=== PATIENT | female | born 1940 | race Two or more races ===

== ENCOUNTER 2018-03-11 23:43 | Observation (INO) | payer OTHER ==
--- OUTSIDE RECORDS SUMMARY | 2018-03-11 23:45 | XMS REPORT ---
:1940 [facility] Address [address] [place] [address] Care Team Providers Name Role Phone Unavailable Unavailable Unavailable Problems This patient has no known problems. Allergies, Adverse Reactions, Alerts This patient has no known allergies or adverse reactions. Medications This patient has no known medications.
[2018-03-12 00:30] LABS: Absolute Lymphocytes (CBC) 2.3 K/uL (0.7-4.9); Absolute Monocytes 0.8 K/uL (0.1-1.3); Absolute Neutrophil 4.8 K/uL (1.8-8.0); Basophils % 0.8 % (0-1.3); Eosinophils % 3.2 % (0-4.4); Lymphocytes % 27.9 % (15.3-44.8); Monocytes % 10.1 % (3.3-12.3); RBC Red Blood Cell Count 3.53 M/uL (3.86-4.86)
[2018-03-12 00:34] LABS: Protime INR 1.08
--- NOTE | 2018-03-12 00:46 | EDPHYS ---
Physician Documentation [facility] Name: Janell Zuniga Age: 77 yrs Sex: Female : 1940 Arrival Date: 03/11/2018 Time: 23:44 Bed 2 Private MD: ED Physician Chau Phipps HPI: 03/12 00:41 This 77 yrs old Female presents to ER via EMS with complaints of Chest Pain. tiffany 00:41 The patient or guardian reports chest pain that is located primarily in the substernal tiffany area, anterior chest wall. Onset: today. The pain does not radiate. Associated signs and symptoms: The patient has no apparent associated signs or symptoms. The chest pain is described as aching, a heaviness, causing indigestion. Modifying factors: The symptoms are alleviated by nothing. the symptoms are aggravated by nothing. Severity of pain: At its worst the pain was mild in the emergency department the pain is unchanged. Historical: - Allergies: 03/11 23:55 Codeine; tl2 - Home Meds: 23:55 Eliquis 5 mg oral tab 2 times per day [Active]; Lyrica 50 mg Oral 2 times per day tl2 [Active]; divalproex 125 mg oral cpSP 2 caps every 8 hours [Active]; Protonix 40 mg Oral grps 1 packet once daily [Active]; trazodone 100 mg Oral tab 1 tab [Active]; pravastatin 20 mg oral tab 1 tab once daily [Active]; aspirin 81 mg Oral chew 1 tab once daily [Active]; hydrochlorothiazide 12.5 mg Oral cap 1 cap once daily [Active]; isosorbide mononitrate 30 mg Oral Tb24 2 tabs once daily [Active]; - PMHx: 23:55 CAD; Diabetes - NIDDM; hemiparesis right; aphasia; Hypertension; CVA; tl2 - Immunization history:: Adult Immunizations up to date. - Social history:: Smoking status: Patient/guardian denies using tobacco. - Ebola Screening: : No symptoms or risks identified at this time. - Family history:: not pertinent. ROS: 03/12 00:41 Constitutional: Negative for fever, chills, and weight loss, Eyes: Negative for injury, tiffany pain, redness, and discharge, ENT: Negative for injury, pain, and discharge, Neck: Negative for injury, pain, and swelling, Cardiovascular: Negative for chest pain, palpitations, and edema, Respiratory: Negative for shortness of breath, cough, wheezing, and pleuritic chest pain, Abdomen/GI: Negative for abdominal pain, nausea, vomiting, diarrhea, and constipation, Back: Negative for injury and pain, : Negative for injury, bleeding, discharge, and swelling, MS/Extremity: Negative for injury and deformity, Skin: Negative for injury, rash, and discoloration, Neuro: Negative for headache, weakness, numbness, tingling, and seizure. Exam: 00:41 Constitutional: This is a well developed, well nourished patient who is awake, alert, tiffany and in no acute distress. Head/Face: Normocephalic, atraumatic. Eyes: Pupils equal round and reactive to light, extra-ocular motions intact. Lids and lashes normal. Conjunctiva and sclera are non-icteric and not injected. Cornea within normal limits. Periorbital areas with no swelling, redness, or edema. ENT: Nares patent. No nasal discharge, no septal abnormalities noted. Tympanic membranes are normal and external auditory canals are clear. Oropharynx with no redness, swelling, or masses, exudates, or evidence of obstruction, uvula midline. Mucous membranes moist. Neck: Trachea midline, no thyromegaly or masses palpated, and no cervical lymphadenopathy. Supple, full range of motion without nuchal rigidity, or vertebral point tenderness. No Meningismus. Chest/axilla: Normal chest wall appearance and motion. Nontender with no deformity. No lesions are appreciated. Cardiovascular: Regular rate and rhythm with a normal S1 and S2. No gallops, murmurs, or rubs. Normal PMI, no JVD. No pulse deficits. Respiratory: Lungs have equal breath sounds bilaterally, clear to auscultation and percussion. No rales, rhonchi or wheezes noted. No increased work of breathing, no retractions or nasal flaring. Abdomen/GI: Soft, non-tender, with normal bowel sounds. No distension or tympany. No guarding or rebound. No evidence of tenderness throughout. Back: No spinal tenderness. No costovertebral tenderness. Full range of motion. Skin: Warm, dry with normal turgor. Normal color with no rashes, no lesions, and no evidence of cellulitis. MS/ Extremity: Pulses equal, no cyanosis. Neurovascular intact. Full, normal range of motion. Neuro: Awake and alert, GCS 15, oriented to person, place, time, and situation. Cranial nerves II-XII grossly intact. Motor strength 5/5 in all extremities. Sensory grossly intact. Cerebellar exam normal. Normal gait. Psych: Awake, alert, with orientation to person, place and time. Behavior, mood, and affect are within normal limits. Vital Signs: 03/11 23:55 BP 146 / 78; Pulse 71; Resp 14; Temp 99(O); Pulse Ox 95% on R/A; Weight 49.9 kg; Height tl2 5 ft. 8 in. (172.72 cm); Pain 05/01; 03/12 00:30 BP 126 / 65; Pulse 60; Resp 18; Pulse Ox 98% on 2 lpm NC; tl2 01:15 BP 146 / 70; Pulse 68; Resp 18; Pulse Ox 98% on 2 lpm NC; tl2 02:30 BP 174 / 81; Pulse 81; Resp 18; Pulse Ox 98% on 2 lpm NC; tl2 03/11 23:55 Body Mass Index 16.73 (49.90 kg, 172.72 cm) tl2 MDM: 00:12 Patient medically screened. [facility] 00:41 Data reviewed: vital signs, nurses notes, lab test result(s), EKG, radiologic studies, tiffany plain films. 03/12 00:14 Order name: Basic Metabolic Panel; Complete Time: 01:08 tl2 03/12 00:14 Order name: CBC with Diff; Complete Time: 01:08 tl2 03/12 00:14 Order name: Hepatic Function; Complete Time: 01:08 tl2 03/12 00:14 Order name: Magnesium; Complete Time: 01:08 tl2 03/12 00:14 Order name: NT PRO-BNP; Complete Time: 01:08 tl2 03/12 00:14 Order name: Protime (+inr); Complete Time: 01:08 tl2 03/12 00:14 Order name: Troponin (emerg Dept Use Only); Complete Time: 01:08 tl2 03/12 00:39 Order name: Depakote; Complete Time: 01:08 tl2 03/12 01:29 Order name: Basic Metabolic Panel EDMS 03/12 01:29 Order name: Basic Metabolic Panel EDTX 03/12 01:29 Order name: CBC with Automated Diff EDMS 03/12 01:29 Order name: CBC with Automated Diff EDTX 03/12 01:29 Order name: Lipid Profile EDTX 03/12 01:29 Order name: Lipid Profile EDTX 03/12 00:14 Order name: XRAY Chest (1 view) tl2 03/12 00:14 Order name: EKG; Complete Time: 00:15 tl2 03/12 00:14 Order name: Cardiac monitoring; Complete Time: 00:14 tl2 03/12 00:14 Order name: EKG - Nurse/Tech; Complete Time: 00:14 tl2 03/12 00:14 Order name: IV Saline Lock; Complete Time: 00:14 tl2 03/12 00:14 Order name: Labs collected and sent; Complete Time: 00:14 tl2 03/12 00:14 Order name: O2 Per Protocol; Complete Time: 00:14 tl2 03/12 00:14 Order name: O2 Sat Monitoring; Complete Time: 00:14 tl2 03/12 01:29 Order name: CONS Physician Consult EDTX 03/12 01:29 Order name: Heart Healthy EDTX 03/12 01:29 Order name: Echo with Doppler EDTX 03/12 01:29 Order name: EKG Electrocardiogram EDTX 03/12 01:29 Order name: EKG Electrocardiogram EDTX 03/12 01:29 Order name: Troponin I EDTX 03/12 01:29 Order name: Troponin I EDTX 03/12 01:29 Order name: Troponin I [facility] Administered Medications: No medications were administered Disposition: 03/12/18 00:46 Hospitalization ordered by Ash Regalado for Observation. Preliminary diagnosis are Other chest pain, Type 2 diabetes mellitus. - Bed requested for Telemetry/MedSurg (observation). - Status is Observation. tl2 - Condition is Stable. - Problem is new. - Symptoms have improved. UTI on Admission? No Signatures: Dispatcher [employer] EDTX Chau Phipps MD MD cha Garcia, Cindy, RN RN cg Winifred Umanzor RN RN tl2 Corrections: (The following items were deleted from the chart) 02:10 00:46 Hospitalization Ordered by Ash Regalado MD for Observation. Preliminary cg diagnosis is Other chest pain; Type 2 diabetes mellitus. Bed requested for Telemetry/MedSurg (observation). Status is Observation. Condition is Stable. Problem is new. Symptoms have improved. UTI on Admission? No. tiffany 04:01 02:10 03/12/2018 00:46 Hospitalization Ordered by Ash Regalado MD for Observation. tl2 Preliminary diagnosis is Other chest pain; Type 2 diabetes mellitus. Bed requested for Telemetry/MedSurg (observation). Status is Observation. Condition is Stable. Problem is new. Symptoms have improved. UTI on Admission? No.
--- NOTE | 2018-03-12 00:46 | ER ---
Nurse's Notes [facility] Name: Janell Zuniga Age: 77 yrs Sex: Female : 1940 Arrival Date: 03/11/2018 Time: 23:44 Bed 2 Private MD: Diagnosis: Other chest pain;Type 2 diabetes mellitus Presentation: 03/11 23:45 Presenting complaint: EMS states: Pt c/o chest pain approx 2230 tonight, was given 3 tl2 nitros at skilled nursing. Pt stated chest pain was 4/10. Pt given 1 nitro and 324 aspirin per EMS, pt states pain is now 2/10. Pt also reports right sided weakness x 3 days. Transition of care: patient was received from another setting of care (long-term care facility), [place]. Onset of symptoms was March 11, 2018 at 22:30. Risk Assessment: Do you want to hurt yourself or someone else? Patient reports no desire to harm self or others. Initial Sepsis Screen: Does the patient meet any 2 criteria? No. Patient's initial sepsis screen is negative. Does the patient have a suspected source of infection? No. Patient's initial sepsis screen is negative. Care prior to arrival: Medication(s) given: ASA, 81 mg, x 4, Nitroglycerin, 0.4 mg SL x 1, IV initiated. 22 GA, in the right antecubital area, Glucose check: 126. 23:45 Method Of Arrival: EMS: [facility] tl2 23:45 Acuity: ANANT 3 tl2 Triage Assessment: 23:55 General: Appears in no apparent distress. uncomfortable, Behavior is calm, cooperative, tl2 appropriate for age. Pain: Complains of pain in chest Pain does not radiate. Pain currently is 2 out of 10 on a pain scale. Neuro: Level of Consciousness is awake, alert, obeys commands, Oriented to person, place, time, situation, Moves all extremities. Speech is normal, Facial symmetry appears normal. Cardiovascular: Chest pain is described as vague, mild, is located in anterior chest wall. Respiratory: Airway is patent Respiratory effort is even, unlabored, Respiratory pattern is regular, symmetrical. GI: No signs and/or symptoms were reported involving the gastrointestinal system. : No signs and/or symptoms were reported regarding the genitourinary system. Derm: Skin is pink, warm \T\ dry. Historical: - Allergies: 23:55 Codeine; tl2 - Home Meds: 23:55 Eliquis 5 mg oral tab 2 times per day [Active]; Lyrica 50 mg Oral 2 times per day tl2 [Active]; divalproex 125 mg oral cpSP 2 caps every 8 hours [Active]; Protonix 40 mg Oral grps 1 packet once daily [Active]; trazodone 100 mg Oral tab 1 tab [Active]; pravastatin 20 mg oral tab 1 tab once daily [Active]; aspirin 81 mg Oral chew 1 tab once daily [Active]; hydrochlorothiazide 12.5 mg Oral cap 1 cap once daily [Active]; isosorbide mononitrate 30 mg Oral Tb24 2 tabs once daily [Active]; - PMHx: 23:55 CAD; Diabetes - NIDDM; hemiparesis right; aphasia; Hypertension; CVA; tl2 - Immunization history:: Adult Immunizations up to date. - Social history:: Smoking status: Patient/guardian denies using tobacco. - Ebola Screening: : No symptoms or risks identified at this time. - Family history:: not pertinent. Screenin:58 Abuse screen: Denies threats or abuse. Nutritional screening: No deficits noted. tl2 Tuberculosis screening: No symptoms or risk factors identified. Fall Risk Gait- Weak (10 pts.). Assessment: 23:25 General: see triage assessment. tl2 03/12 01:00 Reassessment: Patient appears in no apparent distress at this time. Patient and/or tl2 family updated on plan of care and expected duration. Pain level reassessed. 02:00 Reassessment: Patient appears in no apparent distress at this time. Patient and/or tl2 family updated on plan of care and expected duration. Pain level reassessed. 03:00 Reassessment: Patient appears in no apparent distress at this time. Patient and/or tl2 family updated on plan of care and expected duration. Pain level reassessed. Vital Signs: 03/11 23:55 BP 146 / 78; Pulse 71; Resp 14; Temp 99(O); Pulse Ox 95% on R/A; Weight 49.9 kg; Height tl2 5 ft. 8 in. (172.72 cm); Pain 2/10; 03/12 00:30 BP 126 / 65; Pulse 60; Resp 18; Pulse Ox 98% on 2 lpm NC; tl2 01:15 BP 146 / 70; Pulse 68; Resp 18; Pulse Ox 98% on 2 lpm NC; tl2 02:30 BP 174 / 81; Pulse 81; Resp 18; Pulse Ox 98% on 2 lpm NC; tl2 03/11 23:55 Body Mass Index 16.73 (49.90 kg, 172.72 cm) tl2 ED Course: 03/11 23:44 Patient arrived in ED. tl2 23:47 Triage completed. tl2 23:55 Arm band placed on right wrist. tl2 23:58 Patient has correct armband on for positive identification. Bed in low position. Call tl2 light in reach. Side rails up X2. threat monitoring analyst on. Pulse ox on. NIBP on. 23:58 Maintain EMS IV. Dressing intact. Good blood return noted. Site clean \T\ dry. Gauge \T\ tl 2 site: 22 g R AC. Patient maintains SpO2 saturation greater than 95% on room air. 03/12 00:12 Chau Phipps MD is Attending Physician. [facility] 00:18 Inserted saline lock: 22 gauge in right hand, using aseptic technique. Blood collected. tl2 00:44 Ash Regalado MD is Hospitalizing Provider. [facility] 00:48 X-ray completed. Portable x-ray completed in exam room. Patient tolerated procedure sg4 well. 00:55 XRAY Chest (1 view) In Process Unspecified. [facility] 03:55 Winifred Umanzor, JOSEPH is Primary Nurse. tl2 03:58 No provider procedures requiring assistance completed. Patient admitted, IV remains in tl2 place. Administered Medications: No medications were administered Outcome: 00:46 Decision to Hospitalize by Provider. [facility] 03:58 Admitted to Med/surg accompanied by tech, via stretcher, room 209. tl2 03:58 Condition: stable 03:58 Discharge instructions given to patient, Instructed on the need for admit. 04:01 Patient left the ED. tl2 Signatures: Dispatcher [employer] EDChau Richardson MD MD cha Knox, Taylor, RN RN 2 Alessandro Hannah sg4
[2018-03-12 00:48] LABS: ALT/SGPT 12 U/L (12-78); AST/SGOT 7 U/L (15-37); Albumin 3.1 g/dL (3.4-5.0); Alkaline Phosphatase 63 U/L (45-117); BUN Blood Urea Nitrogen 17 mg/dL (7-18); Bicarbonate 27 mmol/L (21-32); Bilirubin Direct < 0.1 mg/dL (0-0.2); Bilirubin Total 0.2 mg/dL (0.2-1.0); Glucose Level 114 mg/dL (74-106); Magnesium 1.8 mg/dL (1.8-2.4); NT PRO-BNP 521 pg/mL (<450); Potassium 3.5 mmol/L (3.5-5.1); Protein, Total 6.3 g/dL (6.4-8.2); Sodium Level 136 mmol/L (136-145); Troponin (Emerg Dept Use Only) < 0.02 ng/mL (0.0-0.045)
[2018-03-12] MEDS ORDERED: ALPRAZOLAM 0.25 MG TABLET PO PRN (01:25)
[2018-03-12] MEDS ORDERED: ACETAMINOPHEN 500 MG TAB PO PRN (01:25)
[2018-03-12] MEDS ORDERED: MORPHINE 4 MG/ML SYR IV PRN (01:25)
[2018-03-12 06:32] LABS: HDL Cholesterol 43 mg/dL (40-60); LDL Cholesterol, Calculated 91 (<130); Troponin I < 0.02 ng/mL (0.0-0.045)
[2018-03-12] MEDS: METOPROLOL TAR 50 MG TAB PO SCH ×2 (08:24→21:51)
[2018-03-12] MEDS: LISINOPRIL 10 MG TAB PO SCH (08:27)
[2018-03-12 08:49] LABS: Urine Appearance CLEAR; Urine Bilirubin NEGATIVE (NEG); Urine Blood NEGATIVE (NEG); Urine Color YELLOW; Urine Glucose NEGATIVE (NEG); Urine Protein NEGATIVE (NEG); Urine Specific Gravity <=1.005 (1.005-1.030); Urine Urobilinogen 0.2 mg/dL (0.2-1.0)
[2018-03-12 09:00] LABS: Urine Microscopic Reflex NO UMIC
[2018-03-12] MEDS ORDERED: ENOXAPARIN 40 MG/0.4 ML SQ SCH (09:00)
[2018-03-12] MEDS ORDERED: ASPIRIN EC 81 MG TAB PO SCH (09:00)
--- NOTE | 2018-03-12 09:38 | P.HP ---
Certification for Inpatient Patient admitted to: Observation With expected LOS: <2 Midnights Patient will require the following post-hospital care: None Practitioner: I am a practitioner with admitting privileges, knowledge of patient current condition, hospital course, and medical plan of care. Services: Services provided to patient in accordance with Admission requirements found in Title 42 Section 412.3 of the Code of Federal Regulations Patient History Date of Service: 03/12/18 Reason for admission: Chest pain rule out acute coronary syndrome History of Present Illness: Patient is a 77-year-old who came to the hospital with chest discomfort. Patient history of a CVA and was left with aphasia as well as right-sided weakness. Patient also has tremors in appears to have some symptoms of Parkinson's disease. Patient came into the hospital with chest discomfort. Pain was mainly in the sternal region. She does have a hard time communicating because of the stroke. However she denies any diaphoresis. She was short of breath. There was some radiation to the shoulder. She was admitted to the hospital to be ruled out for acute coronary syndrome. Allergies codeine Allergy (Verified 03/12/18 02:24) Hives Home Medications: Apixaban [Eliquis] 5 mg PO BID 03/12/18 Aspirin Chewable [Aspirin Chewable*] 81 mg PO DAILY 03/12/18 Cholecalciferol (Vitamin D3) [Vitamin D3] 3,000 unit PO DAILY 03/12/18 Divalproex [Depakote Sprinkle*] 125 mg PO BID 03/12/18 Isosorbide Mononitrate [Isosorbide Mononitrate ER] 30 mg PO BID 03/12/18 Metformin HCl [Glucophage] 1,000 mg PO BID 03/12/18 Nitroglycerin 0.4 mg SL PRN 03/12/18 Pantoprazole [Protonix Tab*] 40 mg PO DAILY 03/12/18 Pravastatin Sodium 20 mg PO DAILY 03/12/18 Pregabalin [Lyrica*] 50 mg PO BID 03/12/18 Tramadol HCl [Ultram] 50 mg PO Q6HP PRN 03/12/18 Trazodone HCl [Desyrel] 100 mg PO BEDTIME 03/12/18 Vitamin B Complex [B Complex] 2 tab PO BID 03/12/18 hydroCHLOROthiazide [Hydrochlorothiazide*] 12.5 mg PO DAILY 03/12/18 - Past Medical/Surgical History Has patient received pneumonia vaccine in the past: No Diabetic: Yes -: hemiplegia hemiparesis following CVA right sided weakness -: aphasia -: HTN -: NIDDM -: heart sx - Family History Father Family History: Reviewed- Non-Contributory - Social History Smoking Status: Never smoker Alcohol use: No CD- Drugs: No Review of Systems 10-point ROS is otherwise unremarkable Physical Examination - Vital Signs Temperature: 98.9 F Blood Pressure: 157/69 Pulse: 64 Respirations: 18 Pulse Ox (%): 99 - Physical Exam General: Alert, In no apparent distress, Oriented x3 HEENT: Atraumatic, PERRLA, Mucous membr. moist/pink, EOMI, Sclerae nonicteric Neck: Supple, 2+ carotid pulse no bruit, No LAD, Without JVD or thyroid abnormality Respiratory: Clear to auscultation bilaterally, Normal air movement Cardiovascular: Regular rate/rhythm, Normal S1 S2, No murmurs Gastrointestinal: Normal bowel sounds, Soft and benign, Non-distended, No tenderness Musculoskeletal: No clubbing, No swelling, No tenderness Integumentary: No rashes Neurological: Sensation intact, Abnormal gait, Abnormal speech, Abnormal strength, Abnormal tone, Abnormal cranial nerve function, Abnormal reflexes, Abnormal affect Lymphatics: No axilla or inguinal lymphadenopathy - Studies Laboratory Data (last 24 hrs) 03/12/18 00:18: PT 12.7 H, INR 1.08 03/12/18 00:18: WBC 8.3, Hgb 10.4 L, Hct 30.0 L, Plt Count 329 03/12/18 00:18: Sodium 136, Potassium 3.5, BUN 17, Creatinine 1.08, Glucose 114 H, Magnesium 1.8, Total Bilirubin 0.2, AST 7 L, ALT 12, Alkaline Phosphatase 63 Assessment & Plan - Problems (Diagnosis) (1) Chest pain, rule out acute myocardial infarction Current Visit: Yes Status: Acute (2) History of stroke Current Visit: Yes Status: Acute (3) Parkinsonism Current Visit: Yes Status: Acute (4) Type 2 diabetes mellitus Current Visit: Yes Status: Acute (5) Hypertension Current Visit: Yes Status: Acute - Plan 1. Serial troponins and EKG 2. Cardiology consultation 3. Echocardiogram and outpatient stress test 4. Anti-platelet therapy, anti coagulation, beta-marilee, statin, and O2 as needed 5. IV morphine for pain 6. Nitro p.r.n. 7. Outpatient neurology follow-up for further workup of current symptoms including tremors Discharge Plan: Home Plan to discharge in: 48 Hours - Advance Directives Does patient have a Living Will: No Does patient have a Durable POA for Healthcare: No - Code Status/Comfort Care Code Status Assessed: Yes Code Status: Full Code Critical Care: No Time Spent Managing PTS Care (In Minutes): 50
--- NOTE | 2018-03-12 09:52 | RAD REPORT ---
EXAM DESCRIPTION: [place] Single View03/12/2018 12:54 am CLINICAL HISTORY: Chest pain COMPARISON: None FINDINGS: The lungs appear clear of acute infiltrate. The heart is mildly enlarged. Postsurgical changes involve the chest. IMPRESSION: No acute abnormalities displayed
[2018-03-12] MEDS ORDERED: MAGNESIUM SULFATE 1 gm IVPB 1 GM/100 ML BAG IV ONE (12:58)
[2018-03-12] MEDS ORDERED: POTASSIUM CL SA 10 MEQ TAB PO ONE (12:59)
[2018-03-12] MEDS ORDERED: PNEUMOCOCCAL VACCINE 0.5 ML IMVAC ONE (13:00)
[2018-03-12] MEDS ORDERED: INFLUENZA VACCINE (for 3y+) 0.5 ML DOSE IMVAC ONE (13:00)
[2018-03-12] MEDS ORDERED: NITROGLYCERIN 0.4 MG/TAB SL SCH (15:00)
--- NOTE | 2018-03-12 16:08 | EKG ---
Test Date: 2018-03-12 Test Time: 05:31:53 [employer]: RT MEASUREMENT RESULTS: Intervals: Rate: 63 CT: 146 QRSD: 112 QT: 430 QTc: 440 [place]: P: 32 CT: 146 QRS: -59 T: 65 INTERPRETIVE STATEMENTS: Normal sinus rhythm Left anterior fascicular block Nonspecific T wave abnormality Abnormal ECG No previous ECG available for comparison Electronically Signed On 03-12-18 16:07:55 ROTARY DUMP OPERATOR by Prasad Barnes
--- NOTE | 2018-03-12 16:09 | EKG ---
Test Date: 2018-03-11 Test Time: 23:55:52 Special Delivery Worker: CYNDI MEASUREMENT RESULTS: Intervals: Rate: 70 SC: 146 QRSD: 108 QT: 418 QTc: 451 [place]: P: 29 SC: 146 QRS: -64 T: 71 INTERPRETIVE STATEMENTS: Sinus rhythm with occasional premature ventricular complexes Left anterior fascicular block Anterior infarct, age undetermined Abnormal ECG No previous ECG available for comparison Electronically Signed On 03-12-18 16:08:06 LATIN TEACHER by Prasad Barnes
[2018-03-12] MEDS ORDERED: ISOSORBIDE MONO SR 30 MG TAB PO SCH (21:00)
[2018-03-12] MEDS: PREGABALIN 50 MG CAP PO SCH (21:50)
[2018-03-12] MEDS: APIXABAN 5 MG TABLET PO SCH (21:50)
[2018-03-12] MEDS: ATORVASTATIN 10 MG TAB PO SCH (21:51)
[2018-03-12] MEDS: DIVALPROEX NA 125 MG CAP PO SCH (21:51)
[2018-03-13 05:16] LABS: Absolute Lymphocytes (CBC) 1.9 K/uL (0.7-4.9); Absolute Neutrophil 4.8 K/uL (1.8-8.0); Basophils % 0.5 % (0-1.3); Eosinophils % 2.6 % (0-4.4); Hematocrit 34.3 % (36.0-45.0); Lymphocytes % 24.4 % (15.3-44.8); MPV 8.6 fL (7.6-11.3); Monocytes % 12.2 % (3.3-12.3)
[2018-03-13 05:34] LABS: Potassium 3.3 mmol/L (3.5-5.1)
[2018-03-13] MEDS ORDERED: POTASSIUM CL SA 10 MEQ TAB PO ONE (08:00)
[2018-03-13] MEDS ORDERED: HOME MED 1 EA UNK (Pravastatin Sodium [Pravastatin Sodium] 20 MG) PO SCH (09:00)
[2018-03-13] MEDS ORDERED: hydroCHLOROthiazide 12.5 MG CAP PO SCH (09:00)
[2018-03-13] MEDS: PREGABALIN 50 MG CAP PO SCH ×2 (09:35→20:41)
[2018-03-13] MEDS: ASPIRIN 81 MG CHEWABLE TABLET PO SCH (09:35)
[2018-03-13] MEDS: LISINOPRIL 10 MG TAB PO SCH (09:36)
[2018-03-13] MEDS: METOPROLOL TAR 50 MG TAB PO SCH ×2 (09:36→20:42)
[2018-03-13] MEDS: DIVALPROEX NA 125 MG CAP PO SCH ×2 (09:37→20:42)
[2018-03-13] MEDS: PANTOPRAZOLE 40MG TABLET PO SCH (09:37)
[2018-03-13] MEDS: APIXABAN 5 MG TABLET PO SCH ×2 (09:37→20:42)
--- NOTE | 2018-03-13 11:36 | P.PN ---
Subjective Date of Service: 03/13/18 Chief Complaint: Chest pain rule out acute coronary syndrome Subjective: No new changes, No C/O voiced, Improving Patient seen and examined at bedside. No family at bedside. Chart reviewed and case discussed with nursing staff. Review of Systems 10-point ROS is otherwise unremarkable Physical Examination - Vital Signs Temperature: 97.8 F Blood Pressure: 143/63 Pulse: 49 Respirations: 16 Pulse Ox (%): 92 - Physical Exam General: Alert, In no apparent distress, Confused HEENT: Atraumatic, PERRLA, EOMI Neck: Supple, JVD not distended Respiratory: Clear to auscultation bilaterally, Normal air movement Cardiovascular: Regular rate/rhythm, Normal S1 S2 Gastrointestinal: Normal bowel sounds, No tenderness Musculoskeletal: No tenderness Integumentary: No rashes Neurological: Normal speech, Normal tone, Normal affect Lymphatics: No axilla or inguinal lymphadenopathy Assessment And Plan - Current Problems (Diagnosis) (1) Chest pain, rule out acute myocardial infarction Current Visit: Yes Status: Acute (2) History of stroke Current Visit: Yes Status: Acute (3) Hypertension Current Visit: Yes Status: Acute (4) Parkinsonism Current Visit: Yes Status: Acute (5) Type 2 diabetes mellitus Current Visit: Yes Status: Acute - Plan 1. Serial troponins negative 2. Cardiology consultation, pending 3. Echocardiogram pending and outpatient stress test 4. Anti-platelet therapy, anti coagulation, beta-marilee, statin, and O2 as needed 5. IV morphine for pain 6. Nitro p.r.n. 7. Outpatient neurology follow-up for further workup of current symptoms including tremors
[2018-03-13] MEDS: ATORVASTATIN 10 MG TAB PO SCH (20:42)
--- NOTE | 2018-03-14 01:46 | CON ---
Date of Consultation: 03/12/[address] Garcia's service on 03/12/2018. I saw the patient on 03/12/2018. Reason For Consultation: Chest pain. 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 She has diabetes, has had a history of coronary artery disease. She is able to speak fairly clearly, although slow, but she is easy to understand. She came in with left-sided anterior chest pain that has been going on for about 2 days without any nausea or vomitin g or diaphoresis. Has had shortness of breath, but denied any PND, orthopnea, pedal edema, palpitati ons, or syncope. She has already ruled out for an [place]. Her BNP was 521, but otherwise she had a norm al chest x-ray. EKG was nonspecific. Troponin was negative. Her triglyceride was 220. Otherwise, the rest of her blood work was fairly normal. Past Medical History: As stated above. Allergies: CODEINE. Review of Systems: Negative. Social History: Negative. Family History: Negative. Medications: At home include Eliquis, aspirin, Depakote, metformin, Protonix, Pravachol, Lyrica, hyd rochlorothiazide, and nitroglycerin as needed. Physical Examination: General: She has right hemiparesis, aphasic, but understandable. Vital Signs: Were stable. She was in sinus rhythm, afebrile. HEENT: Negative. Neck: Supple without any bruit, lymphadenopathy, JVD, or thyromegaly. Chest: Clear to auscultation and percussion. Cardiac: Exam revealed a regular rhythm and rate with an aortic sclerosis murmur. No gallops or rub s. Abdomen: Benign. Extremities: Revealed no clubbing, cyanosis, or edema. Diagnostic Data: As stated earlier. Impression And Plan: 1.The patient with history of coronary artery disease with what sounds like stable angina. She has ruled out for myocardial infarction. I would continue her present regimen, but I would definitely ad d a beta-marilee to her regimen. She is already on aspirin. She is already on a statin. We can cer tainly see her as an outpatient. She does not need to stay in the hospital. We can consider doing a n outpatient Lexiscan on her. 2.Diabetes, well controlled. 3.Hypertriglyceridemia and dyslipidemia, on Pravachol. 4.Elevated BNP, nonspecific. 5.History of cerebrovascular accident with aphasia and right hemiparesis. The patient is taking Evette chandu and aspirin for that. 6.Finally, she has a history of neuropathy and gastroesophageal reflux disease. Both of those are s table. As stated earlier, continue present regimen. Add beta-blockers. Outpatient followup with Angela cheung. JOSE/ANGEL Voice ID: [id number] Report ID: [id number]
[2018-03-14] MEDS: ASPIRIN 81 MG CHEWABLE TABLET PO SCH (09:13)
[2018-03-14] MEDS: LISINOPRIL 10 MG TAB PO SCH (09:13)
[2018-03-14] MEDS: DIVALPROEX NA 125 MG CAP PO SCH (09:13)
[2018-03-14] MEDS: PANTOPRAZOLE 40MG TABLET PO SCH (09:14)
[2018-03-14] MEDS: METOPROLOL TAR 50 MG TAB PO SCH (09:14)
[2018-03-14] MEDS: PREGABALIN 50 MG CAP PO SCH (09:14)
[2018-03-14] MEDS: APIXABAN 5 MG TABLET PO SCH (09:15)
== END 2018-03-14 14:55 ==
LOC: ER 23:43 → ERHOLD 03-12 01:25 → 2ND 03-12 03:23
PROVIDERS: ADMIT Hospitalist; ATTEND Hospitalist
DX: R07.9 Chest pain, unspecified (principal); E11.9 Type 2 diabetes mellitus without complications; I69.320 Aphasia following cerebral infarction; I69.351 Hemiplegia and hemiparesis following cerebral infarction affecting right dominant side; G20 Parkinson's disease; I25.10 Atherosclerotic heart disease of native coronary artery without angina pectoris; I10 Essential (primary) hypertension; Z79.82 Long term (current) use of aspirin; Z23 Encounter for immunization
CPT/HCPCS: 36415 ×2; 71045; 80048 ×2; 80061; 80076; 80164; 81003; 83735; 83880; 84132; 84484 ×3; 85025 ×2; 85610; 90670; 93005 ×2; 99285; G0008; G0009; G0378 ×2; J1650; J3475; Q2035

== ENCOUNTER 2018-03-21 21:08 | Emergency (ER) | payer OTHER ==
--- OUTSIDE RECORDS SUMMARY | 2018-03-21 21:11 | XMS REPORT | Clinical Summary ---
:1940 Author Organization [facility] Address [address] [place] [id number] Care Team Providers Name Role Phone Shala Liang MD Primary Care Provider Allergies Active Allergy Reactions Severity Noted Date Comments Codeine Itching 05/14/2016 Medications Medication Sig Dispensed Refills Start Date End Date Status PREGABALIN (LYRICA Take 100 mg by 0 Active ORAL) mouth. LISINOPRIL ORAL Take by mouth. 0 Active traMADol (ULTRAM) 50 Take 50 mg by 0 Active mg tablet mouth every 6 (six) hours as needed for moderate pain. albuterol (PROAIR Inhale 2 puffs 0 Active HFA,PROVENTIL every 6 (six) HFA,VENTOLIN HFA) 90 hours as needed mcg/actuation inhaler for wheezing. linagliptin Take 5 mg by mouth 0 Active (TRADJENTA) 5 mg daily. tablet atorvastatin (LIPITOR) Take 10 mg by 0 Active 10 MG tablet mouth daily. azilsartan medoxomil Take 40 mg by 0 Active (EDARBI) 40 mg tablet mouth. potassium chloride Take 20 mEq by 0 Active (KLOR-CON) 20 mEq mouth 2 (two) packet times a day. Active Problems Problem Noted Date Arthritis of right hip 06/30/2016 Encounters Date Type Specialty Care Team Description 01/10/2018 Orders Only Orthopedic Surgery Kunal Bella, Pain in both knees, Tara unspecified chronicity (Primary Dx) after 03/20/2017 Social History Tobacco Use Types Packs/Day Years Used Date Never Smoker Alcohol Use Drinks/Week oz/Week Comments No Sex Assigned at Date Recorded Not on file Job Start Date Occupation Industry Not on file Not on file Not on file Travel History Travel Start Travel End No recent travel history available. Last Filed Vital Signs Not on file Plan of Treatment Health Maintenance Due Date Last Done Comments SHINGLES VACCINES (1 of 2) 1988 PNEUMOCOCCAL POLYSACCHARIDE VACCINE AGE 65 AND OVER 10/21/2003 PNEUMOCOCCAL-13 10/21/2003 INFLUENZA VACCINE 2017 Implants Implanted Type Area Security Police Device Shelf Model / Identifier Expiration Serial / Lot Date Shell [employer] Acetabular 50 - [id number] IPM IMPLANT Right: [employer] 05/17/2026 [id number] / Implanted: Qty: 1 on 06/30/2016 by Eduardo Flores MD DEVICES Hip / [id number] [id number] Neutral E1 Liner 36mm D - [id number] IPM IMPLANT Right: [employer] [id number] / Implanted: Qty: 1 on 06/30/2016 by Eduardo Flores MD DEVICES Hip / [id number] Cer Bioloxd Mod Hd 36mm -3 Nk - [id number] IPM IMPLANT Right: [employer] 04/14/2026 [id number] / Implanted: Qty: 1 on 06/30/2016 by Eduardo Flores MD DEVICES Hip / [id number] Tprlc 133 Mp Full Prof Type1 Pps So 8.0 - [id number] IPM IMPLANT Right: [employer] 03/20/2026 [id number] / Implanted: Qty: 1 on 06/30/2016 by Eduardo Flores MD DEVICES Hip / [id number] Screw Bone Slf-Tap 6.5x15mm Trilogy - [id number] Orthopedic Right: [employer] 02/18/2026 [id number] / Implanted: Qty: 1 on 06/30/2016 by Eduardo Flores MD Trauma Hip / Implants [id number] Screw Bone Slf-Tap 6.5x20mm Trilogy - [id number] Orthopedic Right: [employer] 04/21/2026 [id number] / Implanted: Qty: 1 on 06/30/2016 by Eduardo Flores MD Trauma Hip / Implants [id number] Results Not on fileafter 03/20/2017 Insurance Payer Benefit Plan / Group Subscriber ID Type Phone Address MEDICARE MEDICARE PART A AND B xxxxxxxxxx Medicare [place], [place] MEDICA[place] MEDICAID xxxxxxxxx Medicaid (Home) [address] [place] [phone] Advance Directives Patient has advance care planning documents on file. For more information, please contact:Rodríguez [address] [place] [address]
--- OUTSIDE RECORDS SUMMARY | 2018-03-21 21:12 | XMS REPORT | Continuity of Care Document ---
:1940 Author Organization Interface Problems Problem Status Onset Classification Date Comments Source Date Reported ACUTE CHEST Active 01/19/20 [facility] PAIN 18 [place] HIGH BLOOD Active 01/19/20 [facility] PRESSURE 18 [place] DVT Active 08/20/19 [facility] 16 DVT LEFT LEG Active 08/20/19 [facility] 16 Chest pain Active Problem 08/30/2015 [facility] CHF - Active Problem 08/30/2015 [facility] Congestive heart failure DM - Diabetes Active Problem 08/30/2015 [facility] mellitus Hepatitis C Active Problem 08/30/2015 [facility] HTN (<span Resolved Problem 08/30/2015 [facility] ID="[id number]">Confirmed</s alfonso>) Hyperlipemia Resolved Problem 08/30/2015 [facility] Jaundice Resolved Problem 08/30/2015 [facility] Stroke Resolved Problem 08/30/2015 [facility] ACUTE EMBOLISM Active [facility] AND THROMBOSIS OF UNSPECI CHEST PAIN, Active [facility] UNSPECIFIED [place] Medications Medication Details Route Status Patient Ordering Order Source Instructions Provider Date Metformin 500 mg, 1 tab, Inactive Route: PO, Drug 2015 [facility] form: TAB, Daily, Dosing Weight 53.7, kg, Start date: 08/27/15 9:00:00 CDT, Duration: 30 day, Stop date: 09/25/15 9:00:00 CDTNotes: (Same as: Glucophage) Take with meal Lisinopril 10 mg, 1 tab, Inactive Route: PO, Drug 2015 [facility] form: TAB, Daily, Dosing Weight 53.7, kg, Start date: 08/27/15 9:00:00 CDT, Duration: 30 day, Stop date: 09/25/15 9:00:00 CDTNotes: (Same as: Prinivil, Zestril) atorvastatin 10 mg, 1 tab, No Longer Route: PO, Drug Active 2015 [facility] form: TAB, Bedtime, Dosing Weight 53.7, kg, Start date: 08/26/15 21:00:00 CDT, Duration: 30 day, Stop date: 09/24/15 21:00:00 CDTNotes: (Same As: Lipitor) apixaban 5 mg See Instructions, Active oral tablet 2 tab PO Q12H for 2015 3 days then 1 tab two times daily for 30 days, # 72 tab, 0 Refill(s) Lasix 20 mg, 2 mL, Inactive Route: IV, Drug 2015 [facility] form: INJ, ONCE, Start date: 08/24/15 21:42:00 CDT, Stop date: 08/24/15 21:42:00 CDTNotes: (Same as: Lasix) Eliquis 10 mg, 2 tab, No Longer Route: PO, Drug Active 2015 [facility] form: TAB, Q12H, Dosing Weight 52.926, kg, Start date: 08/24/15 21:00:00 CDT, Duration: 30 day, Stop date: 09/23/15 9:00:00 CDTNotes: Same as: Eliquis Eliquis 10 mg, 4 tab, Inactive Route: PO, Drug 2015 [facility] form: TAB, BID, Start date: 08/24/15 17:00:00 CDT, Duration: 30 day, Stop date: 09/23/15 9:00:00 CDTNotes: Same as: Eliquis acetaminophen-h 1 tab, Route: PO, No Longer ydrocodone 325 Drug Form: TAB, Active 2015 mg-5 mg oral Q6H, PRN Pain tablet Score 4-6, Start date: 08/24/15 14:43:00 CDT, Duration: 30 day, Stop date: 09/23/15 14:42:00 CDTNotes: (Same as: [place] 325/5) Do not exceed 4gm/day of acetaminophen. atorvastatin 10 10 mg=1 tab, PO, Active mg oral tablet Bedtime, # 30 2015 tab, 0 Refill(s) tramadol 50 mg=1 tab, PO, Active hydrochloride Q6H, PRN Pain, # 2015 50 MG Oral 40 tab, 0 Tablet Refill(s) ProAir HFA 1 - 2 puffs, PO, Active Q4H, PRN Wheezing 2015 / cough / shortness of breath, # 1 ea, 0 Refill(s) lisinopril 10 10 mg=1 tab, PO, Active mg oral tablet Daily, # 30 tab, 2015 0 Refill(s) Naproxen 500 MG 500 mg=1 tab, PO, No Longer Oral Tablet Daily, with food, Active 2015 [facility] [Naprosyn] # 30 tab, 0 Refill(s) Metformin 500 mg, PO, Active Daily, 0 2015 Refill(s) Eliquis 10 mg, 4 tab, Inactive Route: PO, Drug 2015 [facility] form: TAB, ONCE, Start date: 08/24/15 9:30:00 CDT, Stop date: 08/24/15 9:30:00 CDTNotes: Same as: Eliquis Aspirin 81 MG 81 mg, 1 tab, No Longer Enteric Coated Route: PO, Drug Active 2015 [facility] Tablet form: ECTAB, Daily, Dosing Weight 52.926, kg, Start date: 08/24/15 9:00:00 CDT, Duration: 30 day, Stop date: 09/22/15 9:00:00 CDTNotes: Do not crush or chew. (Same As: Ecotrin) Nitroglycerin 0.4 mg, 1 tab, No Longer Route: SL, Drug Active 2015 [facility] form: TAB, Q5Min, Dosing Weight 52.926, kg, PRN Chest Pain, Start date: 08/23/15 18:32:00 CDT, Duration: 3 doses or times, Stop date: Limited # of times 1/2 NS 1000 mL 1,000 mL, Rate: Inactive 50 ml/hr, Infuse 2015 [facility] over: 20 hr, Route: IV, Dosing Weight 52.926 kg, Total Volume: 1,000, Start date: 08/23/15 17:50:00 CDT, Duration: 30 day, Stop date: 09/22/15 17:49:00 CDT Labetalol 20 mg, 4 mL, Inactive Route: IV, Drug 2015 [facility] form: INJ, ONCE, Dosing Weight 52.926, kg, Start date: 08/23/15 17:50:00 CDT, Stop date: 08/23/15 17:50:00 CDTNotes: (Same as: Normodyne, Trandate) Push over 2 minutes Give bolus over 2-3 minutes. Sodium Chloride 1,000 mL, Rate: No Longer 0.45% IV 1,000 50 ml/hr, Infuse Active 2015 [facility] mL over: 20 hr, Route: IV, Dosing Weight 52.926 kg, Total Volume: 1,000, Start date: 08/23/15 8:00:00 CDT, Duration: 30 day, Stop date: 09/22/15 7:59:00 CDT trazodone 50 mg 50 mg, 1 tab, No Longer oral tablet Route: PO, Drug Active 2015 [facility] form: TAB, Bedtime, PRN Sleep, Start date: 08/23/15 1:00:00 CDT, Duration: 30 day, Stop date: 09/22/15 0:59:00 CDTNotes: (Same As: Desyrel) Sodium Chloride 250 mL, Route: No Longer 0.9% IV IVPB, Start date: Active 2015 [facility] 08/21/15 20:56:00 CDT, Duration: 30 day, Stop date: 09/20/15 20:55:00 CDT, PRN Line Flush BD Normal 10 mL, Route: No Longer Saline Flush IVP, Drug Form: Active 2015 [facility] INJ, PRN, PRN Line Flush, Start date: 08/21/15 20:56:00 CDT, Duration: 30 day, Stop date: 09/20/15 20:55:00 CDTNotes: (Same as: BD Posiflush) Sodium Chloride 250 mL, Infuse Inactive 0.154 MEQ/ML Over: 1 hr, 2015 [facility] Injectable Route: IV, Solution ONCALL, Priority: Routine, Dosing Weight 52.926 kg, Start date: 08/21/15 17:00:00 CDT, Duration: 1 doses or times Lovenox 50 mg, 0.5 mL, No Longer Route: SUB-Q, Active 2015 [facility] Drug form: INJ, [id number], Dosing Weight 52.926, kg, Start date: 08/21/15 17:00:00 CDT, Duration: 30 day, Stop date: 09/20/15 12:00:00 CDTNotes: Nurse to ensure documentation of patient education per anticoagulation policy. (Same as: Lovenox) Sodium Chloride 750 mL, Rate: 75 Inactive 0.154 MEQ/ML ml/hr, Infuse 2015 [facility] Injectable over: 10 hr, Solution Route: IV, Dosing Weight 52.926 kg, Total Volume: 750, Start date: 08/21/15 16:16:00 CDT, Duration: 10 hr, Stop date: 08/22/15 2:15:00 CDT Xarelto 15 mg, 1 tab, Inactive Route: PO, Drug 2015 [facility] form: TAB, Q12H, Dosing Weight 54.545, kg, Start date: 08/21/15 9:00:00 CDT, Duration: 30 day, Stop date: 09/19/15 21:00:00 CDTNotes: (Same as: Xarelto) Administer with food Insulin, 2 unit, 0.02 mL, No Longer Aspart, Human Route: SUB-Q, Active 2015 [facility] Drug form: SOLN, TID-Before Meals, Dosing Weight 54.545, kg, PRN Blood Glucose Results, Start date: 08/20/15 19:55:00 CDT, Duration: 30 day, Stop date: 09/19/15 19:54:00 CDTNotes: Roll in palms of hands gently; Do not shake vigorously. (Same as: NovoLOG) "single patient use only" WASTE: F/P - Black; E - Municipal Trash Bin Stable for 28 days at room temperature. Expires in days from Dat e Dextrose 50% 12.5 gm, 25 mL, No Longer Syringe Route: IVP, Drug Active 2015 [facility] Form: INJ, Dosing Weight 54.545, kg, PRN, PRN Blood Glucose Results, Start date: 08/20/15 19:55:00 CDT, Duration: 30 day, Stop date: 09/19/15 19:54:00 CDT Glucagon 1 mg, Route: IM, No Longer Drug form: Active 2015 [facility] PDR/INJ, PRN, Dosing Weight 54.545, kg, PRN Blood Glucose Results, Start date: 08/20/15 19:55:00 CDT, Duration: 30 day, Stop date: 09/19/15 19:54:00 CDT 1/2 NS 1,000 mL 1,000 mL, Rate: No Longer 40 ml/hr, Infuse Active 2015 [facility] over: 25 hr, Route: IV, Dosing Weight 54.545 kg, Total Volume: 1,000, Start date: 08/20/15 19:46:00 CDT, Stop date: 08/23/15 7:59:00 CDT Lactulose 20 gm, 30 ml, No Longer Route: PO, Drug Active 2015 [facility] Form: SYRP, Dosing Weight 54.545, kg, Q8H, PRN Constipation, Start date: 08/20/15 19:42:00 CDT, Duration: 30 day, Stop date: 09/19/15 19:41:00 CDTNotes: (Same as:Chronulac) Maalox Advanced 30 mL, Route: PO, No Longer Regular Drug Form: SUSP, Active 2015 [facility] Strength SUSP Dosing Weight 54.545, kg, QID, PRN Indigestion, Start date: 08/20/15 19:42:00 CDT, Duration: 30 day, Stop date: 09/19/15 19:41:00 CDTNotes: (aluminum hydroxide-magnesi um hyd-simethicone [phone]/5ml 30 ml ud ABILIO) Morphine 2 mg, 1 mL, No Longer Route: IVP, Drug Active 2015 [facility] form: INJ, Q4H, Dosing Weight 54.545, kg, PRN Pain Score 7-10, Start date: 08/20/15 19:42:00 CDT, Duration: 30 day, Stop date: 09/19/15 19:41:00 CDTNotes: (Same as:MORPhine Sulfate) Acetaminophen 1 tab, Route: PO, No Longer 325 MG / Drug Form: TAB, Active 2015 [facility] Hydrocodone Dosing Weight Bitartrate 5 MG 54.545, kg, Q6H, Oral Tablet Start date: [[place] 5/325] 08/20/15 19:42:00 CDT, Stop date: 09/19/15 18:00:00 CDTNotes: (Same as: [place] 325/5) Do not exceed 4gm/day of acetaminophen. Tylenol 650 mg, 2 tab, No Longer Route: PO, Drug Active 2015 [facility] form: TAB, Q6H, Dosing Weight 54.545, kg, PRN Pain Score 1-3, Start date: 08/20/15 19:41:00 CDT, Duration: 30 day, Stop date: 09/19/15 19:40:00 CDTNotes: Do not exceed 4 gm/day. (Same as: Tylenol) Zofran 4 mg, 2 mL, No Longer Route: IVP, Drug Active 2015 [facility] form: INJ, Q6H, Dosing Weight 54.545, kg, PRN Nausea, Start date: 08/20/15 19:41:00 CDT, Duration: 30 day, Stop date: 09/19/15 19:40:00 CDTNotes: (Same as: Zofran) MEDICATION WASTE Product Size: 4 mg Product Wasted: ___ mg Enoxaparin 50 mg, 0.5 mL, Inactive Route: SUB-Q, 2015 [facility] Drug form: INJ, ONCE, Dosing Weight 54.545, kg, Start date: 08/20/15 19:39:00 CDT, Stop date: 08/20/15 19:39:00 CDTNotes: Nurse to ensure documentation of patient education per anticoagulation policy. (Same as: Lovenox) Allergies, Adverse Reactions, Alerts Substance Category Reaction Severity Reaction Status Date Comments Source type Reported codeine Assertion formerly [facility] Drug Active remember allergy [facility] reaction Immunizations Immunization Date Given Site Status Last Updated Comments Source Results Order Name Results Value Reference Date Interpretation Comments Source Range Chest [facility] Clinical Indication: - AMS; 01/19 - [facility] DX DX /2017 - [place] Comparison: 02/15/2013 Read by: Charli Rod MD Dictated Date/time: 01/19/18 21:02 FINDINGS: Electronically Signed by: Charli Rod MD 01/19/18 21:03 FINAL REPORT AP chest radiographs shows normal lung volumes without interstitial or airspace opacities, pleural effusions or pneumothorax. The heart size and pulmonary vasculature are normal. The aorta is tortuous and atherosclerotic. The trachea is midline. There are no clinically significant osseous abnormalities noted. There are sternal wires in stable position. IMPRESSION: No chest radiographic evidence of acute cardiopulmonary disease. SL: WR4-M CHEM PANEL eGFR 62 08/26 Result Comment: The eGFR is calculated using the CKD-EPI formula. In most young, healthy individuals the eGFR will be >90 mL/ min/1.73m2. The eGFR declines with age. An eGFR of 60-89 may be normal in mL/min/1.7 /2015 some populations, particularly the elderly, for whom the CKD-EPI formula has not been extensively validated. Use of the eGFR is not recommended in the following populations: [address] Individuals with unstable creatinine concentrations, including patients and those with serious co-morbid conditions. Patients with extremes in muscle mass or diet. The data above are obtained from the National Kidney Disease Education Program (NKDEP) which additionally recommends that when the eGFR is used in patients with extremes of body mass index for purposes of drug dosing, the eGFR should be multiplied by the estimated BMI. CHEM PANEL Glucose Lvl 167 mg/dL 70 - 99 08/26 [facility] CHEM PANEL Creatinine 0.90 mg/dL 0.50 - 08/26 Lvl 1.40 /2015 [facility] CHEM PANEL BUN 12 mg/dL 7 - 22 08/26 [facility] CHEM PANEL Sodium Lvl 135 meq/L 135 - 145 08/26 [facility] CHEM PANEL Chloride Lvl 101 meq/L 95 - 109 08/26 [facility] CHEM PANEL Potassium 3.9 meq/L 3.5 - 5.1 08/26 Lvl /2015 [facility] CHEM PANEL Calcium Lvl 8.8 mg/dL 8.5 - 10.5 08/26 [facility] CHEM PANEL CO2 25 meq/L 24 - 32 08/26 [facility] CHEM PANEL AGAP 12.9 meq/L 10.0 - 08/26 MH 20.0 [facility] HEMATOLOGY WBC 13.4 K/CMM 3.7 - 10.4 08/26 [facility] HEMATOLOGY RBC 3.69 M/CMM 4.20 - 08/26 MH 5.40 /2015 [facility] HEMATOLOGY Hgb 10.3 g/dL 12.0 - 08/26 MH 16.0 /2015 [facility] HEMATOLOGY MCV 84.9 fL 80.0 - 08/26 MH 98.0 /2015 [facility] HEMATOLOGY Hct 31.3 % 36.0 - 08/26 MH 48.0 /2015 [facility] MCH 28.0 pg 27.0 - 06/ MH 31.0 /2015 [facility] Platelet 346 K/CMM 133 - 450 08/26 [facility] MPV 8.6 fL 7.4 - 10.4 / [facility] RDW 14.6 % 11.5 - 06/ MH 14.5 /2015 [facility] MCHC 33.0 g/dL 32.0 - 08/26 36.0 [facility] Monocytes # 1.3 K/CMM 0.0 - 0.8 08/26 [facility] Basophils # 0.0 K/CMM 0.0 - 0.2 08/26 [facility] Eosinophils 0.5 K/CMM 0.0 - 0.5 / MH # /2015 [facility] Lymphocytes 16.2 % 20.0 - 06/07 MH 40.0 /2015 [facility] HEMATOLOGY Segs 70.2 % 45.0 - 06/07 MH 75.0 /2015 [facility] Lymphocytes 2.2 K/CMM 1.0 - 5.5 /07 MH # /2015 [facility] Segs-Bands # 9.4 K/CMM 1.5 - 8.1 08/26 [facility] Basophils 0.4 % 0.0 - 1.0 08/26 [facility] Eosinophils 3.7 % 0.0 - 4.0 08/26 [facility] Monocytes 9.5 % 2.0 - 12.0 08/26 [facility] ELECTROLYT AGAP 11.5 meq/L 10.0 - 08/25 ES 20.0 /2015 [facility] ELECTROLYT eGFR 72 08/25 Result Comment: The eGFR is calculated using the CKD-EPI formula. In most young, healthy individuals the eGFR will be >90 mL/ min/1.73m2. The eGFR declines with age. An eGFR of 60-89 may be normal in ES mL/min/1. some populations, particularly the elderly, for whom the CKD-EPI formula has not been extensively validated. Use of the eGFR is not recommended in the following populations: [address] Individuals with unstable creatinine concentrations, including patients and those with serious co-morbid conditions. Patients with extremes in muscle mass or diet. The data above are obtained from the National Kidney Disease Education Program (NKDEP) which additionally recommends that when the eGFR is used in patients with extremes of body mass index for purposes of drug dosing, the eGFR should be multiplied by the estimated BMI. ELECTROLYT Chloride Lvl 104 meq/L 95 - 109 08/25 [facility] ELECTROLYT CO2 26 meq/L 24 - 32 08/25 [facility] ELECTROLYT Calcium Lvl 8.8 mg/dL 8.5 - 10.5 08/25 [facility] ELECTROLYT Glucose Lvl 165 mg/dL 70 - 99 08/25 [facility] ELECTROLYT BUN 13 mg/dL 7 - 22 08/25 [facility] ELECTROLYT Potassium 3.5 meq/L 3.5 - 5.1 08/25 [facility] Lvl /2015 [facility] ELECTROLYT Creatinine 0.80 mg/dL 0.50 - 08/25 [facility] Lvl 1.40 [facility] ELECTROLYT Sodium Lvl 138 meq/L 135 - 145 08/25 [facility] HEMATOLOGY Hct 31.0 % 36.0 - 08/25 48.0 [facility] HEMATOLOGY RBC 3.68 M/CMM 4.20 - 08/25 5.40 /2015 [facility] HEMATOLOGY MCH 27.9 pg 27.0 - 08/25 31.0 [facility] HEMATOLOGY Hgb 10.3 g/dL 12.0 - 08/25 16.0 [facility] HEMATOLOGY WBC 12.2 K/CMM 3.7 - 10.4 08/25 [facility] HEMATOLOGY MCV 84.3 fL 80.0 - 08/25 98.0 [facility] HEMATOLOGY RDW 14.8 % 11.5 - 08/25 14.5 [facility] HEMATOLOGY MCHC 33.2 g/dL 32.0 - 08/25 36.0 [facility] HEMATOLOGY MPV 8.7 fL 7.4 - 10.4 08/25 [facility] Platelet 320 K/CMM 133 - 450 08/25 [facility] HEMATOLOGY Basophils # 0.1 K/CMM 0.0 - 0.2 08/25 /2015 [facility] HEMATOLOGY Monocytes # 1.2 K/CMM 0.0 - 0.8 08/25 /2015 [facility] HEMATOLOGY Eosinophils 0.7 K/CMM 0.0 - 0.5 08/25 MH # /2016 [facility] HEMATOLOGY Basophils 0.5 % 0.0 - 1.0 08/25 /2015 [facility] HEMATOLOGY Segs-Bands # 8.2 K/CMM 1.5 - 8.1 08/25 [facility] HEMATOLOGY Lymphocytes 2.0 K/CMM 1.0 - 5.5 08/25 MH # /2016 [facility] HEMATOLOGY Segs 67.4 % 45.0 - 06/ MH 75.0 /2015 [facility] HEMATOLOGY Lymphocytes 16.3 % 20.0 - 08/25 MH 40.0 /2015 [facility] HEMATOLOGY Monocytes 9.8 % 2.0 - 12.0 08/25 [facility] HEMATOLOGY Eosinophils 6.0 % 0.0 - 4.0 08/25 [facility] CHEM PANEL eGFR 55 08/24 Result Comment: The eGFR is calculated using the CKD-EPI formula. In most young, healthy individuals the eGFR will be >90 mL/ min/1.73m2. The eGFR declines with age. An eGFR of 60-89 may be normal in MH mL/min/1. some populations, particularly the elderly, for whom the CKD-EPI formula has not been extensively validated. Use of the eGFR is not recommended in the following populations: [facility] 3m2 Individuals with unstable creatinine concentrations, including patients and those with serious co-morbid conditions. Patients with extremes in muscle mass or diet. The data above are obtained from the National Kidney Disease Education Program (NKDEP) which additionally recommends that when the eGFR is used in patients with extremes of body mass index for purposes of drug dosing, the eGFR should be multiplied by the estimated BMI. CHEM PANEL AGAP 11.5 meq/L 10.0 - 06 MH 20.0 [facility] CHEM PANEL Potassium 3.5 meq/L 3.5 - 5.1 08/24 Lvl /2015 [facility] CHEM PANEL Chloride Lvl 105 meq/L 95 - 109 08/24 [facility] CHEM PANEL Calcium Lvl 8.5 mg/dL 8.5 - 10.5 08/24 [facility] CHEM PANEL CO2 26 meq/L 24 - 32 08/24 [facility] CHEM PANEL Creatinine 1.00 mg/dL 0.50 - 06/ MH Lvl 1.40 /2015 [facility] CHEM PANEL Sodium Lvl 139 meq/L 135 - 145 / [facility] CHEM PANEL Glucose Lvl 145 mg/dL 70 - 99 08/24 [facility] CHEM PANEL BUN 20 mg/dL 7 - 22 08/24 /2015 [facility] HEMATOLOGY Lymphocytes 2.5 K/CMM 1.0 - 5.5 06/05 MH # /2016 [facility] HEMATOLOGY Segs-Bands # 5.4 K/CMM 1.5 - 8.1 08/24 [facility] HEMATOLOGY Basophils 0.5 % 0.0 - 1.0 / [facility] HEMATOLOGY Eosinophils 8.0 % 0.0 - 4.0 08/24 [facility] HEMATOLOGY Monocytes 11.3 % 2.0 - 12.0 08/24 [facility] HEMATOLOGY Lymphocytes 25.3 % 20.0 - 06/ 40.0 /2015 [facility] HEMATOLOGY Segs 54.9 % 45.0 - 08/24 75.0 /2015 [facility] HEMATOLOGY Basophils # 0.1 K/CMM 0.0 - 0.2 08/24 [facility] HEMATOLOGY Monocytes # 1.1 K/CMM 0.0 - 0.8 08/24 [facility] HEMATOLOGY Eosinophils 0.8 K/CMM 0.0 - 0.5 / MH # /2015 [facility] HEMATOLOGY MCV 85.3 fL 80.0 - 08/24 98.0 /2015 [facility] HEMATOLOGY Platelet 256 K/CMM 133 - 450 08/24 [facility] HEMATOLOGY MPV 9.1 fL 7.4 - 10.4 08/24 [facility] HEMATOLOGY MCHC 32.8 g/dL 32.0 - 06/ 36.0 /2015 [facility] HEMATOLOGY RDW 15.0 % 11.5 - 06/05 14.5 /2015 [facility] HEMATOLOGY MCH 28.0 pg 27.0 - 06 31.0 /2015 [facility] HEMATOLOGY Hgb 9.6 g/dL 12.0 - 06/05 16.0 /2015 [facility] HEMATOLOGY Hct 29.4 % 36.0 - 06/05 MH 48.0 /2016 [facility] HEMATOLOGY WBC 9.9 K/CMM 3.7 - 10.4 / [facility] HEMATOLOGY RBC 3.44 M/CMM 4.20 - 06/ MH 5.40 /2016 [facility] HEMATOLOGY POC 226 s 08/22 MH Activated /2015 [facility] Clotting Time HEMATOLOGY POC 222 s 08/22 MH Activated /2015 [facility] Clotting Time HEMATOLOGY POC 183 s 08/22 MH Activated /2015 [facility] Clotting Time Abdominal Abdominal 08/21 - Aorta with Aorta with /2015 - [facility] runoff CTA runoff CTA Result type: Cardiology Report Result date: 08/22/2015 00:00 CDT Result status: Auth (Verified) Electronically Signed by: Héctor Grace 05/18/16 12:55 FINAL REPORT Result title: Cardiology Performed by: Caity Cody MD on 08/22/2015 15:55 CDT Signed by: Caity Cody MD on 09/02/2015 15:37 CDT Encounter info: [id number], [facility], Inpatient, 08/20/2015 - 2015 Contributor system: ESCRIPTION * Final Report * CARDI (Verified) PATIENT NAME: RONALD ALLEN DATE OF SERVICE: 08/22/2015 *_*_* STUDIES CTV/CTA of the aorta/inferior vena cava and femoral vein/femoral artery runoff. INDICATION FOR STUDY 1. Acute left lower extremity deep venous thrombosis. 2. Back pain. FINDINGS Aortic findings: Somewhat tortuous but patent abdominal and thoracic aorta is noted with nonobstructive calcification extending from the infrarenal abdominal aorta. Patent renal arteries bilaterally, m esenteric arteries on limited views, Patent inflow iliac arteries with non obstructive calcification, run off arteries i.e [employer] and SFA noted on limited hypopacified views. This aortic iliac arteries are noted to be somewhat tortuous. Of note, the right common iliac artery is noted to compress the ostium of the left common iliac vein. Poor visualization is noted in the left common iliac vein, left ex ternal iliac vein and left femoral vein. Extensive thrombosis is noted extending from the compression point of the right common iliac artery and the left common iliac vein all the way to the mid femoral vein. The mid to distal left femoral vein appears to be somewhat patent with evidence of post-phlebitic changes or possible synechia on limited views. A prominent profunda femoris vein is also noted collater alizing the common femoral vein suggestive of possible proximal occlusion in the left femoral vein. As compared to the right femoral vein, no significant prominent profunda femoris is visualized. The popliteal veins appear to be patent, however, evidence of possible thrombosis noted in sections. 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 Clinical correlation recommended. Thank you for this referral. _*_*_ Dictated by: CAITY CODY MD cc: SAMUEL CONTRERAS MD INTERNATIONAL TAX MANAGER / M: 08/22/2015 19:29:27 INTERNATIONAL TAX MANAGER INTERNATIONAL TAX MANAGER/2827 Doc#: [id number] Signature Line Caity Cody MD Electronically Signed: 09/02/15 15:[address] CTA Rad Nonvascular OVER READ CT CTA Rad Consult 08/22/2015 12: 20 PM CDT 08/21 [facility] Consult Consult /2015 [facility] Ordering Physician: Caity Cody MD Read by: Lizabeth Pollard MD Dictated Date/time: 08/22/15 16:59 CLINICAL INDICATION: Diminishing pulses; blood clots in the leg Electronically Signed by: Lizabeth Pollard MD 08/22/15 17 :06 FINAL REPORT COMPARISON: None TECHNIQUE: 5 mm thick axial images of the abdomen, pelvis, and bilateral lower extremities were submitted to radiology for interpretation of the nonvascular anatomy. Interpretation of the heart and ajit rial system will be performed by another physician. FINDINGS: Thrombus is present in the left common iliac, external iliac, internal iliac, common femoral, and proximal superficial femoral vein. Left pelvic and thigh moderate subcutaneous fat stranding/edema with swelling is present. Left greater saphenous vein is iatrogenically absent. Visualized lung bases are clear. Partially visualized liver, gallbladder, spleen, pancreas, adrenal glands, and kidneys are grossly normal. Few bilateral renal cysts are present. Ureters and partially d istended bladder are normal. Gastrointestinal tract is grossly normal. Appendix is not identified. No mesenteric or retroperitoneal lymphadenopathy is present. Uterus and ovaries are present. Left ovari an 2.6 cm cyst is present. Left ovarian simple attenuating 2.6 cm cyst is present. Degenerative disc and joint disease is present in the lower lumbosacral spine. Otherwise, the musculoskeletal tissues of the bilateral lower extremities demonstrate mild bilateral knee osteoarthritis. IMPRESSION: 1. 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 2. Left ovarian probable simple cyst, 2.6 cm. SL: [id number] CHEM PANEL B/C Ratio 33 6 - 25 08/20 [facility] CHEM PANEL A/G Ratio 0.8 0.7 - 1.6 08/20 [facility] CHEM PANEL Globulin 3.8 g/dL 2.0 - 4.0 08/20 [facility] CHEM PANEL AST 12 unit/L 0 - 37 08/20 [facility] CHEM PANEL Alk Phos 84 unit/L 39 - 136 08/20 [facility] CHEM PANEL Total 6.9 g/dL 6.4 - 8.4 08/20 [facility] CHEM PANEL ALT 17 unit/L 0 - 65 08/20 [facility] CHEM PANEL Albumin Lvl 3.1 g/dL 3.5 - 5.0 08/20 [facility] CHEM PANEL Bili Total 0.6 mg/dL 0.2 - 1.3 08/20 [facility] HEMATOLOGY D-Dimer 2.32 ug/mL 08/20 FEU /2015 [facility] HEMATOLOGY PT 15.6 s 12.0 - 08/20 14.7 /2015 [facility] HEMATOLOGY INR 1.21 0.85 - 08/20 1.17 /2015 [facility] URINE AND UA null 0.1 - 1.0 08/20 STOOL Urobilinogen [facility] URINE AND UA Bacteria Occasional None Seen 08/20 STOOL /HPF /HPF /2015 [facility] URINE AND UA RBC null 0 - 2 08/20 STOOL [facility] URINE AND UA Nitrite Negative Negative 08/20 STOOL [facility] (08/20/15 10:14 PM) URINE AND UA Blood Negative Negative 08/20 STOOL [facility] (08/20/15 10:14 PM) URINE AND UA WBC 2 /HPF 0 - 5 08/20 STOOL [facility] URINE AND UA Bili Negative Negative 08/20 STOOL [facility] *NA* (08/20/15 10:14 PM) URINE AND UA Sq Epi Occasional Few /LPF 08/20 STOOL /LPF /2015 [facility] URINE AND UA Leuk Est Negative Negative 08/20 STOOL [facility] (08/20/15 10:14 PM) URINE AND UA pH 6.0 5.0 - 8.0 08/20 STOOL [facility] URINE AND UA Ketones Negative Negative 08/20 STOOL mg/dL mg/dL [facility] URINE AND UA Glucose 50 mg/dL Negative 08/20 STOOL mg/dL [facility] URINE AND UA Protein Negative Negative 08/20 STOOL mg/dL mg/dL [facility] URINE AND UA Spec Grav 1.010 <=1.030 08/20 STOOL [facility] URINE AND UA Color Light Yellow Yellow 08/20 STOOL [facility] *NA* (08/20/15 10:14 PM) URINE AND UA Turbidity Clear Clear 08/20 STOOL [facility] (08/20/15 10:14 PM) CARDIAC Troponin-I null 0.00 - 08/20 ENZYMES 0.40 [facility] HEMATOLOGY INR 1.47 0.85 - 08/20 1.17 [facility] HEMATOLOGY PT 18.2 s 12.0 - 08/20 14.7 [facility] HEMATOLOGY PTT 32.2 s 22.9 - 08/20 35.8 /2015 [facility] HEMATOLOGY Plt Morph Normal 08/20 [facility] (08/20/15 8:44 PM) HEMATOLOGY RBC Morph Normal 08/20 [facility] (08/20/15 8:44 PM) CHEM PANEL Globulin 4.3 g/dL 2.0 - 4.0 08/20 [facility] CHEM PANEL B/C Ratio 32 6 - 25 08/20 [facility] CHEM PANEL A/G Ratio 0.8 0.7 - 1.6 08/20 [facility] CHEM PANEL Albumin Lvl 3.4 g/dL 3.5 - 5.0 08/20 [facility] CHEM PANEL ALT 20 unit/L 0 - 65 08/20 [facility] CHEM PANEL Bili Total 0.6 mg/dL 0.2 - 1.3 08/20 [facility] CHEM PANEL AST 14 unit/L 0 - 37 08/20 [facility] CHEM PANEL Alk Phos 96 unit/L 39 - 136 08/20 [facility] CHEM PANEL Total 7.7 g/dL 6.4 - 8.4 08/20 [facility] HEMATOLOGY Hex Phos N Negative Negative 08/20 [facility] (08/20/15 8:41 PM) HEMATOLOGY dRVV Ratio 1.84 <=1.20 08/20 [facility] HEMATOLOGY Lup Interp The DRVVT 08/20 screen for [facility] lupus anticoagul ant is abnormal; however, the hexagonal phospholip id neutraliza tion test is negative. Clinical correlatio n isrecommen ded with additional testing, to include repeat DRVVT, factor assays,and anticardio lipin antibody assays if clinically indicated. Interpreta tion performed at [facility]. HEMATOLOGY F2 Mut FACTOR II 08/20 Interp PT: [facility] NegativeIN TERPRETATI ON:Molecul ar analysis for the Factor II (Prothromb in) [id number] mutation wasnegativ e. Other causes of elevated prothrombi n levels and hereditary formsof venous thrombosis are not ruled out. Final diagnosis requires correlatio nwith clinical history and other pertinent laboratory findings.W here appropriat e, medical consultati on and genetic counseling should beoffered to inform and explain the risk implicatio ns and genetic implicatio nsof these test results. SAY LIMITATION S:The assay uses the FDA-cleare d [place] Factor II (Prothromb in) [id number] IVD(Polyme rase chain reaction/F RET detection) kit, [employer] Pure LC Instrument and the [employer] Chlorogene r 1.2 Instrument . A 165-bp fragment of Factor IIgene(FII ) containing the Factor II [id number] sequence is amplified in theassay. The assay is designed to detect the [id number] mutation only. Othercause s of elevated prothrombi n levels and hereditary forms of venousthro mbosis are not ruled out. However, the melting curve analysis mayimplica te the presence of a possible rare mutation at position 19743 (Furtherte sting will be recommende d in the report). A minimum detection level is 198copies of Factor II per reaction. The level of agreement between the FactorII(P rothrombin ) [id number] Kit and sequence analysis was 98.9%. The test resultmust be interprete d along with the patient's clinical history and revelant laboratory data. This assay has been validated by [facility] . HEMATOLOGY F2 Mutation Negative 08/20 [facility] (08/20/15 8:41 PM) HEMATOLOGY Protein S 134 % 54 - 137 08/20 Fun [facility] HEMATOLOGY F5 Leiden FACTOR V 08/20 Intrp LEIDEN: [facility] NegativeIN TERPRETATI ON:Molecul ar analysis for the Factor V Leiden, [id number] mutation was negative.O ther causes of activated protein C resistance and hereditary forms of venousthro mbosis are not ruled out. Final diagnosis requires correlatio n withclinic al history and other pertinent laboratory findings.W here appropriat e, medical consultati on and/or genetic counseling should beoffered to inform and explain the risk implicatio ns and genetic implicatio nsof these test results. SAY LIMITATION S:The assay uses the FDA-cleare d [place] Factor V Leiden IVD(Poymer ase chain reaction/F RET detection) kit, [employer] LC Instrument and the [employer] r 1.2 Instrument . A 222-bp fragment of Factor V gene (FV) containing the Factor V Leiden sequence is amplified in the assay. The assay is designed to detect the G [id number] mutation only. Other causes of activated protein C resistance and hereditary forms of venous thrombosis are not ruled out. However, melting curve analysis may implicate the presence of possible rare mutations at positions 1689, 1692 and 1696. (Further testing will be recommende d in the report). A minimum detection level is 202 copies of Factor V Leiden per reaction. The level of agreement between the Factor V Leiden Kit and sequence analysis was 99.4%. The test result must be interprete d along with the patient's clinical history and relevant laboratory data. This assay has been validated by [facility] . HEMATOLOGY F5 Leiden Negative 08/20 [facility] (08/20/15 8:41 PM) HEMATOLOGY AT III Func 89 % 77 - 140 08/20 [facility] HEMATOLOGY Protein C 196 % 72 - 147 08/20 [facility] IMMUNOLOGY RIDDHI Negative Negative 08/20 [facility] (08/20/15 8:41 PM) IMMUNOLOGY Beta2-Glycop 0.4 <=19.9 08/20 rotein IgM unit/mL unit/mL /2015 [facility] IMMUNOLOGY Beta2-Glycop null <=19.9 08/20 rotein IgG unit/mL [facility] Beta2-Glycop 0.6 <=19.9 08/20 rotein IgA unit/mL unit/mL [facility] Cardiolipin null <=19.9 GPL 08/20 IgG /2015 [facility] Cardiolipin 0.4 <=19.9 MPL 08/20 IgM MPL-U/mL [facility] Cardiolipin 0.5 <=19.9 APL 08/20 IgA APL-U/mL [facility] Homocyst Tot 13.8 3.7 - 13.9 08/20 umol/L /2015 [facility] Chest Chest Study: Chest Pulmonary Embolism CTA 08/19 - Pulmonary Pulmonary /2015 - [facility] Embolism Embolism CTA CTA Clinical Indication: Chest pain; Read by: Eduardo Coleman MD Dictated Date/time: 08/20/15 22:53 Electronically Signed by: Eduardo Coleman MD 08/20/15 22:58 FINAL REPORT Comparison: Chest x-ray from 02/15/2013 TECHNIQUE: Multiple axial CT images of the chest were acquired following the administration of intravenous contrast according to the pulmonary embolism protocol. Multiplanar and three-dimensional reformatted images were performed. Dose: JMC=262 mGy-cm FINDINGS: Changes of median sternotomy and coronary artery bypass graft are noted. Cardiac chambers and pericardium are unremarkable. Aortic annular, coronary artery, and thoracic aortic calcifications are seen. There are no segmental pulmonary emboli noted. The main, right, and left pulmonary arteries are normal. No thoracic aortic aneurysm or dissection is seen. No pathologic mediastinal, hilar, or axillary adenopathy is seen. No endobronchial lesions are identified within the central airways. The lungs are clear and without consolidation, mass, or pulmonary nodule. No pleural effusion or pneumothorax is seen. The superficial soft tissues of the chest wall are unremarkable. Mild degenerative changes of the thoracic spine are seen. Limited views of the upper abdomen show no focal abnormality. IMPRESSION: 1. No evidence of pulmonary emboli. 2. No acute cardiopulmonary disease. SL: SCARLETT- Vital Signs Vital Sign Value Date Comments Source Temperature Oral (F) 97.4 F 08/27/2015 [facility] Heart Rate 75 08/27/2015 [facility] Respitory Rate 19 08/27/2015 [facility] Systolic (mm Hg) 126 08/27/2015 [facility] Diastolic (mm Hg) 75 08/27/2015 [facility] Systolic (mm Hg) 105 08/27/2015 [facility] Diastolic (mm Hg) 63 08/27/2015 [facility] Respitory Rate 19 08/27/2015 [facility] Heart Rate 66 08/27/2015 [facility] Temperature Oral (F) 97.4 F 08/27/2015 [facility] Temperature Oral (F) 97.3 F 08/27/2015 [facility] Heart Rate 77 08/27/2015 [facility] Systolic (mm Hg) 113 08/27/2015 [facility] Diastolic (mm Hg) 66 08/27/2015 [facility] Respitory Rate 19 08/27/2015 [facility] Weight 53.7 08/25/2015 [facility] Weight 52.926 08/21/2015 [facility] BMI Calculated 22.79 08/21/2015 [facility] Height 152.4 cm 08/21/2015 [facility] Encounters Location Location Encounter Encounter Reason Attending ADM DC Status Source Details Type Number For Provider Date Date [facility] [id number] 08/20 08/27 Matt Contreras /2015 [facility] Procedures Procedure Code Date Perfomer Comments Source Appendectomy [id number] [facility] CABG - Coronary [id number] [facility] artery bypass graft Stent placement [id number] [facility]
--- OUTSIDE RECORDS SUMMARY | 2018-03-21 21:13 | XMS REPORT ---
:1940 Author Organization [facility] Address [address] [place] [address] Dr. Olsen [address] [place] [id number] Care Team Providers Name Role Phone Unavailable Unavailable Unavailable Problems This patient has no known problems. Allergies, Adverse Reactions, Alerts This patient has no known allergies or adverse reactions. Medications This patient has no known medications.
--- OUTSIDE RECORDS SUMMARY | 2018-03-21 21:13 | XMS REPORT | Summary of Care ---
:[address] [facility] Address [address] [place] [id number]- Care Team Providers Name Role Phone Unavailable Primary Care Physician Unavailable Encounter HQ Jose(HAILEY) [id number] Date(s): 08/20/15 - 08/27/[address] [address]- Discharge Disposition: Home Attending Physician: Garth Contreras MD Admitting Physician: Garth Contreras MD Vital Signs Most recent to oldest [Reference 1 2 3 Range]: Height 152.4 cm (08/20/15 7:58 PM) Current Weight 52.6 kg (08/27/15 5:00 AM) Temperature Oral [96.4-99.1 97.4 DegF 97.4 DegF 97.3 DegF DegF] (08/27/15 4:21 PM) (08/27/15 12:46 PM) (08/27/15 7:48 AM) Blood Pressure [90-140/60-90 126/75 mmHg 105/63 mmHg 113/66 mmHg mmHg] (08/27/15 4:21 PM) (08/27/15 12:46 PM) (08/27/15 7:48 AM) Respiratory Rate [14-20 BRMIN] 19 BRMIN 19 BRMIN 19 BRMIN (08/27/15 4:21 PM) (08/27/15 12:46 PM) (08/27/15 7:48 AM) Peripheral Pulse Rate [60-100 75 bpm 66 bpm 77 bpm bpm] (08/27/15 4:21 PM) (08/27/15 12:46 PM) (08/27/15 7:48 AM) Weight 53.7 kg 52.926 kg (08/25/15 5:11 AM) (08/20/15 7:58 PM) Body Mass Index 22.79 m2 (08/20/15 7:58 PM) Problem List Condition Effective Dates Status Health Status Informant Chest pain(Confirmed) Active CHF - Congestive heart Active failure(Confirmed) DM - Diabetes mellitus(Confirmed) Active Hepatitis C(Confirmed) Active HTN (hypertension)(Confirmed) Resolved Hyperlipemia(Confirmed) Resolved Jaundice(Confirmed) Resolved Stroke(Confirmed) Resolved Allergies, Adverse Reactions, Alerts Substance Reaction Severity Status codeine cant remember reaction Active Medications /2 NS 1,000 mL 1,000 mL, Rate: 40 ml/hr, Infuse over: 25 hr, Route: IV, Dosing Weight 54.545 kg , Total Volume: 1,000, Start date: 08/20/15 19:46:00 CDT, Stop date: 08/23/15 7: 59:00 CDT Start Date: 08/20/15 Stop Date: 08/23/15 Status: Completed12 NS 1000 mL 1,000 mL, Rate: 50 ml/hr, Infuse over: 20 hr, Route: IV, Dosing Weight 52.926 kg , Total Volume: 1,000, Start date: 08/23/15 17:50:00 CDT, Duration: 30 day, Stop date: 09/22/15 17:49:00 CDT Start Date: 08/23/15 Stop Date: 08/23/15 Status: Deletedacetaminophen-hydrocodone 325 mg-5 mg oral tablet 1 tab, Route: PO, Drug Form: TAB, Q6H, PRN Pain Score 4-6, Start date: 08/24/15 14:43:00 CDT, Duration: 30 day, Stop date: 09/23/15 14:42:00 CDT Notes: (Same as: [place] 325/5) Do not exceed 4gm/day of acetaminophen. Start Date: 08/24/15 Stop Date: 08/27/15 Status: Discontinuedapixaban 5 mg oral tablet See Instructions, 2 tab PO Q12H for 3 days then 1 tab two times daily for 30 days, # 72 tab, 0 Refill(s) Start Date: 08/26/15 Status: Orderedaspirin 81 mg tablet, enteric coated 81 mg, 1 tab, Route: PO, Drug form: ECTAB, Daily, Dosing Weight 52.926, kg, Start date: 08/24/15 9:00:00 CDT, Duration: 30 day, Stop date: 09/22/15 9:00:00 CDT Notes: Do not crush or chew.(Same As: Ecotrin) Start Date: 08/24/15 Stop Date: 08/27/15 Status: Discontinuedatorvastatin 10 mg, 1 tab, Route: PO, Drug form: TAB, Bedtime, Dosing Weight 53.7, kg, Start date: 08/26/15 21:00:00 CDT, Duration: 30 day, Stop date: 09/24/15 21:00:00 CDT Notes: (Same As: Lipitor) Start Date: 08/26/15 Stop Date: 08/27/15 Status: Discontinuedatorvastatin 10 mg oral tablet 10 mg=1 tab, PO, Bedtime, # 30 tab, 0 Refill(s) Start Date: 08/24/15 Status: OrderedBD Normal Saline Flush 10 mL, Route: IVP, Drug Form: INJ, PRN, PRN Line Flush, Start date: 08/21/15 20: 56:00 CDT, Duration:30 day, Stop date: 09/20/15 20:55:00 CDT Notes: (Same as: BD Posiflush) Start Date: 08/21/15 Stop Date: 08/27/15 Status: DiscontinuedDextrose 50% Syringe 12.5 gm, 25 mL, Route: IVP, Drug Form: INJ, Dosing Weight 54.545, kg, PRN, PRN Blood Glucose Results, Start date: 08/20/15 19:55:00 CDT, Duration: 30 day, Stop date: 09/19/15 19:54:00 CDT Start Date: 08/20/15 Stop Date: 08/27/15 Status: DiscontinuedDextrose 50% Syringe 25 gm, 50 mL, Route: IVP, Drug Form: INJ, Dosing Weight 54.545, kg, PRN, PRN Blood Glucose Results, Start date: 08/20/15 19:55:00 CDT, Duration: 30 day, Stop date: 09/19/15 19:54:00 CDT Start Date: 08/20/15 Stop Date: 08/27/15 Status: DiscontinuedEliquis 10 mg, 4 tab, Route: PO, Drug form: TAB, BID, Start date: 08/24/15 17:00:00 CDT , Duration: 30 day, Stop date: 09/23/15 9:00:00 CDT Notes: Same as: Eliquis Start Date: 08/24/15 Stop Date: 08/24/15 Status: DeletedEliquis 10 mg, 4 tab, Route: PO, Drug form: TAB, ONCE, Start date: 08/24/15 9:30:00 CDT , Stop date: :30:00 CDT Notes: Same as: Eliquis Start Date: 08/24/15 Stop Date: 08/24/15 Status: CompletedEliquis 10 mg, 2 tab, Route: PO, Drug form: TAB, Q12H, Dosing Weight 52.926, kg, Start date: 08/24/15 21:00:00 CDT, Duration: 30 day, Stop date: 09/23/15 9:00:00 CDT Notes: Same as: Eliquis Start Date: 08/24/15 Stop Date: 08/27/15 Status: Discontinuedenoxaparin 50 mg, 0.5 mL, Route: SUB-Q, Drug form: INJ, ONCE, Dosing Weight 54.545, kg, Start date: 08/20/15 19:39:00 CDT, Stop date: 08/20/15 19:39:00 CDT Notes: Nurse to ensure documentation of patient education per anticoagulation policy. (Same as: Lovenox) Start Date: 08/20/15 Stop Date: 08/20/15 Status: Completedglucagon 1 mg, Route: IM, Drug form: PDR/INJ, PRN, Dosing Weight 54.545, kg, PRN Blood Glucose Results, Startdate: 08/20/15 19:55:00 CDT, Duration: 30 day, Stop date: 09/19/15 19:54:00 CDT Start Date: 08/20/15 Stop Date: 08/27/15 Status: Discontinuedinsulin aspart 2 unit, 0.02 mL, Route: SUB-Q, Drug form: SOLN, TID-Before Meals, Dosing Weight 54.545, kg, PRN Blood Glucose Results, Start date: 08/20/15 19:55:00 CDT, Duration: 30 day, Stop date: 09/19/15 19:54:00 CDT Notes: Roll in palms of hands gently; Do not shake vigorously. (Same as: BlueYield)"single patient use only"WASTE: F/P - Black; E - Municipal Trash Bin Stable for 28 days at room temperature.Expires in days from Date Start Date: 08/20/15 Stop Date: 08/27/15 Status: Discontinuedinsulin aspart 4 unit, 0.04 mL, Route: SUB-Q, Drug form: SOLN, TID-Before Meals, Dosing Weight 54.545, kg, PRN Blood Glucose Results, Start date: 08/20/15 19:55:00 CDT, Duration: 30 day, Stop date: 09/19/15 19:54:00 CDT Notes: Roll in palms of hands gently; Do not shake vigorously. (Same as: BlueYield)"single patient use only"WASTE: F/P - Black; E - Municipal Trash Bin Stable for 28 days at room temperature.Expires in days from Date Start Date: 08/20/15 Stop Date: 08/27/15 Status: Discontinuedinsulin aspart 3 unit, 0.03 mL, Route: SUB-Q, Drug form: SOLN, TID-Before Meals, Dosing Weight 54.545, kg, PRN Blood Glucose Results, Start date: 08/20/15 19:55:00 CDT, Duration: 30 day, Stop date: 09/19/15 19:54:00 CDT Notes: Roll in palms of hands gently; Do not shake vigorously. (Same as: NovoLOG)"single patient use only"WASTE: F/P - Black; E - Municipal Trash Bin Stable for 28 days at room temperature.Expires in days from Date Start Date: 08/20/15 Stop Date: 08/27/15 Status: Discontinuedinsulin aspart 5 unit, 0.05 mL, Route: SUB-Q, Drug form: SOLN, TID-Before Meals, Dosing Weight 54.545, kg, PRN Blood Glucose Results, Start date: 08/20/15 19:55:00 CDT, Duration: 30 day, Stop date: 09/19/15 19:54:00 CDT Notes: Roll in palms of hands gently; Do not shake vigorously. (Same as: NovoLOG)"single patient use only"WASTE: F/P - Black; E - Municipal Trash Bin Stable for 28 days at room temperature.Expires in days from Date Start Date: 08/20/15 Stop Date: 08/27/15 Status: Discontinuedinsulin aspart 1 unit, 0.01 mL, Route: SUB-Q, Drug form: SOLN, TID-Before Meals, Dosing Weight 54.545, kg, PRN Blood Glucose Results, Start date: 08/20/15 19:55:00 CDT, Duration: 30 day, Stop date: 09/19/15 19:54:00 CDT Notes: Roll in palms of hands gently; Do not shake vigorously. (Same as: NovoLOG)"single patient use only"WASTE: F/P - Black; E - Municipal Trash Bin Stable for 28 days at room temperature.Expires in days from Date Start Date: 08/20/15 Stop Date: 08/27/15 Status: Discontinuedlabetalol 20 mg, 4 mL, Route: IV, Drug form: INJ, ONCE, Dosing Weight 52.926, kg, Start date: 08/23/15 17:50:00 CDT, Stop date: 08/23/15 17:50:00 CDT Notes: (Same as: Normodyne, Trandate)Push over 2 minutes Give bolus over 2-3 minutes. Start Date: 08/23/15 Stop Date: 08/23/15 Status: Completedlactulose 20 gm, 30 ml, Route: PO, Drug Form: SYRP, Dosing Weight 54.545, kg, Q8H, PRN Constipation, Start date: 08/20/15 19:42:00 CDT, Duration: 30 day, Stop date: 19:41:00 CDT Notes: (Same as:Chronulac) Start Date: 08/20/15 Stop Date: 08/27/15 Status: DiscontinuedLasix 20 mg, 2 mL, Route: IV, Drug form: INJ, ONCE, Start date: 08/24/15 21:42:00 CDT , Stop date: 08/23/1620:42:00 CDT Notes: (Same as: Lasix) Start Date: 08/24/15 Stop Date: 08/24/15 Status: Completedlisinopril 10 mg, 1 tab, Route: PO, Drug form: TAB, Daily, Dosing Weight 53.7, kg, Start date: 08/27/15 9:00:00CDT, Duration: 30 day, Stop date: 09/25/15 9:00:00 CDT Notes: (Same as: Prinivaubrey Zestril) Start Date: 08/27/15 Stop Date: 08/27/15 Status: Discontinuedlisinopril 10 mg oral tablet 10 mg=1 tab, PO, Daily, # 30 tab, 0 Refill(s) Start Date: 08/24/15 Status: OrderedLovenox 50 mg, 0.5 mL, Route: SUB-Q, Drug form: INJ, [id number], Dosing Weight 52.926, kg , Start date: 08/21/15 17:00:00 CDT, Duration: 30 day, Stop date: 09/20/15 12:00 :00 CDT Notes: Nurse to ensure documentation of patient education per anticoagulation policy. (Same as: Lovenox) Start Date: 08/21/15 Stop Date: 08/24/15 Status: DiscontinuedMaalox Advanced Regular Strength SUSP 30 mL, Route: PO, Drug Form: SUSP, Dosing Weight 54.545, kg, QID, PRN Indigestion, Start date: 08/20/15 19:42:00 CDT, Duration: 30 day, Stop date: 19:41:00 CDT Notes: (aluminum hydroxide-magnesium hyd-simethicone 884-240-18he/5ml 30 ml ud ABILIO) Start Date: 08/20/15 Stop Date: 08/27/15 Status: DiscontinuedmetFORMIN 500 mg, 1 tab, Route: PO, Drug form: TAB, Daily, Dosing Weight 53.7, kg, Start date: 08/27/15 9:00:00 CDT, Duration: 30 day, Stop date: 09/25/15 9:00:00 CDT Notes: (Same as: Glucophage) Take with meal Start Date: 08/27/15 Stop Date: 08/27/15 Status: DiscontinuedmetFORMIN 500 mg, PO, Daily, 0 Refill(s) Start Date: 08/24/15 Status: Orderedmorphine Sulfate 2 mg, 1 mL, Route: IVP, Drug form: INJ, Q4H, Dosing Weight 54.545, kg, PRN Pain Score 7-10, Start date: 08/20/15 19:42:00 CDT, Duration: 30 day, Stop date: 19:41:00 CDT Notes: (Same as:MORPhine Sulfate) Start Date: 08/20/15 Stop Date: 08/24/15 Status: DiscontinuedNaprosyn 500 mg oral tablet 500 mg=1 tab, PO, Daily, with food, # 30 tab, 0 Refill(s) Start Date: 08/24/15 Stop Date: 08/26/15 Status: Discontinuednitroglycerin SL Tab 0.4 mg, 1 tab, Route: SL, Drug form: TAB, Q5Min, Dosing Weight 52.926, kg, PRN Chest Pain, Start date: 08/23/15 18:32:00 CDT, Duration: 3 doses or times, Stop date: Limited # of times Start Date: 08/23/15 Stop Date: 08/27/15 Status: DiscontinuedNorco 5/325 oral tablet 1 tab, Route: PO, Drug Form: TAB, Dosing Weight 54.545, kg, Q6H, Start date: 19:42:00 CDT, Stop date: 09/19/15 18:00:00 CDT Notes: (Same as: [place] 325/5) Do not exceed 4gm/day of acetaminophen. Start Date: 08/20/15 Stop Date: 08/24/15 Status: DiscontinuedProAir HFA 1 - 2 puffs, PO, Q4H, PRN Wheezing / cough / shortness of breath, # 1 ea, 0 Refill(s) Start Date: 08/24/15 Stop Date: 09/18/15 Status: OrderedSodium Chloride 0.45% IV 1,000 mL 1,000 mL, Rate: 50 ml/hr, Infuse over: 20 hr, Route: IV, Dosing Weight 52.926 kg , Total Volume: 1,000, Start date: 08/23/15 8:00:00 CDT, Duration: 30 day, Stop date: 09/22/15 7:59:00 CDT Start Date: 08/23/15 Stop Date: 08/24/15 Status: DiscontinuedSodium Chloride 0.9% (Bolus) IV 250 mL, Infuse Over: 1 hr, Route: IV, ONCALL, Priority: Routine, Dosing Weight 52.926 kg, Start date: 08/21/15 17:00:00 CDT, Duration: 1 doses or times Start Date: 08/21/15 Stop Date: 08/21/15 Status: DeletedSodium Chloride 0.9% IV 250 mL, Route: IVPB, Start date: 08/21/15 20:56:00 CDT, Duration: 30 day, Stop date: 09/20/15 20:55:00 CDT, PRN Line Flush Start Date: 08/21/15 Stop Date: 08/27/15 Status: DiscontinuedSodium Chloride 0.9% IV 750 mL 750 mL, Rate: 75 ml/hr, Infuse over: 10 hr, Route: IV, Dosing Weight 52.926 kg, Total Volume: 750, Start date: 08/21/15 16:16:00 CDT, Duration: 10 hr, Stop date : 08/22/15 2:15:00 CDT Start Date: 08/21/15 Stop Date: 08/21/15 Status: Deletedtramadol 50 mg oral tablet 50 mg=1 tab, PO, Q6H, PRN Pain, # 40 tab, 0 Refill(s) Start Date: 08/24/15 Stop Date: 09/03/15 Status: Orderedtrazodone 50 mg oral tablet 50 mg, 1 tab, Route: PO, Drug form: TAB, Bedtime, PRN Sleep, Start date: 1:00:00 CDT, Duration: 30 day, Stop date: 09/22/15 0:59:00 CDT Notes: (Same As: Joan) Start Date: 08/23/15 Stop Date: 08/27/15 Status: DiscontinuedTylenol 650 mg, 2 tab, Route: PO, Drug form: TAB, Q6H, Dosing Weight 54.545, kg, PRN Pain Score 1-3, Start date: 08/20/15 19:41:00 CDT, Duration: 30 day, Stop date: 09/19/15 19:40:00 CDT Notes: Do not exceed 4 gm/day. (Same as: Tylenol) Start Date: 08/20/15 Stop Date: 08/27/15 Status: DiscontinuedXarelto 15 mg, 1 tab, Route: PO, Drug form: TAB, Q12H, Dosing Weight 54.545, kg, Start date: 08/21/15 9:00:00 CDT, Duration: 30 day, Stop date: 09/19/15 21:00:00 CDT Notes: (Same as: Xarelto)Administer with food Start Date: 08/21/15 Stop Date: 08/21/15 Status: DiscontinuedZofran 4 mg, 2 mL, Route: IVP, Drug form: INJ, Q6H, Dosing Weight 54.545, kg, PRN Nausea, Start date: 08/20/15 19:41:00 CDT, Duration: 30 day, Stop date: 19:40:00 CDT Notes: (Same as: Zofran) MEDICATION WASTE Product Size: 4 mgProduct Wasted: ___ mg Start Date: 08/20/15 Stop Date: 08/27/15 Status: Discontinued Results ELECTROLYTES Most recent to oldest 1 2 3 [Reference Range]: Sodium Lvl [135-145 mEq/L] 135 mEq/L 138 mEq/L 139 mEq/L (08/27/15 3:02 AM) (08/26/15 3:08 AM) (08/25/15 5:09 AM) Potassium Lvl [3.5-5.1 mEq/L] 3.9 mEq/L 3.5 mEq/L 3.5 mEq/L (08/27/15 3:02 AM) (08/26/15 3:08 AM) (08/25/15 5:09 AM) Chloride Lvl [95-109 mEq/L] 101 mEq/L 104 mEq/L 105 mEq/L (08/27/15 3:02 AM) (08/26/15 3:08 AM) (08/25/15 5:09 AM) CO2 [24-32 mEq/L] 25 mEq/L 26 mEq/L 26 mEq/L (08/27/15 3:02 AM) (08/26/15 3:08 AM) (08/25/15 5:09 AM) AGAP [10.0-20.0 mEq/L] 12.9 mEq/L 11.5 mEq/L 11.5 mEq/L (08/27/15 3:02 AM) (08/26/15 3:08 AM) (08/25/15 5:09 AM) CHEM PANEL Most recent to oldest 1 2 3 [Reference Range]: Creatinine Lvl [0.50-1.40 0.90 mg/dL 0.80 mg/dL 1.00 mg/dL mg/dL] (08/27/15 3:02 AM) (08/26/15 3:08 AM) (08/25/15 5:09 AM) eGFR 62 mL/min/1.73m2 1 72 mL/min/1.73m2 2 55 mL/min/1.73m2 3 *NA* *NA* *NA* (08/27/15 3:02 AM) (08/26/15 3:08 AM) (08/25/15 5:09 AM) BUN [7-22 mg/dL] 12 mg/dL 13 mg/dL 20 mg/dL (08/27/15 3:02 AM) (08/26/15 3:08 AM) (08/25/15 5:09 AM) B/C Ratio [6-25] 33 32 *HI* *HI* (08/21/15 3:57 AM) (08/20/15 8:41 PM) Glucose Lvl [70-99 mg/dL] 167 mg/dL 165 mg/dL 145 mg/dL *HI* *HI* *HI* (08/27/15 3:02 AM) (08/26/15 3:08 AM) (08/25/15 5:09 AM) Total Protein [6.4-8.4 g/dL] 6.9 g/dL 7.7 g/dL (08/21/15 3:57 AM) (08/20/15 8:41 PM) Albumin Lvl [3.5-5.0 g/dL] 3.1 g/dL 3.4 g/dL *LOW* *LOW* (08/21/15 3:57 AM) (08/20/15 8:41 PM) Globulin [2.0-4.0 g/dL] 3.8 g/dL 4.3 g/dL (08/21/15 3:57 AM) *HI* (08/20/15 8:41 PM) A/G Ratio [0.7-1.6] 0.8 0.8 (08/21/15 3:57 AM) (08/20/15 8:41 PM) Calcium Lvl [8.5-10.5 mg/dL] 8.8 mg/dL 8.8 mg/dL 8.5 mg/dL (08/27/15 3:02 AM) (08/26/15 3:08 AM) (08/25/15 5:09 AM) ALT [0-65 unit/L] 17 unit/L 20 unit/L (08/21/15 3:57 AM) (08/20/15 8:41 PM) AST [0-37 unit/L] 12 unit/L 14 unit/L (08/21/15 3:57 AM) (08/20/15 8:41 PM) Alk Phos [39-136 unit/L] 84 unit/L 96 unit/L (08/21/15 3:57 AM) (08/20/15 8:41 PM) Bili Total [0.2-1.3 mg/dL] 0.6 mg/dL 0.6 mg/dL (08/21/15 3:57 AM) (08/20/15 8:41 PM) 1Result Comment: The eGFR is calculated using the CKD-EPI formula. In most young , healthy individualsthe eGFR will be >90 mL/min/1.73m2. The eGFR declines with age. An eGFR of 60-89 may be normal in some populations, particularly the elderly, for whom the CKD-EPI formula has not been extensively validated. Use of the eGFR is not recommended in the following populations: Individuals with unstable creatinine concentrations, including patients and those with serious co-morbid conditions. Patients with extremes in muscle mass or diet. The data above are obtained from the National Kid[employer] Disease Education Program ( [employer]) which additionally recommends that when the eGFR is used in patients with extremes of body mass index for purposesof drug dosing, the eGFR should be multiplied by the estimated BMI.2Result Comment: The eGFR is calculated using the CKD-EPI formula. In most young, healthy individualsthe eGFR will be >90 mL/ min/1.73m2. The eGFR declines with age. An eGFR of 60-89 may be normal in some populations, particularly the elderly, for whom the CKD-EPI formula has not been extensively validated. Use of the eGFR is not recommended in the following populations: Individuals with unstable creatinine concentrations, including patients and those with serious co-morbid conditions. Patients with extremes in muscle mass or diet. The data above are obtained from the National Kid[employer] Disease Education Program ( [employer]) which additionally recommends that when the eGFR is used in patients with extremes of body mass index for purposesof drug dosing, the eGFR should be multiplied by the estimated BMI.3Result Comment: The eGFR is calculated using the CKD-EPI formula. In most young, healthy individualsthe eGFR will be >90 mL/ min/1.73m2. The eGFR declines with age. An eGFR of 60-89 may be normal in some populations, particularly the elderly, for whom the CKD-EPI formula has not been extensively validated. Use of the eGFR is not recommended in the following populations: Individuals with unstable creatinine concentrations, including patients and those with serious co-morbid conditions. Patients with extremes in muscle mass or diet. The data above are obtained from the National Kidney Disease Education Program ( [employer]DEP) which additionally recommends that when the eGFR is used in patients with extremes of body mass index for purposesof drug dosing, the eGFR should be multiplied by the estimated BMI.CARDIAC ENZYMES Most recent to oldest [Reference Range]: 1 2 3 Troponin-I [0.00-0.40 ng/mL] <0.02 ng/mL (08/20/15 8:51 PM) URINE AND STOOL Most recent to oldest [Reference Range]: 1 2 3 UA Turbidity [Clear] Clear (08/20/15 10:14 PM) UA Color [Yellow] Light Yellow *NA* (08/20/15 10:14 PM) UA pH [5.0-8.0] 6.0 (08/20/15 10:14 PM) UA Spec Grav [<=1.030] 1.010 (08/20/15 10:14 PM) UA Glucose [Negative mg/dL] 50 mg/dL *ABN* (08/20/15 10:14 PM) UA Blood [Negative] Negative (08/20/15 10:14 PM) UA Ketones [Negative mg/dL] Negative mg/dL *NA* (08/20/15 10:14 PM) UA Protein [Negative mg/dL] Negative mg/dL (08/20/15 10:14 PM) UA Urobilinogen [0.1-1.0 mg/dL] <=1.0 mg/dL *NA* (08/20/15 10:14 PM) UA Bili [Negative] Negative *NA* (08/20/15 10:14 PM) UA Leuk Est [Negative] Negative (08/20/15 10:14 PM) UA Nitrite [Negative] Negative (08/20/15 10:14 PM) UA WBC [0-5 /HPF] 2 /HPF (08/20/15 10:14 PM) UA RBC [0-2 /HPF] <1 /HPF (08/20/15 10:14 PM) UA Bacteria [None Seen /HPF] Occasional /HPF *NA* (08/20/15 10:14 PM) UA Sq Epi [Few /LPF] Occasional /LPF *NA* (08/20/15 10:14 PM) IMMUNOLOGY Most recent to oldest [Reference Range]: 1 2 3 RIDDHI [Negative] Negative (08/20/15 8:41 PM) Cardiolipin IgA [<=19.9 APL-U/mL] 0.5 APL-U/mL (08/20/15 8:41 PM) Cardiolipin IgG [<=19.9 GPL-U/mL] <1.6 GPL-U/mL (08/20/15 8:41 PM) Cardiolipin IgM [<=19.9 MPL-U/mL] 0.4 MPL-U/mL (08/20/15 8:41 PM) Beta2-Glycoprotein IgM [<=19.9 unit/mL] 0.4 unit/mL (08/20/15 8:41 PM) Beta2-Glycoprotein IgG [<=19.9 unit/mL] <1.4 unit/mL (08/20/15 8:41 PM) Beta2-Glycoprotein IgA [<=19.9 unit/mL] 0.6 unit/mL (08/20/15 8:41 PM) Homocyst Tot [3.7-13.9 uMol/L] 13.8 uMol/L (08/20/15 8:41 PM) HEMATOLOGY Most recent to oldest 1 2 3 [Reference Range]: WBC [3.7-10.4 K/CMM] 13.4 K/CMM 12.2 K/CMM 9.9 K/CMM *HI* *HI* (08/25/15 5:09 AM) (08/27/15 3:02 AM) (08/26/15 3:08 AM) RBC [4.20-5.40 M/CMM] 3.69 M/CMM 3.68 M/CMM 3.44 M/CMM *LOW* *LOW* *LOW* (08/27/15 3:02 AM) (08/26/15 3:08 AM) (08/25/15 5:09 AM) Hgb [12.0-16.0 g/dL] 10.3 g/dL 10.3 g/dL 9.6 g/dL *LOW* *LOW* *LOW* (08/27/15 3:02 AM) (08/26/15 3:08 AM) (08/25/15 5:09 AM) Hct [36.0-48.0 %] 31.3 % 31.0 % 29.4 % *LOW* *LOW* *LOW* (08/27/15 3:02 AM) (08/26/15 3:08 AM) (08/25/15 5:09 AM) MCV [80.0-98.0 fL] 84.9 fL 84.3 fL 85.3 fL (08/27/15 3:02 AM) (08/26/15 3:08 AM) (08/25/15 5:09 AM) MCH [27.0-31.0 pg] 28.0 pg 27.9 pg 28.0 pg (08/27/15 3:02 AM) (08/26/15 3:08 AM) (08/25/15 5:09 AM) MCHC [32.0-36.0 g/dL] 33.0 g/dL 33.2 g/dL 32.8 g/dL (08/27/15 3:02 AM) (08/26/15 3:08 AM) (08/25/15 5:09 AM) RDW [11.5-14.5 %] 14.6 % 14.8 % 15.0 % *HI* *HI* *HI* (08/27/15 3:02 AM) (08/26/15 3:08 AM) (08/25/15 5:09 AM) Platelet [133-450 346 K/CMM 320 K/CMM 256 K/CMM K/CMM] (08/27/15 3:02 AM) (08/26/15 3:08 AM) (08/25/15 5:09 AM) MPV [7.4-10.4 fL] 8.6 fL 8.7 fL 9.1 fL (08/27/15 3:02 AM) (08/26/15 3:08 AM) (08/25/15 5:09 AM) Segs [45.0-75.0 %] 70.2 % 67.4 % 54.9 % (08/27/15 3:02 AM) (08/26/15 3:08 AM) (08/25/15 5:09 AM) Lymphocytes [20.0-40.0 16.2 % 16.3 % 25.3 % %] *LOW* *LOW* (08/25/15 5:09 AM) (08/27/15 3:02 AM) (08/26/15 3:08 AM) Monocytes [2.0-12.0 %] 9.5 % 9.8 % 11.3 % (08/27/15 3:02 AM) (08/26/15 3:08 AM) (08/25/15 5:09 AM) Eosinophils [0.0-4.0 %] 3.7 % 6.0 % 8.0 % (08/27/15 3:02 AM) *HI* *HI* (08/26/15 3:08 AM) (08/25/15 5:09 AM) Basophils [0.0-1.0 %] 0.4 % 0.5 % 0.5 % (08/27/15 3:02 AM) (08/26/15 3:08 AM) (08/25/15 5:09 AM) Segs-Bands # [1.5-8.1 9.4 K/CMM 8.2 K/CMM 5.4 K/CMM K/CMM] *HI* *HI* (08/25/15 5:09 AM) (08/27/15 3:02 AM) (08/26/15 3:08 AM) Lymphocytes # [1.0-5.5 2.2 K/CMM 2.0 K/CMM 2.5 K/CMM K/CMM] (08/27/15 3:02 AM) (08/26/15 3:08 AM) (08/25/15 5:09 AM) Monocytes # [0.0-0.8 1.3 K/CMM 1.2 K/CMM 1.1 K/CMM K/CMM] *HI* *HI* *HI* (08/27/15 3:02 AM) (08/26/15 3:08 AM) (08/25/15 5:09 AM) Eosinophils # [0.0-0.5 0.5 K/CMM 0.7 K/CMM 0.8 K/CMM K/CMM] (08/27/15 3:02 AM) *HI* *HI* (08/26/15 3:08 AM) (08/25/15 5:09 AM) Basophils # [0.0-0.2 0.0 K/CMM 0.1 K/CMM 0.1 K/CMM K/CMM] (08/27/15 3:02 AM) (08/26/15 3:08 AM) (08/25/15 5:09 AM) RBC Morph Normal (08/20/15 8:44 PM) Plt Morph Normal (08/20/15 8:44 PM) PT [12.0-14.7 seconds] 15.6 seconds 18.2 seconds *HI* *HI* (08/21/15 3:57 AM) (08/20/15 8:44 PM) INR [0.85-1.17] 1.21 1.47 *HI* *HI* (08/21/15 3:57 AM) (08/20/15 8:44 PM) POC Activated Clotting 226 seconds 222 seconds 183 seconds Time *NA* *NA* *NA* (08/23/15 5:05 PM) (08/23/15 4:37 PM) (08/23/15 3:37 PM) D-Dimer 2.32 ug/mL FEU *NA* (08/21/15 3:57 AM) F2 Mutation PCR Negative (08/20/15 8:41 PM) F2 Mut Interp FACTOR II PT: Negative INTERPRETATION: Molecular analysis for the Factor II (Prothrombin) [id number] mutation was negative. Other causes of elevated prothrombin levels and hereditary forms of venous thrombosis are not ruled out. Final diagnosis requires correlation with clinical history and other pertinent laboratory findings. Where appropriate, medical consultation and genetic counseling should be offered to inform and explain the risk implications and genetic implications of these test results. ASSAY LIMITATIONS: The assay uses the FDA-cleared [place] Factor II (Prothrombin) [id number] IVD (Polymerase chain reaction/FRET detection)kit, [employer] LC Instrument and the [employer] Light[employer]ycler 1.2 Instrument. A 165-bp fragment of Factor II gene(FII) containing the Factor II [id number] sequence is amplified in the assay. The assay is designed to detect the [id number] mutation only. Other causes of elevated prothrombin levels and hereditary forms of venous thrombosis are not ruled out. However, the melting curve analysis may implicate the presence of a possible rare mutation at position 47095 ( Further testing will be recommended in the report). A minimum detection level is 198 copies of Factor II per reaction. The level of agreement between the Factor II(Prothrombin) [id number] Kit and sequence analysis was 98.9%. The test result must be interpreted along with the patient's clinical history and revelant laboratory data. This assay has been validated by [facility]. *NA* (08/20/15 8:41 PM) F5 Leiden PCR Negative (08/20/15 8:41 PM) F5 Leiden Intrp FACTOR V LEIDEN: Negative INTERPRETATION: Molecular analysis for the Factor V Leiden, [id number] mutation was negative. Other causes of activated protein C resistance and hereditary forms of venous thrombosis are not ruled out. Final diagnosis requires correlation with clinical history and other pertinent laboratory findings. Where appropriate, medical consultation and/or genetic counseling should be offered to inform and explain the risk implications and genetic implications of these test results. ASSAY LIMITATIONS: The assay uses the FDA-cleared [employer] Factor V Leiden IVD(Poymerase chain reaction/FRET detection)kit, [employer] IKOTECH LC Instrument and the [employer] LightCycler 1.2 Instrument. A 222-bp fragment of Fact or V gene (FV) containing the Factor V Leiden sequence is amplified in the assay. The assay is designed to detect the G [id number] mutation only. Other causes of activated protein C resistance and hereditary forms of venous thrombosis are not ruled out. However,the melting curve analysis may implicate the presence of possible rare mutations at positions 1689 , 1692 and 1696. (Further testing will be recomme nded in the report). A minimum detection level is 202 copies of Factor V Leiden per reaction. The level of agreement between the Factor V Leiden Kit and sequence analysis was 99.4%. The test result must be interpreted along with the patient's clinical history and relevant laboratory data. This assay has been validated by [facility]. *NA* (08/20/15 8:41 PM) AT III Func [77-140 %] 89 % (08/20/15 8:41 PM) PTT [22.9-35.8 seconds] 32.2 seconds (08/20/15 8:44 PM) dRVV Ratio [<=1.20] 1.84 *HI* (08/20/15 8:41 PM) Hex Phos N [Negative] Negative (08/20/15 8:41 PM) Lup Interp The DRVVT screen for lupus anticoagulant is abnormal; however, the hexagonal phospholipid neutralization test is negative. Clinical correlation is recommended with additional testing, to include repeat DRVVT, factor assays, and anticardiolipin antibody assays if clinically indicated. Interpretation performed at [facility]. *NA* (08/20/15 8:41 PM) Protein C Func [72-147 196 % %] *HI* (08/20/15 8:41 PM) Protein S Func [54-137 134 % %] (08/20/15 8:41 PM) Immunizations No data available for this section Procedures Procedure Date Related Diagnosis Body Site Appendectomy CABG - Coronary artery bypass graft Stent placement Social History Social History Type Response Smoking Status Never smoker; Exposure to Tobacco Smoke None; Cigarette Smoking Last 365 Days No; Reg Smoking Cessation Counseling No Assessment and Plan No data available for this section
[2018-03-21] MEDS ORDERED: NA CHLORIDE 0.9% 1,000 ML ONE (21:56)
[2018-03-21 22:02] LABS: Absolute Lymphocytes (CBC) 3.8 K/uL (0.7-4.9); Absolute Monocytes 0.8 K/uL (0.1-1.3); Absolute Neutrophil 3.5 K/uL (1.8-8.0); Basophils % 0.7 % (0-1.3); Eosinophils % 2.3 % (0-4.4); Hematocrit 34.1 % (36.0-45.0); Lymphocytes % 44.9 % (15.3-44.8); MPV 9.6 fL (7.6-11.3); Monocytes % 10.1 % (3.3-12.3); RBC Red Blood Cell Count 3.96 M/uL (3.86-4.86)
[2018-03-21 22:05] LABS: Protime INR 1.49
--- NOTE | 2018-03-21 22:10 | RAD REPORT ---
EXAM DESCRIPTION: CT - Head Brain Wo Cont - 03/21/2018 9:58 pm CLINICAL HISTORY: Transient alteration of awareness, history of abiodun paresis COMPARISON: None. TECHNIQUE: Axial 5 mm thick images of the head were obtained without IV contrast. All CT scans are performed using dose optimization technique as appropriate and may include automated exposure control or mA/KV adjustment according to patient size. FINDINGS: No intracranial hemorrhage, mass, edema or shift of mid-line structures. Approximately 2.8 centimeter area of diminished attenuation is seen in the lateral posterior left parietal lobe. There is loss of lacey matter - white matter differentiation. Finding is superimposed on moderate severity atrophy and chronic ischemic change. Ventricles are in proportion to volume loss. Mastoid air cells and visualized portions of the paranasal sinuses are clear. No acute bony findings. 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 Moderate severity atrophy and chronic ischemic change.
--- NOTE | 2018-03-21 22:10 | RAD REPORT ---
EXAM DESCRIPTION: RAD - Chest Single View - 03/21/2018 10:04 pm CLINICAL HISTORY: Bradycardia, declining state, shortness of breath COMPARISON: February TECHNIQUE: AP portable chest image was obtained 2151 hours . FINDINGS: Scattered fibrotic change present. No superimposed failure, infiltrate or mass. Sternotomy wires are in place. Heart and vasculature are normal. No measurable pleural effusion and no pneumoth orax. No acute bony abnormality seen. No acute aortic findings suspected. IMPRESSION: No acute cardiopulmonary process. No significant change from comparison.
[2018-03-21 22:27] LABS: ALT/SGPT 12 U/L (12-78); AST/SGOT 8 U/L (15-37); Albumin 3.5 g/dL (3.4-5.0); Alkaline Phosphatase 59 U/L (45-117); BUN Blood Urea Nitrogen 33 mg/dL (7-18); Bicarbonate 27 mmol/L (21-32); Bilirubin Direct 0.1 mg/dL (0-0.2); Bilirubin Total 0.3 mg/dL (0.2-1.0); Glucose Level 110 mg/dL (74-106); Magnesium 2.1 mg/dL (1.8-2.4); NT PRO-BNP 1576 pg/mL (<450); Potassium 3.7 mmol/L (3.5-5.1); Protein, Total 6.9 g/dL (6.4-8.2); Sodium Level 138 mmol/L (136-145); Troponin (Emerg Dept Use Only) < 0.02 ng/mL (0.0-0.045)
[2018-03-21] MEDS ORDERED: LEVETIRACETAM 500 MG/5 ML VIAL IV ONE (23:33)
[2018-03-21] MEDS ORDERED: NA CHLORIDE 0.9% 100 ML IV ONE (23:33)
--- NOTE | 2018-03-21 23:56 | ER ---
Nurse's Notes [facility] Name: Janell Zuniga Age: 77 yrs Sex: Female : 1940 Arrival Date: 03/21/2018 Time: 21:10 Bed 2 Private MD: Diagnosis: Epileptic seizures related to external causes, not intractable;Transient cerebral ischemic attack, unspecified Presentation: 03/21 21:00 Presenting complaint: EMS states: Family was visiting pt at [facility] ea when they noticed she was not acting like herself, family called EMS. EMS reports patient was non verbal, reported pt was bradycardic, they gave 2 mg of Narcan IV and 4 mg of Zofran. Transition of care: patient was received from another setting of care (long-term care facility), [facility]. Onset of symptoms was March 21, 2018. Risk Assessment: Do you want to hurt yourself or someone else? Patient reports no desire to harm self or others. Initial Sepsis Screen: Does the patient meet any 2 criteria? No. Patient's initial sepsis screen is negative. Does the patient have a suspected source of infection? No. Patient's initial sepsis screen is negative. Care prior to arrival: 20 G to left AC, Narcan 2mg, Zofran 4mg. 21:00 Method Of Arrival: EMS: [facility] ea 21:00 Acuity: ANANT 3 ea Historical: - Allergies: 21:24 Codeine; ea - Home Meds: 21:24 aspirin 81 mg Oral chew 1 tab once daily [Active]; divalproex 125 mg Oral cpSP 2 caps ea every 8 hours [Active]; Eliquis 5 mg Oral tab 2 times per day [Active]; hydrochlorothiazide 12.5 mg Oral cap 1 cap once daily [Active]; isosorbide mononitrate 30 mg Oral Tb24 2 tabs once daily [Active]; Lyrica 50 mg Oral 2 times per day [Active]; trazodone 100 mg Oral tab 1 tab [Active]; Protonix 40 mg Oral grps 1 packet once daily [Active]; pravastatin 20 mg Oral tab 1 tab once daily [Active]; 23:13 metformin 1,000 mg Oral tab 1 tab 2 times per day [Active]; metoprolol tartrate 50 mg ea Oral tab 1 tab 2 times per day [Active]; Vitamin D Oral daily [Active]; Vitamin B-1 oral oral [Active]; - PMHx: 21:24 Hypertension; hemiparesis right; Diabetes - NIDDM; CVA; CAD; Aphasia; ea - Immunization history:: Adult Immunizations up to date. - Social history:: Smoking status: Patient/guardian denies using tobacco. - Ebola Screening: : No symptoms or risks identified at this time. Screenin:00 Abuse screen: Denies threats or abuse. Nutritional screening: No deficits noted. ea Tuberculosis screening: No symptoms or risk factors identified. Fall Risk Gait- Impaired (20 pts.). Assessment: 21:37 Reassessment: Patient appears in no apparent distress at this time. pt awake and alert, ak1 able to state weight and height. General: Appears in no apparent distress. comfortable, Behavior is drowsy. Pain: Denies pain. Neuro: Level of Consciousness is awake, alert, Speech is normal, quiet. Neuro: pt with hx previous stroke and deficits to right side. . Cardiovascular: No deficits noted. Respiratory: No deficits noted. GI: No signs and/or symptoms were reported involving the gastrointestinal system. : No signs and/or symptoms were reported regarding the genitourinary system. EENT: No signs and/or symptoms were reported regarding the EENT system. Derm: No signs and/or symptoms reported regarding the dermatologic system. Musculoskeletal: No signs and/or symptoms reported regarding the musculoskeletal system. 23:05 Reassessment: pt tolerated 90mL of water for swallow screen, no vomiting, no choking ak1 noted. Vital Signs: 21:05 BP 167 / 67; Pulse 55; Resp 16; Temp 97.8; Pulse Ox 98% on R/A; Weight 58.97 kg; Height ea 5 ft. (152.40 cm); 03/22 00:12 BP 103 / 47; Pulse 54; Resp 16; Temp 97.8; Pulse Ox 98% on R/A; Pain 0/10; ak1 03/21 21:05 Body Mass Index 25.39 (58.97 kg, 152.40 cm) ea NIH Stroke Scale Scores: 03/21 23:40 NIHSS Score: 36 ea 23:41 NIHSS Score: 16 gs ED Course: 21:00 Patient has correct armband on for positive identification. Bed in low position. Call ea light in reach. Side rails up X2. 21:00 Arm band placed on right wrist. Patient placed in an exam room, on a stretcher, on ea pulse oximetry. 21:10 Patient arrived in ED. ds1 21:18 Triage completed. ea 21:18 Zack Adan MD is Attending Physician. gs 21:42 Maintain EMS IV. Dressing intact. Good blood return noted. Site clean \T\ dry. Gauge \T\ ak 1 site: 20g left AC. 21:[address] via stretcher. sj 21:48 Nicole Gannon, RN is Primary Nurse. ea 21:53 glucometer results - FOR PT WITH NO ID Sent. ds4 21:53 EKG done, by ED staff, reviewed by Zack Adan MD. ds4 21:57 CT completed. Patient tolerated procedure well. Patient moved back from CT. nj 21:58 CT Head Brain wo Cont In Process Unspecified. EDMS 22:05 XRAY Chest (1 view) In Process Unspecified. EDMS 03/22 00:15 No provider procedures requiring assistance completed. Patient transferred, IV remains ea in place. Administered Medications: 03/21 22:17 Drug: NS 0.9% 1000 ml Route: IV; Rate: 1 bolus; Site: left antecubital; ea 03/22 00:11 Follow up: IV Status: Completed infusion ak1 03/21 23:58 Drug: Keppra 1000 mg Route: IV; Rate: calculated rate; Site: left antecubital; ea 03/22 00:15 Follow up: IV Status: Completed infusion ea Point of Care Testing: Blood Glucose: 03/21 21:42 Blood Glucose: 136 mg/dL; ds4 Ranges: Outcome: 23:56 ER care complete, transfer ordered by . gs 03/22 00:00 Instructed on the need for transfer. ea 00:15 Transferred by ground EMS to [facility], Transfer form completed. ea 00:15 Condition: stable 00:31 Patient left the ED. ea NIH Stroke Scale - NIH Stroke Score Date: 03/21/2018 Time: 23:40 Total Score = 36 1a. Level of Consciousness (LOC) - 2(Not Alert, obtunded) 1b. Level of Consciousness (LOC) (Year \T\ Age) - 2(Neither) 1c. LOC Commands (Open \T\ Closes Eyes/Manager Cable) - 1(One) 2. Best Gaze (Lateral Gaze Paresis) - 1(Partial gaze palsy) 3. Visual Field Loss - 3(Bilateral hemianopia) 4. Facial Palsy - 2(Partial paralysis) 5a. Left Arm: Motor (10-second hold) - 4(No movement) 5b. Right Arm: Motor (10-second hold) - 3(No effort against gravity) 6a. Left Leg: Motor (5-second hold - always test supine) - 4(No movement) 6b. Right Leg: Motor (5-second hold - always test supine) - 3(No effort against gravity) 7. Limb Ataxia (finger/nose \T\ heel/barakat - test with eyes open) - 2(Present in two limbs) 8. Sensory Loss (pinprick arms/legs/face) - 2(Severe to total loss) 9. Best Language: Aphasia (description/naming/reading) - 3(Mute, global aphasia) 10. Dysarthria (speech clarity - read or repeat words) - 2(Severe) 11. Extinction and Inattention (visual/tactile/auditory/spatial/personal) - 2(Profound) Initials: NIH Stroke Scale - NIH Stroke Score Date: 03/21/2018 Time: 23:41 Total Score = 16 1a. Level of Consciousness (LOC) - 0(Alert) 1b. Level of Consciousness (LOC) (Year \T\ Age) - 2(Neither) 1c. LOC Commands (Open \T\ Closes Eyes/Manager Cable) - 0(Both) 2. Best Gaze (Lateral Gaze Paresis) - 0(Normal) 3. Visual Field Loss - 0(No visual loss) 4. Facial Palsy - 0(Normal) 5a. Left Arm: Motor (10-second hold) - 0(No drift) 5b. Right Arm: Motor (10-second hold) - 4(No movement) 6a. Left Leg: Motor (5-second hold - always test supine) - 0(No drift) 6b. Right Leg: Motor (5-second hold - always test supine) - 4(No movement) 7. Limb Ataxia (finger/nose \T\ heel/barakat - test with eyes open) - 1(Present in one limb) 8. Sensory Loss (pinprick arms/legs/face) - 1(Mild to moderate loss) 9. Best Language: Aphasia (description/naming/reading) - 2(Severe aphasia) 10. Dysarthria (speech clarity - read or repeat words) - 2(Severe) 11. Extinction and Inattention (visual/tactile/auditory/spatial/personal) - 0(No abnormality) Initials: gs Signatures: Dispatcher [employer] Merlyn Tineo Demi ds1 Bernardo Buchanan ds4 Anu Coe RN RN ak1 Jan Abdalla Elena, RN RN ea Starr, Gregory, MD MD gs Corrections: (The following items were deleted from the chart) 03/21 21:57 21:56 No provider procedures requiring assistance completed. ak1 ak1 21:57 21:56 Patient did not have IV access during this emergency room visit. ak1 ak1
--- NOTE | 2018-03-21 23:56 | EDPHYS ---
Physician Documentation [facility] Name: Janell Zuniga Age: 77 yrs Sex: Female : 1940 Arrival Date: 03/21/2018 Time: 21:10 Bed 2 Private MD: ED Physician Zack Adan HPI: 03/21 22:56 This 77 yrs old Female presents to ER via EMS with complaints of Altered Mental Status. gs 22:56 The patient presents with confusion, decreased mental status. Onset: The gs symptoms/episode began/occurred at an unknown time. daughter came to rehab facility to see mother, pt was slumped over in chair drooling and not responsive, she called 911, facility doesn't know when symptoms started last seen by daughter in morning time.. 23:41 Associated signs and symptoms: Pertinent positives: confusion, Pertinent negatives: gs seizure. Patient's baseline: Motor: right-sided weakness, Speech: the patient can speak but doesn't make sense. The patient has experienced a previous episode. Historical: - Allergies: 21:24 Codeine; ea - Home Meds: 21:24 aspirin 81 mg Oral chew 1 tab once daily [Active]; divalproex 125 mg Oral cpSP 2 caps ea every 8 hours [Active]; Eliquis 5 mg Oral tab 2 times per day [Active]; hydrochlorothiazide 12.5 mg Oral cap 1 cap once daily [Active]; isosorbide mononitrate 30 mg Oral Tb24 2 tabs once daily [Active]; Lyrica 50 mg Oral 2 times per day [Active]; trazodone 100 mg Oral tab 1 tab [Active]; Protonix 40 mg Oral grps 1 packet once daily [Active]; pravastatin 20 mg Oral tab 1 tab once daily [Active]; 23:13 metformin 1,000 mg Oral tab 1 tab 2 times per day [Active]; metoprolol tartrate 50 mg ea Oral tab 1 tab 2 times per day [Active]; Vitamin D Oral daily [Active]; Vitamin B-1 oral oral [Active]; - PMHx: 21:24 Hypertension; hemiparesis right; Diabetes - NIDDM; CVA; CAD; Aphasia; ea - Immunization history:: Adult Immunizations up to date. - Social history:: Smoking status: Patient/guardian denies using tobacco. - Ebola Screening: : No symptoms or risks identified at this time. ROS: 23:41 Constitutional: Negative for fever. gs 23:41 Unable to obtain ROS due to patient's speech is incomprehensible. Exam: 23:41 Head/Face: Normocephalic, atraumatic. Eyes: Pupils equal round and reactive to light, gs extra-ocular motions intact. Lids and lashes normal. Conjunctiva and sclera are non-icteric and not injected. Cornea within normal limits. Periorbital areas with no swelling, redness, or edema. ENT: Nares patent. No nasal discharge, no septal abnormalities noted. Tympanic membranes are normal and external auditory canals are clear. Oropharynx with no redness, swelling, or masses, exudates, or evidence of obstruction, uvula midline. Mucous membranes moist. Neck: Trachea midline, no thyromegaly or masses palpated, and no cervical lymphadenopathy. Supple, full range of motion without nuchal rigidity, or vertebral point tenderness. No Meningismus. Chest/axilla: Normal chest wall appearance and motion. Nontender with no deformity. No lesions are appreciated. 23:41 Respiratory: Lungs have equal breath sounds bilaterally, clear to auscultation and percussion. No rales, rhonchi or wheezes noted. No increased work of breathing, no retractions or nasal flaring. Abdomen/GI: Soft, non-tender, with normal bowel sounds. No distension or tympany. No guarding or rebound. No evidence of tenderness throughout. Back: No spinal tenderness. No costovertebral tenderness. Full range of motion. Skin: Warm, dry with normal turgor. Normal color with no rashes, no lesions, and no evidence of cellulitis. MS/ Extremity: Pulses equal, no cyanosis. Neurovascular intact. Full, normal range of motion. 23:41 Constitutional: The patient appears alert, awake. 23:41 Cardiovascular: Rate: bradycardic, Rhythm: regular, Pulses: no pulse deficits are appreciated. 23:41 ECG was reviewed by the Attending Physician. 23:41 Neuro: Orientation: to person, Cranial nerves: no acute changes, Motor: Strength is 1/5 in the right arm and right leg. Vital Signs: 21:05 BP 167 / 67; Pulse 55; Resp 16; Temp 97.8; Pulse Ox 98% on R/A; Weight 58.97 kg; Height ea 5 ft. (152.40 cm); 03/22 00:12 BP 103 / 47; Pulse 54; Resp 16; Temp 97.8; Pulse Ox 98% on R/A; Pain 0/10; ak1 03/21 21:05 Body Mass Index 25.39 (58.97 kg, 152.40 cm) ea NIH Stroke Scale Scores: 03/21 23:40 NIHSS Score: 36 ea 23:41 NIHSS Score: 16 gs MDM: 21:41 Patient medically screened. gs 23:41 Differential Diagnosis: CVA, electrolyte abnormality, intracranial bleed, seizure. Data gs reviewed: vital signs, nurses notes. Data reviewed: lab test result(s), EKG, radiologic studies. Test interpretation: by ED physician or midlevel provider: plain radiologic studies. Counseling: I had a detailed discussion with the patient and/or guardian regarding: the historical points, exam findings, and any diagnostic results supporting the discharge/admit diagnosis. ED course: no tpa time of onset unknown, no clear difference from baseline. 03/21 21:37 Order name: Basic Metabolic Panel; Complete Time: 23:15 gs 03/21 21:37 Order name: CBC with Diff; Complete Time: 22:15 gs 03/21 21:37 Order name: LFT's; Complete Time: 23:15 gs 03/21 21:37 Order name: Magnesium; Complete Time: 23:15 gs 03/21 21:37 Order name: NT PRO-BNP; Complete Time: 23:15 03/21 21:37 Order name: PT-INR; Complete Time: 22:15 03/21 21:37 Order name: Troponin (emerg Dept Use Only); Complete Time: 23:15 gs 03/21 21:37 Order name: XRAY Chest (1 view); Complete Time: 22:15 gs 03/21 21:37 Order name: EKG; Complete Time: 21:38 gs 03/21 21:41 Order name: CT Head Brain wo Cont; Complete Time: 22:15 gs 03/21 21:43 Order name: glucometer results - FOR PT WITH NO ID; Complete Time: 23:15 ds4 03/21 21:37 Order name: Cardiac monitoring; Complete Time: 21:41 gs 03/21 21:37 Order name: EKG - Nurse/Tech; Complete Time: 21:53 gs 03/21 21:37 Order name: IV Saline Lock; Complete Time: 21:41 gs 03/21 21:37 Order name: Labs collected and sent; Complete Time: 21:41 gs 03/21 21:37 Order name: O2 Per Protocol; Complete Time: 21:40 gs 03/21 21:37 Order name: O2 Sat Monitoring; Complete Time: 21:41 gs EC:41 Rate is 53 beats/min. Rhythm is regular. SD interval is normal. QRS interval is gs prolonged. T waves are Inverted. T waves are Flattened. Clinical impression: NSR w/ Non-specific ST/T Changes. Interpreted by me. Administered Medications: 22:17 Drug: NS 0.9% 1000 ml Route: IV; Rate: 1 bolus; Site: left antecubital; ea 03/22 00:11 Follow up: IV Status: Completed infusion ak1 03/21 23:58 Drug: Keppra 1000 mg Route: IV; Rate: calculated rate; Site: left antecubital; ea 03/22 00:15 Follow up: IV Status: Completed infusion ea Point of Care Testing: Blood Glucose: 03/21 21:42 Blood Glucose: 136 mg/dL; ds4 Ranges: Critical Glucose Levels:Adult <50 mg/dl or >400 mg/dl <40 mg/dl or >180 mg/dl Disposition: 03/21/18 23:56 Transfer ordered to Other Acute Care Facility. Diagnosis are Epileptic seizures related to external causes, not intractable, Transient cerebral ischemic attack, unspecified. - Reason for transfer: Higher level of care. - Accepting physician is marsha. - Condition is Stable. - Problem is new. - Symptoms have improved. NIH Stroke Scale - NIH Stroke Score Date: 03/21/2018 Time: 23:40 Total Score = 36 1a. Level of Consciousness (LOC) - 2(Not Alert, obtunded) 1b. Level of Consciousness (LOC) (Year \T\ Age) - 2(Neither) 1c. LOC Commands (Open \T\ Closes Eyes/Fruit Cutter) - 1(One) 2. Best Gaze (Lateral Gaze Paresis) - 1(Partial gaze palsy) 3. Visual Field Loss - 3(Bilateral hemianopia) 4. Facial Palsy - 2(Partial paralysis) 5a. Left Arm: Motor (10-second hold) - 4(No movement) 5b. Right Arm: Motor (10-second hold) - 3(No effort against gravity) 6a. Left Leg: Motor (5-second hold - always test supine) - 4(No movement) 6b. Right Leg: Motor (5-second hold - always test supine) - 3(No effort against gravity) 7. Limb Ataxia (finger/nose \T\ heel/barakat - test with eyes open) - 2(Present in two limbs) 8. Sensory Loss (pinprick arms/legs/face) - 2(Severe to total loss) 9. Best Language: Aphasia (description/naming/reading) - 3(Mute, global aphasia) 10. Dysarthria (speech clarity - read or repeat words) - 2(Severe) 11. Extinction and Inattention (visual/tactile/auditory/spatial/personal) - 2(Profound) Initials: svetlana NIH Stroke Scale - NIH Stroke Score Date: 03/21/2018 Time: 23:41 Total Score = 16 1a. Level of Consciousness (LOC) - 0(Alert) 1b. Level of Consciousness (LOC) (Year \T\ Age) - 2(Neither) 1c. LOC Commands (Open \T\ Closes Eyes/Fruit Cutter) - 0(Both) 2. Best Gaze (Lateral Gaze Paresis) - 0(Normal) 3. Visual Field Loss - 0(No visual loss) 4. Facial Palsy - 0(Normal) 5a. Left Arm: Motor (10-second hold) - 0(No drift) 5b. Right Arm: Motor (10-second hold) - 4(No movement) 6a. Left Leg: Motor (5-second hold - always test supine) - 0(No drift) 6b. Right Leg: Motor (5-second hold - always test supine) - 4(No movement) 7. Limb Ataxia (finger/nose \T\ heel/barakat - test with eyes open) - 1(Present in one limb) 8. Sensory Loss (pinprick arms/legs/face) - 1(Mild to moderate loss) 9. Best Language: Aphasia (description/naming/reading) - 2(Severe aphasia) 10. Dysarthria (speech clarity - read or repeat words) - 2(Severe) 11. Extinction and Inattention (visual/tactile/auditory/spatial/personal) - 0(No abnormality) Initials: gs Signatures: Dispatcher [employer] EDMS Gannon, Nicole, RN RN ea Adan, Zack, MD MD gs Krenek, Anu RN ak1 Corrections: (The following items were deleted from the chart) 23:50 22:56 Onset: The symptoms/episode began/occurred at an unknown time. daughter alana came to rehab facility to see mother, pt was , alana 03/22 00:31 03/21 23:56 03/21/2018 23:56 Transfer ordered to Other Acute Care Facility. ea Diagnosis is Epileptic seizures related to external causes, not intractable; Transient cerebral ischemic attack, unspecified. Reason for transfer: Higher level of care. Accepting physician is tammyveronica. Condition is Stable. Problem is new. Symptoms have improved.
--- NOTE | 2018-03-22 08:46 | EKG ---
Test Date: 2018-03-21 Test Time: 21:48:00 Fitter Helper: VITO MEASUREMENT RESULTS: Intervals: Rate: 53 MD: 140 QRSD: 110 QT: 468 QTc: 439 [place]: P: 26 MD: 140 QRS: -68 T: 101 INTERPRETIVE STATEMENTS: Sinus bradycardia Left anterior fascicular block ST & T wave abnormality, consider lateral ischemia Intraventricular conduction delay Abnormal ECG Compared to ECG 03/12/2018 05:31:53 Sinus rhythm no longer present Electronically Signed On 03-22-18 08:45:58 AUTOMOTIVE DETAILER by Nate Laughlin
== END 2018-03-22 00:31 | disposition short-term general hospital (02) ==
LOC: ER 21:08
DX: G45.9 Transient cerebral ischemic attack, unspecified (principal); G40.909 Epilepsy, unspecified, not intractable, without status epilepticus; I10 Essential (primary) hypertension; E11.9 Type 2 diabetes mellitus without complications; Z86.73 Personal history of transient ischemic attack (TIA), and cerebral infarction without residual deficits; I25.10 Atherosclerotic heart disease of native coronary artery without angina pectoris
CPT/HCPCS: 36415; 70450; 71045; 80048; 80076; 82962; 83735; 83880; 84484; 85025; 85610; 93005; 96361; 96365; 99285; J1953; J7030

== ENCOUNTER 2019-05-25 11:15 | Emergency (ER) | payer OTHER ==
--- OUTSIDE RECORDS SUMMARY | 2019-05-25 11:19 | XMS REPORT | Summary of Care ---
:1940 Author Organization [facility] Address [address] [place] [id number] Care Team Providers Name Role Phone Silke Ball MD Primary Care Provider Reason for Visit Reason Comments Letters Encounter Details Date Type Department Care Team Description 10/13/2018 [facility] MD Kellen [address] [place] [address] [place] [address] [phone] Allergies Active Allergy Reactions Severity Noted Date Comments Codeine Unknown - See comments 01/05/2014 Patient does not remember reaction documented as of this encounter (statuses as of 10/13/2018) Medications Medication Sig Dispensed Refills Start Date End Date Status Diclofenac Sodium Apply to 100 g 1 01/25/2018 Active (VOLTAREN) 1 % area(s) 2 (two) gelIndications: times daily. Arthritis of right hip B Complex Vitamins (B Take 1 tablet by 30 tablet 3 01/25/2018 Active COMPLEX) TbSR mouth daily. Cholecalciferol, Take 1 capsule 30 capsule 3 01/25/2018 Active Vitamin D3, (VITAMIN by mouth. D3) 2,000 unit capsule isosorbide mononitrate Take 1 tablet by 60 tablet 5 10/07/2018 Active 10 mg mouth 2 (two) tabletIndications: times daily. Chest pain, unspecified type, Essential hypertension albuterol 2.5 mg/0.5 mL Use 0.5 mL as 120 Each 2 10/07/2018 Active nebulizer directed every 6 solutionIndications: (six) hours as Uncomplicated asthma, needed for unspecified asthma Wheezing. severity, unspecified whether persistent pregabalin (LYRICA) 50 Take 1 capsule 60 capsule 2 10/07/2018 Active mg capsuleIndications: by mouth 2 (two) Peripheral neuropathy, times daily. hereditary/idiopathic lisinopril 10 mg Take 1 tablet by 90 tablet 1 10/07/2018 Active tabletIndications: mouth daily. 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 Cerebrovascular accident (CVA), unspecified mechanism Hospital, Clinic, or Other Ordered Dose Route Frequency Start Date End Date Status Facility Administered Medication carvedilol (COREG) tablet 3.125 mg Oral BID MEALS 10/07/2018 Active 3.125 mg documented as of this encounter (statuses as of 10/13/2018) Active Problems Problem Noted Date Arthritis of right hip 06/30/2016 [place] (myocardial infarction) Frequent falls Spinal stenosis Diabetes mellitus HTN (hypertension) Hyperlipidemia Hypertriglyceridemia CVA (cerebral infarction) Overview: 1 large and several mini H/O hepatitis CAD (coronary artery disease) Peripheral neuropathy Urinary incontinence documented as of this encounter (statuses as of 10/13/2018) Social History Tobacco Use Types Packs/Day Years Used Date Never Smoker Smokeless Tobacco: Never Used Alcohol Use Drinks/Week oz/Week Comments No Sex Assigned at Date Recorded Not on file Job Start Date Occupation Industry Not on file Not on file Not on file Travel History Travel Start Travel End No recent travel history available. documented as of this encounter Last Filed Vital Signs Not on filedocumented in this encounter Plan of Treatment Date Type Specialty Care Team Description 10/14/2018 Office Visit Geriatric Medicine Silke Ball MD [address] [place] [address] [phone] 10/24/2018 Office Visit Geriatric Medicine Silke Ball MD [address] [place] [address] [phone] Health Maintenance Due Date Last Done Comments EYE EXAM 1950 URINE MICROALBUMIN 1950 DTaP,Tdap,and Td Vaccines (1 - 1957 Tdap) Zoster Recombinant Vaccine 1988 (SHINGRIX) (1 of 2) Medicare Wellness Visit 10/21/2003 Osteoporosis Screening 10/21/2003 PNEUMOCOCCAL VACCINES 65+ (1 of 2 10/21/2003 - PCV13) FOOT EXAM 07/16/2018 07/16/2017, 07/16/2017 INFLUENZA VACCINE 11/20/2018 HgA1C 03/17/2019 09/15/2018, 01/18/2018, 05/26/2017, Additional history exists CREATININE (SERUM) 09/16/2019 09/15/2018, 01/18/2018, 02/24/2017, Additional history exists LDL-C 09/16/2019 09/15/2018, 02/24/2017 documented as of this encounter Results Not on filedocumented in this encounter Insurance Payer Benefit Plan / Subscriber ID Effective Dates Phone Address Type Group MEDICARE MEDICARE PART xxxxxxxxxxx 2004-Presen [id number] [place] [id number] [facility] MEDICAID OF xxxxxxxxx 2017-Prese [phone] [address] Medicaid [facility] [id number] [place] [address] documented as of this encounter
--- OUTSIDE RECORDS SUMMARY | 2019-05-25 11:19 | XMS REPORT ---
:1940 [facility] Address [address] [place] [address] Care Team Providers Name Role Phone Unavailable Unavailable Unavailable Payers Payer Name Policy Type Policy Number Effective Date Expiration Date Problems This patient has no known problems. Allergies, Adverse Reactions, Alerts Allergy Allergy Status Severity Reaction(s) Onset Inactive Treating Comments Name Type Date Date Clinician morphine DA Active U 2019-01 00:00:0 0 codeine DA Active U 2019-01 00:00:0 0 morphine DA Active U 2018-12 00:00:0 0 codeine DA Active U 2018-12 00:00:0 0 morphine DA Active U 2018-07 00:00:0 0 codeine DA Active U 2017-10 00:00:0 0 Medications This patient has no known medications. Encounters Start End Encounter Admission Attending Care Care Encounter Date/Time Date/Time Type Type Clinicians Facility Department ID 2018-03-23 Inpatient [facility] MED 9002 19:28:00 2018-03-[address] [facility] 7502 04:21:00 Results Test Description Test Time Test Comments Text Results Atomic Results Result Comments - CT HEAD/BRAIN W/O CONT 2019-02-28 14:38:00 Name: RONALD ALLEN [facility] [place] : 1940 Age/S: 78 / F [address] [place] [address] Blvd Unit #: [id number] Loc: [place] [address] Phys: Lucina Stewart MD Acct: [id number] Dis Date: Status: REG CLI PHONE #: [phone] Exam Date: 02/28/2019 1416 FAX #: [phone] Reason: EVAL FOR PROGRESSION OF STROKE. EXAMS: CPT CODE: [id number] CT HEAD/BRAIN W/O CONT 84394 CT head without contrast 02/28/2019 HISTORY: Cerebral infarction. PROCEDURE: Multiple axial images from the skull base to the skull vertex were obtained without contrast. Coronal and sagittal reconstructed images were performed CT imaging performed at this location utilizes radiation dose optimization techniques which include one or more of the following: -Automated exposure control -Adjustment of the mA and/or kV according to patient size -Use of iterative reconstruction technique CT Radiation Dose DLP 861.4 mGy-cm Comparison is made to 02/13/2019. FINDINGS: There are old infarcts in the lateral left occipital lobe and posterior left frontal lobe. No new infarct is present. No acute hemorrhage, midline shift, extra-axial fluid collection, or hydrocephalus is present. There is moderate atrophy. There are moderate white matter hypodensities. The visualized mastoid air cells are clear. There is no air-fluid level in the visualized paranasal sinuses. Distal internal carotid arterial calcifications are present. IMPRESSION: 1. No acute intracranial abnormality. 2. Moderate atrophy and moderate chronic microvascular ischemic changes. 3. 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 SL: [id number] at 1438 Reported and signed by: Robbie Ventura M.D. CC: Lucina Stewart MD Technologist:Pj Acosta, RT(R)(CT) CTDI: DLP: Trnscb Date/Time: 02/28/2019 (8971) [id number] Orig Print D/T: S: 02/28/2019 (5577) PAGE 1 Signed Report VITAMIN B12 2019-02-18 08:36:00 Test Item Value Reference Range Comments VITAMIN B12 (test code=VITB12) 424 pg/mL 193-986 INFECTION CONTROL [id number] 04:13:00 Test Item Value Reference Range Comments AG HEPATITIS B SURFACE (test code=HBSAG) NON REACTIVE INDEX NonReactive AB HEPATITIS C (test code=HCVAB) NON REACTIVE INDEX NON REACT. AB HIV 1 2 (test code=FAL03FY) NONREACTIVE INDEX NONREACTIVE HIV 1/2 RAPID SCREEN (test code=BGY74GHG) NONREACTIVE NONREACTIVE AG HIV1 P24 (test code=QPF2I85) NONREACTIVE NONREACTIVE SOURCE PATIENTINFECTION CONTROL [id number] 03:03:00 Test Item Value Reference Range Comments AG HEPATITIS B SURFACE (test code=HBSAG) NON REACTIVE INDEX NonReactive AB HEPATITIS C (test code=HCVAB) NON REACTIVE INDEX NON REACT. AB HIV 1 2 (test code=MKK91JK) INDEX NONREACTIVE HIV 1/2 RAPID SCREEN (test code=CYJ33UIF) NONREACTIVE NONREACTIVE AG HIV1 P24 (test code=NKZ9L79) NONREACTIVE NONREACTIVE SOURCE PATIENTINFECTION CONTROL [id number] 02:24:00 Test Item Value Reference Range Comments AG HEPATITIS B SURFACE (test code=HBSAG) NON REACTIVE INDEX NonReactive AB HEPATITIS C (test code=HCVAB) INDEX NON REACT. AB HIV 1 2 (test code=AXW01WL) INDEX NONREACTIVE HIV 1/2 RAPID SCREEN (test code=EDV41HLI) NONREACTIVE NONREACTIVE AG HIV1 P24 (test code=ECV9T55) NONREACTIVE NONREACTIVE SOURCE PATIENTINFECTION CONTROL [id number] 02:14:00 Test Item Value Reference Range Comments AG HEPATITIS B SURFACE (test code=HBSAG) INDEX NonReactive AB HEPATITIS C (test code=HCVAB) INDEX NON REACT. AB HIV 1 2 (test code=TUO61RH) INDEX NONREACTIVE HIV 1/2 RAPID SCREEN (test code=WIV85WWT) NONREACTIVE NONREACTIVE AG HIV1 P24 (test code=RPL9Q61) NONREACTIVE NONREACTIVE SOURCE PATIENTBASI METABOLIC [id number] 08:46:00 Test Item Value Reference Range Comments SODIUM (test code=NA) 140 mEq/L 134-147 POTASSIUM (test code=K) 3.9 mEq/L 3.4-5.0 CHLORIDE (test code=CL) 111 mEq/L 100-108 CARBON DIOXIDE (test code=CO2) 21 mEq/L 21-33 ANION GAP (test code=GAP) 12 0-20 GLUCOSE (test code=GLU) 149 mg/dL 70-110 BLOOD UREA NITROGEN (test 38 mg/dL 7-18 code=BUN) GLOMERULAR FILTRATION RATE 43.2 70-80 Units of measure=ml/min/1.73 (test code=GFR) m2 CREATININE (test code=CREAT) 1.2 mg/dL 0.6-1.3 CALCIUM (test code=CA) 8.6 mg/dL 8.0-10.5 THYROID STIMULATING [id number] 08:46:00 Test Item Value Reference Range Comments THYROID STIMULATING HORMONE (test 3.35 0.42-5.47 Results in [employer]- [employer] code=TSH) Units/mL CBC W/AUTO [id number] 07:21:00 Test Item Value Reference Range Comments WHITE BLOOD CELL (test code=WBC) 8.05 x10 3/uL 4.5-11.0 RED BLOOD CELL (test code=RBC) 3.78 x10 6/uL 3.54-5.02 HEMOGLOBIN (test code=HGB) 10.3 g/dL 11.0-15.0 HEMATOCRIT (test code=HCT) 32.7 % 33.0-45.0 MEAN CELL VOLUME (test code=MCV) 86.5 fL 81.0-99.0 MEAN CELL HGB (test code=MCH) 27.2 pg 27.0-33.0 MEAN CELL HGB CONCETRATION (test code=MCHC) 31.5 g/dL 33.0-37.0 RED CELL DISTRIBUTION WIDTH CV (test code=RDW) 15.1 % 11.5-14.5 RED CELL DISTRIBUTION WIDTH SD (test 47.8 fL 37.0-54.0 code=RDW-SD) PLATELET COUNT (test code=PLT) 305 x10 3/uL 150-400 MEAN PLATELET VOLUME (test code=MPV) 10.5 fL 7.0-9.0 NEUTROPHIL % (test code=NT%) 50.1 % 56.0-77.0 IMMATURE GRANULOCYTE % (test code=IG%) 0.2 % 0.0-2.0 LYMPHOCYTE % (test code=LY%) 34.7 % 14.0-32.0 MONOCYTE % (test code=MO%) 10.9 % 4.8-9.0 EOSINOPHIL % (test code=EO%) 3.6 % 0.3-3.7 BASOPHIL % (test code=BA%) 0.5 % 0.0-2.0 NUCLEATED RBC % (test code=NRBC%) 0.0 % 0-0 NEUTROPHIL # (test code=NT#) 4.03 x10 3/uL 2.0-7.6 IMMATURE GRANULOCYTE # (test code=IG#) 0.02 x10 3/uL 0.00-0.03 LYMPHOCYTE # (test code=LY#) 2.79 x10 3/uL 1.0-3.8 MONOCYTE # (test code=MO#) 0.88 x10 3/uL 0.1-0.8 EOSINOPHIL # (test code=EO#) 0.29 x10 3/uL 0.0-0.2 BASOPHIL # (test code=BA#) 0.04 x10 3/uL 0.0-0.2 NUCLEATED RBC # (test code=NRBC#) 0.00 x10 3/uL 0.0-0.1 MANUAL DIFF REQUIRED (test code=MDIFF) NO BASIC METABOLIC [id number] 05:09:00 Test Item Value Reference Range Comments SODIUM (test code=NA) 144 mEq/L 134-147 POTASSIUM (test code=K) 3.7 mEq/L 3.4-5.0 CHLORIDE (test code=CL) 111 mEq/L 100-108 CARBON DIOXIDE (test code=CO2) 28 mEq/L 21-33 ANION GAP (test code=GAP) 9 0-20 GLUCOSE (test code=GLU) 170 mg/dL 70-110 BLOOD UREA NITROGEN (test 31 mg/dL 7-18 code=BUN) GLOMERULAR FILTRATION RATE 36.2 70-80 Units of measure=ml/min/1.73 (test code=GFR) m2 CREATININE (test code=CREAT) 1.4 mg/dL 0.6-1.3 CALCIUM (test code=CA) 8.3 mg/dL 8.0-10.5 BASIC METABOLIC [id number] 05:07:00 Test Item Value Reference Range Comments SODIUM (test code=NA) 144 mEq/L 134-147 POTASSIUM (test code=K) 3.7 mEq/L 3.4-5.0 CHLORIDE (test code=CL) 111 mEq/L 100-108 CARBON DIOXIDE (test code=CO2) 28 mEq/L 21-33 ANION GAP (test code=GAP) 9 0-20 GLUCOSE (test code=GLU) 170 mg/dL 70-110 BLOOD UREA NITROGEN (test code=BUN) 31 mg/dL 7-18 GLOMERULAR FILTRATION RATE (test code=GFR) 70-80 CREATININE (test code=CREAT) mg/dL 0.6-1.3 CALCIUM (test code=CA) 8.3 mg/dL 8.0-10.5 CBC W/AUTO [id number] 04:57:00 Test Item Value Reference Range Comments WHITE BLOOD CELL (test code=WBC) 8.71 x10 3/uL 4.5-11.0 RED BLOOD CELL (test code=RBC) 3.98 x10 6/uL 3.54-5.02 HEMOGLOBIN (test code=HGB) 11.1 g/dL 11.0-15.0 HEMATOCRIT (test code=HCT) 33.8 % 33.0-45.0 MEAN CELL VOLUME (test code=MCV) 84.9 fL 81.0-99.0 MEAN CELL HGB (test code=MCH) 27.9 pg 27.0-33.0 MEAN CELL HGB CONCETRATION (test code=MCHC) 32.8 g/dL 33.0-37.0 RED CELL DISTRIBUTION WIDTH CV (test code=RDW) 14.5 % 11.5-14.5 RED CELL DISTRIBUTION WIDTH SD (test 44.9 fL 37.0-54.0 code=RDW-SD) PLATELET COUNT (test code=PLT) 329 x10 3/uL 150-400 MEAN PLATELET VOLUME (test code=MPV) 10.5 fL 7.0-9.0 NEUTROPHIL % (test code=NT%) 55.1 % 56.0-77.0 IMMATURE GRANULOCYTE % (test code=IG%) 0.3 % 0.0-2.0 LYMPHOCYTE % (test code=LY%) 30.3 % 14.0-32.0 MONOCYTE % (test code=MO%) 10.3 % 4.8-9.0 EOSINOPHIL % (test code=EO%) 3.7 % 0.3-3.7 BASOPHIL % (test code=BA%) 0.3 % 0.0-2.0 NUCLEATED RBC % (test code=NRBC%) 0.0 % 0-0 NEUTROPHIL # (test code=NT#) 4.79 x10 3/uL 2.0-7.6 IMMATURE GRANULOCYTE # (test code=IG#) 0.03 x10 3/uL 0.00-0.03 LYMPHOCYTE # (test code=LY#) 2.64 x10 3/uL 1.0-3.8 MONOCYTE # (test code=MO#) 0.90 x10 3/uL 0.1-0.8 EOSINOPHIL # (test code=EO#) 0.32 x10 3/uL 0.0-0.2 BASOPHIL # (test code=BA#) 0.03 x10 3/uL 0.0-0.2 NUCLEATED RBC # (test code=NRBC#) 0.00 x10 3/uL 0.0-0.1 MANUAL DIFF REQUIRED (test code=MDIFF) NO UA RFLX MICR CULT IF [id number] 17:29:00 Test Item Value Reference Range Comments UA COLOR (test code=COLU) STRAW YEL/STRAW UA APPEARANCE (test code=APPU) CLEAR CLEAR UA GLUCOSE DIPSTICK (test code=DGLUU) NEGATIVE NEGATIVE UA BILIRUBIN DIPSTICK (test code=BILU) NEGATIVE NEGATIVE UA KETONE DIPSTICK (test code=KETU) NEGATIVE NEGATIVE UA SPECIFIC GRAVITY (test code=SGU) 1.008 1.005-1.030 UA BLOOD DIPSTICK (test code=RUPERT) NEGATIVE NEGATIVE UA PH DIPSTICK (test code=MARLEE) 6.0 5.0-7.0 UA PROTEIN DIPSTICK (test code=PROU) NEGATIVE NEGATIVE UA UROBILINIOGEN DIPSTICK (test code=URO) 0.2 mg/dL 0.2-1.0 UA NITRITE DIPSTICK (test code=PAMELA) NEGATIVE NEGATIVE UA LEUKOCYTE ESTERASE DIPSTICK (test code=LEUU) NEGATIVE NEGATIVE UA WBC (test code=WBCU) 0-3 WBC/HPF 0-3 UA RBC (test code=RBCU) 0-3 RBC/HPF 0-3 UA WBC NO REFLEX (test code=WBCUCL) 0-3 WBC/HPF 0-3 UA BACTERIA (test code=BACU) TRACE /HPF NONE SEEN UA SQUAMOUS CELLS (test code=SQU) 0-5 /HPF NONE SEEN UA MUCUS (test code=MUCU) TRACE /LPF NONE SEEN Indication for culture: Delirium-if no other srcSpecimen Description: STRAIGHT CATH- CT HEAD/BRAIN W/O [id number] 17:29:00 Name: RONALD ALLEN [facility] : 1940 Age/S : 78 / F [address] [place] [address] Unit #: [id number] Loc: [place] [id number] Phys: Xander Brown MD Acct: [id number] Dis Date: Status: PRE ER PHONE #: [phone] Exam Date: 02/13/2019 1647 FAX #: [phone] Reason : AlteredMental Status EXAMS: CPTCODE: [id number] CT HEAD/BRAIN W/O CONT 54730 Clinical Indication: Altered mental status. Comparison: Prior CT brain study dated 12/25/2018. TECHNIQUE: CT images were obtained from the foramen magnum to the vertex without the use of intravenous contrast on a multidetector CT. Coronal and sagittal reconstructions were obtained. CT imaging performed at this location utilizes radiation dose optimization techniques which include one or more of the following: -Automated exposure control - Adjustment of the mA and/or kV according to patient size -Use of iterative reconstruction technique CT Radiation Dose DLP 419.7 mGy-cm FINDINGS: BRAIN PARENCHYMA: Redemonstrated are old infarcts in the left occipital lobe with moderate ex vacuo dilatation of the occipital horn of the left lateral ventricle. There is generalized brain parenchymal atrophy related to the patient's age. Old infarcts in the bilateral basal ganglia. Moderate nonspecific periventricular white matter disease changes are noted. Atherosclerotic calcifications are present within the carotid siphons and distal vertebral arteries. There are no focalmass lesions on this noncontrast head CT. There is no mass effect, midline shift or edema. There are no intra-axial or extra- axial fluid collections, intraventricular or intraparenchymal hemorrhage. There is no noncontrast CT evidence of a subacute stroke. The pineal, sellar, brainstem, cerebellum and skull base regions appear unremarkable. Degenerative arthritic changes in the left temporomandibular joint.The basilar cisterns are normal. ORBITS, MASTOIDS AND PARANASAL SINUSES: The visualized orbits and paranasal sinuses are unremarkable. The mastoid air cells are clear. SKULL: There are no calvarial abnormalities seen. If there is further concern for intracranial pathology or acute stroke, MRI of the brain may be performed for complete assessment. IMPRESSION: 1. No acute intracranial abnormality. 2. Remote infarct in the left occipital lobe with associated volume loss. Old infarct in the bilateral basal ganglia. 3. Moderate chronic microvascular ischemic changes with generalized PAGE 1 Signed Report (CONTINUED) Name: RONALD ALLEN [facility] : 1940 Age/S: 78 / F [address] [place] [address] Unit #: [id number] Loc: [place] [address] Phys: Xander Brown MD Acct: [id number] Dis Date: Status: PRE ER PHONE #: [phone] Exam Date: 02/13/2019 1647 FAX # : [phone] Reason: Altered Mental Status EXAMS : CPT CODE: [id number] CT HEAD/BRAIN W/O CONT 66180<Continued> cerebral parenchymal volume loss. SL: APATIL-H at 1729 Reported and signed by: Lea Pace M.D. CC: Xander Brown MD Technologist:RT Eddi(R)(CT ) CTDI: DLP: Trnscb Date/Time: 02/13/2019 (172) [id number] Orig Print D/T: S: 02/13/2019 (173) PAGE 2 Signed ReportTROPONIN-I [id number] 15:49:00 Test Item Value Reference Range Comments TROPONIN-I RAPID (test 0.02 ng/mL 0.00-0.08 Performed by certified portable canteen operator code=TROPIRAP) at [facility] Negative: <=0.08 Positive: >=0.09An elevated troponin value alone is not sufficient todiagnose a myocardial infarction. Rather, the patient sclinical presentation (history, physical exam) and ECGshould be used in conjunction with troponin in thediagnostic evaluation of suspected myocardial infarction. Aserial sampling protocol is recommended to facilitate the identification of temporal changes in troponin levels characteristic of [place]. - XR CHEST 1 [id number] 15:46:00 FAX: Xander Brown MD [place]: St: PRE Name: RONALD ALLEN [facility] : 1940 Age/S: 78/F [address] [place] [address] Unit#: [id number] Loc: [address] [address] Phys: Xander Brown MD Acct: [id number] Dis Date: Status: PRE ER PHONE #: [phone] Exam Date: 02/13/2019 1540 FAX #: [phone] Reason: Altered Mental Status EXAMS: CPT CODE: [id number] XR CHEST 1 V 27808 EXAM: XR CHEST 1 VIEW DATE: 02/13/2019 3:19 PM : 1940; Age: 78 years y/o Female INDICATION: Altered Mental StatusCOMPARISON: December 25, 2018 TECHNIQUE: AP chest. IMPRESSION: Lines, tubes and hardware: Prior sternotomy changes. Heart, mediastinum and lungs: The heart size is enlarged but unchanged. Vascular calcifications are present at the aorta. Pulmonary vascularity is normal. No consolidation or pleural effusion. SL: [id number] at 5759 Reported and signed by: Shonda Jaquez D.O. CC: Xander Brown MD Technologist: Dixie Graf, RT(R)(M); RT Alexis(R) Trnscrd Date/Time/By: 02/13/2019 (1122) : By: [id number] Orig Print D/T: S: 02/13/2019 (0782) PAGE 1 Signed ReportHEPATIC FUNCTION [id number] 15:44:00 Test Item Value Reference Range Comments TOTAL PROTEIN (test code=PROT) 7.4 g/dL 6.4-8.2 ALBUMIN (test code=ALB) 3.60 g/dL 3.4-5.0 BILIRUBIN TOTAL (test code=BILT) 0.3 MG/DL <1.5 BILIRUBIN DIRECT (test code=BILD) < 0.10 MG/DL 0.0-0.30 BILIRUBIN INDIRECT (test code=BILIND) 0.20 MG/DL SGOT/AST (test code=AST) 15 IUnit/L 15-37 SGPT/ALT (test code=ALT) 22 IUnit/L 15-65 ALKALINE PHOSPHATASE TOTAL (test code=ALKP) 91 IUnit/L 20-125 CHEMISTRY 8 [id number] 15:42:00 Test Item Value Reference Range Comments ISTAT-SODIUM (test code=NAP) MMOL/L 134-147 ISTAT-POTASSIUM (test code=KP) MMOL/L 3.4-5.0 ISTAT-CHLORIDE (test code=CLP) MMOL/L 100-108 ISTAT CARBON DIOXIDE (test code=ISTAT-CO2) mmol/L 21-33 ISTAT CALCIUM IONIZED (test code=ISTAT-JOJO) MG/DL 1.12-1.32 ISTAT-GLUCOSE (test code=GLUP) MG/DL 70-110 ISTAT-BUN (test code=BUNP) MG/DL 7-18 BEDSIDE CREATININE (test code=CREATBED) MG/DL 0.6-1.3 GLOMERULAR FILTRATION RATE POC (test code=GFRBED) 46 ML/MIN CHEMISTRY 8 [id number] 15:42:00 Test Item Value Reference Range Comments ISTAT-SODIUM (test code=NAP) 140 MMOL/L 134-147 ISTAT-POTASSIUM (test 3.9 MMOL/L 3.4-5.0 code=KP) ISTAT-CHLORIDE (test 101 MMOL/L 100-108 Performed by certified code=CLP) portable canteen operator at [facility] ISTAT CARBON DIOXIDE (test 29.0 mmol/L 21-33 code=ISTAT-CO2) ISTAT CALCIUM IONIZED (test 1.22 MG/DL 1.12-1.32 code=ISTAT-JOJO) ISTAT-GLUCOSE (test 157 MG/DL 70-110 code=GLUP) ISTAT-BUN (test code=BUNP) 30 MG/DL 7-18 BEDSIDE CREATININE (test 1.2 MG/DL 0.6-1.3 code=CREATBED) GLOMERULAR FILTRATION RATE 46 ML/MIN POC (test code=GFRBED) CBC W/AUTO [id number] 15:29:00 Test Item Value Reference Range Comments WHITE BLOOD CELL (test code=WBC) 9.68 x10 3/uL 4.5-11.0 RED BLOOD CELL (test code=RBC) 4.27 x10 6/uL 3.54-5.02 HEMOGLOBIN (test code=HGB) 11.5 g/dL 11.0-15.0 HEMATOCRIT (test code=HCT) 36.3 % 33.0-45.0 MEAN CELL VOLUME (test code=MCV) 85.0 fL 81.0-99.0 MEAN CELL HGB (test code=MCH) 26.9 pg 27.0-33.0 MEAN CELL HGB CONCETRATION (test code=MCHC) 31.7 g/dL 33.0-37.0 RED CELL DISTRIBUTION WIDTH CV (test code=RDW) 14.6 % 11.5-14.5 RED CELL DISTRIBUTION WIDTH SD (test 45.4 fL 37.0-54.0 code=RDW-SD) PLATELET COUNT (test code=PLT) 350 x10 3/uL 150-400 MEAN PLATELET VOLUME (test code=MPV) 10.5 fL 7.0-9.0 NEUTROPHIL % (test code=NT%) 61.4 % 56.0-77.0 IMMATURE GRANULOCYTE % (test code=IG%) 0.3 % 0.0-2.0 LYMPHOCYTE % (test code=LY%) 25.5 % 14.0-32.0 MONOCYTE % (test code=MO%) 9.1 % 4.8-9.0 EOSINOPHIL % (test code=EO%) 3.3 % 0.3-3.7 BASOPHIL % (test code=BA%) 0.4 % 0.0-2.0 NUCLEATED RBC % (test code=NRBC%) 0.0 % 0-0 NEUTROPHIL # (test code=NT#) 5.94 x10 3/uL 2.0-7.6 IMMATURE GRANULOCYTE # (test code=IG#) 0.03 x10 3/uL 0.00-0.03 LYMPHOCYTE # (test code=LY#) 2.47 x10 3/uL 1.0-3.8 MONOCYTE # (test code=MO#) 0.88 x10 3/uL 0.1-0.8 EOSINOPHIL # (test code=EO#) 0.32 x10 3/uL 0.0-0.2 BASOPHIL # (test code=BA#) 0.04 x10 3/uL 0.0-0.2 NUCLEATED RBC # (test code=NRBC#) 0.00 x10 3/uL 0.0-0.1 MANUAL DIFF REQUIRED (test code=MDIFF) NO [id number] 12:34:00 Test Item Value Reference Range Comments GLUBED (test code=GLUBED) 187 MG/DL 70-110 Performed by certified portable canteen operator at [facility] [id number] 08:06:00 Test Item Value Reference Range Comments GLUBED (test code=GLUBED) 120 MG/DL 70-110 Performed by certified portable canteen operator at [facility] [id number] 21:13:00 Test Item Value Reference Range Comments GLUBED (test code=GLUBED) 100 MG/DL 70-110 Performed by certified portable canteen operator at [facility] [id number] 19:31:00 Test Item Value Reference Range Comments GLUBED (test code=GLUBED) 211 MG/DL 70-110 Performed by certified portable canteen operator at [facility] [id number] 13:29:00 Test Item Value Reference Range Comments GLUBED (test code=GLUBED) 155 MG/DL 70-110 Performed by certified portable canteen operator at [facility] [id number] 08:20:00 Test Item Value Reference Range Comments GLUBED (test code=GLUBED) 129 MG/DL 70-110 Performed by certified portable canteen operator at [facility] [id number] 20:42:00 Test Item Value Reference Range Comments GLUBED (test code=GLUBED) 213 MG/DL 70-110 Performed by certified portable canteen operator at [facility] [id number] 17:06:00 Test Item Value Reference Range Comments GLUBED (test code=GLUBED) 73 MG/DL 70-110 Performed by certified portable canteen operator at [facility] [id number] 15:11:00 Test Item Value Reference Range Comments GLUBED (test code=GLUBED) 230 MG/DL 70-110 Performed by certified portable canteen operator at [facility] BASIC METABOLIC [id number] 10:02:00 Test Item Value Reference Range Comments SODIUM (test code=NA) 141 mEq/L 134-147 POTASSIUM (test code=K) 3.5 mEq/L 3.4-5.0 CHLORIDE (test code=CL) 108 mEq/L 100-108 CARBON DIOXIDE (test code=CO2) 25 mEq/L 21-33 ANION GAP (test code=GAP) 12 0-20 GLUCOSE (test code=GLU) 129 mg/dL 70-110 BLOOD UREA NITROGEN (test 43 mg/dL 7-18 code=BUN) GLOMERULAR FILTRATION RATE 36.2 70-80 Units of measure=ml/min/1.73 (test code=GFR) m2 CREATININE (test code=CREAT) 1.4 mg/dL 0.6-1.3 CALCIUM (test code=CA) 8.9 mg/dL 8.0-10.5 CBC W/AUTO [id number] 08:25:00 Test Item Value Reference Range Comments WHITE BLOOD CELL (test code=WBC) 8.02 x10 3/uL 4.5-11.0 RED BLOOD CELL (test code=RBC) 3.94 x10 6/uL 3.54-5.02 HEMOGLOBIN (test code=HGB) 10.6 g/dL 11.0-15.0 HEMATOCRIT (test code=HCT) 33.2 % 33.0-45.0 MEAN CELL VOLUME (test code=MCV) 84.3 fL 81.0-99.0 MEAN CELL HGB (test code=MCH) 26.9 pg 27.0-33.0 MEAN CELL HGB CONCETRATION (test code=MCHC) 31.9 g/dL 33.0-37.0 RED CELL DISTRIBUTION WIDTH CV (test code=RDW) 14.4 % 11.5-14.5 RED CELL DISTRIBUTION WIDTH SD (test 44.4 fL 37.0-54.0 code=RDW-SD) PLATELET COUNT (test code=PLT) 241 x10 3/uL 150-400 MEAN PLATELET VOLUME (test code=MPV) 11.6 fL 7.0-9.0 NEUTROPHIL % (test code=NT%) 48.2 % 56.0-77.0 IMMATURE GRANULOCYTE % (test code=IG%) 0.4 % 0.0-2.0 LYMPHOCYTE % (test code=LY%) 36.8 % 14.0-32.0 MONOCYTE % (test code=MO%) 9.9 % 4.8-9.0 EOSINOPHIL % (test code=EO%) 4.0 % 0.3-3.7 BASOPHIL % (test code=BA%) 0.7 % 0.0-2.0 NUCLEATED RBC % (test code=NRBC%) 0.0 % 0-0 NEUTROPHIL # (test code=NT#) 3.87 x10 3/uL 2.0-7.6 IMMATURE GRANULOCYTE # (test code=IG#) 0.03 x10 3/uL 0.00-0.03 LYMPHOCYTE # (test code=LY#) 2.95 x10 3/uL 1.0-3.8 MONOCYTE # (test code=MO#) 0.79 x10 3/uL 0.1-0.8 EOSINOPHIL # (test code=EO#) 0.32 x10 3/uL 0.0-0.2 BASOPHIL # (test code=BA#) 0.06 x10 3/uL 0.0-0.2 NUCLEATED RBC # (test code=NRBC#) 0.00 x10 3/uL 0.0-0.1 MANUAL DIFF REQUIRED (test code=MDIFF) NO [id number] 08:24:00 Test Item Value Reference Range Comments GLUBED (test code=GLUBED) 133 MG/DL 70-110 Performed by certified portable canteen operator at [facility] [id number] 20:47:00 Test Item Value Reference Range Comments GLUBED (test code=GLUBED) 212 MG/DL 70-110 Performed by certified portable canteen operator at [facility] - DUP VEIN UNI/[id number] 15:47:00 Name: [facility] Hurley : 1940 Age/S: 78 / F [address] [place] [address] Unit #: [id number] Loc: [place] [id number] Phys: Sarbjit Carr Acct: [id number] Dis Date: Status: ADM IN PHONE #: [phone] Exam Date: 12/25/2018 1531 FAX #: [phone] Reason: LLE swelling eval for DVT EXAMS: CPTCODE: [id number] DUP VEIN UNI/LTD 69535 PROCEDURE: LEFT UNILATERAL LOWER EXTREMITY VENOUS ULTRASOUND INDICATION: Generalized left leg edema COMPARISON: None. TECHNIQUE: Sonographic evaluation of the left lower extremity veins was performed using high resolution B-mode, pulse and color Doppler imaging. FINDINGS: Abnormal intraluminal venous thrombus is identified throughout the left femoral vein and in the superior aspect of the left saphenous vein. Clot extends into the left popliteal vein. Small veins in the calf remain patent. IMPRESSION: 1. Deep venous thrombosis in the left leg. Dr. Carr was notified of the findings by Dr. Cooper at 1640 hours on 12/25/2018. FOR INTERNAL CODING PURPOSES ONLY RESULT CODE: CVR SL:01 at 1547 Reported and signed by:Markie Cooper M.D. CC: Sarbjit Carr DO Technologist: Selina Alicea RDMS(OB)(AB) Trnscb Date/Time: 12/25/2018 ( 9567) [email or web address] Orig Print D/T: S: 12/25/2018 (0796) Probe: PAGE 1 Signed ReportB-TYPE NATRIURETIC [id number] 14:34:00 Test Item Value Reference Range Comments B-TYPE NATRIURETIC PEPTIDE (test code=BNP) 126.1 PG/ML 0-100 PROTHROMBIN [id number] 14:09:00 Test Item Value Reference Range Comments PROTHROMBIN TIME PATIENT 10.1 SECONDS 9.3-12.9 (test code=PTP) INTERNATIONAL NORMAL RATIO 0.9 0.8-1.2 TARGET INR BY (test code=INR) INDICATION Indication INR1. Prophylaxis of venous thrombosis 2.0 - 3.0 (orthopedic surgery), Prophylaxis of venous thrombosis (other than high-risk surgery), Treatment of Deep Vein Thrombosis/Pulmonary Embolism, Prevention of systemic embolism - Tissue heart valves, Acute Myocardial Infarction (to prevent systemic embolism), Valvular heart disease, Atrial Fibrillation, Bileaflet mechanical valve in aortic position.2. Mechanical prosthetic valves (high risk), 2.5 - 3.5 Presence of Lupus Anticoagulant or Antiphospholipid Antibodies, Prevention of systemic embolism - Acute Myocardial Infarction (to prevent recurrent infarct). THROMBOPLASTIN TIME [id number] 14:09:00 Test Item Value Reference Range Comments THROMBOPLASTIN TIME PARTIAL 20.2 Seconds 25.0-39.5 Therapeutic Range: (test code=PTT) 50.4 - 88.3 Seconds Effective 07/05/2018 - CT HEAD/BRAIN W/O [id number] 13:48:00 Name: RONALD ALLEN [facility] : 1940 Age/S: 78 / F [address] [place] [address] Blvd Unit #: [id number] Loc: [place] [id number] Phys: Sarbjit Carr Acct: [id number] Dis Date: Status: REG ER PHONE #: [phone] Exam Date: 08/2018 1319 FAX #: [phone] Reason: alteredmental status EXAMS: CPTCODE: [id number] CT HEAD/BRAIN W/O CONT 40160 CT head without contrast 12/25/2018 HISTORY: Altered mental status PROCEDURE: Multiple axial images from the skull base to the skull vertex were obtained without contrast. [place] sagittal reconstructed images were performed CT imaging performed at this location utilizes radiation dose optimization techniques which include one or more of the following: -Automated exposure control -Adjustment of the mA and/or kV according to patient size -Use of iterative reconstruction technique CT Radiation Dose DLP 419.7 mGy-cm Comparison is made to 08/16/2018 FINDINGS: Old left occipital infarct is noted. There is moderate atrophy. There are moderate white matter hypodensities. No acute intracranial hemorrhage, midline shift, extra-axial fluid collection, or hydrocephalus is present. No sulcal effacement to suggest an acute infarct is noted. The visualized mastoid air cells are clear. There is no air-fluid level in the visualized paranasal sinuses. Distal internal carotidarterial calcifications are present. IMPRESSION: 1. Old left occipital infarct. 2. Moderate atrophy and moderate chronic microvascular ischemic changes. 3. No acute intracranial abnormality. SL: [id number] at 1348 Reported and signed by: Robbie Ventura M.D. CC: Sarbjit Hayward Technologist: ANGELA Fajardo CTDI: DLP: Trnscb Date/Time: 12/25 (2386) [id number] Orig Print D/T: S: 12/25/2018 ( 6814)PAGE 1 Signed ReportURINALYSIS [id number] 13 :40:00 Test Item Value Reference Range Comments UA COLOR (test code=COLU) YELLOW YEL/STRAW UA APPEARANCE (test code=APPU) CLEAR CLEAR UA GLUCOSE DIPSTICK (test code=DGLUU) NEGATIVE NEGATIVE UA BILIRUBIN DIPSTICK (test code=BILU) NEGATIVE NEGATIVE UA KETONE DIPSTICK (test code=KETU) NEGATIVE NEGATIVE UA SPECIFIC GRAVITY (test code=SGU) 1.010 1.005-1.030 UA BLOOD DIPSTICK (test code=RUPERT) NEGATIVE NEGATIVE UA PH DIPSTICK (test code=MARLEE) 5.0 5.0-7.0 UA PROTEIN DIPSTICK (test code=PROU) NEGATIVE NEGATIVE UA UROBILINIOGEN DIPSTICK (test code=URO) 0.2 mg/dL 0.2-1.0 UA NITRITE DIPSTICK (test code=PAMELA) NEGATIVE NEGATIVE UA LEUKOCYTE ESTERASE DIPSTICK (test NEGATIVE NEGATIVE code=LEUU) UA RBC (test code=RBCU) 0-3 RBC/HPF 0-3 UA WBC NO REFLEX (test code=WBCUCL) 0-3 WBC/HPF 0-3 UA BACTERIA (test code=BACU) TRACE /HPF NONE SEEN UA SQUAMOUS CELLS (test code=SQU) NONE SEEN /HPF NONE SEEN UA HYALINE CAST (test code=HYALU) 3-5 /LPF NONE SEEN COMMENTS: Clean CatchHEPATIC FUNCTION [id number] 13:38:00 Test Item Value Reference Range Comments TOTAL PROTEIN (test code=PROT) 7.3 g/dL 6.4-8.2 ALBUMIN (test code=ALB) 3.40 g/dL 3.4-5.0 BILIRUBIN TOTAL (test code=BILT) 0.2 MG/DL <1.5 BILIRUBIN DIRECT (test code=BILD) < 0.10 MG/DL 0.0-0.30 BILIRUBIN INDIRECT (test code=BILIND) 0.10 MG/DL SGOT/AST (test code=AST) 11 IUnit/L 15-37 SGPT/ALT (test code=ALT) 16 IUnit/L 15-65 ALKALINE PHOSPHATASE TOTAL (test code=ALKP) 93 IUnit/L 20-125 CREATINE KINASE (CK)2018-12-25 13:38:00 Test Item Value Reference Range Comments CREATINE KINASE (CK) (test 67 35-232 Result is in INTERNATIONAL code=CK) UNITS/LITER [id number] 13:38:00 Test Item Value Reference Range Comments LIPASE (test code=LIP) 409 IUnit/L 73-393 CBC W/AUTO [id number] 13:34:00 Test Item Value Reference Range Comments WHITE BLOOD CELL (test code=WBC) 8.52 x10 3/uL 4.5-11.0 RED BLOOD CELL (test code=RBC) 4.33 x10 6/uL 3.54-5.02 HEMOGLOBIN (test code=HGB) 11.8 g/dL 11.0-15.0 HEMATOCRIT (test code=HCT) 36.5 % 33.0-45.0 MEAN CELL VOLUME (test code=MCV) 84.3 fL 81.0-99.0 MEAN CELL HGB (test code=MCH) 27.3 pg 27.0-33.0 MEAN CELL HGB CONCETRATION (test code=MCHC) 32.3 g/dL 33.0-37.0 RED CELL DISTRIBUTION WIDTH CV (test code=RDW) 14.1 % 11.5-14.5 RED CELL DISTRIBUTION WIDTH SD (test 43.8 fL 37.0-54.0 code=RDW-SD) PLATELET COUNT (test code=PLT) 247 x10 3/uL 150-400 MEAN PLATELET VOLUME (test code=MPV) 11.5 fL 7.0-9.0 NEUTROPHIL % (test code=NT%) 57.9 % 56.0-77.0 IMMATURE GRANULOCYTE % (test code=IG%) 0.5 % 0.0-2.0 LYMPHOCYTE % (test code=LY%) 27.1 % 14.0-32.0 MONOCYTE % (test code=MO%) 10.2 % 4.8-9.0 EOSINOPHIL % (test code=EO%) 3.6 % 0.3-3.7 BASOPHIL % (test code=BA%) 0.7 % 0.0-2.0 NUCLEATED RBC % (test code=NRBC%) 0.0 % 0-0 NEUTROPHIL # (test code=NT#) 4.93 x10 3/uL 2.0-7.6 IMMATURE GRANULOCYTE # (test code=IG#) 0.04 x10 3/uL 0.00-0.03 LYMPHOCYTE # (test code=LY#) 2.31 x10 3/uL 1.0-3.8 MONOCYTE # (test code=MO#) 0.87 x10 3/uL 0.1-0.8 EOSINOPHIL # (test code=EO#) 0.31 x10 3/uL 0.0-0.2 BASOPHIL # (test code=BA#) 0.06 x10 3/uL 0.0-0.2 NUCLEATED RBC # (test code=NRBC#) 0.00 x10 3/uL 0.0-0.1 MANUAL DIFF REQUIRED (test code=MDIFF) NO - XR CHEST 1 [id number] 13:12:00 FAX: Sarbjit Olmedo DO [phone] [place]: St: PRE Name: RONALD ALLEN [facility] : 1940 Age/S: 78/F [address] [place] [address] Unit#: [id number] Loc: G.ERS[address] [place] [id number] Phys: Sarbjit Carr Acct: [id number] Dis Date: Status: PRE ER PHONE #: [phone] Exam Date: 12/25/2018 1258 FAX #: [phone] Reason: Weakness EXAMS: CPT CODE: [id number] XR CHEST 1 V 37208 EXAM: Single view AP chest. EXAM DATE: 12/25/2018 at 1238 hours CLINICAL HISTORY: Weakness COMPARISON: August 26, 2018 at 1335 hours Exam is at low inspiratory volume. Median sternotomy wires are present. Cardiac size is grossly within normal limits. Vascular calcifications are identified. Mild hypoventilatory changes are identified in the lower lung bases. No infiltrates are identified. Visualized osseous structures demonstrate no acute abnormalities. IMPRESSION: Hypoventilatory changes lung bases with no other significant finding isidentified. Electronically Signed by Chel Colbert on 2018 at 1312 Reported and signed by: Fadumo Colbert M.D. CC: Sarbjit Carr DO Technologist: Pamella Headley, RT(R); Elif Ang, RT(R) Trnscrd Date/Time/By: 2018 (4318) : By: Dioni Orig Print D/T: S: 12/25/2018 (6968) PAGE 1 Signed ReportTROPONIN-I [id number] 13:00:00 Test Item Value Reference Range Comments TROPONIN-I RAPID (test 0.01 ng/mL 0.00-0.08 Performed by certified portable canteen operator code=TROPIRAP) at [facility] Negative: <=0.08 Positive: >=0.09An elevated troponin value alone is not sufficient todiagnose a myocardial infarction. Rather, the patient sclinical presentation (history, physical exam) and ECGshould be used in conjunction with troponin in thediagnostic evaluation of suspected myocardial infarction. Aserial sampling protocol is recommended to facilitate the identification of temporal changes in troponin levels characteristic of [place]. CHEMISTRY 8 [id number] 12:54:00 Test Item Value Reference Range Comments ISTAT-SODIUM (test code=NAP) MMOL/L 134-147 ISTAT-POTASSIUM (test code=KP) MMOL/L 3.4-5.0 ISTAT-CHLORIDE (test code=CLP) MMOL/L 100-108 ISTAT CARBON DIOXIDE (test code=ISTAT-CO2) mmol/L 21-33 ISTAT CALCIUM IONIZED (test code=ISTAT-JOJO) MG/DL 1.12-1.32 ISTAT-GLUCOSE (test code=GLUP) MG/DL 70-110 ISTAT-BUN (test code=BUNP) MG/DL 7-18 BEDSIDE CREATININE (test code=CREATBED) MG/DL 0.6-1.3 GLOMERULAR FILTRATION RATE POC (test code=GFRBED) 38 ML/MIN CHEMISTRY 8 [id number] 12:54:00 Test Item Value Reference Range Comments ISTAT-SODIUM (test code=NAP) 136 MMOL/L 134-147 ISTAT-POTASSIUM (test 4.9 MMOL/L 3.4-5.0 code=KP) ISTAT-CHLORIDE (test 101 MMOL/L 100-108 Performed by certified code=CLP) portable canteen operator at [facility] ISTAT CARBON DIOXIDE (test 27.0 mmol/L 21-33 code=ISTAT-CO2) ISTAT CALCIUM IONIZED (test 1.13 MG/DL 1.12-1.32 code=ISTAT-JOJO) ISTAT-GLUCOSE (test 212 MG/DL 70-110 code=GLUP) ISTAT-BUN (test code=BUNP) 52 MG/DL 7-18 BEDSIDE CREATININE (test 1.4 MG/DL 0.6-1.3 code=CREATBED) GLOMERULAR FILTRATION RATE 38 ML/MIN POC (test code=GFRBED) TROPONIN I [id number] 14:47:00 Test Item Value Reference Range Comments TROPONIN I RAPID (test 0.00 ng/mL 0.00-0.08 - The use of serial sampling code=TROPIRAP) and testing protocol is a recommended practice- An elevated troponin level alone is often not sufficient for diagnosis of myocardial infarction. CREATINE KINASE (CK)2018-08-26 13:56:00 Test Item Value Reference Range Comments CREATINE KINASE (CK) (test code=CK) 47 Unit/L 26-192 CBC W/O [id number] 13:44:00 Test Item Value Reference Range Comments WHITE BLOOD CELL (test code=WBC) 7.8 K/mm3 3.5-11.0 RED BLOOD CELL (test code=RBC) 3.80 M/mm3 4.70-6.10 HEMOGLOBIN (test code=HGB) 10.7 G/DL 10.4-14.9 HEMATOCRIT (test code=HCT) 33.4 % 31.5-44.1 MEAN CELL VOLUME (test code=MCV) 87.9 Fl 84.5-98.6 MEAN CELL HGB (test code=MCH) 28.2 pg 27.0-34.2 MEAN CELL HGB CONCETRATION (test code=MCHC) 32.0 G/DL 31.5-34.0 RED CELL DISTRIBUTION WIDTH (test code=RDW) 14.9 SD 11.5-14.5 PLATELET COUNT (test code=PLT) 321.0 K/mm3 150-450 MEAN PLATELET VOLUME (test code=MPV) 10.10 fL 7.0-10.5 - XR CHEST 1 [id number] 13:38:00 Name: RONALD ALLEN [facility] : 1940 Age/S: 77 / F [address] Unit #: [id number] Loc: [place] [address] Phys: Stevan Mullins MD Acct: [id number] Dis Date: Status: REG ER PHONE #: [phone] Exam Date: 08/26/2018 1330 FAX #: Reason: chest pain EXAMS: CPT: [id number] XR CHEST 1 V 62207 Fluoro Time: DAP (Gy m2): Air Kerma (mGy): HISTORY: chest pain Comparison to August 15, 2018 Location code: B2 FINDINGS: Frontal view of the chest demonstrates normal cardiomediastinal silhouette. The trachea is midline. The lungs are clear. There is no effusion or pneumothorax. The bones are intact. Median sternotomy wires noted. IMPRESSION: No acute pulmonary process. Electronically Signed by Chel Pittman on 2018 at 1338 Reported and signed by: Bear Pittman M.D. CC: Stevan Mullins MD PAGE 1 Signed Report Name: RONALD ALLEN [facility] : 1940 Age/S: 77 / F [address] Unit #: [id number] Loc: [place] [address] Phys : Stevan Mullins MD Acct: [id number] Dis Date: Status: REG ER PHONE #: [phone] Exam Date: 08/26/2018 1330 FAX #: Reason : chest pain EXAMS: CPT: [id number] XR CHEST 1 V 99222 Fluoro Time: DAP (Gy m2): Air Kerma (mGy) : <Continued> Technologist: Masoud Campuzano RT(R) Trnscb Date/Time: 08/26/2018 (6272) [id number] Orig Print D/T: S: 08/26/2018 (7536) PAGE 2 Signed ReportTROPONIN I [id number] 13:36:00 Test Item Value Reference Range Comments TROPONIN I RAPID (test 0.01 ng/mL 0.00-0.08 - The use of serial sampling code=TROPIRAP) and testing protocol is a recommended practice- An elevated troponin level alone is often not sufficient for diagnosis of myocardial infarction. CHEMISTRY 8 [id number] 13:28:00 Test Item Value Reference Range Comments ISTAT-SODIUM (test code=NAP) mmol/L 135-146 ISTAT-POTASSIUM (test code=KP) mmol/L 3.5-4.9 ISTAT-CHLORIDE (test code=CLP) mmol/L 98-109 ISTAT-CARBON DIOXIDE (test code=ISTAT-CO2) mmol/L 24-29 ISTAT CALCIUM IONIZED (test code=ISTAT-JOJO) mmol/L 1.12-1.32 ISTAT-GLUCOSE (test code=GLUP) mg/dL 70-105 ISTAT-BUN (test code=BUNP) mg/dL 8-26 BEDSIDE CREATININE (test code=CREATBED) mg/dL 0.6-1.3 GLOMERULAR FILTRATION RATE POC (test code=GFRBED) 57 39-90 CHEMISTRY 8 [id number] 13:28:00 Test Item Value Reference Range Comments ISTAT-SODIUM (test code=NAP) 141 mmol/L 135-146 ISTAT-POTASSIUM (test code=KP) 4.1 mmol/L 3.5-4.9 ISTAT-CHLORIDE (test code=CLP) 102 mmol/L 98-109 ISTAT-CARBON DIOXIDE (test code=ISTAT-CO2) 27 mmol/L 24-29 ISTAT CALCIUM IONIZED (test code=ISTAT-JOJO) 1.26 mmol/L 1.12-1.32 ISTAT-GLUCOSE (test code=GLUP) 100 mg/dL 70-105 ISTAT-BUN (test code=BUNP) 25 mg/dL 8-26 BEDSIDE CREATININE (test code=CREATBED) 1.0 mg/dL 0.6-1.3 GLOMERULAR FILTRATION RATE POC (test 57 39-90 code=GFRBED) GLUCOSE BEDSIDE [id number] 16:57:00 Test Item Value Reference Range Comments GLUCOSE BEDSIDE TESTING (test code=GLUBED) 117 mg/dL 70-110 - CT HEAD/BRAIN W/O [id number] 16:28:00 Name: RONALD ALLEN [facility] : 1940 Age/S: 77 / F [address] Unit #: [id number] Loc: [place] [address] Phys: Paddy Pittman MD Acct: [id number] Dis Date: Status : ADM IN PHONE #: [phone] Exam Date: 08/16/2018 1617 FAX #: Reason: H/O cva EXAMS: CPT: [id number] CT HEAD/BRAIN W/O CONT 65077 CT HEAD WITHOUT CONTRAST. HISTORY: H/O cva COMPARISON: CT head 09/17/17. TECHNIQUE: Axial CT images of the head were obtained with coronal and/or sagittal reformatted views. Automated exposure control, iterative reconstruction technique, and/or adjustment ofmA and/or kV according to patient's size was utilized for radiation dose reduction. IV CONTRAST: None. Location: U19. FINDINGS: Since the prior exam there is a new left temporal occipital lobe infarct, more chronic in appearance. Moderate amount of periventricular and deep white matter hypodensities are seen, these are most commonly associated with chronic, microvascular ischemic changes. Mild to moderate atrophy is noted. Atherosclerotic calcifications affect the carotid siphons. No other intracranial abnormalities such as hemorrhage, mass, mass effect, hydrocephalus, midline shift, extra-axial fluid collection or secondary signs of an acute infarct are noted. The calvarium and skull base are intact. The paranasal sinus and mastoid air cells are clear. IMPRESSION: No evidence of acute intracranial abnormality. Chronic microvascular ischemic changes and atrophy. Chronic left temporal occipital lobe infarct within the [employer] INSPECTOR territory. at 1628 Reported and signed by: Bonifacio Hameed M.D. PAGE 1 Signed Report ( CONTINUED) Name: RONALD ALLEN [facility] [place] : 1940 Age/S: 77 / F [address] Unit #: [id number] Loc: [place] [address] Phys: Paddy Pittman MD Acct: [id number] Dis Date: Status: ADM IN PHONE #: [phone] Exam Date: 08/16/2018 1610 FAX #: Reason: H/O cva EXAMS: CPT: [id number] CT HEAD/BRAIN W/O CONT 09917 <Continued> CC: Jose Lloyd MD; Paddy Pittman MD Technologist: Miguel Angel Combs, RT(R)(CT)(MRI) CTDI: DLP: Trnscb Date/Time: 08/16 (1628) [email or web address] Orig Print D/T: S: 08/16/2018 ( 3461) PAGE 2 Signed ReportUA RFLX MICR CULT IF [id number] 12:34:00 Test Item Value Reference Range Comments UA COLOR (test code=COLU) YELLOW discript YEL/STRAW UA APPEARANCE (test code=APPU) HAZY discript CLEAR UA GLUCOSE DIPSTICK (test NEGATIVE mg/dL NEG code=DGLUU) UA BILIRUBIN DIPSTICK (test 1+ mg/dL NEG code=BILU) UA KETONE DIPSTICK (test 1+ mg/dL NEG code=KETU) UA SPECIFIC GRAVITY (test 1.025 SG 1.005-1.030 code=SGU) UA BLOOD DIPSTICK (test code=RUPERT) NEGATIVE mg/DL NEG UA PH DIPSTICK (test code=MARLEE) 5.5 pH UNITS 5.0-7.0 UA PROTEIN DIPSTICK (test 2+ mg/dL NEG code=PROU) UA UROBILINIOGEN DIPSTICK (test 1.0 mg/dL <2.0 code=URO) UA NITRITE DIPSTICK (test NEGATIVE SCREEN NEG code=PAMELA) UA LEUKOCYTE ESTERASE DIPSTICK 1+ Leuk/mcL NEGATIVE (test code=LEUU) UA WBC (test code=WBCU) 10-20 #WBC/HPF 0-3 UA RBC (test code=RBCU) 0-1 #RBC/HPF 0-3 UA BACTERIA (test code=BACU) 4+ /HPF NONE-TRACE UA SQUAMOUS CELLS (test code=SQU) TRACE /HPF NONE UA CULTURE NEEDED? (test YES,WBC>10 & EPI<25 Culture CHK code=UACULT) Criteria SOURCE OF URINE: VOIDEDless than 18 yrs old, neutropenic, or urological surgery ? NOPrimary Indication for Culture: OtherOther Indication: CONFUSIONUA RFLX MICR CULT IF [id number] 12:33:00 Test Item Value Reference Range Comments UA COLOR (test code=COLU) YELLOW discript YEL/STRAW UA APPEARANCE (test code=APPU) HAZY discript CLEAR UA GLUCOSE DIPSTICK (test code=DGLUU) NEGATIVE mg/dL NEG UA BILIRUBIN DIPSTICK (test code=BILU) 1+ mg/dL NEG UA KETONE DIPSTICK (test code=KETU) 1+ mg/dL NEG UA SPECIFIC GRAVITY (test code=SGU) 1.025 SG 1.005-1.030 UA BLOOD DIPSTICK (test code=RUPERT) NEGATIVE mg/DL NEG UA PH DIPSTICK (test code=MARLEE) 5.5 pH UNITS 5.0-7.0 UA PROTEIN DIPSTICK (test code=PROU) 2+ mg/dL NEG UA UROBILINIOGEN DIPSTICK (test code=URO) 1.0 mg/dL <2.0 UA NITRITE DIPSTICK (test code=PAMELA) NEGATIVE SCREEN NEG UA LEUKOCYTE ESTERASE DIPSTICK (test 1+ Leuk/mcL NEGATIVE code=LEUU) UA CULTURE NEEDED? (test code=UACULT) Criteria Culture CHK SOURCE OF URINE: VOIDEDless than 18 yrs old, neutropenic, or urological surgery ? NOPrimary Indication for Culture: OtherOther Indication: CONFUSIONGLUCOSE BEDSIDE [id number] 11:56:00 Test Item Value Reference Range Comments GLUCOSE BEDSIDE TESTING (test code=GLUBED) 153 mg/dL 70-110 GLUCOSE BEDSIDE [id number] 08:07:00 Test Item Value Reference Range Comments GLUCOSE BEDSIDE TESTING (test code=GLUBED) 118 mg/dL 70-110 BASIC METABOLIC [id number] 04:36:00 Test Item Value Reference Range Comments SODIUM (test code=NA) 141 mmol/L 134-147 POTASSIUM (test code=K) 4.0 mmol/L 3.4-5.0 CHLORIDE (test code=CL) 106 mmol/L 100-108 CARBON DIOXIDE (test code=CO2) 30 mmol/L 21-32 ANION GAP (test code=GAP) 5.0 GAP calc 4.0-15.0 GLUCOSE (test code=GLU) 133 MG/DL 70-110 BLOOD UREA NITROGEN (test code=BUN) 34 MG/DL 7-18 GLOMERULAR FILTRATION RATE (test code=GFR) 39 estGFR >60 CREATININE (test code=CREAT) 1.4 MG/DL 0.6-1.0 CALCIUM (test code=CA) 8.9 MG/DL 8.5-10.1 Completed by Nursing: [id number] 04:36:00 Test Item Value Reference Range Comments TROPONIN-I (test < 0.015 NG/ML 0.000-0.045 Negative: </=0.045 Positive: code=TROPI) >/=0.046 Correlation with serial results, other cardiac markers, and clinical findings is necessary to determine the clinical significance of this result. Quantitative results using different methodologies should not be compared to one another as numerical results may varyby method. Completed by Nursing: NOGLUCOSE BEDSIDE [id number] 20:20:00 Test Item Value Reference Range Comments GLUCOSE BEDSIDE TESTING (test code=GLUBED) 111 mg/dL 70-110 GLUCOSE BEDSIDE [id number] 18:34:00 Test Item Value Reference Range Comments GLUCOSE BEDSIDE TESTING (test code=GLUBED) 131 mg/dL 70-110 [id number] 13:43:00 Test Item Value Reference Range Comments TROPONIN-I (test < 0.015 NG/ML 0.000-0.045 Negative: </=0.045 Positive: code=TROPI) >/=0.046 Correlation with serial results, other cardiac markers, and clinical findings is necessary to determine the clinical significance of this result. Quantitative results using different methodologies should not be compared to one another as numerical results may varyby method. Completed by Nursing: NOCHEMISTRY 8 [id number] 09:11:00 Test Item Value Reference Range Comments ISTAT-SODIUM (test code=NAP) mmol/L 135-146 ISTAT-POTASSIUM (test code=KP) mmol/L 3.5-4.9 ISTAT-CHLORIDE (test code=CLP) mmol/L 98-109 ISTAT-CARBON DIOXIDE (test code=ISTAT-CO2) mmol/L 24-29 ISTAT CALCIUM IONIZED (test code=ISTAT-JOJO) mmol/L 1.12-1.32 ISTAT-GLUCOSE (test code=GLUP) mg/dL 70-105 ISTAT-BUN (test code=BUNP) mg/dL 8-26 BEDSIDE CREATININE (test code=CREATBED) mg/dL 0.6-1.3 GLOMERULAR FILTRATION RATE POC (test code=GFRBED) 57 39-90 CHEMISTRY 8 [id number] 09:11:00 Test Item Value Reference Range Comments ISTAT-SODIUM (test code=NAP) 141 mmol/L 135-146 ISTAT-POTASSIUM (test code=KP) 3.9 mmol/L 3.5-4.9 ISTAT-CHLORIDE (test code=CLP) 101 mmol/L 98-109 ISTAT-CARBON DIOXIDE (test code=ISTAT-CO2) 30 mmol/L 24-29 ISTAT CALCIUM IONIZED (test code=ISTAT-JOJO) 1.19 mmol/L 1.12-1.32 ISTAT-GLUCOSE (test code=GLUP) 130 mg/dL 70-105 ISTAT-BUN (test code=BUNP) 36 mg/dL 8-26 BEDSIDE CREATININE (test code=CREATBED) 1.0 mg/dL 0.6-1.3 GLOMERULAR FILTRATION RATE POC (test 57 39-90 code=GFRBED) COMPREHENSIVE METABOLIC [id number] 07:02:00 Test Item Value Reference Range Comments SODIUM (test code=NA) 140 mmol/L 134-147 POTASSIUM (test code=K) 3.9 mmol/L 3.4-5.0 CHLORIDE (test code=CL) 106 mmol/L 100-108 CARBON DIOXIDE (test code=CO2) 31 mmol/L 21-32 ANION GAP (test code=GAP) 3.0 GAP calc 4.0-15.0 GLUCOSE (test code=GLU) 126 MG/DL 70-110 BLOOD UREA NITROGEN (test code=BUN) 31 MG/DL 7-18 GLOMERULAR FILTRATION RATE (test code=GFR) 57 estGFR >60 CREATININE (test code=CREAT) 1.0 MG/DL 0.6-1.0 TOTAL PROTEIN (test code=PROT) 7.3 G/DL 6.4-8.2 ALBUMIN (test code=ALB) 3.7 G/DL 3.4-5.0 GLOBULIN (test code=GLOB) 3.6 GM/dL ALBUMIN/GLOBULIN RATIO (test code=A/G) 1.0 RATIO 1.2-2.2 CALCIUM (test code=CA) 8.8 MG/DL 8.5-10.1 BILIRUBIN TOTAL (test code=BILT) 0.40 MG/DL 0.2-1.2 SGOT/AST (test code=AST) 25 Unit/L 15-37 SGPT/ALT (test code=ALT) 31 Unit/L 12-78 ALKALINE PHOSPHATASE TOTAL (test code=ALKP) 73 Unit/L 45-117 Completed by Nursing: NONT PRO-BRAIN NATRIURETIC [id number] 07:02:00 Test Item Value Reference Range Comments NT PRO-BRAIN NATRIURETIC PEPTI (test code=PROBNP) 839 PG/ML 0-100 Completed by Nursing: [id number] 07:02:00 Test Item Value Reference Range Comments TROPONIN-I (test < 0.015 NG/ML 0.000-0.045 Negative: </=0.045 Positive: code=TROPI) >/=0.046 Correlation with serial results, other cardiac markers, and clinical findings is necessary to determine the clinical significance of this result. Quantitative results using different methodologies should not be compared to one another as numerical results may varyby method. Completed by Nursing: NOCOMPREHENSIVE METABOLIC [id number] 07:00:00 Test Item Value Reference Range Comments SODIUM (test code=NA) 140 mmol/L 134-147 POTASSIUM (test code=K) 3.9 mmol/L 3.4-5.0 CHLORIDE (test code=CL) 106 mmol/L 100-108 CARBON DIOXIDE (test code=CO2) 31 mmol/L 21-32 ANION GAP (test code=GAP) 3.0 GAP calc 4.0-15.0 GLUCOSE (test code=GLU) 126 MG/DL 70-110 BLOOD UREA NITROGEN (test code=BUN) 31 MG/DL 7-18 GLOMERULAR FILTRATION RATE (test code=GFR) estGFR >60 CREATININE (test code=CREAT) MG/DL 0.6-1.0 TOTAL PROTEIN (test code=PROT) G/DL 6.4-8.2 ALBUMIN (test code=ALB) G/DL 3.4-5.0 GLOBULIN (test code=GLOB) GM/dL ALBUMIN/GLOBULIN RATIO (test code=A/G) RATIO 1.2-2.2 CALCIUM (test code=CA) 8.8 MG/DL 8.5-10.1 BILIRUBIN TOTAL (test code=BILT) MG/DL 0.2-1.2 SGOT/AST (test code=AST) Unit/L 15-37 SGPT/ALT (test code=ALT) Unit/L 12-78 ALKALINE PHOSPHATASE TOTAL (test code=ALKP) Unit/L 45-117 Completed by Nursing: NONT PRO-BRAIN NATRIURETIC [id number] 07:00:00 Test Item Value Reference Range Comments NT PRO-BRAIN NATRIURETIC PEPTI (test code=PROBNP) PG/ML 0-100 Completed by Nursing: [id number] 07:00:00 Test Item Value Reference Range Comments TROPONIN-I (test code=TROPI) NG/ML 0.000-0.045 Completed by Nursing: NOCBC W/AUTO [id number] 06:52:00 Test Item Value Reference Range Comments WHITE BLOOD CELL (test code=WBC) 8.2 K/mm3 3.5-11.0 RED BLOOD CELL (test code=RBC) 3.93 M/mm3 4.70-6.10 HEMOGLOBIN (test code=HGB) 11.1 G/DL 10.4-14.9 HEMATOCRIT (test code=HCT) 34.1 % 31.5-44.1 MEAN CELL VOLUME (test code=MCV) 86.8 Fl 84.5-98.6 MEAN CELL HGB (test code=MCH) 28.2 pg 27.0-34.2 MEAN CELL HGB CONCETRATION (test code=MCHC) 32.6 G/DL 31.5-34.0 RED CELL DISTRIBUTION WIDTH (test code=RDW) 14.8 SD 11.5-14.5 PLATELET COUNT (test code=PLT) 342.0 K/mm3 150-450 MEAN PLATELET VOLUME (test code=MPV) 10.40 fL 7.0-10.5 NEUTROPHIL % (test code=NT%) 47.7 % 40-76 LYMPHOCYTE % (test code=LY%) 36.6 % 20.5-51.1 MONOCYTE % (test code=MO%) 12.6 % 1.7-9.3 EOSINOPHIL % (test code=EO%) 2.9 % 0.0-6.0 BASOPHIL % (test code=BA%) 0.2 % 0.0-2.0 NEUTROPHIL # (test code=NT#) 3.89 K/mm3 1.8-7.6 LYMPHOCYTE # (test code=LY#) 3.0 K/mm3 0.6-3.2 MONOCYTE # (test code=MO#) 1.0 K/mm3 0.3-1.1 EOSINOPHIL # (test code=EO#) 0.2 K/mm3 0.0-0.4 BASOPHIL # (test code=BA#) 0.0 K/mm3 0.0-0.1 MANUAL DIFF REQUIRED (test code=MDIFF) NO DIFF/SCN CRITERIA - XR CHEST 1 [id number] 06:47:00 Name: RONALD ALLEN [facility] : 1940 Age/S: 77 / F [id number] Unit #: [id number] Loc: [place] [address] Phys: Fadumo Mendoza MD Acct: [id number] Dis Date: Status: PRE ER PHONE #: [phone] Exam Date: 08/15/2018 0635 FAX #: Reason: L chest pain EXAMS: CPT: [id number] XR CHEST 1 V 46232 Fluoro Time: DAP (Gy m2): Air Kerma (mGy): Chest Radiograph History: L chest pain Comparison: November 09, 2017 Location: R16 A single frontal view of the chest is submitted. The heart appears unchanged in size. Pulmonary vasculature is unremarkable. The visualized lung canseco appear to be free of disease. The bones appear unchanged. IMPRESSION: There is no radiographic evidence of acute cardiopulmonary disease. at 0647 Reported and signed by: Stanley Snowden M.D. CC: Fadumo Mendoza MD PAGE 1 Signed Report Name: RONALD ALLEN [facility] : 1940 Age/S: 77 / F [id number] Unit #: [id number] Loc: [place], [place] [address]Lo[place]: Fadumo Mendoza MD Acct: [id number] Dis Date: Status: PRE ER PHONE # : [phone] Exam Date: 08/15/2018 06 FAX #: Reason: L chest pain EXAMS: CPT: [id number] XRCHEST 1 V 53310 Fluoro Time: DAP (Gy m2): Air Kerma (mGy): <Continued> Technologist: Marcella Preston RT(R)(CT) Trnscb Date/Time: 08/15/2018 (0647) WilberPMT Orig Print D/T: S: 08/15/2018 (0650) PAGE 2 Signed ReportTROPONIN I [id number] 06: 30:00 Test Item Value Reference Range Comments TROPONIN I RAPID (test 0.01 ng/mL 0.00-0.08 - The use of serial sampling code=TROPIRAP) and testing protocol is a recommended practice- An elevated troponin level alone is often not sufficient for diagnosis of myocardial infarction.
--- OUTSIDE RECORDS SUMMARY | 2019-05-25 11:20 | XMS REPORT | Summary of Care ---
:1940 Author Organization [facility] - [facility] Address [address] [place] [id number] Care Team Providers Name Role Phone Silke Ball MD Primary Care Provider Reason for Referral (CARRIE) Status Reason Specialty Diagnoses / Procedures Referred By Contact Referred To Contact Closed Cardiology Diagnoses Chronic pain of right knee Alon Melo Procedures CONSULT/REFERRAL CARDIOLOGY [address] [place] [address] [id number] [place] [address] Reason for Visit Reason Comments Surgery Clearance Encounter Details Date Type Department Care Team Description 09/15/2018 Office Visit [facility] Geriatrics- Alon Melo Chronic pain of right knee (Primary Dx); [address] Arthritis of right hip; [facility] [id number] Essential hypertension; [address] [place], [place] Magnesium deficiency; [place] [address] Vitamin D deficiency; [id number] Type 2 diabetes mellitus with diabetic peripheral angiopathy without gangrene , without long-term current use of insulin; [phone] Primary osteoarthritis involving multiple joints; (Fax) Urinary frequency; B12 deficiency; Screening for thyroid disorder; Cerebrovascular accident (CVA), unspecified mechanism Allergies Active Allergy Reactions Severity Noted Date Comments Codeine Unknown - See comments 01/05/2014 Patient does not remember reaction documented as of this encounter (statuses as of 10/13/2018) Medications Medication Sig Dispensed Refills Start End Status Date Date Diclofenac Sodium Apply to 100 g 1 Active (VOLTAREN) 1 % area(s) 2 8 gelIndications: (two) times Arthritis of right hip daily. B Complex Vitamins (B Take 1 tablet 30 tablet 3 Active COMPLEX) TbSR by mouth 8 daily. Cholecalciferol, Take 1 30 capsule 3 Active Vitamin D3, (VITAMIN capsule by 8 D3) 2,000 unit capsule mouth. pravastatin (PRAVACHOL) Take 1 tablet 30 tablet 5 Discontinued 20 mg tablet by mouth at 8 019 bedtime. pregabalin 50 mg Take 1 60 capsule 3 Discontinued capsule capsule by 8 019 mouth 2 (two) times daily. With breakfast and dinner metFORMIN 1,000 mg Take 1 tablet 180 tablet 3 Discontinued tabletIndications: Type by mouth 2 8 019 2 diabetes mellitus (two) times with diabetic daily with peripheral angiopathy meals. without gangrene, without long-term current use of insulin albuterol-ipratropium Inhale 1 Puff 4 g 5 Discontinued 20-100 mcg/actuation 4 (four) 8 019 inhaler times daily. traMADOL 50 mg Take 1 tablet 90 tablet 0 Discontinued tabletIndications: by mouth 8 019 Arthritis of right hip every 6 (six) hours as needed for Pain (scale 7-10). nitroglycerin 0.4 mg Max 3 tablets 1 Bottle 3 Discontinued sublingual in 15 minutes 8 019 tabletIndications: - then go to Chest pain, unspecified ER type hydroCHLOROthiazide 25 Take 0.5 30 tablet 0 Discontinued mg tablet tablets by 8 019 mouth daily. With breakfast traZODONE 100 mg tablet Take 1 tablet 90 tablet 1 Discontinued by mouth at 8 019 bedtime. isosorbide mononitrate Take 1 tablet 60 tablet 5 Discontinued 10 mg tablet by mouth 2 9 019 (two) times daily. albuterol 2.5 mg/0.5 mL Use 0.5 mL as 120 Each 2 Discontinued nebulizer solution directed 9 019 every 6 (six) hours as needed for Wheezing. divalproex Sprinkles Take 2 360 capsule 1 Discontinued (DEPAKOTE SPRINKLES) capsules by 9 019 125 mg SPRINKLE mouth every capsuleIndications: 12 (twelve) Behavior concern hours. documented as of this encounter (statuses as of 10/13/2018) Active Problems Problem Noted Date Arthritis of right hip 06/30/2016 HI (myocardial infarction) Frequent falls Spinal stenosis Diabetes [...] of this encounter Last Filed Vital Signs Vital Sign Reading Time Taken Comments Blood Pressure 128/61 09/15/2018 12:57 PM CDT Pulse 65 09/15/2018 12:57 PM CDT Temperature 36.8 C (98.2 F) 09/15/2018 12:57 PM CDT Respiratory Rate 22 09/15/2018 12:57 PM CDT Oxygen Saturation 95% 09/15/2018 12:57 PM CDT Inhaled Oxygen Concentration - - Weight 48.9 kg (107 lb 12.8 oz) 09/15/2018 12:57 PM CDT Height - - Body Mass Index 21.05 01/25/2018 10:22 AM H[facility] PRODUCT SPECIALIST documented in this encounter Patient Instructions Patient InstructionsAlon Melo - 09/15/2018 1:00 PM CDT Knee Pain Knee pain is very common. Its especially common in active people who put a lot of pressure on their knees, like runners. It affects women more often than men. Your kneecap (patella) is a thick, round bone. It covers and protects the front portion of your kneejoint. It moves along a groove in your thighbone (femur) as part of the patellofemoral joint. A layer of cartilage surrounds the underside of your kneecap. This layer protects it from grinding against your femur. When this cartilage softens and breaks down, it can cause knee pain. This is partly because of repetitive stress. The stress irritates the lining of the joint. This causes pain in the underlying bone. What causes knee pain? Many things can cause knee pain. You may have more than one cause. Some of these include: Overuse of the knee joint The kneecap doesnt line up with the tissue around it Damage to small nerves in the area Damage to the ligament-like structure that holds the kneecap in place ( retinaculum) Breakdown of the bone under the cartilage Swelling in the soft tissues around the kneecap Injury You might be more likely to have knee pain if you: Exercise a lot Recently increased the intensity of your workouts Have a body mass index (BMI) greater than 25 Have poor alignment of your kneecap Walk with your feet turned overly outward or inward Have weakness in surrounding muscle groups (inner quad or hip adductor muscles) Have too much tightness in surrounding muscle groups (hamstrings or iliotibial band) Have a recent history of injury to the area Are female Symptoms of knee pain This type of knee pain is a dull, aching pain in the front of the knee in the area under and around the kneecap. This pain may start quickly or slowly. Your pain might be worse when you squat, run, or sit for a long time. You might also sometimes feel like your knee is giving out. You may have symptoms in one or both of your knees. Diagnosing knee pain Your healthcare provider will ask about your medical history and your symptoms. Be sure to describe any activities that make your knee pain worse. He or she will look at your knee. This will include tests of your range of motion, strength, and areas of pain of your knee. Your knee alignment will be checked. Your healthcare provider will need to rule out other causes of your knee pain, such as arthritis. You may need an imaging test, such as an X-ray or MRI. Treatment for knee pain Treatments that can help ease your symptoms may include: Avoiding activities for a while that make your pain worse, returning to activity over time Icing the outside of your knee when it causes you pain Taking cuou-mpp-niolckl pain medicine Wearing a knee brace or taping your knee to support it Wearing special shoe inserts to help keep your feet in the proper alignment Doing special exercises to stretch and strengthen the muscles around your hip and your knee These steps help most people manage knee pain. But some cases of knee pain need to be treated with surgery. You may need surgery right away. Or you may need it later if other treatments dont work. Your healthcare provider may refer you to an orthopedic surgeon. He or she will talk with you about your choices. Preventing knee pain Losing weight and correcting excess muscle tightness or muscle weakness may help lower your risk. In some cases, you can prevent knee pain. To help prevent a flare-up of knee pain, you do these things: Regularly do all the exercises your doctor or physical therapist advises Support your knee as advised by your doctor or physical therapist Increase training gradually, and ease up on training when needed Have an expert check your gait for running or other sporting activities Stretch properly before and after exercise Replace your running shoes regularly Lose excess weight When to call your healthcare provider Call your healthcare provider right away if: Your symptoms dont get better after a few weeks of treatment You have any new symptoms Date Last Reviewed: 06/20/201619991212-9408 [employer]. [address] [place] [address]. All rights reserved. This information is not intended as a substitute for professional medical care. Always follow your healthcare professional's instructions. How Your Knee Works A healthy knee bends easily and rotates slightly. The joint absorbs stress and moves smoothly. This allows you to walk, squat, and turn without pain. A healthy knee The knee is a hinge joint, formed where the thighbone (femur) and the shinbone ( tibia) meet. It is the largest joint in the body. The joint is covered with smooth tissue and powered by large muscles. When all the parts listed below are healthy, a knee should move easily: Cartilage is a layer of smooth tissue. It covers the ends of the thighbone and shinbone. It also lines the back side of the kneecap. Healthy cartilage absorbs stress and allows the knee to bend easily. Muscles power the knee and leg for movement. Tendons attach the muscles to the bones. Ligaments are bands of tissue that connect bones and brace the joint. Bones that make up your knee joint include your thighbone (femur), shinbone ( tibia), and kneecap (patella). Menisci are 2 wedge-shaped pieces of cartilage that absorb shock between the thighbone and shinbone. Date Last Reviewed: 03/22/201719996739-2542 [employer]. [address] [place] [address]. All rights reserved. This information is not intended as a substitute for professional medical care. Always follow your healthcare professional's instructions. documented in this encounter Progress Notes Alon Melo - 09/15/2018 1:00 PM CDT Chief complaint: Follow up on HTN, behavior, insomnia and mood swings HPI Patient is a 77 year old female here today with complaints of joint pain primarily located right hipand right knee. Pain present for quite some time occurring continuously. Patient describes pain asaching. Pain severity 10 out of 10. Patient has not attempted self treatment. Symptoms are worse with activity:any movement. Other symptoms include stiffness. Symptoms are gradually worsening. Thepatient was last seen in the [facility] by Dr. Ball on 01/04/2018. According to the caregiver who brought the patient to the clinic, the patient has been in a facility. Recently the daughter took the patient home and has been taking care of her there. The daughter could not come to the appointment today but sent a note with her needs as well as the caregiver called the daughter on the phone to speak while the patient was present. The daughter states she is trying to get surgery for the patient to have her right knee replaced. The patient has quite a bit of pain to the right knee and cannot get around very well. The daughter states her mother is a fall risk, cannot sleep well at night and that she has mood swings. The daughter wants a caregiver or provider at their home. The daughter works two jobs and cannot be in the home to give the care the patient needs. The daughter states she also needs the following: Diapers, pads, a walker, bed rails, a shower chair and a beside commode. We will have the patient speak with the [employer] today to see how we can help the patient and her daughter. As far as surgery, the caregiver states today they have clearance for her surgery from a physician at [facility]. They would like to have some lab work done that he has requested. HISTORY Past Medical History: Diagnosis Date CAD (coronary artery disease) CVA (cerebral infarction) 1 large and several mini Diabetes mellitus Frequent falls H/O hepatitis cannot donate blood HTN (hypertension) Hyperlipidemia Hypertriglyceridemia HI (myocardial infarction) Peripheral neuropathy Spinal stenosis Urinary incontinence Family History Problem Relation Age of Onset Heart Mother Diabetes Father Diabetes Brother Heart Brother Family Status Relation Name Status Mo at age 82 heart attack Fa at age 50s heart attack Bro (Not Specified) Past Surgical History: Procedure Laterality Date CORONARY ARTERY BYPASS GRAFT 2016 OPEN APPENDECTOMY MA REMOVAL OF OVARY(S) REMOVE TONSILS/ADENOIDS,<12 Y/O STENT PLACEMENT (SHX) TOTAL HIP ARTHROPLASTY Right 2017 Social History Socioeconomic History Marital status: Spouse name: Not on file Number of children: 8 Years of education: 11 Highest education level: Not on file Occupational History 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 Social Needs Financial resource strain: Not on file Food insecurity: Worry: Not on file Inability: Not on file Transportation needs: Medical: Not on file Non-medical: Not on file Tobacco Use Smoking status: Never Smoker Smokeless tobacco: Never Used Substance and Sexual Activity Alcohol use: No Drug use: No Sexual activity: Not on file Lifestyle Physical activity: Days per week: Not on file Minutes per session: Not on file Stress: Not on file Relationships Social connections: Talks on phone: Not on file Gets together: Not on file Attends sabianism service: Not on file Active member of club or organization: Not on file Attends meetings of clubs or organizations: Not on file Relationship status: Not on file Intimate partner violence: Fear of current or ex partner: Not on file Emotionally abused: Not on file Physically abused: Not on file Forced sexual activity: Not on file Other Topics Concern Not on file Social History Narrative The patient lives with her daughter in a one story home. The patient no longer drives. The patient is independent with ADL's and IADL's. Reviewed: family history , past medical history, social history and surgical history Updated: family history , past medical history, social history and surgical history Medication Sig divalproex Sprinkles (DEPAKOTE SPRINKLES) 125 mg SPRINKLE capsule Take 2 capsules by mouth every12 (twelve) hours. traZODONE 100 mg tablet Take 1 tablet by mouth at bedtime. pravastatin (PRAVACHOL) 20 mg tablet Take 1 tablet by mouth at bedtime. REVIEW OF SYSTEMS Constitutional: the patient has right knee pain which impacts her entire leg - 10. Eyes: denies any change in her vision. Ears: denies ear pain and denies hearing impairment. Nose/Sinuses: + postnasal drip. Mouth/Throat: denies dysphagia, denies hoarseness and denies sore throat. Neck: denies pain, denies swollen glands Cardiovascular: denies chest pain and dizziness. Respiratory: + dyspnea on exertion. Gastrointestinal: denies abdominal pain, denies constipation and denies diarrhea. Genitourinary: + incontinence. Musculoskeletal: + joint pain and + joint stiffness to the right hip and the right knee. Skin: denies itching, denies lesions and denies rash. The patient is eating and drinking some water during the day. She does not sleep well and she denies any recent falls although she is high risk for a fall. PHYSICAL EXAM BP 128/61 (BP Location: Right arm, Patient Position: Sitting, BP CUFF SIZE: Adult Medium) | Pulse 65 | Temp 36.8 C (98.2 F) (Oral) | Resp 22 | Wt 107 lb 12.8 oz (48.9 kg) | SpO2 95% on room air | BMI 21.05 kg/m General: alert, oriented to self, no apparent distress, appearing age appropriate Skin: no rashes or suspicious lesions are seen Ears: external ears normal, canals clear, tympanic membranes normal Oropharynx: normal, clear without erythema or exudate Neck: neck supple, no adenopathy, normal size Lungs: no wheezes or crackles Heart: regular rate and rhythm Abdomen: abdomen soft, non-tender, non-distended, normal active bowel sounds, no masses or organomegaly Extremities/Musculoskeletal: no cyanosis, no edema ASSESSMENT/PLAN Chronic pain of right knee (primary encounter diagnosis) Comment: the patient wants to have surgery to her right knee. She has clearance from a physician Franki Conley. The daughter requested the patient be cleared by [facility] Cardiology. Plan: 1. CONSULT/REFERRAL CARDIOLOGY Arthritis of right hip Comment: chronic Plan: 1. The patient has voltaren gel to use twice daily on the right knee. 2. She can take ES Tylenol prn for pain. 3. The patient can use over the counter pain patches with 4% lidocaine. Essential hypertension Comment: controlled in the clinic Plan: 1. COMP. METABOLIC PANEL (07627) 2. CBC WITH DIFFERENTIAL 3. Continue to take isosorbide 10 mg twice daily. Magnesium deficiency Comment: Plan: 1. MAGNESIUM Vitamin D deficiency Comment: the patient's last Vitamin D level was 19 on 01/18/2018. Plan: 1. VITAMIN D, 25-OH Type 2 diabetes mellitus with diabetic peripheral angiopathy without gangrene, without long-term current use of insulin Comment: the patient's last Hgb A1C level was 6.3 on 01/18/2018. She takes no medication for diabetes. Plan: 1. HEMOGLOBIN A1C Primary osteoarthritis involving multiple joints Comment: the patient states her right knee hurts the most but she has pain in other joints as well. Plan: 1. The patient can use the voltaren gel twice daily to painful joints. 2. She can take ES Tylenol prn for pain. 3. The patient can purchase over the counter pain patches with 4% lidocaine. Urinary frequency Comment: this cold be related to a UTI. Plan: 1. URINALYSIS 2. URINE CULTURE 3. POCT URINALYSIS W SPECIFIC GRAVITY B12 deficiency Comment: the patient's last Vitamin B12 level was 553. Plan: 1. VITAMIN B12, LEVEL Screening for thyroid disorder Comment: the patient does not have a TSH listed in her medical record. Plan: 1. THYROID STIMULATING HORMONE Cerebrovascular accident (CVA), unspecified mechanism Comment: Plan: 1. LIPID PANEL (26648)(TOTAL CHOLESTEROL, TRIGLYCERIDES, HDL) 2. Continue taking Pravastatin 20 mg at bedtime. This visit did not involve counseling and coordination that comprised more than 50% of the visit time. Theresa Shaw LMSW - 09/15/2018 1:00 PM CDTSOCIAL WORK NOTE: IVORY met with patient who was brought in by her daughter, Shelley's friend, Sonja. Sonja placed Shelley on the phone in the room. Requests from Shelley: Diapers Pads Bed rails Shower chair Bedside commode Walker Provider services IVORY provided Shelley information on dme suppliers for all supplies that medicare does not cover: diapers, pads, bed rails and shower chair. She can contact them with the needs and they will fax clinic title xix to complete and send back. Patient is not eligible for a walker because she received a wheelchair from medicare less than 5 years ago. Donated walker provided to her in clinic. PRINTING PLATE CLERK will order bedside commode when note completed. Information provided to her on how to contact patient's medicaid certified addiction counselor and request assessment for provider services. Shelley voiced understanding and will call clinic with any questions. Theresa Heck LMSW, [facility] [employer]- [employer] TC: [phone] Yoan PCP: [phone] Nicolle Magallon LVN - 09/15/2018 1:00 PM CDT Janell Zuniga is a 77 year old female seen for a follow up visit; patient has Patient Active Problem List Diagnosis HI (myocardial infarction) Frequent falls Spinal stenosis Diabetes mellitus HTN (hypertension) Hyperlipidemia Hypertriglyceridemia CVA (cerebral infarction) H/O hepatitis CAD (coronary artery disease) Peripheral neuropathy Arthritis of right hip Urinary incontinence Level of pain: 10 Location of pain: right leg Appearance: alert and cooperative. This patient is accompanied in the office by her daughters friend. Medications and allergies reviewed with patient by provider. Nurse teaching given on falls, immunizations and the patient expresses understanding and acceptance of instructions. Nicolle Corona LVN 09/15/2018 12:51 PM documented in this encounter Plan of Treatment Date Type Specialty Care Team Description 10/14/2018 Office Visit Geriatric Medicine Silke Ball MD [address] [place], [place] [address] 10/24/2018 Office Visit Geriatric Medicine Silke Ball MD [address] [place], [place] [address] Health Maintenance Due Date Last Done Comments [...] 09/15/2018, 02/24/2017 documented as of this encounter Procedures Procedure Name Priority Date/Time Associated Diagnosis Comments URINE CULTURE Routine 09/15/2018 2:49 Urinary frequency Results for this PM CDT procedure are in the results section. URINALYSIS Routine 09/15/2018 2:48 Urinary frequency Results for this PM CDT procedure are in the results section. CBC WITH Routine 09/15/2018 2:33 Essential hypertension Results for this DIFFERENTIAL PM CDT procedure are in the results section. VITAMIN D, 25-OH Routine 09/15/2018 2:33 Vitamin D deficiency Results for this PM CDT procedure are in the results section. GLYCOSYLATED Routine 09/15/2018 2:33 Type 2 diabetes Results for this HEMOGLOBIN (A1C) PM CDT mellitus with diabetic procedure are in peripheral angiopathy the results without gangrene, section. without long-term current use of insulin LIPID PANEL Routine 09/15/2018 2:33 Cerebrovascular Results for this (73734)(TOTAL PM CDT accident (CVA), procedure are in CHOLESTEROL, unspecified mechanism the results TRIGLYCERIDES, HDL) section. COMP. METABOLIC Routine 09/15/2018 2:33 Essential hypertension Results for this PANEL (39514) PM CDT procedure are in the results section. THYROID STIMULATING Routine 09/15/2018 2:33 Screening for thyroid Results for this HORMONE PM CDT disorder procedure are in the results section. VITAMIN B12, LEVEL Routine 09/15/2018 2:33 B12 deficiency Results for this PM CDT procedure are in the results section. MAGNESIUM Routine 09/15/2018 2:33 Magnesium deficiency Results for this PM CDT procedure are in the results section. POCT URINALYSIS Routine 09/15/2018 Urinary frequency documented in this encounter Results URINE CULTURE (09/15/2018 2:49 PM CDT) URINE CULTURE < 10,000 CFU/mL mixed [facility] aerobic organisms - SERVICES suggests endogenous microbial contamination Specimen Urine - URINE, CLEAN CATCH Performing Organization Address City/[facility] Phone Number [facility] CLIA: [id number], [address] [place] [id number] [phone] [facility] URINALYSIS (09/15/2018 2:48 PM CDT) APPEARANCE Clear Clear [facility] COLOR Yellow Yellow [facility] PH 6.0 4.8 - 8.0 [facility] SP GRAVITY 1.016 1.003 - 1.030 [facility] GLU U QUAL Normal Normal [facility] BLOOD Negative Negative [facility] KETONES Negative Negative [facility] PROTEIN 30 mg/dL (A) Negative [facility] UROBILIN Normal Normal [facility] BILIRUBIN Negative Negative [facility] NITRITE Negative Negative [facility] LEUK MICHAEL Negative Negative [facility] RBC/HPF 1 0 - 3 HPF [facility] WBC/HPF <1 0 - 5 HPF [facility] BACTERIA Negative Negative [facility] SQ EPITH <1 <=2 HPF [facility] HYAL CAST 1 <=2 LPF [facility] Specimen Urine - URINE, CLEAN CATCH Performing Organization Address City/[facility] Phone Number [facility] CLIA: [id number], [address] [place] [phone] [facility] LIPID PANEL (22221)(TOTAL CHOLESTEROL, TRIGLYCERIDES, HDL) (09/15/2018 2:33 PM CDT) CHOL 148 120 - 200 mg/dL [facility] HDL 51 >50 mg/dL [facility] HDLC RATIO 2.9 <=4.5 [facility] TRIG 160 30 - 170 mg/dL [facility] [facility] LDL CHOL 65 <=160 mg/dL [facility] VLDL 32 5 - 60 mg/dL [facility] Specimen Blood Performing Organization Address City/State/Zipcode Phone Number [facility] CLIA: [id number], [address] [place] [address] [facility] MAGNESIUM (09/15/2018 2:33 PM CDT) MAGNESIUM 2.2 1.7 - 2.4 mg/dL [facility] Specimen Blood Performing Organization Address City/State/Zipcode Phone Number [facility] CLIA: [id number], [address] [place] [address] [facility] VITAMIN D, 25-OH (09/15/2018 2:33 PM CDT) VIT D 25OH 48 25 - 80 ng/mL [facility] 25-Hydroxy D3 47.7 ng/mL [facility] 25-Hydroxy D2 <2.5 ng/mL [facility] Specimen Blood Narrative Performed At Test developed and characteristics determined by [facility] Laboratory Services. Performing Organization Address City/State/Zipcode Phone Number [facility] CLIA: [id number], [address] [place] [address] [facility] VITAMIN B12, LEVEL (09/15/2018 2:33 PM CDT) VIT B12 384 240 - 930 pg/mL [facility] Specimen Blood Narrative Performed At Biotin has been reported to cause a positive bias, interpret [facility] results relative to patient's use of biotin. Performing Organization Address City/State/Zipcode Phone Number [facility] CLIA: [id number], [address] [place] [address] [id number] [phone] [facility] THYROID STIMULATING HORMONE (09/15/2018 2:33 PM CDT) TSH 2.97 0.45 - 4.70 mIU/L [facility] Specimen Blood Performing Organization Address City/State/Zipcode Phone Number [facility] CLIA: [id number], [address] [place] [address] [facility] HEMOGLOBIN A1C (09/15/2018 2:33 PM CDT) HGB A1C 6.1 (H) 4.0 - 6.0 % NGSP [facility] Specimen Blood Performing Organization Address City/State/Zipcode Phone Number [facility] CLIA: [id number], [address] [place] [address] [facility] CBC WITH DIFFERENTIAL (09/15/2018 2:33 PM CDT) WBC 8.04 4.30 - 11.10 [facility] 10*3/L [facility] RBC 3.66 (L) 3.93 - 5.25 [facility] 10*6/L [facility] HGB 10.2 (L) 11.6 - 15.0 [facility] g/dL [facility] HCT 32.4 (L) 35.7 - 45.2 % [facility] MCV 88.5 80.6 - 95.5 fL [facility] MCH 27.9 25.9 - 32.8 pg [facility] MCHC 31.5 (L) 31.6 - 35.1 [facility] g/dL [facility] RDW-SD 47.1 39.0 - 49.9 fL [facility] RDW-CV 14.4 12.0 - 15.5 % [facility] PLT 269 166 - 358 [facility] 10*3/L [facility] MPV 12.1 9.5 - 12.9 fL [facility] NRBC/100 WBC 0.0 0.0 - 10.0 /100 [facility] WBCs [facility] NRBC x10^3 <0.01 10*3/L [facility] GRAN MAT (NEUT) % 59.7 % [facility] IMM GRAN % 0.20 % [facility] LYMPH % 28.9 % [facility] MONO % 8.1 % [facility] EOS % 2.6 % [facility] BASO % 0.5 % [facility] GRAN MAT x10^3(ANC) 4.80 1.88 - 7.09 [facility] 10*3/uL [facility] IMM GRAN x10^3 <0.03 0.00 - 0.06 [facility] 10*3/uL [facility] LYMPH x10^3 2.32 1.32 - 3.29 [facility] 10*3/uL [facility] MONO x10^3 0.65 0.33 - 0.92 [facility] 10*3/uL [facility] EOS x10^3 0.21 0.03 - 0.39 [facility] 10*3/uL [facility] BASO x10^3 0.04 0.01 - 0.07 [facility] 10*3/uL [facility] Specimen Blood Performing Organization Address City/State/Zipcode Phone Number [facility] CLIA: [id number], [address] [place], [place] [address] [facility] COMP. METABOLIC PANEL (66302) (09/15/2018 2:33 PM CDT) NA 142 135 - 145 [facility] mmol/L [facility] K 5.1 (H) 3.5 - 5.0 [facility] mmol/L [facility] CL 104 98 - 108 mmol/L [facility] CO2 TOTAL 29 23 - 31 mmol/L [facility] AGAP 9 2 - 16 [facility] BUN 29 (H) 7 - 23 mg/dL [facility] GLUCOSE 152 (H) 70 - 110 mg/dL [facility] CREATININE 1.07 (H) 0.50 - 1.04 [facility] mg/dL [facility] TOTAL BILI 0.3 0.1 - 1.1 mg/dL [facility] CALCIUM 9.3 8.6 - 10.6 [facility] mg/dL [facility] T PROTEIN 6.9 6.3 - 8.2 g/dL [facility] ALBUMIN 4.0 3.5 - 5.0 g/dL [facility] ALK PHOS 68 34 - 122 U/L [facility] ALT(SGPT) 20 9 - 51 U/L [facility] AST(SGOT) 21 13 - 40 U/L [facility] eGFR Calculation 49.5 mL/min/1.73m2 [facility] (Non- [facility] Zimbabwean) [place] eGFR Calculation 60.0 mL/min/1.73m2 [facility] () [facility] Specimen Blood Narrative Performed At Association of Glomerular Filtration Rate [facility] (GFR) and Staging of Kidney Disease* CAMPUS + + --+ + | GFR (mL/min/1.73 m2)| With Kidney Damage|Without Kidney Damage + + --+ + |>90 |Stage one| Normal + + --+ + |60-89| Stage two| Decreased GFR + + --+ + |30-59| Stage three| Stage three + + --+ + |15-29| Stage four | Stage four + + --+ + |<15 (or dialysis)|Stage five | Stage five + + --+ + *Each stage assumes the associated GFR level has been in effect for at least three months.Stages 1 to 5, with or without kidney disease, indicate chronic kidney disease. Notes: Determination of stages one and two (with eGFR >59mL/min/1.73 m2) requires estimation of kidney damage for at least three months as defined by structural or functional abnormalities of the kidney, manifested by either: Pathological abnormalities or Markers of kidney damage (including abnormalities in the composition of the blood or urine or abnormalities in imaging tests). Performing Organization Address City/State/Zipcode Phone Number [facility] CLIA: [id number], [address] [place] [address] [facility] POCT URINALYSIS W SPECIFIC GRAVITY (09/15/2018) Pathologist [facility] POCT U SP GRAV 1,015 (A) 1.005 - 1.025 mg/dl POCT PH U 6 5 - 8 mg/dl POCT U LEUK EST negative Negative - Negative POCT U NIT negative Negative - Negative POCT U PROT trace Negative - Negative POCT U GLU nornal Negative - Negative POCT U KETONE small Negative - Negative POCT U UROBILI normal 0.2 - 1 mg/dl POCT U BILI negative Negative - Negative POCT U BLD negative Negative - Negative POCT U COLOR yellow POCT U APPEAR clear Specimen Urine - URINE, CLEAN CATCH documented in this encounter Visit Diagnoses Diagnosis Chronic pain of right knee - Primary Arthritis of right hip Essential hypertension Unspecified essential hypertension Magnesium deficiency Disorders of magnesium metabolism Vitamin D deficiency Unspecified vitamin D deficiency Type 2 diabetes mellitus with diabetic peripheral angiopathy without gangrene, without long-term current use of insulin Primary osteoarthritis involving multiple joints Urinary frequency B12 deficiency Other B-complex deficiencies Screening for thyroid disorder Cerebrovascular accident (CVA), unspecified mechanism documented in this encounter Insurance Payer Benefit Plan / Subscriber ID Effective Dates Phone Address Type Group MEDICARE MEDICARE PART xxxxxxxxxxx 2004-Tereza [phone] [facility] Medicare A & B t 2 [id number] MIKAYLA CHAU [id number] documented as of this encounter"
--- OUTSIDE RECORDS SUMMARY | 2019-05-25 11:20 | XMS REPORT | Summary of Care ---
:1940 Author Organization [facility] Address [address] [place] [address] Care Team Providers Name Role Phone Silke Ball MD Primary Care Provider Reason for Referral (CARRIE) Status Reason Specialty Diagnoses / Procedures Referred By Contact Referred To Contact Closed Cardiology Diagnoses Chronic pain of right knee Alon Melo Procedures CONSULT/REFERRAL CARDIOLOGY [address] [place] [address] [id number] [place] [address] Reason for Visit Reason Comments Surgery Clearance Encounter Details Date Type Department Care Team Description 09/15/2018 Office Visit [facility]- Alon Melo Chronic pain of right knee (Primary Dx); [address] Arthritis of right hip; [facility] [id number] Essential hypertension; [address] [place], [place] Magnesium deficiency; [place] [address] Vitamin D deficiency; [id number] Type 2 diabetes mellitus with diabetic peripheral angiopathy without gangrene , without long-term current use of insulin; [phone] Primary osteoarthritis involving multiple joints; (Fax) Urinary [...] Noted Date Arthritis of right hip 06/30/2016 VT (myocardial infarction) Frequent falls Spinal stenosis Diabetes [...] Body Mass Index 21.05 01/25/2018 10:22 AM LEPIDOPTERIST documented in this encounter Patient Instructions Patient [...] knee when it causes you pain Taking [id number] pain medicine Wearing a knee brace or [...] have any new symptoms Date Last Reviewed: 06/20/201619991252-9137 [employer]. [address] [place] [address]. All rights reserved. This information is not [...] the thighbone and shinbone. Date Last Reviewed: 03/22/201719993161-7131 [employer]. [address] [place] [address]. All rights reserved. This information is not [...] will have the patient speak with the Accounting Machine Operator today to see how we can help the patient and her daughter. As far as surgery, the caregiver states today they have clearance for her surgery from a physician at [facility]. They would like to have some lab work done that he has requested. HISTORY Past Medical History: Diagnosis Date CAD (coronary artery disease) CVA (cerebral infarction) 1 large and several mini Diabetes mellitus Frequent falls H/O hepatitis cannot donate blood HTN (hypertension) Hyperlipidemia Hypertriglyceridemia VT (myocardial infarction) Peripheral neuropathy Spinal stenosis Urinary incontinence Family History Problem Relation Age of Onset Heart Mother Diabetes Father Diabetes Brother Heart Brother Family Status Relation Name Status Mo at age 82 heart attack Fa at age 50s heart attack Bro (Not Specified) Past Surgical History: Procedure Laterality Date CORONARY ARTERY BYPASS GRAFT 2016 OPEN APPENDECTOMY HI REMOVAL OF OVARY(S) REMOVE TONSILS/ADENOIDS,<12 Y/O STENT PLACEMENT (SHX) TOTAL HIP ARTHROPLASTY Right 2017 Social History Socioeconomic History Marital status: Spouse name: Not on file Number of children: 8 Years of education: 11 Highest education level: Not on file Occupational History 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 Plan: 1. CONSULT/REFERRAL CARDIOLOGY Arthritis of right hip Comment: chronic Plan: 1. The patient has voltaren gel to use twice daily on the right knee. 2. She can take ES Tylenol prn for pain. 3. The patient can use over the counter pain patches with 4% lidocaine. Essential hypertension Comment: controlled in the clinic Plan: 1. COMP. METABOLIC PANEL (68804) 2. CBC WITH DIFFERENTIAL 3. Continue to [...] unspecified mechanism Comment: Plan: 1. LIPID PANEL (84270)(TOTAL CHOLESTEROL, TRIGLYCERIDES, HDL) 2. Continue taking Pravastatin [...] Donated walker provided to her in clinic. MENTAL HEALTH NURSE will order bedside commode when note completed. Information provided to her on how to contact patient's medicaid cabin supervisor and request assessment for provider services. Shelley voiced understanding and will call clinic with any questions. Theresa Heck LMSW, [facility]- Ambulatory Accounting Machine Operator- Banana Carrier TC: [phone] Yoan PCP: [phone] Nicolle Magallon LVN - 09/15/2018 1:00 PM CDT Janell Zuniga is a 77 year old female seen for a follow up visit; patient has Patient Active Problem List Diagnosis VT (myocardial infarction) Frequent falls Spinal stenosis Diabetes [...] Medicine Silke Ball MD [address] [place], [place] [id number] 10/24/2018 Office Visit Geriatric Medicine Silke Ball MD [address] [place], [place] [address] Health Maintenance Due Date Last Done Comments [...] Routine 09/15/2018 2:33 Cerebrovascular Results for this (47536)(TOTAL PM CDT accident (CVA), procedure are in CHOLESTEROL, unspecified mechanism the results TRIGLYCERIDES, HDL) section. COMP. METABOLIC Routine 09/15/2018 2:33 Essential hypertension Results for this PANEL ([id number]) PM CDT procedure are in the results [...] CDT) URINE CULTURE < 10,000 CFU/mL mixed [facility] aerobic organisms - SERVICES suggests endogenous microbial contamination Specimen Urine - URINE, CLEAN CATCH Performing Organization Address City/[facility] Phone Number [facility] CLIA: [id number], [address] [place] [phone] [facility] URINALYSIS (09/15/2018 2:48 PM CDT) APPEARANCE Clear Clear [facility] COLOR Yellow Yellow [facility] PH 6.0 4.8 - 8.0 [facility] SP GRAVITY 1.016 1.003 - 1.030 [facility] GLU U QUAL Normal Normal [facility] BLOOD Negative Negative [facility] KETONES Negative Negative [facility] PROTEIN 30 mg/dL (A) Negative [facility] UROBILIN Normal Normal [facility] BILIRUBIN Negative Negative [facility] NITRITE Negative Negative [facility] LEUK MICHAEL Negative Negative [facility] RBC/HPF 1 0 - 3 HPF [facility] WBC/HPF <1 0 - 5 HPF [facility] BACTERIA Negative Negative [facility] SQ EPITH <1 <=2 HPF [facility] HYAL CAST 1 <=2 LPF [facility] Specimen Urine - URINE, CLEAN CATCH Performing Organization Address City/[facility] Cent[facility]ode Phone Number [facility] CLIA: [id number], [address] [place] [phone] [facility] LIPID PANEL ([id number])(TOTAL CHOLESTEROL, TRIGLYCERIDES, HDL) (09/15/2018 2:33 PM CDT) CHOL 148 120 - 200 mg/dL [facility] HDL 51 >50 mg/dL [facility] HDLC RATIO 2.9 <=4.5 [facility] TRIG 160 30 - 170 mg/dL [facility] LDL CHOL 65 <=160 mg/dL [facility] VLDL 32 5 - 60 mg/dL [facility] Specimen Blood Performing Organization Address City/State/Zipcode Phone Number [facility] CLIA: [id number], [address] [place] [address] [facility] MAGNESIUM (09/15/2018 2:33 PM CDT) MAGNESIUM 2.2 1.7 - 2.4 mg/dL [facility] Specimen Blood Performing Organization Address City/State/Zipcode Phone Number [facility] CLIA: [id number], [address] [place] [address] [facility] VITAMIN D, 25-OH (09/15/2018 2:33 PM CDT) VIT D 25OH 48 25 - 80 ng/mL [facility] 25-Hydroxy D3 47.7 ng/mL [facility] 25-Hydroxy D2 <2.5 ng/mL [facility] Specimen Blood Narrative Performed At Test developed and characteristics determined by [facility] Laboratory Services. Performing Organization Address City/State/Zipcode Phone Number [facility] CLIA: [id number], [address] [place] [address] [facility] VITAMIN B12, LEVEL (09/15/2018 2:33 PM CDT) VIT B12 384 240 - 930 pg/mL [facility] Specimen Blood Narrative Performed At Biotin has been reported to cause a positive bias, interpret [facility] results relative to patient's use of biotin. Performing Organization Address City/State/Zipcode Phone Number [facility] CLIA: [id number], [address] [place] [address] [phone] [facility] THYROID STIMULATING HORMONE (09/15/2018 2:33 PM CDT) TSH 2.97 0.45 - 4.70 mIU/L [facility] Specimen Blood Performing Organization Address City/State/Zipcode Phone Number [facility] CLIA: [id number], [address] [place] [address] [facility] HEMOGLOBIN A1C (09/15/2018 2:33 PM CDT) HGB A1C 6.1 (H) 4.0 - 6.0 % NGSP [facility] Specimen Blood Performing Organization Address City/State/Zipcode Phone Number [facility] CLIA: [id number], [address] [place] [address] [facility] CBC WITH DIFFERENTIAL (09/15/2018 2:33 PM CDT) WBC 8.04 4.30 - 11.10 [facility] 10*3/L [facility] RBC 3.66 (L) 3.93 - 5.25 [facility] 10*6/L [facility] HGB 10.2 (L) 11.6 - 15.0 [facility] g/dL [facility] HCT 32.4 (L) 35.7 - 45.2 % [facility] MCV 88.5 80.6 - 95.5 fL [facility] MCH 27.9 25.9 - 32.8 pg [facility] MCHC 31.5 (L) 31.6 - 35.1 [facility] g/dL [facility] RDW-SD 47.1 39.0 - 49.9 fL [facility] RDW-CV 14.4 12.0 - 15.5 % [facility] PLT 269 166 - 358 [facility] 10*3/L [facility] MPV 12.1 9.5 - 12.9 fL [facility] NRBC/100 WBC 0.0 0.0 - 10.0 /100 [facility] WBCs [facility] NRBC x10^3 <0.01 10*3/L [facility] GRAN MAT (NEUT) % 59.7 % [facility] IMM GRAN % 0.20 % [facility] LYMPH % 28.9 % [facility] MONO % 8.1 % [facility] EOS % 2.6 % [facility] BASO % 0.5 % [facility] GRAN MAT x10^3(ANC) 4.80 1.88 - 7.09 [facility] 10*3/uL [facility] IMM GRAN x10^3 <0.03 0.00 - 0.06 [facility] 10*3/uL [facility] LYMPH x10^3 2.32 1.32 - 3.29 [facility] 10*3/uL [facility] MONO x10^3 0.65 0.33 - 0.92 [facility] 10*3/uL [facility] EOS x10^3 0.21 0.03 - 0.39 [facility] 10*3/uL [facility] BASO x10^3 0.04 0.01 - 0.07 [facility] 10*3/uL [facility] Specimen Blood Performing Organization Address City/State/Zipcode Phone Number [facility] CLIA: [id number], [address] [place], [place] [phone] [facility] COMP. METABOLIC PANEL ([id number]) (09/15/2018 2:33 PM CDT) NA 142 135 - 145 [facility] mmol/L [facility] K 5.1 (H) 3.5 - 5.0 [facility] mmol/L [facility] CL 104 98 - 108 mmol/L [facility] CO2 TOTAL 29 23 - 31 mmol/L [facility] AGAP 9 2 - 16 [facility] BUN 29 (H) 7 - 23 mg/dL [facility] GLUCOSE 152 (H) 70 - 110 mg/dL [facility] CREATININE 1.07 (H) 0.50 - 1.04 [facility] mg/dL [facility] TOTAL BILI 0.3 0.1 - 1.1 mg/dL [facility] CALCIUM 9.3 8.6 - 10.6 [facility] mg/dL [facility] T PROTEIN 6.9 6.3 - 8.2 g/dL [facility] ALBUMIN 4.0 3.5 - 5.0 g/dL [facility] ALK PHOS 68 34 - 122 U/L [facility] ALT(SGPT) 20 9 - 51 U/L [facility] AST(SGOT) 21 13 - 40 U/L [facility] eGFR Calculation 49.5 mL/min/1.73m2 [facility] (Non- [facility] Bol[place]ian) [place] eGFR Calculation 60.0 mL/min/1.73m2 [facility] () [facility] Specimen Blood Narrative Performed At Association of Glomerular Filtration Rate [facility] (GFR) and Staging of Kidney Disease* CAMPUS [...] tests). Performing Organization Address City/State/Zipcode Phone Number [facility] CLIA: [id number], [address] [place] [address] SERVICES-[facility] POCT URINALYSIS W SPECIFIC GRAVITY (09/15/2018) Pathologist [facility] POCT U SP GRAV 1,015 (A) 1.005 [...] MEDICARE PART xxxxxxxxxxx 2004-Tereza [phone] [facility] Medicare A & B t 2 [id number] MIKAYLA CHAU [id number] documented as of this encounter"
--- OUTSIDE RECORDS SUMMARY | 2019-05-25 11:21 | XMS REPORT | Summary of Care ---
:1940 Author Organization [facility] Address [address] [place] [id number] Care Team Providers Name Role Phone Silke Ball MD Primary Care Provider Reason for Visit Reason Comments Pre-op Clearance knee surgery Encounter Details Date Type Department Care Team Description 10/14/2018 Office Visit [facility] Geriatrics- Lizzy, Vascular dementia with behavior disturbance (Primary Dx); [place] Silke Foreman MD Other chronic pain; [facility] [address] Primary osteoarthritis of both knees; [facility] Sarcopenia; [place], [place] Frailty syndrome in geriatric patient; [id number] Mild protein-calorie malnutrition; [phone] Insomnia due to medical condition; [phone] Slow transit constipation; (Fax) Chronic congestive heart failure, unspecified heart failure type Allergies Active Allergy Reactions Severity Noted Date Comments Codeine Unknown - See comments 01/05/2014 Patient does not remember reaction documented as of this encounter (statuses as of 10/14/2018) Medications Medication Sig Dispensed Refills Start Date [...] skin daily. Cerebrovascular accident (CVA), unspecified mechanism docusate (COLACE) 100 Take 1 capsule 90 capsule 1 10/14/2018 Active mg capsuleIndications: by mouth daily. Slow transit constipation carvedilol 3.125 mg Take 1 tablet by 60 tablet 2 10/14/2018 Active tabletIndications: mouth 2 (two) Chronic congestive times daily with heart failure, meals. unspecified heart failure type HYDROcodone-acetaminoph Take 1 tablet by 90 tablet 0 10/14/2018 Active en 5-325 mg mouth every 6 tabletIndications: (six) hours as Other chronic pain, needed for Pain Primary osteoarthritis (scale 7-10). of both knees Testosterone, Bulk, 5 mg daily. 150 g 2 10/14/2018 Active PowdIndications: Sarcopenia QUEtiapine (SEROQUEL) Take 0.5 tablets 60 tablet 1 10/14/2018 Active 25 mg by mouth 2 (two) tabletIndications: times daily. Vascular dementia with behavior disturbance Hospital, Clinic, or Ordered Dose Route Frequency Start Date End Date Status Other Facility Administered Medication carvedilol (COREG) 3.125 mg Oral BID MEALS 10/07/2018 10/14/2018 Discontinued tablet 3.125 mg documented as of this encounter (statuses as of 10/14/2018) Active Problems Problem Noted Date Arthritis of right hip 06/30/2016 [place] (my[place] infarction) Frequent falls Spinal stenosis Diabetes mellitus HTN (hypertension) Hyperlipidemia Hypertriglyceridemia CVA (cerebral infarction) Overview: 1 large and several mini H/O hepatitis CAD (coronary artery disease) Peripheral neuropathy Urinary incontinence documented as of this encounter (statuses as of 10/14/2018) Social History Tobacco Use Types Packs/Day Years [...] Sign Reading Time Taken Comments Blood Pressure 174/79 10/14/2018 9:29 AM CDT Pulse 57 10/14/2018 9:29 AM CDT Temperature 36.4 C (97.6 F) 10/14/2018 9:29 AM CDT Respiratory Rate 22 10/14/2018 9:29 AM CDT Oxygen Saturation 98% 10/14/2018 9:29 AM CDT Inhaled Oxygen Concentration - - Weight 45.8 kg (100 lb 14.4 oz) 10/14/2018 9:29 AM CDT Height - - Body Mass Index 19.71 01/25/2018 10:22 AM MEDIA CONSULTANT documented in this encounter Patient Instructions Patient InstructionsSilke Ball MD - 10/14/2018 9:00 AM CDTMelatonin 3 mg per night and titrate up to 15 mg, start 6 pm ULTRAMEAL ( Ziliko) 2 scoops per portion with meals Fish oil 2-3 table spoon a day ( HEB liquid form) documented in this encounter Progress Notes Silke Ball MD - 10/14/2018 9:00 AM CDT Cc: Chief Complaint Patient presents with Pre-op Clearance knee surgery Janell Zuniga is a 77 year old female comes with her daughter. HPI Patient daughter brought her mother for surgical clearence. She is hardly able to stand up from the walker with help, despite spending 2 mo in SNF for rehab & 1 month with PT at home . She is not helped with scheduled Tylenol since she has " bone on bone " in her knees. Patient daughter states she needs: Provider care services Diapers Speech therapy PT OT Handicap Abigail Cullet Washer discussion: caregiver support ASSESSMENT AND PLAN: ICD-10-CM ICD-9-CM 1. Vascular dementia with behavior disturbance F01.51 290.40 2. Other chronic pain G89.29 338.29 3. Primary osteoarthritis of both knees M17.0 715.16 4. Sarcopenia M62.84 728.2 5. Frailty syndrome in geriatric patient R54 797 6. Mild protein-calorie malnutrition E44.1 263.1 7. Insomnia due to medical condition G47.01 327.01 8. Slow transit constipation K59.01 564.01 9. Chronic congestive heart failure, unspecified heart failure type I50.9 428.0 Vascular dementia with behavior disturbance (primary encounter diagnosis) Comment: patient did not improve her behavior with Remeron Plan: QUEtiapine (SEROQUEL) 25 mg tablet, CONSULT/REFERRAL SOCIAL WORK-AMBULATORY, ID PLACARD/LICENSE PLATE Other chronic pain Comment: patient not responding to Tylenol Plan: HYDROcodone-acetaminophen 5-325 mg tablet TID, start 0.5 mg q 6 hr Primary osteoarthritis of both knees Comment: Tylenol not effective , patient is severe pain, due to severe Plan: HYDROcodone-acetaminophen 5-325 mg tablet Sarcopenia Comment: worsening with time, patient unable to stand up without help. Plan: Testosterone,5 mg/ml cream , PT as below Frailty syndrome in geriatric patient Comment: worsening, patient not able to walk Plan: ID PLACARD/LICENSE PLATE Mild protein-calorie malnutrition Comment: diet discussed Plan: supplements recommended Insomnia due to medical condition Comment: we will try Melatonin 3 mg daily & titrate up Plan:continue Remeron 15 mg daily Slow transit constipation Comment: well controlled Plan: docusate (COLACE) 100 mg capsule Chronic congestive heart failure, unspecified heart failure type Plan: carvedilol 3.125 mg tablet BID 3 in 1 bedside commode I certify that Janell Zuniga is under my care and that I had a face-to- face encounter with this patient on: 10-14-2018 . The primary reason for the durable medical equipment: gait disorder I am ordering and certify that, based on my findings, the following is medically necessary durable medical equipment: 3 in 1 bedside commode. Height: Ht Readings from Last 1 Encounters: 01/25/18 5' (1.524 m) Weight: Wt Readings from Last 1 Encounters: 10/14/18 100 lb 14.4 oz (45.8 kg) Duration of need: 99 months. Patient does not have access to regular toilet facilities because he/she is confined to: A single level without a toilet. FaceToFace I saw patient Janell Zuniga in the [facility] on 10/14/2018 for: Deconditioning, gait difficulty I certify, based on my findings, that the following services are medically necessary: Senior Living: Yes Physical therapy: Yes Occupational therapy: Yes Speech language pathology: Yes Certified Home Health Aid: Yes Agency social media strategist: No My clinical findings support the need for the above services as follows: PT/OT/ ST/ I certify my clinical findings/ diagnoses support that this patient is homebound per CMS guidelines due to: physical condition I certify that this patient is under the care of the [facility] and that I had a [id number] encounter that meets the physician's [id number] requirements with this patient as noted above. Silke Ball MD 10/14/2018 Faculty Physician: 10/14/2018 Allergies Janell is allergic to codeine. Medications Outpatient Medications Prior to Visit Medication Sig Dispense Refill rivastigmine 4.6 mg/24 hr patch Apply 1 Patch to skin daily. 30 Patch 1 albuterol 2.5 mg/0.5 mL nebulizer solution Use 0.5 mL as directed every 6 ( six) hours as needed for Wheezing. 120 Each 2 isosorbide mononitrate 10 mg tablet Take 1 tablet by mouth 2 (two) times daily. 60 tablet 5 lisinopril 10 mg tablet Take 1 tablet by mouth daily. 90 tablet 1 mirtazapine 15 mg tablet Take 1 tablet by mouth at bedtime. 30 tablet 1 nitroglycerin 0.4 mg sublingual tablet Max 3 tablets in 15 minutes - then go to ER 1 Bottle 3 pregabalin (LYRICA) 50 mg capsule Take 1 capsule by mouth 2 (two) times daily. 60 capsule 2 B Complex Vitamins (B COMPLEX) TbSR Take 1 tablet by mouth daily. 30 tablet 3 Cholecalciferol, Vitamin D3, (VITAMIN D3) 2,000 unit capsule Take 1 capsule by mouth. 30 capsule3 Diclofenac Sodium (VOLTAREN) 1 % gel Apply to area(s) 2 (two) times daily. 100 g 1 Facility-Administered Medications Prior to Visit Medication Dose Route Frequency Provider Last Rate Last Dose carvedilol (COREG) tablet 3.125 mg 3.125 mg Oral BID MEALS Silke Ball MD Histories Past Medical History: Diagnosis Date CAD (coronary artery disease) CVA (cerebral infarction) 1 large and several mini Diabetes mellitus Frequent falls H/O hepatitis cannot donate blood HTN (hypertension) Hyperlipidemia Hypertriglyceridemia [place] (my[place] infarction) Peripheral neuropathy Spinal stenosis Urinary incontinence Past Surgical History: Procedure Laterality Date CORONARY ARTERY BYPASS GRAFT 2016 OPEN APPENDECTOMY [place] REMOVAL OF OVARY(S) REMOVE TONSILS/ADENOIDS,<12 Y/O STENT PLACEMENT (SHX) TOTAL HIP ARTHROPLASTY Right 2016 Social History Socioeconomic History Marital status: Spouse name: Not on file Number of children: 8 Years of education: 11 Highest education level: Not on file Occupational History 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 Family History Problem Relation Age of Onset Heart Mother Diabetes Father Diabetes Brother Heart Brother Review of Systems Unable to perform ROS Patient agitated, per daughter trying to escape from home, scratching her & being verbally very aggressive, screaming Vital Signs BP (!) 174/79 (BP Location: Left arm, Patient Position: Sitting, BP CUFF SIZE: Adult Medium) | Pulse 57 | Temp 36.4 C (97.6 F) (Oral) | Resp 22 | Wt 100 lb 14.4 oz (45.8 kg) | SpO2 98% | BMI 19.71 kg/m Physical Exam General: alert, agitated, does not like to touch her Ears: external ears normal Oropharynx: normal, clear without erythema or exudate Neck: neck supple, no adenopathy, normal size Lungs: no wheezes or crackles Heart: regular rate and rhythm Abdomen: abdomen soft, non-tender, non-distended, normal active bowel sounds, no masses or organomegaly Extremities/Musculoskeletal: no cyanosis, no edema Education & Visit Time: this visit involved counseling and coordination of care that comprised more than 50% of the visit time. I spent 40 min total time with the patient. Of that time, less then50 % was spent on exam, and the rest was spent counseling the patient regarding risks and benefits of treatment, treatment options and prevention: sarcopenia, behavioral disturbances, malnutrition Silke Ball MD [facility], Division of Geriatrics Department of Internal Medicine O: [phone] F: [phone] P: [phone] E: [email or web address] Doctor# [id number] Nicolle Magallon LVN - 10/14/2018 9:00 AM CDT Janell Zuniga is a 77 year old female seen for a follow up visit; patient has Patient Active Problem List Diagnosis [place] (my[place] infarction) Frequent falls Spinal stenosis Diabetes mellitus HTN (hypertension) Hyperlipidemia Hypertriglyceridemia CVA (cerebral infarction) H/O hepatitis CAD (coronary artery disease) Peripheral neuropathy Arthritis of right hip Urinary incontinence Level of pain: 0 Location of pain right knee at night Appearance: alert and cooperative. This patient is accompanied in the office by her daughter. Medications and allergies reviewed with patient by nursing staff and provider. Nurse teaching given on falls, meds and the patient expresses understanding and acceptance of instructions. Nicolle Corona LVN 10/14/2018 9:21 AM documented in this encounter Plan of Treatment Date Type Specialty Care Team Description 10/24/2018 Office Visit Geriatric Medicine Silke Ball MD [address] [place], [place] [id number] Health Maintenance Due Date Last Done Comments [...] Results Not on filedocumented in this encounter Visit Diagnoses Diagnosis Vascular dementia with behavior disturbance - Primary Vascular dementia, uncomplicated Other chronic pain Primary osteoarthritis of both knees Primary localized osteoarthrosis, lower leg Sarcopenia Muscular wasting and disuse atrophy, not elsewhere classified Frailty syndrome in geriatric patient Mild protein-calorie malnutrition Malnutrition of mild degree Insomnia due to medical condition Insomnia due to medical condition classified elsewhere Slow transit constipation Chronic congestive heart failure, unspecified heart failure type documented in this encounter Insurance Payer Benefit Plan / Subscriber ID Effective Dates Phone Address Type Group MEDICARE MEDICARE PART xxxxxxxxxxx 2004-Tereza [phone] Medicare A & B t [address] [id number] [place]AU [id number] documented as of this encounter
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
--- OUTSIDE RECORDS SUMMARY | 2019-05-25 11:21 | XMS REPORT | Summary of Care ---
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); [place] Silke Foreman MD Chest pain, unspecified type; Multispecialty Ctr [address] Cerebrovascular accident (CVA), unspecified mechanism; [address] [facility] Anxiety; [place], [place], [place] Aphasia; [address] 30555 B12 deficiency; [phone] Type 2 diabetes mellitus with complication, without long-term current use of insulin; [phone] Anemia, unspecified type; (Fax) Essential hypertension; Peripheral [...] Noted Date Arthritis of right hip 06/30/2016 [place] (myocardial infarction) Frequent falls Spinal stenosis Diabetes [...] Body Mass Index 20.33 01/25/2018 10:22 AM CREDIT RELATIONSHIP MANAGER documented in this encounter Patient Instructions Patient [...] The pt was then sent to the intermediate a week later. Was recently removed by daughter, about a month ago, back home; daughter didnt feel the intermediate was providing adequate care to the patient. She felt the patient wasnt eating, weighed 88 pounds at intermediate and is currently 120 pounds. Pt had a UTI infection during stay, daughter feels the intermediate was not changing the pt diaperson time. No history of UTIs. Had numerous falls in the intermediate when transferring from wheel chair. Nobody was [...] facilities, her medications where changed. She saw EMPLOYEE'S REPRESENTATIVE. She has no new list of medications, [...] Diapers Speech therapy PT OT Handicap Abigail Clock And Watch Hands Painter discussion Patient saw on 10-03-2018 ORTHO in [facility]. Patient with h/o PMH of T2DM, stroke- 2017, HTN, DVT, and CAD presents today with daughter for her preoperative visit for right total knee. Replacement surgery scheduled for 10/18/18. MR review: EMPLOYEE'S REPRESENTATIVE WILBERT The granddaughter reports the patient disrupts her home by yelling, demanding, and trying to hit family members who are trying to help her. The patient denies all accusations that are made. The granddaughter has spoken to the rn social work regarding other living arrangements and she is [...] cannot donate blood HTN (hypertension) Hyperlipidemia Hypertriglyceridemia [place] (myocardial infarction) Peripheral neuropathy Spinal stenosis Urinary incontinence Past Surgical History: Procedure Laterality Date CORONARY ARTERY BYPASS GRAFT 2015 OPEN APPENDECTOMY [place] REMOVAL OF OVARY(S) REMOVE TONSILS/ADENOIDS,<12 Y/O STENT PLACEMENT (SHX) TOTAL HIP ARTHROPLASTY Right 2017 Social History Socioeconomic History Marital status: Spouse name: Not on file Number of children: 8 Years of education: 11 Highest education level: Not on file Occupational History 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 ROS according to template in [facility] Vital Signs BP (!) 152/88 (Patient [...] We discussed patient needs Silke Ball MD [facility] Car Cleaning Supervisor, Division of Geriatrics Department of Internal Medicine O: [phone] F: [phone] P: [phone] E: [email or web address] Doctor# [id number] Umm Grey MA - 10/07/2018 8:30 AM CDT Janell Zuniga is a 77 year old female Here today for Janell Causeytis is a 77 year old female seen for a follow up visit; patient has Patient Active Problem List Diagnosis NC (myocardial infarction) Frequent falls Spinal stenosis Diabetes [...] Office Visit Geriatric Medicine Silke Ball MD [address] [place] [address] [phone] Health Maintenance Due Date Last Done Comments [...] BOX Medicare A & B t 2 [id number] MIKAYLA CHAU [address] [facility] MEDICAID OF xxxxxxxxx 2017-Richard [phone] [address] Medicaid [place] nt 0 [id number] [place] [address] documented as of this encounter"
--- OUTSIDE RECORDS SUMMARY | 2019-05-25 11:22 | XMS REPORT | Summary of Care ---
:1940 Author Organization [facility] Address [address] [place] [address] Care Team Providers Name Role Phone Silke Ball MD Primary Care Provider Reason for Visit Reason Comments Orders Encounter Details Date Type Department Care Team Description 09/29/2018 Telephone [facility] Silke Ball [facility] Multispecialty [facility] MD Kellen [address] [place] [address] [place] [address] Allergies Active Allergy Reactions Severity Noted Date Comments Codeine Unknown - See comments 01/05/2014 Patient does not remember reaction documented as of this encounter (statuses as of 10/18/2018) Medications Medication Sig Dispensed Refills Start Date End Date Status Diclofenac Sodium Apply to 100 g 1 01/25/2018 Active (VOLTAREN) 1 % area(s) 2 gelIndications: (two) times Arthritis of right daily. hip B Complex Vitamins Take 1 tablet 30 tablet 3 01/25/2018 Active (B COMPLEX) TbSR by mouth daily. Cholecalciferol, Take 1 capsule 30 capsule 3 01/25/2018 Active Vitamin D3, by mouth. (VITAMIN D3) 2,000 unit capsule pravastatin Take 1 tablet 30 tablet 5 05/26/2017 Discontinued (PRAVACHOL) 20 mg by mouth at 9 tablet bedtime. pregabalin 50 mg Take 1 capsule 60 capsule 3 07/16/2017 Discontinued capsule by mouth 2 9 (two) times daily. With breakfast and dinner metFORMIN 1,000 mg Take 1 tablet 180 tablet 3 07/16/2017 Discontinued tabletIndications: by mouth 2 9 Type 2 diabetes (two) times mellitus with daily with diabetic peripheral meals. angiopathy without gangrene, without long-term current use of insulin albuterol-ipratropi Inhale 1 Puff 4 g 5 08/04/2017 Discontinued um 20-100 4 (four) times 9 mcg/actuation daily. inhaler traMADOL 50 mg Take 1 tablet 90 tablet 0 01/25/2018 Discontinued tabletIndications: by mouth every 9 Arthritis of right 6 (six) hours hip as needed for Pain (scale 7-10). nitroglycerin 0.4 Max 3 tablets 1 Bottle 3 01/25/2018 Discontinued mg sublingual in 15 minutes 9 tabletIndications: - then go to Chest pain, ER unspecified type traZODONE 100 mg Take 1 tablet 90 tablet 1 03/04/2018 Discontinued tablet by mouth at 9 bedtime. isosorbide Take 1 tablet 60 tablet 5 03/29/2018 Discontinued mononitrate 10 mg by mouth 2 9 tablet (two) times daily. albuterol 2.5 Use 0.5 mL as 120 Each 2 04/06/2018 Discontinued mg/0.5 mL nebulizer directed every 9 solution 6 (six) hours as needed for Wheezing. divalproex Take 2 360 capsule 1 04/26/2018 Discontinued Sprinkles (DEPAKOTE capsules by 9 SPRINKLES) 125 mg mouth every 12 SPRINKLE (twelve) capsuleIndications: hours. Behavior concern documented as of this encounter (statuses as of 10/18/2018) Active Problems Problem Noted Date Arthritis of right hip 06/30/2016 [place] (myocardial infarction) Frequent falls Spinal stenosis Diabetes mellitus HTN (hypertension) Hyperlipidemia Hypertriglyceridemia CVA (cerebral infarction) Overview: 1 large and several mini H/O hepatitis CAD (coronary artery disease) Peripheral neuropathy Urinary incontinence documented as of this encounter (statuses as of 10/18/2018) Social History Tobacco Use Types Packs/Day Years [...] Office Visit Geriatric Medicine [facility] [place] [address] [phone] Health Maintenance Due Date Last Done Comments [...] Type Group MEDICARE MEDICARE PART xxxxxxxxxxx 2004-Presen [phone] [address] Medicare A & B t 2 [id number] MIKAYLA CHAU [id number] [facility] MEDICAID OF xxxxxxxxx 2017-Prese [phone] [address] Medicaid [facility] 0 [id number] [place] [address] documented as of this encounter
--- OUTSIDE RECORDS SUMMARY | 2019-05-25 11:22 | XMS REPORT | Summary of Care ---
:1940 Author Organization [facility] - [facility] Address [address] [place] [address] Care Team Providers Name Role Phone Silke Ball MD Primary Care Provider Reason for Visit Reason Comments Pre-op Clearance knee surgery Encounter Details Date Type Department Care Team Description 10/14/2018 Office Visit [facility] Geriatrics- Lizzy, Vascular dementia with behavior disturbance (Primary Dx); [place] Silke Foreman MD Other chronic pain; Mult[facility]pecialty Ctr [address] Primary osteoarthritis of both knees; [facility] Sarcopenia; [place], [place] Frailty syndrome in geriatric patient; [phone] Mild protein-calorie malnutrition; [phone] Insomnia due to medical condition; [phone] Slow transit constipation; (Fax) Chronic congestive heart failure, unspecified heart failure type Allergies Active Allergy Reactions Severity Noted Date Comments Codeine Unknown - See comments 01/05/2014 Patient does not remember reaction documented as of this encounter (statuses as of 10/17/2018) Medications Medication Sig Dispensed Refills Start Date [...] as of this encounter (statuses as of 10/17/2018) Active Problems Problem Noted Date Arthritis of right hip 06/30/2016 [place] (myocardial infarction) Frequent falls Spinal stenosis Diabetes mellitus HTN (hypertension) Hyperlipidemia Hypertriglyceridemia CVA (cerebral infarction) Overview: 1 large and several mini H/O hepatitis CAD (coronary artery disease) Peripheral neuropathy Urinary incontinence documented as of this encounter (statuses as of 10/17/2018) Social History Tobacco Use Types Packs/Day Years [...] Body Mass Index 19.71 01/25/2018 10:22 AM AUCTION CLERK documented in this encounter Patient Instructions Patient InstructionsSilke Ball MD - 10/14/2018 9:00 AM CDTMelatonin 3 mg per night and titrate up to 15 mg, start 6 pm ULTRAMEAL ( [employer]) 2 scoops per portion with meals Fish [...] Diapers Speech therapy PT OT Handicap Abigail National Van Owner Operator discussion: caregiver support ASSESSMENT AND PLAN: ICD-10-CM [...] I saw patient Janell Zuniga in the [facility] on 10/14/2018 for: Deconditioning, gait difficulty I certify, based on my findings, that the following services are medically necessary: Halfway: Yes Physical therapy: Yes Occupational therapy: Yes Speech language pathology: Yes Certified Home Health Aid: Yes Agency social worker health services: No My clinical findings support the need for the above services as follows: PT/OT/ ST/ I certify my clinical findings/ diagnoses support that this patient is homebound per CMS guidelines due to: physical condition I certify that this patient is under the care of the [facility] and that I had a xcco-uz-ywhr encounter that meets the physician's rhxu-uj-axbm requirements with this patient as noted above. 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 Social Needs Financial resource strain: Not on [...] file Gets together: Not on file Attends cheondoism service: Not on file Active member of [...] sarcopenia, behavioral disturbances, malnutrition Silke Ball MD [facility] Coil Rewind Machine Operator, Division of Geriatrics Department of Internal Medicine O: [phone] F: [phone] P: [phone] E: [email or web address] Doctor# [id number] Nicolle Magallon LVN - 10/14/2018 9:00 AM CDT Janell Zuniga is a 77 year old female seen for a follow up visit; patient has Patient Active Problem List Diagnosis [place] (myocardial infarction) Frequent falls Spinal stenosis Diabetes [...] Office Visit Geriatric Medicine Silke Ball MD [address] [place], [place] [id number] Health Maintenance Due Date Last Done Comments [...] BOX Medicare A & B t 2 [id number] MIKAYLA CHAU [address] documented as of this encounter
--- OUTSIDE RECORDS SUMMARY | 2019-05-25 11:22 | XMS REPORT | Summary of Care ---
:1940 Author Organization [facility] Address [address] [place] [address] Care Team Providers Name Role Phone Silke Ball MD Primary Care Provider Reason for Visit Reason Comments Pre-op Clearance knee surgery Encounter Details Date Type Department Care Team Description 10/14/2018 Office Visit [facility] Geriatrics- Lizzy, Vascular dementia with behavior disturbance (Primary Dx); [place] Silke Foreman MD Other chronic pain; Multispecialty Ctr [address] Primary osteoarthritis of both knees; [facility] Sarcopenia; [place], [place] Frailty syndrome in geriatric patient; [phone] Mild protein-calorie malnutrition; [phone] Insomnia due to medical condition; [phone] Slow transit constipation; (Fax) Chronic congestive heart [...] Noted Date Arthritis of right hip 06/30/2016 [place] (myocardial infarction) Frequent falls Spinal stenosis Diabetes [...] Body Mass Index 19.71 01/25/2018 10:22 AM CORRESPONDENCE SCHOOL INSTRUCTOR documented in this encounter Patient Instructions Patient InstructionsSilke Ball MD - 10/14/2018 9:00 AM CDTMelatonin 3 mg per night and titrate up to 15 mg, start 6 pm ULTRAMEAL ( [employer]) 2 scoops per portion with meals Fish [...] Diapers Speech therapy PT OT Handicap Abigail Logistics Research Engineer discussion: caregiver support ASSESSMENT AND PLAN: ICD-10-CM [...] I saw patient Janell Zuniga in the [facility] on 10/14/2018 for: Deconditioning, gait difficulty I certify, based on my findings, that the following services are medically necessary: Fpc: Yes Physical therapy: Yes Occupational therapy: Yes Speech language pathology: Yes Certified Home Health Aid: Yes Agency family welfare social work professor: No My clinical findings support the need for the above services as follows: PT/OT/ ST/ I certify my clinical findings/ diagnoses support that this patient is homebound per CMS guidelines due to: physical condition I certify that this patient is under the care of the [facility] and that I had a srdx-pc-mazz encounter that meets the physician's unmq-ut-cola requirements with this patient as noted above. 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 Social Needs Financial resource strain: Not on [...] file Gets together: Not on file Attends taoism service: Not on file Active member of [...] sarcopenia, behavioral disturbances, malnutrition Silke Ball MD [facility] Purchasing Engineer, Division of Geriatrics Department of Internal Medicine O: [phone] F: [phone] P: [phone] E: [email or web address] Doctor# [id number] Nicolle Magallon LVN - 10/14/2018 9:00 AM CDT Janell Zuniga is a 77 year old female seen for a follow up visit; patient has Patient Active Problem List Diagnosis [place] (myocardial infarction) Frequent falls Spinal stenosis Diabetes [...] Office Visit Geriatric Medicine Silke Ball MD [address] [place], [place] [id number] Health Maintenance Due Date Last Done Comments [...] BOX Medicare A & B t 2 [id number] MIKAYLA CHAU [address] documented as of this encounter
--- OUTSIDE RECORDS SUMMARY | 2019-05-25 11:22 | XMS REPORT | Summary of Care ---
:1940 Author Organization [facility] Address [address] [place] [address] Care Team Providers Name Role Phone Silke Ball MD Primary Care Provider Reason for Visit Reason Comments Home Health Encounter Details Date Type Department Care Team Description 10/17/2018 Patient Outreach [facility] Geriatrics- Theresa Heck, Home Health [place] Multispecialty [facility] [phone] [facility] [phone] [place] [address] (Fax) [phone] Allergies Active Allergy Reactions Severity Noted Date [...] times daily. Vascular dementia with behavior disturbance documented as of this encounter (statuses as of 10/17/2018) Active Problems Problem Noted Date Arthritis of right hip 06/30/2016 CT (myocardial infarction) Frequent falls Spinal stenosis Diabetes [...] Signs Not on filedocumented in this encounter Progress Notes Theresa Heck LMSW - 10/17/2018 12:43 PM CDTSOCIAL WORK NOTE: [facility] received referral for home health services. Care Management Patient Choice NotificationAmbulatory Social Work Patient's provider has recommended post-acute care, home health services, and/ or durable medical equipment. Based on where Patient resides, and agency service areas, a list was generated from: Medicare.gov If post-acute services were recommended, Patient was informed of the following disclosure: [facility] the following facilities/agencies: [facility] (alf and rehabilitation) On 10/17/2018, Patient chose the following agencies to provide services: ? : [address] () [phone] (F) [phone] ? Orders faxed Theresa Heck LMSW, [facility] Ambulatory Cardiac Rehab Nurse- It Telecom Technician TC: [phone] [place] PCP: [phone] documented in this encounter Plan of Treatment Date Type Specialty Care Team Description 10/24/2018 Office Visit Geriatric Medicine Silke Ball MD [address] [place], [place] [address] Health Maintenance Due Date Last Done Comments [...] Address Type Group MEDICARE MEDICARE PART xxxxxxxxxxx 2004-Presemeterio [phone] [address] Medicare A & B t 2 [id number] MIKAYLA CHAU [address] [facility] MEDICAID OF xxxxxxxxx 2017-Prese [phone] [address] Medicaid [place] nt 0 [id number] [place] [address] documented as of this encounter
--- OUTSIDE RECORDS SUMMARY | 2019-05-25 11:22 | XMS REPORT | Summary of Care ---
:1940 Author Organization [facility] Address [address] [place] [address] Care Team Providers Name Role Phone Silke Ball MD Primary Care Provider Reason for Visit Reason Comments Surgery Clearance Encounter Details Date Type Department Care Team Description 10/17/2018 Telephone [facility] Geriatrics- Silke Ball Surgery Clearance [place] Multispecialty MD Kellen Ctr [address] [place] [phone] Allergies Active Allergy Reactions Severity Noted Date [...] Office Visit Geriatric Medicine Silke Ball MD [address] [place] [address] Health Maintenance Due Date Last Done Comments [...] Type Group MEDICARE MEDICARE PART xxxxxxxxxxx 2004-Tereza [phone] [address] Medicare A & B t 2 [id number] MIKAYLA CHAU [id number] [facility] MEDICAID OF xxxxxxxxx 2017-Richard [phone] [address] Medicaid [place] nt 0 [id number] [place] [address] documented as of this encounter
--- OUTSIDE RECORDS SUMMARY | 2019-05-25 11:23 | XMS REPORT | Summary of Care ---
:1940 Author Organization [facility] Address [address] [place] [address] Care Team Providers Name Role Phone Silke Ball MD Primary Care Provider Reason for Visit Reason Comments Orders Encounter Details Date Type Department Care Team Description 11/04/[address] [facility] Silke Ball [facility] Multispecialty [facility] MD Kellen [address] [place] [address] [place] [address] [phone] Allergies Active Allergy Reactions Severity Noted Date Comments Codeine Unknown - See comments 01/05/2014 Patient does not remember reaction documented as of this encounter (statuses as of 11/10/2018) Medications Medication Sig Dispensed Refills Start Date [...] as of this encounter (statuses as of 11/10/2018) Active Problems Problem Noted Date Arthritis of right hip 06/30/2016 [place] (myocardial infarction) Frequent falls Spinal stenosis Diabetes mellitus HTN (hypertension) Hyperlipidemia Hypertriglyceridemia CVA (cerebral infarction) Overview: 1 large and several mini H/O hepatitis CAD (coronary artery disease) Peripheral neuropathy Urinary incontinence documented as of this encounter (statuses as of 11/10/2018) Immunizations Name Administration Dates Next Due Influenza Virus Vaccine 03/29/2018 Pneumococcal Polysaccharide, PPSV23 (PNEUMOVAX) 03/29/2018 documented as of this encounter Social History Tobacco Use Types Packs/Day Years [...] filedocumented in this encounter Plan of Treatment Health Maintenance Due Date Last Done Comments EYE EXAM 1950 URINE MICROALBUMIN 1950 DTaP,Tdap,and Td Vaccines (1 - 1957 Tdap) Zoster Recombinant Vaccine 1988 (SHINGRIX) (1 of 2) Medicare Wellness Visit 10/21/2003 Osteoporosis Screening 10/21/2003 FOOT EXAM 07/16/2018 07/16/2017, 07/16/2017 INFLUENZA VACCINE (#1) 2018 03/29/2018 HgA1C 03/17/2019 09/15/2018, 01/18/2018, 05/26/2017, Additional history exists PNEUMOCOCCAL VACCINES 65+ (2 of 2 03/29/2019 03/29/2018 - PCV13) CREATININE (SERUM) 09/16/2019 09/15/2018, 01/18/2018, 02/24/2017, Additional history exists LDL-C 09/16/2019 09/15/2018, 02/24/2017 documented as of this encounter Results Not on filedocumented in this encounter Insurance Payer Benefit Plan / Subscriber ID Effective Dates Phone Address Type Group MEDICARE MEDICARE PART xxxxxxxxxxx 2004-Presen [phone] [address] Medicare A & B t 2 [id number] MIKAYLA CHAU [id number] [facility] MEDICAID OF xxxxxxxxx 2017-Prese [phone] [address] Medicaid [place] nt 0 [id number] [place] [address] documented as of this encounter
--- OUTSIDE RECORDS SUMMARY | 2019-05-25 11:23 | XMS REPORT | Summary of Care ---
:1940 Author Organization [facility] - [facility] Address [address] [place] [address] Care Team Providers Name Role Phone Silke Ball MD Primary Care Provider Reason for Visit Reason Comments DME Home Health Encounter Details Date Type Department Care Team Description 11/18/2018 Telephone [facility] Geriatrics- Silke Ball DME; Home Health [place] [facility] [address] [place] [phone] [id number] Allergies Active Allergy Reactions Severity Noted Date Comments Codeine Unknown - See comments 01/05/2014 Patient does not remember reaction documented as of this encounter (statuses as of 11/28/2018) Medications Medication Sig Dispensed Refills Start Date [...] 10/07/2018 Active tabletIndications: mouth daily. Essential hypertension nitroglycerin 0.4 mg Max 3 tablets in [...] capsuleIndications: by mouth daily. Slow transit constipation HYDROcodone-acetaminoph Take 1 tablet by 90 tablet [...] as of this encounter (statuses as of 11/28/2018) Active Problems Problem Noted Date Arthritis of right hip 06/30/2016 [place] (myocardial infarction) Frequent falls Spinal stenosis Diabetes mellitus HTN (hypertension) Hyperlipidemia Hypertriglyceridemia CVA (cerebral infarction) Overview: 1 large and several mini H/O hepatitis CAD (coronary artery disease) Peripheral neuropathy Urinary incontinence documented as of this encounter (statuses as of 11/28/2018) Immunizations Name Administration Dates Next Due Influenza [...] Type Group MEDICARE MEDICARE PART xxxxxxxxxxx 2004-Presemeterio [phone] [address] Medicare A & B t 2 [id number] MIKAYLA CHAU [address] [facility] MEDICAID OF xxxxxxxxx 2017-Prese [phone] [address] Medicaid [facility] 0 [id number] [place] [address] documented as of this encounter
--- OUTSIDE RECORDS SUMMARY | 2019-05-25 11:23 | XMS REPORT | Summary of Care ---
:1940 Author Organization [facility] - [facility] Address [address] [place] [address] Care Team Providers Name Role Phone Silke Ball MD Primary Care Provider Reason for Visit Reason Comments Surgery Clearance Encounter Details Date Type Department Care Team Description 10/17/2018 Telephone [facility] Geriatrics- Silke Ball Surgery Clearance [place] [facility] [address] [facility] [address] [place] [phone] Allergies Active Allergy Reactions Severity Noted Date [...] Noted Date Arthritis of right hip 06/30/2016 [place] (myocardial infarction) Frequent falls Spinal stenosis Diabetes [...] Office Visit Geriatric Medicine Silke Ball MD [address] [place] [address] Health Maintenance Due Date Last Done [...] Type Group MEDICARE MEDICARE PART xxxxxxxxxxx 2004-Tereza [phone] [address] Medicare A & B t 2 [id number] MIKAYLA CHAU [phone] [facility] MEDICAID OF xxxxxxxxx 2017-Richard [phone] [address] Medicaid [place] nt 0 [id number] [place] [address] documented as of this encounter
--- OUTSIDE RECORDS SUMMARY | 2019-05-25 11:23 | XMS REPORT | Summary of Care ---
:1940 Author Organization [facility] - [facility] Address [address] [place] [address] Care Team Providers Name Role Phone Silke Ball MD Primary Care Provider Reason for Visit Reason Comments Authorization QUEtiapine (SEROQUEL) 25 mg tablet Encounter Details Date Type Department Care Team Description 10/14/2018 Telephone [facility] Geriatrics- Silke Ball Authorization Eva Foreman MD (QUEtiapine (SEROQUEL) [facility] Ctr [address] 25 mg tablet) [facility] [place] [phone] Allergies Active Allergy Reactions Severity Noted Date [...] Noted Date Arthritis of right hip 06/30/2016 [place] (myocardial infarction) Frequent falls Spinal stenosis Diabetes [...] Office Visit Geriatric Medicine Silke Ball MD [address] [place] [address] Health Maintenance Due Date Last Done [...] BOX Medicare A & B t 2 [id number] MIKAYLA CHAU [address] [facility] MEDICAID OF xxxxxxxxx 2017-Prese [phone] [address] Medicaid [place] nt 0 [id number] [place] [address] documented as of this encounter
--- OUTSIDE RECORDS SUMMARY | 2019-05-25 11:23 | XMS REPORT | Summary of Care ---
:1940 Author Organization [facility] - [facility] Address [address] [place] [address] Care Team Providers Name Role Phone Silke Ball MD Primary Care Provider Reason for Visit Reason Comments Refill Request Encounter Details Date Type Department Care Team Description 11/23/2018 Refill [facility] Geriatrics- Silke Simmons Refill Request [facility] C[facility] MD [facility] [address] [place] [address] [place], [place] [phone] Allergies Active Allergy Reactions Severity Noted Date Comments Codeine Unknown - See comments 01/05/2014 Patient does not remember reaction documented as of this encounter (statuses as of 11/25/2018) Medications Medication Sig Dispensed Refills Start Date End Date Status Diclofenac Sodium Apply to 100 g 1 01/25/2018 Active (VOLTAREN) 1 % area(s) 2 gelIndications: (two) times Arthritis of right daily. hip B Complex Vitamins (B Take 1 tablet 30 tablet 3 01/25/2018 Active COMPLEX) TbSR by mouth daily. Cholecalciferol, Take 1 30 capsule 3 01/25/2018 Active Vitamin D3, (VITAMIN capsule by D3) 2,000 unit mouth. capsule isosorbide Take 1 tablet 60 tablet 5 10/07/2018 Active mononitrate 10 mg by mouth 2 tabletIndications: (two) times Chest pain, daily. unspecified type, Essential hypertension albuterol 2.5 mg/0.5 Use 0.5 mL as 120 Each 2 10/07/2018 Active mL nebulizer directed solutionIndications: every 6 (six) Uncomplicated asthma, hours as unspecified asthma needed for severity, unspecified Wheezing. whether persistent pregabalin (LYRICA) Take 1 60 capsule 2 10/07/2018 Active 50 mg capsule by capsuleIndications: mouth 2 (two) Peripheral times daily. neuropathy, hereditary/idiopathic lisinopril 10 mg Take 1 tablet 90 tablet 1 10/07/2018 Active tabletIndications: by mouth Essential daily. hypertension nitroglycerin 0.4 mg Max 3 tablets 1 Bottle 3 10/07/2018 Active sublingual in 15 minutes tabletIndications: - then go to Chest pain, ER unspecified type rivastigmine 4.6 Apply 1 Patch 30 Patch 1 10/11/2018 Active mg/24 hr to skin patchIndications: daily. Cerebrovascular accident (CVA), unspecified mechanism docusate (COLACE) 100 Take 1 90 capsule 1 10/14/2018 Active mg capsule by capsuleIndications: mouth daily. Slow transit constipation HYDROcodone-acetamino Take 1 tablet 90 tablet 0 10/14/2018 Active phen 5-325 mg by mouth tabletIndications: every 6 (six) Other chronic pain, hours as Primary needed for osteoarthritis of Pain (scale both knees 7-10). Testosterone, Bulk, 5 mg daily. 150 g 2 10/14/2018 Active PowdIndications: Sarcopenia QUEtiapine (SEROQUEL) Take 0.5 60 tablet 1 10/14/2018 Active 25 mg tablets by tabletIndications: mouth 2 (two) Vascular dementia times daily. with behavior disturbance MIRTAZAPINE 15 mg TAKE ONE 30 tablet 2 11/25/2018 Active tabletIndications: TABLET AT Insomnia due to other BEDTIME mental disorder, Anxiety CARVEDILOL 3.125 mg TAKE ONE 60 tablet 2 11/25/2018 Active tabletIndications: TABLET BY Chronic congestive MOUTH TWICE heart failure, DAILY WITH unspecified heart MEALS failure type mirtazapine 15 mg Take 1 tablet 30 tablet 1 10/07/2018 Discontinued tabletIndications: by mouth at 9 Insomnia due to other bedtime. mental disorder, Anxiety carvedilol 3.125 mg Take 1 tablet 60 tablet 2 10/14/2018 Discontinued tabletIndications: by mouth 2 9 Chronic congestive (two) times heart failure, daily with unspecified heart meals. failure type documented as of this encounter (statuses as of 11/25/2018) Active Problems Problem Noted Date Arthritis of right hip 06/30/2016 [place] (myocardial infarction) Frequent falls Spinal stenosis Diabetes mellitus HTN (hypertension) Hyperlipidemia Hypertriglyceridemia CVA (cerebral infarction) Overview: 1 large and several mini H/O hepatitis CAD (coronary artery disease) Peripheral neuropathy Urinary incontinence documented as of this encounter (statuses as of 11/25/2018) Immunizations Name Administration Dates Next Due Influenza [...] Diagnosis Insomnia due to other mental disorder Anxiety Anxiety state, unspecified Chronic congestive heart failure, unspecified heart failure type documented in this encounter Insurance Payer Benefit Plan / Subscriber ID Effective Dates Phone Address Type Group MEDICARE MEDICARE PART xxxxxxxxxxx 2004-Presemeterio [phone] [address] Medicare A & B t 2 [id number] MIKAYLA CHAU [address] [facility] MEDICAID OF xxxxxxxxx 2017-Prese [phone] [address] Medicaid [place] nt 0 [id number] [place] [address] documented as of this encounter
--- OUTSIDE RECORDS SUMMARY | 2019-05-25 11:24 | XMS REPORT | Summary of Care ---
:1940 Author Organization [facility] - [facility] Address [address] [place] [address] Care Team Providers Name Role Phone Silke Ball MD Primary Care Provider Reason for Visit Reason Comments NURSE VISIT Encounter Details Date Type Department Care Team Description 04/24/2019 Nurse Visit [facility] Geriatrics- Silke Ball MD [address] [place] [address] [facility] Nurse, [facility] Geriatrics hypertension Mult[facility]ialty Ctr (Primary Dx) [address] [place] [phone] Allergies Active Allergy Reactions Severity Noted Date Comments Codeine Unknown - See comments 01/05/2014 Patient does not remember reaction Morphine Unknown - See comments 01/07/2019 documented as of this encounter (statuses as of 04/28/2019) Medications Medication Sig Dispensed Refills Start End Date Status Date nitroglycerin 0.4 mg Max 3 tablets 1 Bottle 3 Active sublingual in 15 minutes 9 tabletIndications: - then go to Chest pain, ER unspecified type rivastigmine 4.6 Apply 1 Patch 30 Patch 1 Active mg/24 hr to skin 9 patchIndications: daily. Cerebrovascular accident (CVA), unspecified mechanism CARVEDILOL 3.125 mg TAKE ONE 60 tablet 2 Active tabletIndications: TABLET BY 9 Chronic congestive MOUTH TWICE heart failure, DAILY WITH unspecified heart MEALS failure type aspirin 81 mg EC Take 81 mg by 0 Active tablet mouth daily. clopidogrel 75 mg Take 1 tablet 30 tablet 5 08/01/19 Active tabletIndications: by mouth 9 20 Encephalopathy acute daily for 180 days. aspirin 81 mg Take 1 tablet 90 tablet 1 08/01/19 Active chewable by mouth 9 20 tabletIndications: daily for 180 Encephalopathy acute days. levETIRAcetam 500 mg Take 1 tablet 180 tablet 1 07/31/19 Active tabletIndications: by mouth 2 9 20 Encephalopathy acute (two) times daily for 180 days. Diaper,Brief, Use as 30 Each 03/24/19 Active Adult,Disposable directed - 15 0 21 (DEPEND UNDERWEAR /day S-M) MiscIndications: Cerebrovascular accident (CVA), unspecified mechanism Underpads (BED Use as 90 Each Active UNDERPADS) directed 0 PadsIndications: Cerebrovascular accident (CVA), unspecified mechanism isosorbide Take 1 tablet 90 tablet 1 Active mononitrate 30 mg 24 by mouth 0 hr daily. tabletIndications: Coronary artery disease involving marshall heart without angina pectoris, unspecified vessel or lesion type lisinopril 30 mg Take 1 tablet 90 tablet 0 Active tabletIndications: by mouth 0 Essential daily. hypertension acetaminophen 325 mg Take 650 mg 0 04/24/19 Discontinued tablet by mouth 20 (Reorder) every 6 (six) hours as needed. Hospital, Clinic, or Other Ordered Dose Route Frequency Start Date End Date Status Facility Administered Medication albuterol (PROVENTIL) 2.5 mg 2.5 mg Inhale Q6HPRN 03/24/2019 Active /3 mL (0.083 %) nebulizer solution 2.5 mg documented as of this encounter (statuses as of 04/28/2019) Active Problems Problem Noted Date Stroke 01/25/2019 Weakness 01/25/2019 Arthritis of right hip 06/30/2016 [place] (myocardial infarction) Frequent falls Spinal stenosis Controlled type 2 diabetes mellitus with diabetic neuropathy, without long-term current use of insulin HTN (hypertension) Hyperlipidemia Hypertriglyceridemia CVA (cerebral vascular accident) Overview: 1 large and several mini H/O hepatitis CAD (coronary artery disease) Peripheral neuropathy Urinary incontinence documented as of this encounter (statuses as of 04/28/2019) Immunizations Name Administration Dates Next Due Influenza [...] Sign Reading Time Taken Comments Blood Pressure 148/71 04/24/2019 2:52 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 Patient in wheelchair from home.Patient with no complaints today. Patient's BP with repeat SBP>140. Patient denies headache, CP or SOB. Patient nor dtr have BP Log or home medications available for this appointment. Educated patient and dtr on HTN. BP check. Gave clinic number for patient's dtr to call back with BPLog later today. Patient in good spirits when leaving. Patient is speaking at her baseline. Will continue to monitor. Dtr requested refills for albuterol, inhaler, and "a pain patch" for "bone'on bone knee arthritis. Danae Red RN 04/24/2019 3:16 PM Ayana Mejia MA - 04/24/2019 2:00 PM Josué Zuniga is a 78 year old female in the office today for a BP check. Patient sat for 5 minutes prior the BP check left arm was elevated to heart level with back supported and feet uncrossed. Results were given to Seb Red RN and Jonne Kameron [facility] for review. Patient was unable to stand for a second BP reading. Second BP reading was performed sitting down. Patient did not bring her BP log or medications to the appointment. documented in this encounter Plan of Treatment Date Type Specialty Care Team Description 05/08/2019 Office Visit Cardiology Will Prince MD [address] [place] [address] [address] [place] [address] 05/12/2019 Office Visit Neurology Charli Kothari MD [address] [place] [phone] 05/29/2019 Office Visit Geriatric Medicine Silke Ball MD [address] [place] [address] Health Maintenance Due Date Last Done Comments EYE EXAM 1950 URINE MICROALBUMIN 1950 DTaP,Tdap,and Td Vaccines (1 - 1949 Tdap) Zoster Recombinant Vaccine 1988 (SHINGRIX) (1 of 2) Medicare Wellness Visit 10/21/2003 Osteoporosis Screening 10/21/2003 FOOT EXAM 07/16/2018 07/16/2017, 07/16/2017 INFLUENZA VACCINE (#1) 2018 03/29/2018 PNEUMOCOCCAL VACCINES 65+ (2 of 2 03/29/2019 03/29/2018 - PCV13) HgA1C 07/26/2019 01/25/2019, 09/15/2018, 01/18/2018, Additional history exists LDL-C 01/27/2020 01/26/2019, 01/25/2019, 09/15/2018, Additional history exists CREATININE (SERUM) 02/01/2020 01/31/2019, 01/28/2019, 01/27/2019, Additional history exists documented as of this encounter Results Not on filedocumented in this encounter Visit Diagnoses Diagnosis Essential hypertension - Primary Unspecified essential hypertension documented in this encounter Insurance Payer Benefit Plan / Subscriber ID Effective Dates Phone Address Type Group MEDICARE MEDICARE PART xxxxxxxxxxx 2004-Presemeterio [phone] [address] Medicare A & B t 2 [id number] MIKAYLA CHAU [phone] [facility] MEDICAID OF xxxxxxxxx 2019-Presemily [phone] [address] Medicaid [facility] 0 [id number] [place] [address] documented as of this encounter
--- OUTSIDE RECORDS SUMMARY | 2019-05-25 11:24 | XMS REPORT | Summary of Care ---
:1940 Author Organization [facility] - [facility] Address [address] [place] [address] Care Team Providers Name Role Phone Silke Ball MD Primary Care Provider Reason for Visit Reason Comments Rx Concern/Question Medication Clarification Encounter Details Date Type Department Care Team Description 12/03/2018 Telephone [facility] Geriatrics- Silke Ball Rx Concern/ Question [place] MD Kellen (Medication [facility]ialty Ctr [address] Clarification) [address] [place] [phone] Allergies Active Allergy Reactions Severity Noted Date Comments Codeine Unknown - See comments 01/05/2014 Patient does not remember reaction documented as of this encounter (statuses as of 12/05/2018) Medications Medication Sig Dispensed Refills Start Date [...] Chest pain, daily. unspecified type, Essential hypertension pregabalin (LYRICA) Take 1 60 capsule 2 [...] DAILY WITH unspecified heart MEALS failure type albuterol 2.5 mg/0.5 Use 0.5 mL as 120 Each 2 12/05/2018 Active mL nebulizer directed solutionIndications: every 6 (six) Uncomplicated asthma, hours as unspecified asthma needed for severity, unspecified Wheezing. whether persistent albuterol 2.5 mg/0.5 Use 0.5 mL as 120 Each 2 12/02/2018 Discontinued mL nebulizer directed 9 solutionIndications: every 6 (six) Uncomplicated asthma, hours as unspecified asthma needed for severity, unspecified Wheezing. whether persistent documented as of this encounter (statuses as of 12/05/2018) Active Problems Problem Noted Date Arthritis of right hip 06/30/2016 [place] (myocardial infarction) Frequent falls Spinal stenosis Diabetes mellitus HTN (hypertension) Hyperlipidemia Hypertriglyceridemia CVA (cerebral infarction) Overview: 1 large and several mini H/O hepatitis CAD (coronary artery disease) Peripheral neuropathy Urinary incontinence documented as of this encounter (statuses as of 12/05/2018) Immunizations Name Administration Dates Next Due Influenza [...] Treatment Date Type Specialty Care Team Description 12/08/2018 Office Visit Geriatric Medicine Silke Ball MD [address] [place], [place] [phone] Health Maintenance Due Date Last Done Comments [...] filedocumented in this encounter Visit Diagnoses Diagnosis Uncomplicated asthma, unspecified asthma severity, unspecified whether persistent documented in this encounter Insurance Payer Benefit Plan / Subscriber ID Effective Dates Phone Address Type Group MEDICARE MEDICARE PART xxxxxxxxxxx 2004-Tereza [phone] [address] Medicare A & B t 2 [id number] MIKAYLA CHAU [phone] [facility] MEDICAID OF xxxxxxxxx 2017-Presemily [phone] [address] Medicaid [place] nt 0 [id number] [place] [address] documented as of this encounter
--- OUTSIDE RECORDS SUMMARY | 2019-05-25 11:24 | XMS REPORT | Summary of Care ---
:1940 Author Organization [facility] - [facility] Address [address] [place] [address] Care Team Providers Name Role Phone Silke Ball MD Primary Care Provider Reason for Visit Reason Comments Refill Request Encounter Details Date Type Department Care Team Description 04/24/2019 Refill [facility] Geriatrics- Silke Simmons Refill Request [facility] Multispecialty Ctr MD Kellen [address] [place] [address] [place] [address] [phone] Allergies Active Allergy Reactions Severity Noted Date Comments Codeine Unknown - See comments 01/05/2014 Patient does not remember reaction Morphine Unknown - See comments 01/07/2019 documented as of this encounter (statuses as of 04/24/2019) Medications Medication Sig Dispensed Refills Start End [...] hr daily. tabletIndications: Coronary artery disease involving kotlik heart without angina pectoris, unspecified vessel or lesion type lisinopril 30 mg Take 1 tablet 90 tablet 0 Active tabletIndications: by mouth 0 Essential daily. hypertension acetaminophen 325 mg Take 2 90 tablet 1 Active tablet tablets by 0 mouth every 6 (six) hours as needed for Pain (scale 4-6). acetaminophen 325 mg Take 650 mg 0 04/24/19 Discontinued tablet by mouth 20 (Reorder) every 6 (six) hours as needed. Hospital, Clinic, or Other Ordered Dose Route Frequency Start Date End Date Status Facility Administered Medication albuterol (PROVENTIL) 2.5 mg 2.5 mg Inhale Q6HPRN 03/24/2019 Active /3 mL (0.083 %) nebulizer solution 2.5 mg documented as of this encounter (statuses as of 04/24/2019) Active Problems Problem Noted Date Stroke 01/25/2019 Weakness 01/25/2019 Arthritis of right hip 06/30/2016 [place] (myocardial infarction) Frequent falls Spinal stenosis Controlled type 2 diabetes mellitus with diabetic neuropathy, without long-term current use of insulin HTN (hypertension) Hyperlipidemia Hypertriglyceridemia CVA (cerebral vascular accident) Overview: 1 large and several mini H/O hepatitis CAD (coronary artery disease) Peripheral neuropathy Urinary incontinence documented as of this encounter (statuses as of 04/24/2019) Immunizations Name Administration Dates Next Due Influenza [...] 05/08/2019 Office Visit Cardiology Will Prince MD [address] [place] [address] [place] [address] 05/12/2019 Office Visit Neurology Charli Kothari MD [address] [place] [phone] 05/29/2019 Office Visit Geriatric Medicine Silke Ball MD [address] [place] [address] Health Maintenance Due Date Last Done [...] BOX Medicare A & B t 2 [id number] MIKAYLA CHAU [id number] [facility] MEDICAID OF xxxxxxxxx 2019-Prese [phone] [address] Medicaid [place] nt 0 [id number] [place] [address] documented as of this encounter
--- OUTSIDE RECORDS SUMMARY | 2019-05-25 11:24 | XMS REPORT | Summary of Care ---
:1940 Author Organization [facility] - [facility] Address [address] [place] [address] Care Team Providers Name Role Phone Silke Ball MD Primary Care Provider Reason for Referral (Routine) Status Reason Specialty Diagnoses / Referred By Contact Referred To Procedures Contact New Request EEG Procedures Charli Kothari Electroencephalogram MD Ole (EEG) - Duration of [address] [place] [address] test: 20-60 [place] [address] Reason for Visit Reason Comments Hospital F/U STROKE (Routine) Status Reason Specialty Diagnoses / Referred By Contact Referred To Contact Procedures Closed Neurology Diagnoses Encephalopathy acute Rodney Parrish MD Procedures Discharge Follow-up: [facility] Stroke Clinic [address] [place] [phone] Encounter Details Date Type Department Care Team Description 05/12/2019 Office Visit [facility] Charli Kothari Electroencephalogram ( EEG) abnormality without seizure (Primary Dx); Neurology-Ting Handy MD Cerebrovascular disease n [address] [place] [address]. Drive, [address] [place] [phone] Allergies Active Allergy Reactions Severity Noted Date Comments Codeine Unknown - See comments 01/05/2014 Patient does not remember reaction Morphine Unknown - See comments 01/07/2019 documented as of this encounter (statuses as of 05/15/2019) Medications Medication Sig Dispensed Refills Start Date End Date Status nitroglycerin 0.4 mg Max 3 tablets 1 Bottle 3 10/07/2018 Active sublingual in 15 minutes - tabletIndications: then go to ER Chest pain, unspecified type rivastigmine 4.6 mg/24 Apply 1 Patch 30 Patch 1 10/11/2018 Active hr patchIndications: to skin daily. Cerebrovascular accident (CVA), unspecified mechanism CARVEDILOL 3.125 mg TAKE ONE TABLET 60 tablet 2 11/25/2018 Active tabletIndications: BY MOUTH TWICE Chronic congestive DAILY WITH heart failure, MEALS unspecified heart failure type aspirin 81 mg EC Take 81 mg by 0 Active tablet mouth daily. clopidogrel 75 mg Take 1 tablet 30 tablet 5 02/02/2019 08/01/2019 Active tabletIndications: by mouth daily Encephalopathy acute for 180 days. aspirin 81 mg chewable Take 1 tablet 90 tablet 1 02/02/2019 08/01/2019 Active tabletIndications: by mouth daily Encephalopathy acute for 180 days. levETIRAcetam 500 mg Take 1 tablet 180 tablet 1 02/01/2019 07/31/2019 Active tabletIndications: by mouth 2 Encephalopathy acute (two) times daily for 180 days. Diaper,Brief, Use as directed 30 Each 03/24/2019 03/24/2020 Active Adult,Disposable - 15 /day (DEPEND UNDERWEAR S-M) MiscIndications: Cerebrovascular accident (CVA), unspecified mechanism Underpads (BED Use as directed 90 Each 03/24/2019 Active UNDERPADS) PadsIndications: Cerebrovascular accident (CVA), unspecified mechanism isosorbide mononitrate Take 1 tablet 90 tablet 1 03/24/2019 Active 30 mg 24 hr by mouth daily. tabletIndications: Coronary artery disease involving [place] heart without angina pectoris, unspecified vessel or lesion type lisinopril 30 mg Take 1 tablet 90 tablet 0 03/24/2019 Active tabletIndications: by mouth daily. Essential hypertension acetaminophen 325 mg Take 2 tablets 90 tablet 1 04/24/2019 Active tablet by mouth every 6 (six) hours as needed for Pain (scale 4-6). Hospital, Clinic, or Other Ordered Dose Route Frequency Start Date End Date Status Facility Administered Medication albuterol (PROVENTIL) 2.5 mg 2.5 mg Inhale Q6HPRN 03/24/2019 Active /3 mL (0.083 %) nebulizer solution 2.5 mg documented as of this encounter (statuses as of 05/15/2019) Active Problems Problem Noted Date Stroke 01/25/2019 Weakness 01/25/2019 Arthritis of right hip 06/30/2016 [place] (myocardial infarction) Frequent falls Spinal stenosis Controlled type 2 diabetes mellitus with diabetic neuropathy, without long-term current use of insulin HTN (hypertension) Hyperlipidemia Hypertriglyceridemia CVA (cerebral vascular accident) Overview: 1 large and several mini H/O hepatitis CAD (coronary artery disease) Peripheral neuropathy Urinary incontinence documented as of this encounter (statuses as of 05/15/2019) Immunizations Name Administration Dates Next Due Influenza [...] Sign Reading Time Taken Comments Blood Pressure 164/75 05/12/2019 1:32 PM SHRIMP BOAT CAPTAIN Pulse 59 05/12/2019 1:32 PM SHRIMP BOAT CAPTAIN Temperature 36.9 C (98.4 F) 05/12/2019 1:32 PM SHRIMP BOAT CAPTAIN Respiratory Rate 16 05/12/2019 1:32 PM SHRIMP BOAT CAPTAIN Oxygen Saturation - - Inhaled Oxygen Concentration - - Weight 54 kg (119 lb) 05/12/2019 1:32 PM SHRIMP BOAT CAPTAIN Height 127 cm (4' 2") 05/12/2019 1:32 PM SHRIMP BOAT CAPTAIN Body Mass Index 33.47 05/12/2019 1:32 PM SHRIMP BOAT CAPTAIN documented in this encounter Progress Notes Charli Kothari MD - 05/12/2019 1:40 PM CST I have verified the medical student documentation and/or findings, including the history, physical exam, and medical decision making for the patient Janell Zuniga on 05/12/2019. Additionally, I have personally performed or re-performed the physical and neurological exam and medical decision making activities of this patient's evaluation and management service. Charli Kothari MD Back Sizer Neurology HISTORY OF PRESENT ILLNESS: Janell Zuniga is a 78 year old female with a past neurologic history significant for left MCAstroke (2017) and right MCA stroke (2018) who presented to the neurology clinic for a stroke follow-up. Patient's recent stroke, which was in January 2019, was located in the right MCA. Patient also had epileptiform activity during her admission in the left fronto-temporal area and was subsequently put on Keppra 500 mg BID. Patient has an implantable loop recorder to assess for potential paroxysmal atrial fibrillation. ROS questions to the patient. Cardiac: chest pain, shortness of breath, easy fatigue, arrhythmia, swelling of legs. Respiratory: cough, with sputum production, wheezing, insomnia. G.I.: nausea, vomiting, diarrhea, poor appetite, blood in stool, difficult swallow. Urinary: pain with urination, blood with urination, incontinence, difficulty urinating. Skin: discoloration, itching, change in hair or nails, skin breakdown. Hematology/immunology: easy bruising, malignancy. Head, nose, throat: ringing of ears, loss of hearing, nosebleeds, sores in mouth, hoarseness, facial pain. Neurology: dizziness, tremor, change in speech, seizures, fainting spells, loss of memory, weakness arm or leg, numbness arm or leg, word finding defect. Endocrine: hot cold intolerance, excessive urination, increased thirst, increased sweating. Psychiatric: disorientation, depression, anxiety, mood disorder, loss of contact with reality, anger. Eyes: change in vision, eye pain, double vision, blurred vision, eyelid droop. Skeletal: pain in joints, muscle pain, back pain, neck pain, swelling of joints , swelling of the hands. Pertinent patient responses: loss of memory, change in speech, weakness in arms and leg, word finding defect. PMH: has a past medical history of CAD (coronary artery disease), CVA (cerebral infarction), Diabetes mellitus, Frequent falls, H/O hepatitis, HTN (hypertension ), Hyperlipidemia, Hypertriglyceridemia, [place] (myocardial infarction), Peripheral neuropathy, Spinal stenosis, and Urinary incontinence. Current Outpatient Medications: acetaminophen 325 mg tablet, Take 2 tablets by mouth every 6 (six) hours as needed for Pain (scale 4-6)., Disp: 90 tablet, Rfl: 1 Diaper,Brief, Adult,Disposable (DEPEND UNDERWEAR S-M) Misc, Use as directed - 15 /day, Disp: 30Each, Rfl: 5 isosorbide mononitrate 30 mg 24 hr tablet, Take 1 tablet by mouth daily., Disp: 90 tablet, Rfl:1 lisinopril 30 mg tablet, Take 1 tablet by mouth daily., Disp: 90 tablet, Rfl: 0 Underpads (BED UNDERPADS) Pads, Use as directed, Disp: 90 Each, Rfl: 5 aspirin 81 mg chewable tablet, Take 1 tablet by mouth daily for 180 days., Disp: 90 tablet, Rfl: 1 clopidogrel 75 mg tablet, Take 1 tablet by mouth daily for 180 days., Disp : 30 tablet, Rfl: 5 levETIRAcetam 500 mg tablet, Take 1 tablet by mouth 2 (two) times daily for 180 days., Disp: 180 tablet, Rfl: 1 aspirin 81 mg EC tablet, Take 81 mg by mouth daily., Disp: , Rfl: CARVEDILOL 3.125 mg tablet, TAKE ONE TABLET BY MOUTH TWICE DAILY WITH MEALS , Disp: 60 tablet, Rfl: 2 rivastigmine 4.6 mg/24 hr patch, Apply 1 Patch to skin daily., Disp: 30 Patch, Rfl: 1 nitroglycerin 0.4 mg sublingual tablet, Max 3 tablets in 15 minutes - then go to ER, Disp: 1 Bottle, Rfl: 3 Current Facility-Administered Medications: albuterol (PROVENTIL) 2.5 mg /3 mL (0.083 %) nebulizer solution 2.5 mg, 2.5 mg, Inhalation, Q6HPRN, Silke Ball MD Family History Problem Relation Age of Onset Heart Mother Diabetes Father Diabetes Brother Heart Brother Social History Socioeconomic History Marital status: Spouse name: Not on file Number of children: 8 Years of education: 11 Highest education level: Not on file Occupational History 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 Physical exam Vital signs: BP (!) 164/75 | Pulse 59 | Temp 36.9 C (98.4 F) (Oral) | Resp 16 | Ht 4 ' 2" (1.27 m) | Wt 119 lb (54 kg) | BMI 33.47 kg/m Mental Status: well-kept and appears stated age, has difficulty cooperating during the exam due to difficulty following commands, attention and concentration normal, molder shoulder pad and expression impaired but able to repeat, fund of information impaired, recent and remote memory impaired, affect/mood normal and relaxed. Cranial nerves (vision, eye movement): EOM intact, equal reactive pupils, accommodation reflex present, suspected upper and outer visual field deficit in right eye (cannot confirm due to difficulty with molder shoulder pad). Cranial nerves (face): normal mastication, facial sensation normal, unable to smile on left side corneal reflex not done. Cranial nerves (taste, smell): taste intact by history, smell intact by history. Cranial nerve (hearing): normal conversational hearing, finger rub WNL. Cranial nerve (accessory): normal r/l sternomastoid bulk/tone/power. Shoulder shrug right and left normal. Cranial nerve (tongue): tongue bulk normal, tongue midline, palate centered. Peripheral motor: Arms: Decreased strength bilaterally with significantly decreased tone in right upper extremity. Legs: Strength decreased and tone increased in bilateral lower extremities. Reflexes: Arms: Triceps, biceps, brachioradialis 2+ and symmetrical Legs: Patelllar, ankle jerks 2 + and symmetrical. Toes upgoing bilaterally. Peripheral sensation: Arms: light touch intact, primary sharp touch normal, vibration symmetrical, proprioception normalbilaterally. Legs: light touch impaired in lower leg bilaterally, vibration symmetrical and proprioception normal bilaterally. Lungs: lungs clear, no wheezing, no rhonchi. Heart: CV RRR, no murmurs, carotid bruits absent. ASSESSMENT AND RECOMMENDATIONS: ICD-10-CM ICD-9-CM 1. Electroencephalogram (EEG) abnormality without seizure R94.01 794.02 2. Cerebrovascular disease I67.9 437.9 1. Abnormal EEG: Assessment: Patient's epileptiform activity on EEG is likely due to damage caused by her L MCA stroke in 2018. We are awaiting the results of the implantable loop recorder and will discuss whether she needs to be kept on Eliquis for stroke prevention. If she does have paroxysmal atrial fibrillation wewill have to consider her significant fall risk. Plan: We are planning on keeping her on the Keppra as prescribed until we check her EEG in July. Follow-up with the implantable loop recorder to assess whether patient should be on anticoagulation or not. Educated patient about vascular dementia and ways to prevent worsening of the condition. Jaylan Montiel 05/12/2019 3:48 PM Creation of the note was aided by utilizing a cut/paste operation of text from a Microsoft Word template created with [employer]. The text was dictated into the template via Dragon Naturally Speaking. documented in this encounter Plan of Treatment Date Type Specialty Care Team Description 05/29/2019 Appointment Electroneurodiagnostic Charli Kothari MD [address] [place] [address]. [place] [address] [facility] Eeg 05/29/2019 Office Visit Geriatric Medicine Silke Ball MD [address] [place] [address] [phone] 05/30/2019 Office Visit Cardiology Will Prince MD [address] [place] [address] [place] [address] [phone] 07/31/2019 Office Visit Neurology Mary Rebollar, ANP [address] [place] [address] Health Maintenance Due Date Last Done Comments [...] filedocumented in this encounter Visit Diagnoses Diagnosis Electroencephalogram (EEG) abnormality without seizure - Primary Nonspecific abnormal electroencephalogram (EEG) Cerebrovascular disease Cerebrovascular disease, unspecified documented in this encounter Insurance Payer Benefit Plan / Subscriber ID Effective Dates Phone Address Type Group MEDICARE MEDICARE PART xxxxxxxxxxx 2004-Presen [phone] [address] Medicare A & B t 2 [id number] MI[place]AYLA CHAU [address] [facility] MEDICAID OF xxxxxxxxx 2019-Prese [phone] [address] Medicaid [facility] 0 [id number] [place] [address] documented as of this encounter
--- OUTSIDE RECORDS SUMMARY | 2019-05-25 11:25 | XMS REPORT | Summary of Care ---
:1940 Author Organization [facility] - [facility] Address [address] [place] [address] Care Team Providers Name Role Phone Silke Ball MD Primary Care Provider Reason for Referral (Routine) Status Reason Specialty Diagnoses / Referred By Contact Referred To Procedures Contact New Request EEG Procedures Charli Kothari Electroencephalogram MD Ole (EEG) - Duration of [address] [place] [address] test: 20-60 [place] [address] Reason for Visit Reason Comments Hospital F/U STROKE (Routine) Status Reason Specialty Diagnoses / Referred By Contact Referred To Contact Procedures Closed Neurology Diagnoses Encephalopathy acute Rodney Parrish MD Procedures Discharge [facility]: [facility] St[facility] [address] [place] [phone] Encounter Details Date Type Department Care Team Description 05/12/2019 Office Visit [facility] Charli Kothari Electroencephalogram ( EEG) abnormality without seizure (Primary Dx); Neurology-Ting Handy MD Cerebrovascular disease n [address] [place] [address]. [address], [address] [place] [phone] Allergies Active Allergy Reactions Severity Noted Date [...] mouth daily. tabletIndications: Coronary artery disease involving [place] heart without angina pectoris, unspecified vessel or [...] Weakness 01/25/2019 Arthritis of right hip 06/30/2016 [place] (myocardial infarction) Frequent falls Spinal stenosis Controlled [...] Comments Blood Pressure 164/75 05/12/2019 1:32 PM INTERNAL CONTROL SPECIALIST Pulse 59 05/12/2019 1:32 PM INTERNAL CONTROL SPECIALIST Temperature 36.9 C (98.4 F) 05/12/2019 1:32 PM INTERNAL CONTROL SPECIALIST Respiratory Rate 16 05/12/2019 1:32 PM INTERNAL CONTROL SPECIALIST Oxygen Saturation - - Inhaled Oxygen Concentration - - Weight 54 kg (119 lb) 05/12/2019 1:32 PM INTERNAL CONTROL SPECIALIST Height 127 cm (4' 2") 05/12/2019 1:32 PM INTERNAL CONTROL SPECIALIST Body Mass Index 33.47 05/12/2019 1:32 PM INTERNAL CONTROL SPECIALIST documented in this encounter Progress Notes Charli [...] evaluation and management service. 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 Cranial nerves (vision, eye movement): EOM intact, equal reactive pupils, accommodation reflex present, suspected upper and outer visual field deficit in right eye (cannot confirm due to difficulty with legal receptionist). Cranial nerves (face): normal mastication, facial sensation [...] from a Microsoft Word template created with [employer]. The text was dictated into the template via Dragon Naturally Speaking. documented in this encounter Plan of Treatment Date Type Specialty Care Team Description 05/29/2019 Appointment Electroneurodiagnostic Charli Kothari MD [address] [place] [address]. [place] [address] Jose [facility] Eeg 05/29/2019 Office Visit Geriatric Medicine Silke Ball MD [address] [place] [address] [phone] 05/30/2019 Office Visit Cardiology Will Prince MD [address] [place] [address] [place] [address] [phone] 07/31/2019 Office Visit Neurology Mary Rebollar, ANP [address] [place] [address] Health Maintenance Due Date Last [...] BOX Medicare A & B t 2 [id number] MI[place]AYLA CHAU [id number] [facility] MEDICAID OF xxxxxxxxx 2019-Prese [phone] [address] Medicaid [facility] 0 [id number] [place] [address] documented as of this encounter
--- OUTSIDE RECORDS SUMMARY | 2019-05-25 11:25 | XMS REPORT | Summary of Care ---
:1940 Author Organization [facility] - [facility] Address [address] [place] [address] Care Team Providers Name Role Phone Silke Ball MD Primary Care Provider Reason for Visit Reason Comments ILR Check Encounter Details Date Type Department Care Team Description 05/02/2019 Hospital Encounter [facility] Heart Sang Douglas MD [address] [facility] [place] [address] Cryptogenic stroke Center EP Device Rose, Remote Device Check At Home - (Primary Dx) Clinic [facility] [address] [facility] [address], [address] [place] [address] Allergies Active Allergy Reactions Severity Noted Date Comments Codeine Unknown - See comments 01/05/2014 Patient does not remember reaction Morphine Unknown - See comments 01/07/2019 documented as of this encounter (statuses as of 05/18/2019) Medications Medication Sig Dispensed Refills Start Date [...] mouth daily. tabletIndications: Coronary artery disease involving [place] heart without angina pectoris, unspecified vessel or [...] as of this encounter (statuses as of 05/18/2019) Active Problems Problem Noted Date Stroke 01/25/2019 Weakness 01/25/2019 Arthritis of right hip 06/30/2016 [place] (myocardial infarction) Frequent falls Spinal stenosis Controlled type 2 diabetes mellitus with diabetic neuropathy, without long-term current use of insulin HTN (hypertension) Hyperlipidemia Hypertriglyceridemia CVA (cerebral vascular accident) Overview: 1 large and several mini H/O hepatitis CAD (coronary artery disease) Peripheral neuropathy Urinary incontinence documented as of this encounter (statuses as of 05/18/2019) Immunizations Name Administration Dates Next Due Influenza [...] Description 05/29/2019 Appointment Electroneurodiagnostic Charli Kothari MD [address] [place] [address]. [place] [address] Jose[facility] Eeg 05/29/2019 Office Visit Geriatric Medicine Silke Ball MD [address] [place] [address] [phone] 05/30/2019 Office Visit Cardiology Will Prince MD [address] [place] [address] [place] [address] [phone] 07/31/2019 Office Visit Neurology Mary Rebollar ANP [address] [place] [address] Health Maintenance Due Date Last Done [...] filedocumented in this encounter Visit Diagnoses Diagnosis Cryptogenic stroke - Primary Unspecified cerebral artery occlusion with cerebral infarction documented in this encounter Insurance Payer Benefit Plan / Subscriber ID Effective Dates Phone Address Type Group MEDICARE MEDICARE PART xxxxxxxxxxx 2004-Tereza [phone] [address] Medicare A & B t 2 [id number] MIKAYLA CHAU [phone] [facility] MEDICAID OF xxxxxxxxx 2019-Richard [phone] [address] Medicaid [place] 0 [id number] [place] [address] documented as of this encounter
[2019-05-25 11:54] LABS: Absolute Lymphocytes (CBC) 1.8 K/uL (0.7-4.9); Basophils % 0.6 % (0-1.3); Hematocrit 37.5 % (36.0-45.0); Lymphocytes % 23.6 % (15.3-44.8); MPV 9.2 fL (7.6-11.3); RBC Red Blood Cell Count 4.53 M/uL (3.86-4.86)
[2019-05-25 12:07] LABS: Protime INR 0.94
[2019-05-25 12:21] LABS: ALT/SGPT 19 U/L (12-78); AST/SGOT 12 U/L (15-37); Albumin 3.6 g/dL (3.4-5.0); Alkaline Phosphatase 101 U/L (45-117); BUN Blood Urea Nitrogen 29 mg/dL (7-18); Bicarbonate 27 mmol/L (21-32); Bilirubin Direct < 0.1 mg/dL (0-0.2); Bilirubin Total 0.4 mg/dL (0.2-1.0); Glucose Level 300 mg/dL (74-106); Magnesium 2.2 mg/dL (1.8-2.4); NT PRO-BNP 907 pg/mL (<450); Potassium 3.9 mmol/L (3.5-5.1); Protein, Total 7.8 g/dL (6.4-8.2); Sodium Level 138 mmol/L (136-145); Troponin (Emerg Dept Use Only) < 0.02 ng/mL (0.0-0.045)
--- NOTE | 2019-05-25 12:24 | RAD REPORT ---
EXAM DESCRIPTION: RAD - Chest Single View - 05/25/2019 12:06 pm CLINICAL HISTORY: CHEST PAIN COMPARISON: Chest Single View dated 03/21/2018; Chest Single View dated 03/12/2018 TECHNIQUE: AP portable chest image was obtained 05/25/2019 12:06 pm . FINDINGS: Lung volumes are low accentuating baseline interstitial pattern. This could mask early yolanda ma or infiltrate. No focal consolidation identifiable. Heart size is minimally enlarged. Vasculature within normal limits for portable imaging. No measurable pleural effusion and no pneumothorax. No acu te bony abnormality seen. No acute aortic findings suspected. IMPRESSION: No peripheral mass or consolidation. Shallow inspiration accentuates baseline pattern potentially masking early interstitial edema or infi ltrate.
--- NOTE | 2019-05-25 16:07 | ER ---
Nurse's Notes 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 Coronavirus screen: The patient has NOT traveled to a country currently being monitored by the [facility] within the last 14 days. The patient has NOT had contact with any known and/or suspected case of coronavirus. Ebola Screen: Patient negative for fever greater than or equal to 101.5 degrees Fahrenheit, and additional compatible Ebola Virus Disease symptoms Patient denies exposure to infectious person. Patient denies travel to an Ebola-affected area in the 21 days before illness onset. No symptoms or risks identified at this time. Initial Sepsis Screen: Does the patient meet any 2 criteria? No. Patient's initial sepsis screen is negative. Does the patient have a suspected source of infection? No. Patient's initial sepsis screen is negative. Risk Assessment: Do you want to hurt yourself or someone else? Patient reports no desire to harm self or others. 11:27 Method Of Arrival: EMS: [facility] em 11:27 Acuity: ANANT 2 em Historical: - Allergies: 11:36 Codeine; em - PMHx: 11:36 Aphasia; CAD; CVA; hemiparesis right; Hypertension; Diabetes - NIDDM; em - PSHx: 11:36 CABG; em - Immunization history:: Adult Immunizations up to date. - Social history:: Smoking status: Patient denies any tobacco usage or history of. Screenin:27 Abuse screen: Denies threats or abuse. Nutritional screening: No deficits noted. em Tuberculosis screening: No symptoms or risk factors identified. Fall Risk None identified. Assessment: 11:27 General: Appears in no apparent distress. uncomfortable, Behavior is calm, cooperative. em Pain: Complains of pain in chest Pain does not radiate. Pain currently is 5 out of 10 on a pain scale. Pain began 1 hour ago. Neuro: Level of Consciousness is awake, alert, obeys commands, Oriented to person, place, time, situation, Appropriate for age Speech is slurred, hx of prior CVA, normal for pt per daughter . Facial symmetry appears normal. Cardiovascular: Reports chest pain, Denies shortness of breath, Capillary refill < 3 seconds Patient's skin is warm and dry. Rhythm is sinus rhythm. Respiratory: Airway is patent Respiratory effort is even, unlabored, Respiratory pattern is regular, symmetrical, Breath sounds are clear bilaterally. GI: Derm: Skin is intact, is fragile, Skin is pink, warm \T\ dry. Musculoskeletal: Capillary refill < 3 seconds, Range of motion: intact in all extremities. 13:00 Reassessment: Patient appears in no apparent distress at this time. assisted to em restroom via wheelchair, tolerated well, assisted back into the stretcher. Vital Signs: 11:27 BP 184 / 83; Pulse 68; Resp 15; Temp 98.1; Pulse Ox 99% on R/A; Weight 53.98 kg; Height em 4 ft. 11 in. (149.86 cm); Pain 5/10; 12:15 BP 139 / 65; Pulse 78; Resp 18; Pulse Ox 99% on R/A; em 13:30 BP 150 / 52; Pulse 69; Resp 16; Pulse Ox 99% on R/A; em 15:35 BP 159 / 52; Pulse 70; Resp 20; Pulse Ox 98% on R/A; Pain 0/10; em 11:27 Body Mass Index 24.03 (53.98 kg, 149.86 cm) em ED Course: 11:21 Patient arrived in ED. mr 11:27 Judah Leyva, RN is Primary Nurse. em 11:27 Patient has correct armband on for positive identification. Placed in gown. Bed in low em position. Call light in reach. Side rails up X2. Adult w/ patient. color television console monitor on. Pulse ox on. NIBP on. 11:30 Patient maintains SpO2 saturation greater than 95% on room air. em 11:31 Mynor Marin MD is Attending Physician. kdr 11:31 Triage completed. em 11:37 Arm band placed on. em 11:41 Initial lab(s) drawn, by tx, sent to lab. 3 12:09 XRAY Chest (1 view) In Process Unspecified. EDMS Administered Medications: 16:51 Drug: Insulin Regular Human 4 units {Co-Signature: ca1 (Caryn Ward RN).} Route: IVP; em Site: left antecubital; Outcome: 15:59 Discharge ordered by . pati 17:01 Patient left the ED. ca1 Signatures: Dispatcher [employer] EDMS Mynor Marin MD MD kdr Rivera, June Judah Leyva RN RN Carmen Simeon [facility] Caryn Ward RN RN ca1 Caryn Ward RN ca1
--- NOTE | 2019-05-25 16:08 | EDPHYS ---
Physician Documentation [facility] Name: Janell Zuniga Age: 78 yrs Sex: Female : 1940 Arrival Date: 05/25/2019 Time: 11:21 Bed 14 Private MD: ED Physician Mynor Marin HPI: 05/24 11:37 This 78 yrs old Female presents to ER via EMS with complaints of Chest Pain, kdr Abdominal Pain. 11:37 The patient or guardian reports chest pain that is located primarily in the substernal kdr area. Onset: last night. The pain radiates to Unknown. Associated signs and symptoms: The patient has no apparent associated signs or symptoms. The patient is not able to communicate her exact issues secondary to a prior stroke. According to her daughter, she was pointing to her chest last night multiple times. That situation seemed to resolved after about an hour. Historical: - Allergies: 11:36 Codeine; em - PMHx: 11:36 Aphasia; CAD; CVA; hemiparesis right; Hypertension; Diabetes - NIDDM; em - PSHx: 11:36 CABG; em - Immunization history:: Adult Immunizations up to date. - Social history:: Smoking status: Patient denies any tobacco usage or history of. ROS: 11:37 Constitutional: Negative for fever, chills, and weight loss, Eyes: Negative for injury, kdr pain, redness, and discharge, ENT: Negative for injury, pain, and discharge, Neck: Negative for injury, pain, and swelling, Respiratory: Negative for shortness of breath, cough, wheezing, and pleuritic chest pain, Abdomen/GI: Negative for abdominal pain, nausea, vomiting, diarrhea, and constipation, Back: Negative for injury and pain, : Negative for injury, bleeding, discharge, and swelling, MS/Extremity: Negative for injury and deformity, Skin: Negative for injury, rash, and discoloration, Neuro: Negative for acute headache, new weakness, numbness, tingling, and seizure activity. The patient has residula weakness of the right upper extremity and without any new or worsenign s/s Psych: Negative for depression, anxiety, suicide ideation, homicidal ideation, and hallucinations, Allergy/Immunology: Negative for hives, rash, and allergies. Exam: 11:37 Constitutional: This is a well developed, well nourished patient who is awake, alert, kdr and in no acute distress. Head/Face: Normocephalic, atraumatic. Eyes: Pupils equal round and reactive to light, extra-ocular motions intact. Lids and lashes normal. Conjunctiva and sclera are non-icteric and not injected. Cornea within normal limits. Periorbital areas with no swelling, redness, or edema. Neck: Trachea midline, no thyromegaly or masses palpated, and no cervical lymphadenopathy. Supple, full range of motion without nuchal rigidity, or vertebral point tenderness. No Meningismus. Chest/axilla: Normal chest wall appearance and motion. Nontender with no deformity. No lesions are appreciated. Respiratory: Lungs have equal breath sounds bilaterally, clear to auscultation and percussion. No rales, rhonchi or wheezes noted. No increased work of breathing, no retractions or nasal flaring. Back: No spinal tenderness. No costovertebral tenderness. Full range of motion. Skin: Warm, dry with normal turgor. Normal color with no rashes, no lesions, and no evidence of cellulitis. Neuro: Awake and alert, GCS 15, oriented to person, place, time, and situation. Cranial nerves II-XII grossly intact. Motor strength 5/5 in all extremities. Sensory grossly intact. Cerebellar exam normal. Normal gait. 11:37 Cardiovascular: Regular rate and rhythm with a normal S1 and S2. No gallops, murmurs, or rubs. Normal PMI, no JVD. No pulse deficits. Abdomen/GI: Soft, non-tender, with normal bowel sounds. No distension or tympany. No guarding or rebound. No evidence of tenderness throughout. Vital Signs: 11:27 BP 184 / 83; Pulse 68; Resp 15; Temp 98.1; Pulse Ox 99% on R/A; Weight 53.98 kg; Height em 4 ft. 11 in. (149.86 cm); Pain 5/10; 12:15 BP 139 / 65; Pulse 78; Resp 18; Pulse Ox 99% on R/A; em 13:30 BP 150 / 52; Pulse 69; Resp 16; Pulse Ox 99% on R/A; em 15:35 BP 159 / 52; Pulse 70; Resp 20; Pulse Ox 98% on R/A; Pain 0/10; em 11:27 Body Mass Index 24.03 (53.98 kg, 149.86 cm) em MDM: 15:59 Patient medically screened. kdr 18:48 Data reviewed: vital signs, nurses notes, lab test result(s), radiologic studies. kdr Counseling: I had a detailed discussion with the patient and/or guardian regarding: the historical points, exam findings, and any diagnostic results supporting the discharge/admit diagnosis, lab results, radiology results, the need for outpatient follow up. 05/24 11:31 Order name: Basic Metabolic Panel; Complete Time: 14:10 kdr 05/24 11:31 Order name: CBC with Diff kdr 05/24 11:31 Order name: LFT's; Complete Time: 14:10 kdr 05/24 11:31 Order name: Magnesium; Complete Time: 14:10 kdr 05/24 11:31 Order name: NT PRO-BNP; Complete Time: 14:10 kdr 05/24 11:31 Order name: PT-INR; Complete Time: 14:10 kdr 05/24 11:31 Order name: Troponin (emerg Dept Use Only); Complete Time: 14:10 kdr 05/24 11:31 Order name: XRAY Chest (1 view); Complete Time: 14:10 kdr 05/24 11:31 Order name: EKG; Complete Time: 11:32 kdr 05/24 11:31 Order name: Cardiac monitoring; Complete Time: 11:39 kdr 05/24 11:31 Order name: EKG - Nurse/Tech; Complete Time: 11:39 kdr 05/24 11:31 Order name: IV Saline Lock; Complete Time: 11:39 kdr 05/24 14:11 Order name: Troponin (emerg Dept Use Only); Complete Time: 15:30 kdr 05/24 11:31 Order name: Labs collected and sent; Complete Time: 11:39 kdr 05/24 11:31 Order name: O2 Per Protocol; Complete Time: 11:39 kdr 05/24 11:31 Order name: O2 Sat Monitoring; Complete Time: 11:39 kdr Administered Medications: 16:51 Drug: Insulin Regular Human 4 units {Co-Signature: ca1 (Caryn Ward RN).} Route: IVP; em Site: left antecubital; Disposition: 05/25/19 15:59 Discharged to Home. Impression: Chest pain, unspecified. - Condition is Stable. - Discharge Instructions: Nonspecific Chest Pain, [id number]. - Medication Reconciliation Form, Thank You Letter form. - Follow up: Private Physician; When: 2 - 3 days; Reason: If symptoms return, Further diagnostic work-up, Recheck today's complaints, Continuance of care, Re-evaluation by your physician. - Problem is new. - Symptoms are resolved. Signatures: Dispatcher [employer] EDMynor Hamm MD MD kdr Munoz, Edgar, RN RN em Sylvia, JOSEPH Rubin RN ca1 Caryn Ward RN ca1 Corrections: (The following items were deleted from the chart) 17:01 15:59 05/25/2019 15:59 Discharged to Home. Impression: Chest pain, unspecified. ca1 Condition is Stable. Forms are Medication Reconciliation Form, Thank You Letter, Antibiotic Education, Prescription Opioid Use. Follow up: Private Physician; When: 2 - 3 days; Reason: If symptoms return, Further diagnostic work-up, Recheck today's complaints, Continuance of care, Re-evaluation by your physician. Problem is new. Symptoms are resolved. kdr
[2019-05-25] MEDS ORDERED: INSULIN GLARGINE 100 UNITS/ML SQ ONE (16:16)
[2019-05-25] MEDS ORDERED: INSULIN -REGULAR HUMAN 50 UNIT/0.5 ML ML ONE (16:17)
--- NOTE | 2019-05-25 16:47 | EKG ---
Test Date: 2019-05-25 Test Time: 11:22:29 [employer] Supervisor: MARIA DEL CRAMEN MEASUREMENT RESULTS: Intervals: Rate: 73 DE: 146 QRSD: 112 QT: 408 QTc: 449 [place]: P: 28 DE: 146 QRS: -67 T: 102 INTERPRETIVE STATEMENTS: Sinus rhythm with frequent premature ventricular complexes Possible Left atrial enlargement Left anterior fascicular block Nonspecific ST abnormality Abnormal ECG Compared to ECG 03/21/2018 21:48:00 Ventricular premature complex(es) now present Sinus bradycardia no longer present Possible ischemia no longer present ST (T wave) deviation still present Electronically Signed On 05-25-19 16:47:16 ELECTROLYTIC ETCHER by Nate Laughlin
[2019-05-25 17:31] VITALS: TEMP 98.1
[2019-05-25 17:35] VITALS: BP 159/52; O2SAT 98
== END 2019-05-25 17:01 | disposition home or self-care (01) ==
LOC: ER 11:15
DX: R07.9 Chest pain, unspecified (principal); I10 Essential (primary) hypertension; Z88.5 Allergy status to narcotic agent; Z95.1 Presence of aortocoronary bypass graft
CPT/HCPCS: 36415; 71045; 80048; 80076; 83735; 83880; 84484; 85025; 85610; 93005; 96374; 99285; J1815

== ENCOUNTER 2019-07-05 10:30 | Emergency (ER) | payer OTHER ==
--- NOTE | 2019-07-05 12:40 | ER ---
Nurse's Notes [facility] Name: Janell Zuniga Age: 78 yrs Sex: Female : 1940 Arrival Date: 07/05/2019 Time: 10:31 Bed 7 Private MD: Diagnosis: Encounter for attention to gastrostomy Presentation: 07/04 10:32 Chief complaint: EMS states: G tube pulled this morning by accident. Coronavirus ss screen: Patient denies a cough. Patient denies shortness of breath or difficulty breathing. Patient denies measured and/or subjective temperature greater than 100.4F prior to today's visit. Patient denies travel on a cruise ship or to a country the [facility] currently lists as an affected area. Patient denies contact with known and/or suspected case of COVID-19. Ebola Screen: Patient denies exposure to infectious person. Patient denies travel to an Ebola-affected area in the 21 days before illness onset. Initial Sepsis Screen: Does the patient meet any 2 criteria? No. Patient's initial sepsis screen is negative. Does the patient have a suspected source of infection? No. Patient's initial sepsis screen is negative. Risk Assessment: Do you want to hurt yourself or someone else? Patient reports no desire to harm self or others. Onset of symptoms was July 05, 2019 at 10:33. 10:32 Method Of Arrival: EMS: [facility] 10:32 Acuity: ANANT 4 ss Historical: - Allergies: 10:36 Codeine; ss 10:36 Latex, Natural Rubber; ss 10:36 Morphine; ss - Home Meds: 10:36 aspirin 81 mg Oral chew 1 tab once daily [Active]; isosorbide mononitrate 30 mg Oral ss Tb24 2 tabs once daily [Active]; Plavix 75 mg Oral tab 1 tab once daily [Active]; Keppra Oral [Active]; Nitroglycerin Oral [Active]; rivastigmine tartrate oral oral [Active]; - PMHx: 10:36 Aphasia; CVA; hemiparesis right; Diabetes - NIDDM; Hypertension; CAD; ss - PSHx: 10:36 CABG; ss Screenin:49 Abuse screen: no apparent signs noted. Nutritional screening: No deficits noted. em Tuberculosis screening: No symptoms or risk factors identified. Fall Risk Secondary diagnosis (15 points) impaired mobility, CVA, Ambulatory Aid- None/Bed Rest/Nurse Assist (0 pts). Gait- Normal/Bed Rest/Wheelchair (0 pts) Total [place] Fall Scale indicates No Risk (0-24 pts). Assessment: 10:39 General: Appears in no apparent distress. uncomfortable, Behavior is calm, pt em nonverbal, pulled feeding tube, was released from the hospital yesterday after being in hospital for a month, daughter states she was diagnosed with CVA and pulled tube twice while admitted . Pain: Unable to use pain scale. FLACC scale score is 0 out of 10. Neuro: Level of Consciousness is awake, alert. Cardiovascular: Capillary refill < 3 seconds Patient's skin is warm and dry. Respiratory: Airway is patent Respiratory effort is even, unlabored, Respiratory pattern is regular, symmetrical. GI: Abdomen is flat. Derm: Skin is intact, is fragile, is thin, Skin is pink, warm \T\ dry. Musculoskeletal: Capillary refill < 3 seconds. 10:55 Reassessment: called daughter to see what size feeding tube pt had in place, she states em she is bringing it to the ER. 11:40 Reassessment: provider unable to reinsert feed tube. em 12:30 Reassessment: Dr. Lu at bedside, unable to reinsert feeding tube, daughter notified em of pt status, and possibility of transfer to [facility]. 13:20 Reassessment: report given to JOSEPH Edward, pending EMS transportation. em 13:53 Reassessment: Patient appears in no apparent distress at this time. report given to em EMS. Vital Signs: 10:32 BP 149 / 73; Pulse 73; Resp 16; Temp 98.7(TE); Pulse Ox 94% on R/A; ss 12:03 BP 156 / 71; Pulse 74; Resp 18; Pulse Ox 97% on R/A; em 13:21 BP 124 / 58; Pulse 70; Resp 18; Pulse Ox 99% on R/A; em ED Course: 10:31 Patient arrived in ED. ss 10:32 Judah Leyva RN is Primary Nurse. em 10:34 Triage completed. ss 10:36 Arm band placed on right wrist. ss 10:41 Esvin Caldwell PA is PHCP. [facility] 10:41 Cruz Lu MD is Attending Physician. [facility] 10:49 Patient has correct armband on for positive identification. Bed in low position. Call em light in reach. Side rails up X2. Pulse ox on. NIBP on. 13:53 No provider procedures requiring assistance completed. Patient did not have IV access em during this emergency room visit. Administered Medications: No medications were administered Outcome: 12:39 ER care complete, transfer ordered by . [facility] 13:53 Transferred by ground EMS to [facility], Transfer form completed. em 13:53 Condition: good 13:53 Instructed on the need for admit, Demonstrated understanding of instructions. 13:57 Patient left the ED. em Signatures: Esvin Caldwell PA PA jmm Munoz, Edgar, RN RN Corinne Harry, JOSEPH RN ss
--- NOTE | 2019-07-05 12:40 | EDPHYS ---
Physician Documentation [facility] Name: Janell Zuniga Age: 78 yrs Sex: Female : 1940 Arrival Date: 07/05/2019 Time: 10:31 Bed 7 Private MD: ED Physician Cruz Lu HPI: 07/04 10:43 This 78 yrs old Female presents to ER via EMS with complaints of Displaced G-tube. [facility] 10:43 This is an 78 year old female with a history of recent CVA. Discharged from [facility] yesterday. Vamp Presser noticed g-tube was pulled out this morning around 10 am. . Historical: - Allergies: 10:36 Codeine; ss 10:36 Latex, Natural Rubber; ss 10:36 Morphine; ss - Home Meds: 10:36 aspirin 81 mg Oral chew 1 tab once daily [Active]; isosorbide mononitrate 30 mg Oral ss Tb24 2 tabs once daily [Active]; Plavix 75 mg Oral tab 1 tab once daily [Active]; Keppra Oral [Active]; Nitroglycerin Oral [Active]; rivastigmine tartrate oral oral [Active]; - PMHx: 10:36 Aphasia; CVA; hemiparesis right; Diabetes - NIDDM; Hypertension; CAD; ss - PSHx: 10:36 CABG; ss ROS: 10:43 Constitutional: Negative for fever, chills, and weight loss, Cardiovascular: Negative [facility] for chest pain, palpitations, and edema, Respiratory: Negative for shortness of breath, cough, wheezing, and pleuritic chest pain. 10:43 All other systems are negative. Exam: 10:43 Head/Face: atraumatic. Eyes: EOMI, no conjunctival erythema appreciated ENT: Moist [facility] Mucus Membranes Neck: Trachea midline, Supple Chest/axilla: Normal chest wall appearance and motion. Cardiovascular: Regular rate and rhythm. No edema appreciated Respiratory: Normal respirations, no respiratory distress appreciated 10:43 Constitutional: The patient appears in no acute distress, alert, awake. 10:43 Abdomen/GI: g-tube stoma noted to the epigastric region. . 10:43 Back: pain, is absent. 10:43 Musculoskeletal/extremity: no edema noted to the lower extremites. 10:43 Skin: Appearance: Color: normal in color. 10:43 Psych: Behavior/mood is Vital Signs: 10:32 BP 149 / 73; Pulse 73; Resp 16; Temp 98.7(TE); Pulse Ox 94% on R/A; ss 12:03 BP 156 / 71; Pulse 74; Resp 18; Pulse Ox 97% on R/A; em 13:21 BP 124 / 58; Pulse 70; Resp 18; Pulse Ox 99% on R/A; em MDM: 10:43 Patient medically screened. [facility] 12:38 Data reviewed: vital signs, nurses notes. Counseling: I had a detailed discussion with nina the patient and/or guardian regarding: the historical points, exam findings, and any diagnostic results supporting the discharge/admit diagnosis, the need for outpatient follow up, to return to the emergency department if symptoms worsen or persist or if there are any questions or concerns that arise at home. ED course: Unable to replace g-tube. Due to immature tract and need for IR for replacement I discussed the patient with Dr. Park for transfer. . Administered Medications: No medications were administered Disposition: 07/05 07:16 Co-signature as Attending Physician, Cruz Lu MD Available for consultation . ps1 Disposition: 07/05/19 12:39 Transfer ordered to [facility]. Diagnosis is Encounter for attention to gastrostomy. - Reason for transfer: Higher level of care. - Accepting physician is Xavier. - Condition is Stable. - Problem is new. - Symptoms are unchanged. Signatures: Esvin Caldwell PA PA [facility] Judah Leyva RN RN em Smirch, Shelby, RN RN Cruz Lu MD MD ps1 Corrections: (The following items were deleted from the chart) 07/04 13:57 12:39 07/05/2019 12:39 Transfer ordered to [facility]. Diagnosis is em Encounter for attention to gastrostomy. Reason for transfer: Higher level of care. Accepting physician is Xavier. Condition is Stable. Problem is new. Symptoms are unchanged. nina
[2019-07-05 14:09] VITALS: TEMP 98.7
[2019-07-05 14:10] VITALS: BP 124/58; O2SAT 99
== END 2019-07-05 13:57 | disposition short-term general hospital (02) ==
LOC: ER 10:30
DX: Z43.1 Encounter for attention to gastrostomy (principal); I69.320 Aphasia following cerebral infarction; I69.351 Hemiplegia and hemiparesis following cerebral infarction affecting right dominant side; I25.10 Atherosclerotic heart disease of native coronary artery without angina pectoris; I10 Essential (primary) hypertension; E11.9 Type 2 diabetes mellitus without complications; Z79.82 Long term (current) use of aspirin; Z79.02 Long term (current) use of antithrombotics/antiplatelets; Z79.899 Other long term (current) drug therapy; Z95.1 Presence of aortocoronary bypass graft
CPT/HCPCS: 99285

== ENCOUNTER 2019-07-06 16:23 | Emergency (ER) | payer OTHER ==
--- OUTSIDE RECORDS SUMMARY | 2019-07-06 16:29 | XMS REPORT ---
:1940 Author Organization [facility] t Address [address] [place] [address] Care Team Providers Name Role Phone Unavailable Unavailable Unavailable Payers Payer Name Policy Type Policy Number Effective Date Expiration D ate Problems This patient has no known problems. Allergies, Adverse Reactions, Alerts Allergy Allergy Status Severity Reaction(s) Onset Inactive Treating C omments Name Type Date Date Clinician morphine DA [...] Type Clinicians Facility Department ID 2018-03-23 Inpatient [facility] MED 9002 19:28:00 2018-03-22 Inpatient E [facility] MED 7502 04:21:00 Results Test Description Test Time Test Comments Text Results Atomic Results Result Comments - CT HEAD/BRAIN W/O CONT 2019-02-28 14:38:00 Name: RONALD VILLANUEVA [facility] : 1940 Age/S: 78 / F [address] [place] [address] Blvd Unit #: [id number] Loc: [place] [address] Phys: Lucina Stewart MD Acct: [id number] Dis Da te: Status: REG CLI PHONE #: [phone] Exam Date: 02/28/2019 1416 FAX #: [phone] [place] son: EVAL FOR PROGRESSION OF STRO KE. EXAMS: CPT CODE: [id number] CT HEAD /BRAIN W/O CONT 26757 CT head wit hout contrast 02/28/2019 HISTORY: Cerebral infarction . PROCEDURE: Multiple a xial images from the skull base t o the skull vertex were obta ined without contrast. Coronal a nd sagittal reconstructed images were performed CT imag ing performed at this location u tilizes radiation dose optimiz ation techniques which include one or more of the following: -Aut omated exposure control -Adju stment of the mA and/or kV accordin g to patient size -Use of i terative reconstruction technique CT Radiation Dose DLP 861.4 mGy -cm Comparison is made to 02/13/2019. FI NDINGS: There are old infarcts in th e lateral left occipital lobe and posterior left frontal l obe. No new infarct is present. No acute hemorrhage, midline shift , extra-axial fluid collection , or hydrocephalus is present. There is moderate atrophy. There are moderate white matter hypodensities. The visualiz ed mastoid air cells are clear. There is no air-fluid level in the visualized paranasal s inuses. Distal internal carotid ajit rial calcifications are present. IMPRESSION: 1 . No acute intracranial abnormali ty. 2. Moderate atrophy and moderate chronic microvascular ischem ic changes. 3. 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 SL: [id number] at 14 38 Reported and signed by: Miguelina Ventura M.D. CC: Lucina Stewart MD Technologist:Pj Acosta, RT(R)(CT) CTDI: DLP: Trnscb Date/Time: 2018 (9018) [email or web address] Orig Print D/T: S: 2018 (9040) PAGE 1 Signed Report VITAMIN B12 2019-02-18 08:36:00 Test Item Value Reference Range Comments VITAMIN B12 (test code = VITB12) 424 pg/mL 193-986 INFECTION CONTROL [id number] 04:13:00 Test Item Value Reference Range Comments AG HEPATITIS B SURFACE (test code = NON REACTIVE INDEX NonReacti ve HBSAG) AB HEPATITIS C (test code = HCVAB) NON REACTIVE INDEX NON REACT. AB HIV 1 2 (test code = [id number]) NONREACTIVE INDEX NONREACTIVE HIV 1/2 RAPID SCREEN (test code = NONREACTIVE NONREACTIVE [id number]) AG HIV1 P24 (test code = JXO6I90) NONREACTIVE NONREACTIVE SOURCE PATIENTINFECTION CONTROL [id number] 03:03:00 Test Item Value Reference Range Comments AG HEPATITIS B SURFACE (test code = NON REACTIVE INDEX NonReacti ve HBSAG) AB HEPATITIS C (test code = HCVAB) NON REACTIVE INDEX NON REACT. AB HIV 1 2 (test code = HVG59LI) INDEX NONREACTIVE HIV 1/2 RAPID SCREEN (test code = NONREACTIVE NONREACTIVE [id number]) AG HIV1 P24 (test code = MRS9Z24) NONREACTIVE NONREACTIVE SOURCE PATIENTINFECTION CONTROL [id number] 02:24:00 Test Item Value Reference Range Comments AG HEPATITIS B SURFACE (test code = NON REACTIVE INDEX NonReacti ve HBSAG) AB HEPATITIS C (test code = HCVAB) INDEX NON REACT. AB HIV 1 2 (test code = TYW74ID) INDEX NONREACTIVE HIV 1/2 RAPID SCREEN (test code = NONREACTIVE NONREACTIVE [id number]) AG HIV1 P24 (test code = FER7N13) NONREACTIVE NONREACTIVE SOURCE PATIENTINFECTION CONTROL [id number] 02:14:00 Test Item Value Reference Range Comments AG HEPATITIS B SURFACE (test code = HBSAG) INDEX NonRe active AB HEPATITIS C (test code = HCVAB) INDEX NON REACT. AB HIV 1 2 (test code = CIZ20BG) INDEX NONREACTIVE HIV 1/2 RAPID SCREEN (test code = WWS24FKC) NONREACTIVE NONR EACTIVE AG HIV1 P24 (test code = WPY3A21) NONREACTIVE NONREACTIVE SOURCE PATIENTBASIC METABOLIC [id number] 08:46:00 Test Item Value Reference Range Comments SODIUM (test code = NA) 140 mEq/L 134-147 POTASSIUM (test code = K) 3.9 mEq/L 3.4-5.0 CHLORIDE (test code = CL) 111 mEq/L 100-108 CARBON DIOXIDE (test code = 21 mEq/L 21-33 CO2) ANION GAP (test code = GAP) 12 0-20 GLUCOSE (test code = GLU) 149 mg/dL 70-110 BLOOD UREA NITROGEN (test code 38 mg/dL 7-18 = BUN) GLOMERULAR FILTRATION RATE 43.2 70-80 Units of measure = (test code = GFR) ml/min/1.73 m2 CREATININE (test code = CREAT) 1.2 mg/dL 0.6-1.3 CALCIUM (test code = CA) 8.6 mg/dL 8.0-10.5 THYROID STIMULATING [id number] 08:46:00 Test Item Value Reference Range Comments THYROID STIMULATING HORMONE (test 3.35 0.42-5.47 Results in [employer] code = TSH) Units/mL CBC W/AUTO [id number] 07:21:00 Test Item Value Reference Range Comments WHITE BLOOD CELL (test code = WBC) 8.05 x10 3/uL 4.5-11.0 RED BLOOD CELL (test code = RBC) 3.78 x10 6/uL 3.54-5.02 HEMOGLOBIN (test code = HGB) 10.3 g/dL 11.0-15.0 HEMATOCRIT (test code = HCT) 32.7 % 33.0-45.0 MEAN CELL VOLUME (test code = MCV) 86.5 fL 81.0-99.0 MEAN CELL HGB (test code = MCH) 27.2 pg 27.0-33.0 MEAN CELL HGB CONCETRATION (test code = MCHC) 31.5 g/dL 33 .0-37.0 RED CELL DISTRIBUTION WIDTH CV (test code = 15.1 % 11.5 -14.5 RDW) RED CELL DISTRIBUTION WIDTH SD (test code = 47.8 fL 37.0 -54.0 RDW-SD) PLATELET COUNT (test code = PLT) 305 x10 3/uL 150-400 MEAN PLATELET VOLUME (test code = MPV) 10.5 fL 7.0-9.0 NEUTROPHIL % (test code = NT%) 50.1 % 56.0-77.0 IMMATURE GRANULOCYTE % (test code = IG%) 0.2 % 0.0-2.0 LYMPHOCYTE % (test code = LY%) 34.7 % 14.0-32.0 MONOCYTE % (test code = MO%) 10.9 % 4.8-9.0 EOSINOPHIL % (test code = EO%) 3.6 % 0.3-3.7 BASOPHIL % (test code = BA%) 0.5 % 0.0-2.0 NUCLEATED RBC % (test code = NRBC%) 0.0 % 0-0 NEUTROPHIL # (test code = NT#) 4.03 x10 3/uL 2.0-7.6 IMMATURE GRANULOCYTE # (test code = IG#) 0.02 x10 3/uL 0.00-0. 03 LYMPHOCYTE # (test code = LY#) 2.79 x10 3/uL 1.0-3.8 MONOCYTE # (test code = MO#) 0.88 x10 3/uL 0.1-0.8 EOSINOPHIL # (test code = EO#) 0.29 x10 3/uL 0.0-0.2 BASOPHIL # (test code = BA#) 0.04 x10 3/uL 0.0-0.2 NUCLEATED RBC # (test code = NRBC#) 0.00 x10 3/uL 0.0-0.1 MANUAL DIFF REQUIRED (test code = MDIFF) NO BASIC METABOLIC [id number] 05:09:00 Test Item Value Reference Range Comments SODIUM (test code = NA) 144 mEq/L 134-147 POTASSIUM (test code = K) 3.7 mEq/L 3.4-5.0 CHLORIDE (test code = CL) 111 mEq/L 100-108 CARBON DIOXIDE (test code = 28 mEq/L 21-33 CO2) ANION GAP (test code = GAP) 9 0-20 GLUCOSE (test code = GLU) 170 mg/dL 70-110 BLOOD UREA NITROGEN (test code 31 mg/dL 7-18 = BUN) GLOMERULAR FILTRATION RATE 36.2 70-80 Units of measure = (test code = GFR) ml/min/1.73 m2 CREATININE (test code = CREAT) 1.4 mg/dL 0.6-1.3 CALCIUM (test code = CA) 8.3 mg/dL 8.0-10.5 BASIC METABOLIC [id number] 05:07:00 Test Item Value Reference Range Comments SODIUM (test code = NA) 144 mEq/L 134-147 POTASSIUM (test code = K) 3.7 mEq/L 3.4-5.0 CHLORIDE (test code = CL) 111 mEq/L 100-108 CARBON DIOXIDE (test code = CO2) 28 mEq/L 21-33 ANION GAP (test code = GAP) 9 0-20 GLUCOSE (test code = GLU) 170 mg/dL 70-110 BLOOD UREA NITROGEN (test code = BUN) 31 mg/dL 7-18 GLOMERULAR FILTRATION RATE (test code = GFR) 70- 80 CREATININE (test code = CREAT) mg/dL 0.6-1.3 CALCIUM (test code = CA) 8.3 mg/dL 8.0-10.5 CBC W/AUTO [id number] 04:57:00 Test Item Value Reference Range Comments WHITE BLOOD CELL (test code = WBC) 8.71 x10 3/uL 4.5-11.0 RED BLOOD CELL (test code = RBC) 3.98 x10 6/uL 3.54-5.02 HEMOGLOBIN (test code = HGB) 11.1 g/dL 11.0-15.0 HEMATOCRIT (test code = HCT) 33.8 % 33.0-45.0 MEAN CELL VOLUME (test code = MCV) 84.9 fL 81.0-99.0 MEAN CELL HGB (test code = MCH) 27.9 pg 27.0-33.0 MEAN CELL HGB CONCETRATION (test code = MCHC) 32.8 g/dL 33 .0-37.0 RED CELL DISTRIBUTION WIDTH CV (test code = 14.5 % 11.5 -14.5 RDW) RED CELL DISTRIBUTION WIDTH SD (test code = 44.9 fL 37.0 -54.0 RDW-SD) PLATELET COUNT (test code = PLT) 329 x10 3/uL 150-400 MEAN PLATELET VOLUME (test code = MPV) 10.5 fL 7.0-9.0 NEUTROPHIL % (test code = NT%) 55.1 % 56.0-77.0 IMMATURE GRANULOCYTE % (test code = IG%) 0.3 % 0.0-2.0 LYMPHOCYTE % (test code = LY%) 30.3 % 14.0-32.0 MONOCYTE % (test code = MO%) 10.3 % 4.8-9.0 EOSINOPHIL % (test code = EO%) 3.7 % 0.3-3.7 BASOPHIL % (test code = BA%) 0.3 % 0.0-2.0 NUCLEATED RBC % (test code = NRBC%) 0.0 % 0-0 NEUTROPHIL # (test code = NT#) 4.79 x10 3/uL 2.0-7.6 IMMATURE GRANULOCYTE # (test code = IG#) 0.03 x10 3/uL 0.00-0. 03 LYMPHOCYTE # (test code = LY#) 2.64 x10 3/uL 1.0-3.8 MONOCYTE # (test code = MO#) 0.90 x10 3/uL 0.1-0.8 EOSINOPHIL # (test code = EO#) 0.32 x10 3/uL 0.0-0.2 BASOPHIL # (test code = BA#) 0.03 x10 3/uL 0.0-0.2 NUCLEATED RBC # (test code = NRBC#) 0.00 x10 3/uL 0.0-0.1 MANUAL DIFF REQUIRED (test code = MDIFF) NO UA RFLX MICR CULT IF [id number] 17:29:00 Test Item Value Reference Range Comments UA COLOR (test code = COLU) STRAW YEL/STRAW UA APPEARANCE (test code = APPU) CLEAR CLEAR UA GLUCOSE DIPSTICK (test code = DGLUU) NEGATIVE NEGATIVE UA BILIRUBIN DIPSTICK (test code = BILU) NEGATIVE NEGATIV E UA KETONE DIPSTICK (test code = KETU) NEGATIVE NEGATIVE UA SPECIFIC GRAVITY (test code = SGU) 1.008 1.005-1.03 0 UA BLOOD DIPSTICK (test code = RUPERT) NEGATIVE NEGATIVE UA PH DIPSTICK (test code = MARLEE) 6.0 5.0-7.0 UA PROTEIN DIPSTICK (test code = PROU) NEGATIVE NEGATIVE UA UROBILINIOGEN DIPSTICK (test code = URO) 0.2 mg/dL 0.2- 1.0 UA NITRITE DIPSTICK (test code = PAMELA) NEGATIVE NEGATIVE UA LEUKOCYTE ESTERASE DIPSTICK (test code = NEGATIVE NEGA TIVE LEUU) UA WBC (test code = WBCU) 0-3 WBC/HPF 0-3 UA RBC (test code = RBCU) 0-3 RBC/HPF 0-3 UA WBC NO REFLEX (test code = WBCUCL) 0-3 WBC/HPF 0-3 UA BACTERIA (test code = BACU) TRACE /HPF NONE SEEN UA SQUAMOUS CELLS (test code = SQU) 0-5 /HPF NONE SEEN UA MUCUS (test code = MUCU) TRACE /LPF NONE SEEN Indication for culture: Delirium-if no other srcSpecimen Description: STRAIGHT CATH- CT HEAD/BRAIN W/O [id number] 17:29:00 Name: RONALD ALLEN [facility] : 1940 Age/S: 78 / F [address] [place] [address] Unit #: [id number] Loc: [place], [place] Phys: Xander Brown MD Acct: [id number] Dis Date: Status: PRE ER PHONE #: [phone] Exam Date: 02/13/2019 1647 FAX #: [phone] Reason: AlteredMental Status EXAMS: CPTCODE: [id number] CT HEAD/BRAIN W/O CONT 65059 Clinical Ind ication: Altered mental status. Comparison: Prior CT brain study dated 12/25/2018. TECHNIQUE: CT images were obtained from the foramen magnum to the vertex without the use of intravenous contrast on a multidetector CT. Coronal and sagittal reconstructions were obtained. CT imaging performed at this location utilizes radiation dose optimization techniques which include one or more of the following: - Automated exposure control -Adjustment of the mA and/or [...] or edema. There are no intra-axial or extra-axial fluid collections, intraventricular or intraparenchymal hemorrhage. There [...] 1 Signed Report (CONTINUED) Name: RONALD ALLEN [facility] : 1940 Age/S: 78 / F [address] [place] [address] Blvd Unit #: [id number] Loc: [place] [address] Phys: Xander Brown MD Acct: [id number] Dis Date: Status: PRE ER PHONE #: [phone] Exam Date: 02/13/2019 1647 FAX #: [phone] Reason: Altered Mental Status EXAMS: CPT CODE: [id number] CT HEAD/BRAIN W/O CONT 33856<Continued> cerebral parenchymal volume loss. SL: APATIL-H at 2086 Reported and signed by: Lea Pace M.D. CC: Xander Brown MD Technologist:Katherine Headley RT(R)(CT) CTDI: DLP: Trnscb Date/Time: 02/13/2019 (1729) [id number] Orig Print D/T: S: 02/13/2019 (1139) PAGE 2 Signed ReportTROPONIN-I [id number] 15:49:00 Test Item Value Reference Range Comments TROPONIN-I RAPID (test 0.02 ng/mL 0.00-0.08 Performed by certified doweling machine operator code = TROPIRAP) at [facility] Negative: <= 0.08 Positive: >= 0.09An elevated troponi n value alone is not sufficient t odiagnose a myocardial infar ction. Rather, the patient scli nical presentation (hi story, physical exam) and ECGsho uld be used in conjunction with troponin in thediagnostic ev aluation of suspected myocar dial infarction. Aserial sampling protocol is recommended to f acilitate the identification o f temporal changes in tropo jaron levels characteristic o f GA. - XR CHEST 1 [id number] 15:46:00 FAX: Xander Brown MD [phone] [place]: [address]: PRE Name: LANIE ALLENOINWILLIE Ingram [facility] : 1940 Age/S: 78/F [address] [place] [address] Unit#: [id number] Loc: [address] [address] Phys: Xander Brown MD Acct: [id number] Dis Date: Status: PRE ER PHONE #: [phone] Exam Date: 02/13/2019 1540 FAX #: [phone] Reason: Altered Mental Status EXAMS: CPT CODE: [id number] XR CHEST 1 V 95839 EXAM: XR CHEST 1 VIEW DATE: 02/13/2019 3:19 PM : 1940; Age: 78 years y/o Female INDICATION: Altered Mental Status COMPARISON: December 25, 2018 TECHNIQUE: AP chest. IMPRESSION: Lines, tubes and hardware: Prior sternotomy changes. Heart, mediastinum and lungs: The heart size is enlarged but unchanged. Vascular calcifications are present at the aorta. Pulmonary vascularity is normal. No consolidation or pleural effusion. SL: [id number] at 1546 Reported and signed by: Shonda Jaquez D.O. CC: Xander Brown MD Technologist: Dixie Graf, RT(R)(M); Dodie Fernandez RT(R) Trnscrd Date/Time/By: 02/13/2019 (2467) : By: [email or web address] Orig Print D/T: S: 02/13/2019 (1650) PAGE 1 Signed ReportHEPATIC FUNCTION [id number] 15:44:00 Test Item Value Reference Range Comments TOTAL PROTEIN (test code = PROT) 7.4 g/dL 6.4-8.2 ALBUMIN (test code = ALB) 3.60 g/dL 3.4-5.0 BILIRUBIN TOTAL (test code = BILT) 0.3 MG/DL <1.5 BILIRUBIN DIRECT (test code = BILD) < 0.10 MG/DL 0.0-0.30 BILIRUBIN INDIRECT (test code = BILIND) 0.20 MG/DL SGOT/AST (test code = AST) 15 IUnit/L 15-37 SGPT/ALT (test code = ALT) 22 IUnit/L 15-65 ALKALINE PHOSPHATASE TOTAL (test code = ALKP) 91 IUnit/L 20 -125 CHEMISTRY 8 [id number] 15:42:00 Test Item Value Reference Range Comments ISTAT-SODIUM (test code = NAP) MMOL/L 134-147 ISTAT-POTASSIUM (test code = KP) MMOL/L 3.4-5.0 ISTAT-CHLORIDE (test code = CLP) MMOL/L 100-108 ISTAT CARBON DIOXIDE (test code = ISTAT-CO2) mmol/L 21- 33 ISTAT CALCIUM IONIZED (test code = ISTAT-JOJO) MG/DL 1. 12-1.32 ISTAT-GLUCOSE (test code = GLUP) MG/DL 70-110 ISTAT-BUN (test code = BUNP) MG/DL 7-18 BEDSIDE CREATININE (test code = CREATBED) MG/DL 0.6-1. 3 GLOMERULAR FILTRATION RATE POC (test code = 46 ML/MIN GFRBED) CHEMISTRY 8 [id number] 15:42:00 Test Item Value Reference Range Comments ISTAT-SODIUM (test code = 140 MMOL/L 134-147 NAP) ISTAT-POTASSIUM (test code = 3.9 MMOL/L 3.4-5.0 KP) ISTAT-CHLORIDE (test code = 101 MMOL/L 100-108 Perf ormed by certified CLP) doweling machine operator at [facility] ISTAT CARBON DIOXIDE (test 29.0 mmol/L 21-33 code = ISTAT-CO2) ISTAT CALCIUM IONIZED (test 1.22 MG/DL 1.12-1.32 code = ISTAT-JOJO) ISTAT-GLUCOSE (test code = 157 MG/DL 70-110 GLUP) ISTAT-BUN (test code = BUNP) 30 MG/DL 7-18 BEDSIDE CREATININE (test code 1.2 MG/DL 0.6-1.3 = CREATBED) GLOMERULAR FILTRATION RATE 46 ML/MIN POC (test code = GFRBED) CBC W/AUTO [id number] 15:29:00 Test Item Value Reference Range Comments WHITE BLOOD CELL (test code = WBC) 9.68 x10 3/uL 4.5-11.0 RED BLOOD CELL (test code = RBC) 4.27 x10 6/uL 3.54-5.02 HEMOGLOBIN (test code = HGB) 11.5 g/dL 11.0-15.0 HEMATOCRIT (test code = HCT) 36.3 % 33.0-45.0 MEAN CELL VOLUME (test code = MCV) 85.0 fL 81.0-99.0 MEAN CELL HGB (test code = MCH) 26.9 pg 27.0-33.0 MEAN CELL HGB CONCETRATION (test code = MCHC) 31.7 g/dL 33 .0-37.0 RED CELL DISTRIBUTION WIDTH CV (test code = 14.6 % 11.5 -14.5 RDW) RED CELL DISTRIBUTION WIDTH SD (test code = 45.4 fL 37.0 -54.0 RDW-SD) PLATELET COUNT (test code = PLT) 350 x10 3/uL 150-400 MEAN PLATELET VOLUME (test code = MPV) 10.5 fL 7.0-9.0 NEUTROPHIL % (test code = NT%) 61.4 % 56.0-77.0 IMMATURE GRANULOCYTE % (test code = IG%) 0.3 % 0.0-2.0 LYMPHOCYTE % (test code = LY%) 25.5 % 14.0-32.0 MONOCYTE % (test code = MO%) 9.1 % 4.8-9.0 EOSINOPHIL % (test code = EO%) 3.3 % 0.3-3.7 BASOPHIL % (test code = BA%) 0.4 % 0.0-2.0 NUCLEATED RBC % (test code = NRBC%) 0.0 % 0-0 NEUTROPHIL # (test code = NT#) 5.94 x10 3/uL 2.0-7.6 IMMATURE GRANULOCYTE # (test code = IG#) 0.03 x10 3/uL 0.00-0. 03 LYMPHOCYTE # (test code = LY#) 2.47 x10 3/uL 1.0-3.8 MONOCYTE # (test code = MO#) 0.88 x10 3/uL 0.1-0.8 EOSINOPHIL # (test code = EO#) 0.32 x10 3/uL 0.0-0.2 BASOPHIL # (test code = BA#) 0.04 x10 3/uL 0.0-0.2 NUCLEATED RBC # (test code = NRBC#) 0.00 x10 3/uL 0.0-0.1 MANUAL DIFF REQUIRED (test code = MDIFF) NO [id number] 12:34:00 Test Item Value Reference Range Comments GLUBED (test code = GLUBED) 187 MG/DL 70-110 Perf ormed by certified doweling machine operator at [facility] [id number] 08:06:00 Test Item Value Reference Range Comments GLUBED (test code = GLUBED) 120 MG/DL 70-110 Perf ormed by certified doweling machine operator at [facility] [id number] 21:13:00 Test Item Value Reference Range Comments GLUBED (test code = GLUBED) 100 MG/DL 70-110 Perf ormed by certified doweling machine operator at [facility] [id number] 19:31:00 Test Item Value Reference Range Comments GLUBED (test code = GLUBED) 211 MG/DL 70-110 Perf ormed by certified doweling machine operator at [facility] [id number] 13:29:00 Test Item Value Reference Range Comments GLUBED (test code = GLUBED) 155 MG/DL 70-110 Perf ormed by certified doweling machine operator at [facility] [id number] 08:20:00 Test Item Value Reference Range Comments GLUBED (test code = GLUBED) 129 MG/DL 70-110 Perf ormed by certified doweling machine operator at [facility] [id number] 20:42:00 Test Item Value Reference Range Comments GLUBED (test code = GLUBED) 213 MG/DL 70-110 Perf ormed by certified doweling machine operator at [facility] [id number] 17:06:00 Test Item Value Reference Range Comments GLUBED (test code = GLUBED) 73 MG/DL 70-110 Perf ormed by certified doweling machine operator at [facility] [id number] 15:11:00 Test Item Value Reference Range Comments GLUBED (test code = GLUBED) 230 MG/DL 70-110 Perf ormed by certified doweling machine operator at [facility] BASIC METABOLIC [id number] 10:02:00 Test Item Value Reference Range Comments SODIUM (test code = NA) 141 mEq/L 134-147 POTASSIUM (test code = K) 3.5 mEq/L 3.4-5.0 CHLORIDE (test code = CL) 108 mEq/L 100-108 CARBON DIOXIDE (test code = 25 mEq/L 21-33 CO2) ANION GAP (test code = GAP) 12 0-20 GLUCOSE (test code = GLU) 129 mg/dL 70-110 BLOOD UREA NITROGEN (test code 43 mg/dL 7-18 = BUN) GLOMERULAR FILTRATION RATE 36.2 70-80 Units of measure = (test code = GFR) ml/min/1.73 m2 CREATININE (test code = CREAT) 1.4 mg/dL 0.6-1.3 CALCIUM (test code = CA) 8.9 mg/dL 8.0-10.5 CBC W/AUTO [id number] 08:25:00 Test Item Value Reference Range Comments WHITE BLOOD CELL (test code = WBC) 8.02 x10 3/uL 4.5-11.0 RED BLOOD CELL (test code = RBC) 3.94 x10 6/uL 3.54-5.02 HEMOGLOBIN (test code = HGB) 10.6 g/dL 11.0-15.0 HEMATOCRIT (test code = HCT) 33.2 % 33.0-45.0 MEAN CELL VOLUME (test code = MCV) 84.3 fL 81.0-99.0 MEAN CELL HGB (test code = MCH) 26.9 pg 27.0-33.0 MEAN CELL HGB CONCETRATION (test code = MCHC) 31.9 g/dL 33 .0-37.0 RED CELL DISTRIBUTION WIDTH CV (test code = 14.4 % 11.5 -14.5 RDW) RED CELL DISTRIBUTION WIDTH SD (test code = 44.4 fL 37.0 -54.0 RDW-SD) PLATELET COUNT (test code = PLT) 241 x10 3/uL 150-400 MEAN PLATELET VOLUME (test code = MPV) 11.6 fL 7.0-9.0 NEUTROPHIL % (test code = NT%) 48.2 % 56.0-77.0 IMMATURE GRANULOCYTE % (test code = IG%) 0.4 % 0.0-2.0 LYMPHOCYTE % (test code = LY%) 36.8 % 14.0-32.0 MONOCYTE % (test code = MO%) 9.9 % 4.8-9.0 EOSINOPHIL % (test code = EO%) 4.0 % 0.3-3.7 BASOPHIL % (test code = BA%) 0.7 % 0.0-2.0 NUCLEATED RBC % (test code = NRBC%) 0.0 % 0-0 NEUTROPHIL # (test code = NT#) 3.87 x10 3/uL 2.0-7.6 IMMATURE GRANULOCYTE # (test code = IG#) 0.03 x10 3/uL 0.00-0. 03 LYMPHOCYTE # (test code = LY#) 2.95 x10 3/uL 1.0-3.8 MONOCYTE # (test code = MO#) 0.79 x10 3/uL 0.1-0.8 EOSINOPHIL # (test code = EO#) 0.32 x10 3/uL 0.0-0.2 BASOPHIL # (test code = BA#) 0.06 x10 3/uL 0.0-0.2 NUCLEATED RBC # (test code = NRBC#) 0.00 x10 3/uL 0.0-0.1 MANUAL DIFF REQUIRED (test code = MDIFF) NO [id number] 08:24:00 Test Item Value Reference Range Comments GLUBED (test code = GLUBED) 133 MG/DL 70-110 Perf ormed by certified doweling machine operator at [facility] [id number] 20:47:00 Test Item Value Reference Range Comments GLUBED (test code = GLUBED) 212 MG/DL 70-110 Perf ormed by certified doweling machine operator at [facility] - DUP VEIN [id number] 15:47:00 Name: RONALD ALLEN [facility] : 1940 Age/S: 78 / F [address] [place] [address] Unit #: [id number] Loc: [facility] [id number] Phys: Sarbjit Carr DO Acct: [id number] Dis Date: Status: ADM IN PHONE #: [phone] Exam Date: 12/25/2018 153 FAX #: [phone] Reason: LLE swelling eval for DVT EXAMS: CPTCODE: [id number] DUP VEIN UNI/LTD 18249 PROCEDURE: LEFT UNILATERAL LOWER EXTREMITY VENOUS ULTRASOUND [...] PURPOSES ONLY RESULT CODE: CVR SL:01 at 2140 Reported and signed by:Markie Cooper M.D. CC: Sarbjit Carr DO Technologist: Selina Alicea RDMS(OB)(AB) Trnrib Date/Time: 12/25/2018 (8639) [email or web address] Orig Print D/T: S: 12/25/2018 (2477) Probe: PAGE 1 Signed Report B-TYPE NATRIURETIC [id number] 14:34:00 Test Item Value Reference Range Comments B-TYPE NATRIURETIC PEPTIDE (test code = BNP) 126.1 PG/ML 0-1 00 PROTHROMBIN [id number] 14:09:00 Test Item Value Reference Range Comments PROTHROMBIN TIME PATIENT 10.1 SECONDS 9.3-12.9 (test code = PTP) INTERNATIONAL NORMAL RATIO 0.9 0.8-1.2 TARGET INR BY (test code = INR) INDICATION I ndication INR1. Prophylax is of venous thrombosis 2.0 - 3.0 (orthopedi c surgery), Prophylaxis of venous thrombosis (othe r than high-risk surg nelida), Treatment of Tataina p Vein Thrombosis/Pulmo nary Embolism, Preven tion of systemic embolis m - Tissue heart valves, Acute Myocardial Infar ction (to prevent system ic embolism), Valvular heart d isease, Atrial Fibrillat ion, Bileaflet mechan ical valve in aortic positi on.2. Mechanical prost hetic valves (high risk), 2.5 - 3.5 Presence of Lupu s Anticoagulant or Antiphospholipid Antibodies, Prevention of systemic embolism - Acute Myocardial Infarction (to prevent recurrent infarc t). THROMBOPLASTIN TIME [id number] 14:09:00 Test Item Value Reference Range Comments THROMBOPLASTIN TIME PARTIAL 20.2 Seconds 25.0-39.5 Therapeutic Range: (test code = PTT) 50.4 - 88.3 Se conds Effective 0 07/05/2018 - CT HEAD/BRAIN W/O [id number] 13:48:00 Name: RONALD ALLEN [facility] : 1940 Age/S: 78 / F [address] [place] [address] Unit #: [id number] Loc: [facility] [id number] Phys: Sarbjit Carr DO Acct: [id number] Dis Date: Status: REG ER PHONE #: [phone] Exam Date: 12/25/2018 1319 FAX #: [phone] Reason: altered mental status EXAMS: CPTCODE: [id number] CT HEAD/BRAIN W/O CONT 67377 CT head without contrast 12/25/2018 HISTORY: Altered [...] collection, or hydrocephalus is present. No sulcal e ffacement to suggest an acute infarct is noted. The visualized mastoid air cells are clear. There is no air-fluid level in the visualized paranasal sinuses. Distal internal carotidarterial calcifications are present. IMPRESSION: 1. Old left occipital infarct. 2. Moderate atrophy and moderate chronic microvascular ischemic changes. 3. No acute intracranial abnormality. SL: [id number] at 1348 Reported and signed by: Robbie Ventura M.D. CC: Sarbjit Hayward Technologist:ANGELA Fajardo CTDI: DLP: Trnscb Date/Time: 12/25/2018 (7160) [id number] Orig Print D/T: S: 12/25/2018 (4578)PAGE 1 Signed Report URINALYSIS [id number] 13:40:00 Test Item Value Reference Range Comments UA COLOR (test code = COLU) YELLOW YEL/STRAW UA APPEARANCE (test code = APPU) CLEAR CLEAR UA GLUCOSE DIPSTICK (test code = DGLUU) NEGATIVE NEGATIVE UA BILIRUBIN DIPSTICK (test code = BILU) NEGATIVE NEGATIV E UA KETONE DIPSTICK (test code = KETU) NEGATIVE NEGATIVE UA SPECIFIC GRAVITY (test code = SGU) 1.010 1.005-1.03 0 UA BLOOD DIPSTICK (test code = RUPERT) NEGATIVE NEGATIVE UA PH DIPSTICK (test code = MARLEE) 5.0 5.0-7.0 UA PROTEIN DIPSTICK (test code = PROU) NEGATIVE NEGATIVE UA UROBILINIOGEN DIPSTICK (test code = URO) 0.2 mg/dL 0.2- 1.0 UA NITRITE DIPSTICK (test code = PAMELA) NEGATIVE NEGATIVE UA LEUKOCYTE ESTERASE DIPSTICK (test code = NEGATIVE NEGA TIVE LEUU) UA RBC (test code = RBCU) 0-3 RBC/HPF 0-3 UA WBC NO REFLEX (test code = WBCUCL) 0-3 WBC/HPF 0-3 UA BACTERIA (test code = BACU) TRACE /HPF NONE SEEN UA SQUAMOUS CELLS (test code = SQU) NONE SEEN /HPF NONE SEEN UA HYALINE CAST (test code = HYALU) 3-5 /LPF NONE SEEN COMMENTS: Clean CatchHEPATIC FUNCTION [id number] 13:38:00 Test Item Value Reference Range Comments TOTAL PROTEIN (test code = PROT) 7.3 g/dL 6.4-8.2 ALBUMIN (test code = ALB) 3.40 g/dL 3.4-5.0 BILIRUBIN TOTAL (test code = BILT) 0.2 MG/DL <1.5 BILIRUBIN DIRECT (test code = BILD) < 0.10 MG/DL 0.0-0.30 BILIRUBIN INDIRECT (test code = BILIND) 0.10 MG/DL SGOT/AST (test code = AST) 11 IUnit/L 15-37 SGPT/ALT (test code = ALT) 16 IUnit/L 15-65 ALKALINE PHOSPHATASE TOTAL (test code = ALKP) 93 IUnit/L 20 -125 CREATINE KINASE (CK)2018-12-25 13:38:00 Test Item Value Reference Range Comments CREATINE KINASE (CK) (test 67 35-232 Resul t is in INTERNATIONAL code = CK) UNITS/LITER [id number] 13:38:00 Test Item Value Reference Range Comments LIPASE (test code = LIP) 409 IUnit/L 73-393 CBC W/AUTO [id number] 13:34:00 Test Item Value Reference Range Comments WHITE BLOOD CELL (test code = WBC) 8.52 x10 3/uL 4.5-11.0 RED BLOOD CELL (test code = RBC) 4.33 x10 6/uL 3.54-5.02 HEMOGLOBIN (test code = HGB) 11.8 g/dL 11.0-15.0 HEMATOCRIT (test code = HCT) 36.5 % 33.0-45.0 MEAN CELL VOLUME (test code = MCV) 84.3 fL 81.0-99.0 MEAN CELL HGB (test code = MCH) 27.3 pg 27.0-33.0 MEAN CELL HGB CONCETRATION (test code = MCHC) 32.3 g/dL 33 .0-37.0 RED CELL DISTRIBUTION WIDTH CV (test code = 14.1 % 11.5 -14.5 RDW) RED CELL DISTRIBUTION WIDTH SD (test code = 43.8 fL 37.0 -54.0 RDW-SD) PLATELET COUNT (test code = PLT) 247 x10 3/uL 150-400 MEAN PLATELET VOLUME (test code = MPV) 11.5 fL 7.0-9.0 NEUTROPHIL % (test code = NT%) 57.9 % 56.0-77.0 IMMATURE GRANULOCYTE % (test code = IG%) 0.5 % 0.0-2.0 LYMPHOCYTE % (test code = LY%) 27.1 % 14.0-32.0 MONOCYTE % (test code = MO%) 10.2 % 4.8-9.0 EOSINOPHIL % (test code = EO%) 3.6 % 0.3-3.7 BASOPHIL % (test code = BA%) 0.7 % 0.0-2.0 NUCLEATED RBC % (test code = NRBC%) 0.0 % 0-0 NEUTROPHIL # (test code = NT#) 4.93 x10 3/uL 2.0-7.6 IMMATURE GRANULOCYTE # (test code = IG#) 0.04 x10 3/uL 0.00-0. 03 LYMPHOCYTE # (test code = LY#) 2.31 x10 3/uL 1.0-3.8 MONOCYTE # (test code = MO#) 0.87 x10 3/uL 0.1-0.8 EOSINOPHIL # (test code = EO#) 0.31 x10 3/uL 0.0-0.2 BASOPHIL # (test code = BA#) 0.06 x10 3/uL 0.0-0.2 NUCLEATED RBC # (test code = NRBC#) 0.00 x10 3/uL 0.0-0.1 MANUAL DIFF REQUIRED (test code = MDIFF) NO - XR CHEST 1 [id number] 13:12:00 FAX: Kristy Sarbjit Carr DO [phone] [place]: St: PRE Name: RONALD ALLEN [facility] : 1940 Age/S: 78/F [address] [place] [address] Unit#: [id number] Loc: [address] [place] [address] Phys: Sarbjit Carr DO Acct: [id number] Dis Date: Status: PRE ER PHONE #: [phone] Exam Date: 12/25/2018 1258 FAX #: [phone] Reason: Weakness EXAMS: CPT CODE: [id number] XR CHEST 1 V 23484 EXAM: Single view AP chest. EXAM DATE: 12/25/2018 at 1238 hours CLINICAL HISTORY: Weakness COMPARISON: August 26, 2018 at 1335 hours Exam is at low inspiratory volume. Median sternotomy wires are present. Cardiac size is grossly within normal limits. Vascular calcifications are identified. Mild hypoventilatory changes are identified in the lower lung bases. No infilt rates are identified. Visualized osseous structures demonstrate no acute abnormalities. IMPRESSION: Hypoventilatory changes lung bases with no other significant finding isidentified. at 1312 Reported and signed by: Fadumo Colbert M.D. CC: Sarbjit Carr DO Technologist: Pamella Headley, RT(R); Elif Ang RT(R) Trnscrd Date/Time/By: 12/25/2018 (3499) : By: Dioni Orig Print D/T: S: 12/25/2018 (8027) PAGE 1 Signed ReportTROPONIN-I [id number] 13:00:00 Test Item Value Reference Range Comments TROPONIN-I RAPID (test 0.01 ng/mL 0.00-0.08 Performed by certified doweling machine operator code = TROPIRAP) at [facility] Negative: <= 0.08 Positive: >= 0.09An elevated troponi n value alone is not sufficient t odiagnose a myocardial infar ction. Rather, the patient scli nical presentation (hi story, physical exam) and ECGsho uld be used in conjunction with troponin in thediagnostic ev aluation of suspected myocar dial infarction. Aserial sampling protocol is recommended to f acilitate the identification o f temporal changes in tropo jaron levels characteristic o f GA. CHEMISTRY 8 [id number] 12:54:00 Test Item Value Reference Range Comments ISTAT-SODIUM (test code = NAP) MMOL/L 134-147 ISTAT-POTASSIUM (test code = KP) MMOL/L 3.4-5.0 ISTAT-CHLORIDE (test code = CLP) MMOL/L 100-108 ISTAT CARBON DIOXIDE (test code = ISTAT-CO2) mmol/L 21- 33 ISTAT CALCIUM IONIZED (test code = ISTAT-JOJO) MG/DL 1. 12-1.32 ISTAT-GLUCOSE (test code = GLUP) MG/DL 70-110 ISTAT-BUN (test code = BUNP) MG/DL 7-18 BEDSIDE CREATININE (test code = CREATBED) MG/DL 0.6-1. 3 GLOMERULAR FILTRATION RATE POC (test code = 38 ML/MIN GFRBED) CHEMISTRY 8 [id number] 12:54:00 Test Item Value Reference Range Comments ISTAT-SODIUM (test code = 136 MMOL/L 134-147 NAP) ISTAT-POTASSIUM (test code = 4.9 MMOL/L 3.4-5.0 KP) ISTAT-CHLORIDE (test code = 101 MMOL/L 100-108 Perf ormed by certified CLP) doweling machine operator at [facility] ISTAT CARBON DIOXIDE (test 27.0 mmol/L 21-33 code = ISTAT-CO2) ISTAT CALCIUM IONIZED (test 1.13 MG/DL 1.12-1.32 code = ISTAT-JOJO) ISTAT-GLUCOSE (test code = 212 MG/DL 70-110 GLUP) ISTAT-BUN (test code = BUNP) 52 MG/DL 7-18 BEDSIDE CREATININE (test code 1.4 MG/DL 0.6-1.3 = CREATBED) GLOMERULAR FILTRATION RATE 38 ML/MIN POC (test code = GFRBED) TROPONIN I [id number] 14:47:00 Test Item Value Reference Range Comments TROPONIN I RAPID (test code 0.00 ng/mL 0.00-0.08 - Th e use of serial sampling = TROPIRAP) and testing prot ocol is a recommended prac ligia- An elevated troponi n level alone is often not suf ficient for diagnosis of mecca cardial infarction. CREATINE KINASE (CK)2018-08-26 13:56:00 Test Item Value Reference Range Comments CREATINE KINASE (CK) (test code = CK) 47 Unit/L 26-192 CBC W/O [id number] 13:44:00 Test Item Value Reference Range Comments WHITE BLOOD CELL (test code = WBC) 7.8 K/mm3 3.5-11.0 RED BLOOD CELL (test code = RBC) 3.80 M/mm3 4.70-6.10 HEMOGLOBIN (test code = HGB) 10.7 G/DL 10.4-14.9 HEMATOCRIT (test code = HCT) 33.4 % 31.5-44.1 MEAN CELL VOLUME (test code = MCV) 87.9 Fl 84.5-98.6 MEAN CELL HGB (test code = MCH) 28.2 pg 27.0-34.2 MEAN CELL HGB CONCETRATION (test code = MCHC) 32.0 G/DL 31 .5-34.0 RED CELL DISTRIBUTION WIDTH (test code = RDW) 14.9 SD 11 .5-14.5 PLATELET COUNT (test code = PLT) 321.0 K/mm3 150-450 MEAN PLATELET VOLUME (test code = MPV) 10.10 fL 7.0-10.5 - XR CHEST 1 [id number] 13:38:00 Name: RONALD ALLEN [facility] : 1940 Age/S: 77 / F [id number] Unit #: [id number] Loc: [place] [address] Phys: Stevan Mullins MD Acct: [id number] Dis Date: Status: REG ER PHONE #: [phone] Exam Date: 08/26/2018 1330 FAX #: Reason: chest pain EXAMS: CPT: [id number] XR CHEST 1 V 30611 Fluoro Time: DAP (Gy m2): Air Kerma (mGy): HISTORY: chest pain Comparison to August 15, 2018 Location code: B2 FINDINGS: Frontal view of the chest demonstrates normal cardiomediastinal silhouette. The trachea is midline. The lungs are clear. There is no effusion or pneumothorax. The bones are intact. Median sternotomy wires noted. IMPRESSION: No acute pulmonary process. at 1333 Reported and signed by: Bear Pittman M.D. CC: Stevan Mullins MD PAGE 1 Signed Report Name: RONALD ALLEN [facility] : 1940 Age/S: 77 / F [id number] Unit #: [id number] Loc: [place] [address] Phys: Stevan Mullins MD Acct: [id number] Dis Date: Status: REG ER PHONE #: [phone] Exam Date: 08/26/2018 1330 FAX #: Reason: chest pain EXAMS: CPT: [id number] XR CHEST 1 V 31761 Fluoro Time: DAP (Gy m2): Air Kerma (mGy): <Continued> Technologist: RT Moe(R) Trnscb Date/Time: 08/26/2018 (7328) [id number] Orig Print D/T: S: 08/26/2018 (2656) PAGE 2 Signed ReportTROPONIN I [id number] 13:36:00 Test Item Value Reference Range Comments TROPONIN I RAPID (test code 0.01 ng/mL 0.00-0.08 - Th e use of serial sampling = TROPIRAP) and testing prot ocol is a recommended prac ligia- An elevated troponi n level alone is often not suf ficient for diagnosis of mecca cardial infarction. CHEMISTRY 8 [id number] 13:28:00 Test Item Value Reference Range Comments ISTAT-SODIUM (test code = NAP) mmol/L 135-146 ISTAT-POTASSIUM (test code = KP) mmol/L 3.5-4.9 ISTAT-CHLORIDE (test code = CLP) mmol/L 98-109 ISTAT-CARBON DIOXIDE (test code = ISTAT-CO2) mmol/L 24- 29 ISTAT CALCIUM IONIZED (test code = ISTAT-JOJO) mmol/L 1. 12-1.32 ISTAT-GLUCOSE (test code = GLUP) mg/dL 70-105 ISTAT-BUN (test code = BUNP) mg/dL 8-26 BEDSIDE CREATININE (test code = CREATBED) mg/dL 0.6-1. 3 GLOMERULAR FILTRATION RATE POC (test code = GFRBED) 57 39-90 CHEMISTRY 8 [id number] 13:28:00 Test Item Value Reference Range Comments ISTAT-SODIUM (test code = NAP) 141 mmol/L 135-146 ISTAT-POTASSIUM (test code = KP) 4.1 mmol/L 3.5-4.9 ISTAT-CHLORIDE (test code = CLP) 102 mmol/L 98-109 ISTAT-CARBON DIOXIDE (test code = ISTAT-CO2) 27 mmol/L 24- 29 ISTAT CALCIUM IONIZED (test code = ISTAT-JOJO) 1.26 mmol/L 1. 12-1.32 ISTAT-GLUCOSE (test code = GLUP) 100 mg/dL 70-105 ISTAT-BUN (test code = BUNP) 25 mg/dL 8-26 BEDSIDE CREATININE (test code = CREATBED) 1.0 mg/dL 0.6-1. 3 GLOMERULAR FILTRATION RATE POC (test code = 57 39-9 0 GFRBED) GLUCOSE BEDSIDE [id number] 16:57:00 Test Item Value Reference Range Comments GLUCOSE BEDSIDE TESTING (test code = GLUBED) 117 mg/dL 70- 110 - CT HEAD/BRAIN W/O [id number] 16:28:00 Name: RONALD ALLEN [facility] : 1940 Age/S: 77 / F [id number] Unit #: [id number] Loc: [place] [address] Phys: Paddy Pittman MD Acct: [id number] Dis Date: Status: ADM IN PHONE #: [phone] Exam Date: 08/16/2018 1610 FAX #: Reason: H/O cva EXAMS: CPT: [id number] CT HEAD/BRAIN W/O CONT 75810 CT HEAD WITHOUT CONTRAST. HISTORY: H/O cva [...] left temporal occipital lobe infarct within the COURT CLERK territory. at 1628 Reported and signed by: Bonifacio Hameed M.D. PAGE 1 Signed Report (CONTINUED) Name: DEEPTITWYLARULARONALD [facility] : 03/1940 Age/S: 77 / F [address] Unit #: [id number] Loc: [place] [address] Phys: Paddy Pittman MD Acct: [id number] Dis Date: Status: ADM IN PHONE #: [phone] Exam Date: 08/16/2018 1610 FAX #: R kavitha: H/O cva EXAMS: CPT: [id number] CT HEAD/BRAIN W/O CONT 71855 <Continued> CC: Jose Lloyd MD; Paddy Pittman MD Technologist:Miguel Angel Combs, RT(R)(CT)(MRI) CTDI: DLP: Trnscb Date/Time: 08/16/2018 (3907) [id number] Orig Print D/T: S: 08/16/2018 (2891) PAGE 2 Signed ReportUA RFLX MICR CULT IF [id number] 12:34:00 Test Item Value Reference Range Comments UA COLOR (test code = COLU) YELLOW discript YEL/STRAW UA APPEARANCE (test code = APPU) HAZY discript CLEAR UA GLUCOSE DIPSTICK (test code = NEGATIVE mg/dL NEG DGLUU) UA BILIRUBIN DIPSTICK (test code 1+ mg/dL NEG = BILU) UA KETONE DIPSTICK (test code = 1+ mg/dL NEG KETU) UA SPECIFIC GRAVITY (test code = 1.025 SG 1.005-1.030 SGU) UA BLOOD DIPSTICK (test code = NEGATIVE mg/DL NEG RUPERT) UA PH DIPSTICK (test code = MARLEE) 5.5 pH UNITS 5.0-7.0 UA PROTEIN DIPSTICK (test code = 2+ mg/dL NEG PROU) UA UROBILINIOGEN DIPSTICK (test 1.0 mg/dL <2.0 code = URO) UA NITRITE DIPSTICK (test code = NEGATIVE SCREEN NEG PAMELA) UA LEUKOCYTE ESTERASE DIPSTICK 1+ Leuk/mcL NEGATIVE (test code = LEUU) UA WBC (test code = WBCU) 10-20 #WBC/HPF 0-3 UA RBC (test code = RBCU) 0-1 #RBC/HPF 0-3 UA BACTERIA (test code = BACU) 4+ /HPF NONE-TRACE UA SQUAMOUS CELLS (test code = TRACE /HPF NONE SQU) UA CULTURE NEEDED? (test code = YES,WBC>10 & EPI<25 Culture CHK UACULT) Criteria SOURCE OF URINE: VOIDEDless than 18 yrs old, neutropenic, or urological surgery? NOPrimary Indication for Culture: OtherOther Indication: CONFUSIONUA RFLX MICR CULT IF [id number] 12:33:00 Test Item Value Reference Range Comments UA COLOR (test code = COLU) YELLOW discript YEL/STRAW UA APPEARANCE (test code = APPU) HAZY discript CLEAR UA GLUCOSE DIPSTICK (test code = DGLUU) NEGATIVE mg/dL NEG UA BILIRUBIN DIPSTICK (test code = BILU) 1+ mg/dL NEG UA KETONE DIPSTICK (test code = KETU) 1+ mg/dL NEG UA SPECIFIC GRAVITY (test code = SGU) 1.025 SG 1.005-1.03 0 UA BLOOD DIPSTICK (test code = RUPERT) NEGATIVE mg/DL NEG UA PH DIPSTICK (test code = MARLEE) 5.5 pH UNITS 5.0-7.0 UA PROTEIN DIPSTICK (test code = PROU) 2+ mg/dL NEG UA UROBILINIOGEN DIPSTICK (test code = URO) 1.0 mg/dL <2.0 UA NITRITE DIPSTICK (test code = PAMELA) NEGATIVE SCREEN NEG UA LEUKOCYTE ESTERASE DIPSTICK (test code = 1+ Leuk/mcL NEGA TIVE LEUU) UA CULTURE NEEDED? (test code = UACULT) Criteria Culture CHK SOURCE OF URINE: VOIDEDless than 18 yrs old, neutropenic, or urological surgery? NOPrimary Indication for Culture: OtherOther Indication: CONFUSIONGLUCOSE BEDSIDE [id number] 11:56:00 Test Item Value Reference Range Comments GLUCOSE BEDSIDE TESTING (test code = GLUBED) 153 mg/dL 70- 110 GLUCOSE BEDSIDE [id number] 08:07:00 Test Item Value Reference Range Comments GLUCOSE BEDSIDE TESTING (test code = GLUBED) 118 mg/dL 70- 110 BASIC METABOLIC [id number] 04:36:00 Test Item Value Reference Range Comments SODIUM (test code = NA) 141 mmol/L 134-147 POTASSIUM (test code = K) 4.0 mmol/L 3.4-5.0 CHLORIDE (test code = CL) 106 mmol/L 100-108 CARBON DIOXIDE (test code = CO2) 30 mmol/L 21-32 ANION GAP (test code = GAP) 5.0 GAP calc 4.0-15.0 GLUCOSE (test code = GLU) 133 MG/DL 70-110 BLOOD UREA NITROGEN (test code = BUN) 34 MG/DL 7-18 GLOMERULAR FILTRATION RATE (test code = GFR) 39 estGFR >60 CREATININE (test code = CREAT) 1.4 MG/DL 0.6-1.0 CALCIUM (test code = CA) 8.9 MG/DL 8.5-10.1 Completed by Nursing: [id number] 04:36:00 Test Item Value Reference Range Comments TROPONIN-I (test code = < 0.015 NG/ML 0.000-0.045 Negative : </= 0.045 Positive: TROPI) >/= 0.046 Correl ation with serial results, other cardiac markers, and cli nical findings is necessary to determine the clinical signif icance of this result. Quantita tive results using different methodologies should not be co mpared to one another as numer ical results may varyby method. Completed by Nursing: NOGLUCOSE BEDSIDE [id number] 20:20:00 Test Item Value Reference Range Comments GLUCOSE BEDSIDE TESTING (test code = GLUBED) 111 mg/dL 70- 110 GLUCOSE BEDSIDE [id number] 18:34:00 Test Item Value Reference Range Comments GLUCOSE BEDSIDE TESTING (test code = GLUBED) 131 mg/dL 70- 110 [id number] 13:43:00 Test Item Value Reference Range Comments TROPONIN-I (test code = < 0.015 NG/ML 0.000-0.045 Negative : </= 0.045 Positive: TROPI) >/= 0.046 Correl ation with serial results, other cardiac markers, and cli nical findings is necessary to determine the clinical signif icance of this result. Quantita tive results using different methodologies should not be co mpared to one another as numer ical results may varyby method. Completed by Nursing: NOCHEMISTRY 8 [id number] 09:11:00 Test Item Value Reference Range Comments ISTAT-SODIUM (test code = NAP) mmol/L 135-146 ISTAT-POTASSIUM (test code = KP) mmol/L 3.5-4.9 ISTAT-CHLORIDE (test code = CLP) mmol/L 98-109 ISTAT-CARBON DIOXIDE (test code = ISTAT-CO2) mmol/L 24- 29 ISTAT CALCIUM IONIZED (test code = ISTAT-JOJO) mmol/L 1. 12-1.32 ISTAT-GLUCOSE (test code = GLUP) mg/dL 70-105 ISTAT-BUN (test code = BUNP) mg/dL 8-26 BEDSIDE CREATININE (test code = CREATBED) mg/dL 0.6-1. 3 GLOMERULAR FILTRATION RATE POC (test code = GFRBED) 57 39-90 CHEMISTRY 8 [id number] 09:11:00 Test Item Value Reference Range Comments ISTAT-SODIUM (test code = NAP) 141 mmol/L 135-146 ISTAT-POTASSIUM (test code = KP) 3.9 mmol/L 3.5-4.9 ISTAT-CHLORIDE (test code = CLP) 101 mmol/L 98-109 ISTAT-CARBON DIOXIDE (test code = ISTAT-CO2) 30 mmol/L 24- 29 ISTAT CALCIUM IONIZED (test code = ISTAT-JOJO) 1.19 mmol/L 1. 12-1.32 ISTAT-GLUCOSE (test code = GLUP) 130 mg/dL 70-105 ISTAT-BUN (test code = BUNP) 36 mg/dL 8-26 BEDSIDE CREATININE (test code = CREATBED) 1.0 mg/dL 0.6-1. 3 GLOMERULAR FILTRATION RATE POC (test code = 57 39-9 0 GFRBED) COMPREHENSIVE METABOLIC [id number] 07:02:00 Test Item Value Reference Range Comments SODIUM (test code = NA) 140 mmol/L 134-147 POTASSIUM (test code = K) 3.9 mmol/L 3.4-5.0 CHLORIDE (test code = CL) 106 mmol/L 100-108 CARBON DIOXIDE (test code = CO2) 31 mmol/L 21-32 ANION GAP (test code = GAP) 3.0 GAP calc 4.0-15.0 GLUCOSE (test code = GLU) 126 MG/DL 70-110 BLOOD UREA NITROGEN (test code = BUN) 31 MG/DL 7-18 GLOMERULAR FILTRATION RATE (test code = GFR) 57 estGFR >60 CREATININE (test code = CREAT) 1.0 MG/DL 0.6-1.0 TOTAL PROTEIN (test code = PROT) 7.3 G/DL 6.4-8.2 ALBUMIN (test code = ALB) 3.7 G/DL 3.4-5.0 GLOBULIN (test code = GLOB) 3.6 GM/dL ALBUMIN/GLOBULIN RATIO (test code = A/G) 1.0 RATIO 1.2-2.2 CALCIUM (test code = CA) 8.8 MG/DL 8.5-10.1 BILIRUBIN TOTAL (test code = BILT) 0.40 MG/DL 0.2-1.2 SGOT/AST (test code = AST) 25 Unit/L 15-37 SGPT/ALT (test code = ALT) 31 Unit/L 12-78 ALKALINE PHOSPHATASE TOTAL (test code = ALKP) 73 Unit/L 45 -117 Completed by Nursing: NONT PRO-BRAIN NATRIURETIC [id number] 07:02:00 Test Item Value Reference Range Comments NT PRO-BRAIN NATRIURETIC PEPTI (test code = 839 PG/ML 0-10 0 PROBNP) Completed by Nursing: [id number] 07:02:00 Test Item Value Reference Range Comments TROPONIN-I (test code = < 0.015 NG/ML 0.000-0.045 Negative : </= 0.045 Positive: TROPI) >/= 0.046 Correl ation with serial results, other cardiac markers, and cli nical findings is necessary to determine the clinical signif icance of this result. Quantita tive results using different methodologies should not be co mpared to one another as numer ical results may varyby method. Completed by Nursing: NOCOMPREHENSIVE METABOLIC [id number] 07:00:00 Test Item Value Reference Range Comments SODIUM (test code = NA) 140 mmol/L 134-147 POTASSIUM (test code = K) 3.9 mmol/L 3.4-5.0 CHLORIDE (test code = CL) 106 mmol/L 100-108 CARBON DIOXIDE (test code = CO2) 31 mmol/L 21-32 ANION GAP (test code = GAP) 3.0 GAP calc 4.0-15.0 GLUCOSE (test code = GLU) 126 MG/DL 70-110 BLOOD UREA NITROGEN (test code = BUN) 31 MG/DL 7-18 GLOMERULAR FILTRATION RATE (test code = GFR) estGFR >60 CREATININE (test code = CREAT) MG/DL 0.6-1.0 TOTAL PROTEIN (test code = PROT) G/DL 6.4-8.2 ALBUMIN (test code = ALB) G/DL 3.4-5.0 GLOBULIN (test code = GLOB) GM/dL ALBUMIN/GLOBULIN RATIO (test code = A/G) RATIO 1.2-2.2 CALCIUM (test code = CA) 8.8 MG/DL 8.5-10.1 BILIRUBIN TOTAL (test code = BILT) MG/DL 0.2-1.2 SGOT/AST (test code = AST) Unit/L 15-37 SGPT/ALT (test code = ALT) Unit/L 12-78 ALKALINE PHOSPHATASE TOTAL (test code = ALKP) Unit/L 45 -117 Completed by Nursing: NONT PRO-BRAIN NATRIURETIC [id number] 07:00:00 Test Item Value Reference Range Comments NT PRO-BRAIN NATRIURETIC PEPTI (test code = PROBNP) PG/ML 0-100 Completed by Nursing: [id number] 07:00:00 Test Item Value Reference Range Comments TROPONIN-I (test code = TROPI) NG/ML 0.000-0.045 Completed by Nursing: NOCBC W/AUTO [id number] 06:52:00 Test Item Value Reference Range Comments WHITE BLOOD CELL (test code = WBC) 8.2 K/mm3 3.5-11.0 RED BLOOD CELL (test code = RBC) 3.93 M/mm3 4.70-6.10 HEMOGLOBIN (test code = HGB) 11.1 G/DL 10.4-14.9 HEMATOCRIT (test code = HCT) 34.1 % 31.5-44.1 MEAN CELL VOLUME (test code = MCV) 86.8 Fl 84.5-98.6 MEAN CELL HGB (test code = MCH) 28.2 pg 27.0-34.2 MEAN CELL HGB CONCETRATION (test code = MCHC) 32.6 G/DL 31 .5-34.0 RED CELL DISTRIBUTION WIDTH (test code = RDW) 14.8 SD 11 .5-14.5 PLATELET COUNT (test code = PLT) 342.0 K/mm3 150-450 MEAN PLATELET VOLUME (test code = MPV) 10.40 fL 7.0-10.5 NEUTROPHIL % (test code = NT%) 47.7 % 40-76 LYMPHOCYTE % (test code = LY%) 36.6 % 20.5-51.1 MONOCYTE % (test code = MO%) 12.6 % 1.7-9.3 EOSINOPHIL % (test code = EO%) 2.9 % 0.0-6.0 BASOPHIL % (test code = BA%) 0.2 % 0.0-2.0 NEUTROPHIL # (test code = NT#) 3.89 K/mm3 1.8-7.6 LYMPHOCYTE # (test code = LY#) 3.0 K/mm3 0.6-3.2 MONOCYTE # (test code = MO#) 1.0 K/mm3 0.3-1.1 EOSINOPHIL # (test code = EO#) 0.2 K/mm3 0.0-0.4 BASOPHIL # (test code = BA#) 0.0 K/mm3 0.0-0.1 MANUAL DIFF REQUIRED (test code = MDIFF) NO DIFF/SCN CRITERI A - XR CHEST 1 [id number] 06:47:00 Name: RONALD ALLEN [facility] : 1940 Age/S: 77 / F [id number] Unit #: [id number] Loc: [place] [address] Phys: Fadumo Mendoza MD Acct: [id number] Dis Date: Status: PRE ER PHONE #: [phone] Exam Date: 08/15/2018 0635 FAX #: Reason: L chest pain EXAMS: CPT: [id number] XR CHEST 1 V [id number] Fluoro Time: DAP (Gy m2): Air Kerma [...] Mendoza MD PAGE 1 Signed Report Name: LARRY ALLEN [facility] : 1940 Age/S: 77 / F [address] Unit #: [id number] Loc: [place], [place] [address]Xmfy: Fadumo Mendoza MD Acct: [id number] Dis Date: Status: PRE ER PHONE #: [phone] Exam Date: 08/15/2018 0635 FAX #: Reason: L chest pain EXAMS: CPT: [id number] XRCHEST 1 V 00665 Fluoro Time: DAP (Gy m2): Air Kerma (mGy): <Continued> Technologist: Marcella Preston RT(R)(CT) Trnscb Date/Time: 08/15/2018 (0647) [email or web address] Orig Print D/T: S: 08/15/2018 (0624) PAGE 2 Signed ReportTROPONIN I [id number] 06:30:00 Test Item Value Reference Range Comments TROPONIN I RAPID (test code 0.01 ng/mL 0.00-0.08 - Th e use of serial sampling = TROPIRAP) and testing prot ocol is a recommended prac ligia- An elevated troponi n level alone is often not suf ficient for diagnosis of mecca cardial infarction.
--- OUTSIDE RECORDS SUMMARY | 2019-07-06 16:38 | XMS REPORT | Summary of Care ---
:1940 Author Organization [facility] - Health Address [address] [place] [address] Care Team Providers Name Role Phone Silke Ball MD Primary Care Provider [phone] Encounter Details Date Type Department Care Team Description 05/09/2019 Orders Only [facility] Doctor Unassigned, No [address] [facility] [place] [address] [address] [place] [address] Allergies Active Allergy Reactions Severity Noted Date Comments Codeine Unknown - See comments 01/05/2014 Patie nt does not remember reaction Morphine Unknown - See comments 01/07/2019 documented as of this encounter (statuses as of 05/25/2019) Medications Medication Sig Dispensed Refills Start Date [...] Take 1 tablet 30 tablet 5 02/02/2019 020 Active tabletIndications: by mouth daily Encephalopathy acute for 180 days. aspirin 81 mg chewable Take 1 tablet 90 tablet 1 02/02/2019 Active tabletIndications: by mouth daily Encephalopathy acute for 180 days. levETIRAcetam 500 mg Take 1 tablet 180 tablet 1 02/01/201901/2020 Active tabletIndications: by mouth 2 Encephalopathy acute (two) times daily for 180 days. Diaper,Brief, Use as directed 30 Each 03/24/2019 1 Active Adult,Disposable - 15 /day (DEPEND UNDERWEAR S-M) MiscIndications: Cerebrovascular accident (CVA), unspecified mechanism Underpads (BED Use as directed 90 Each 03/24/2019 Active UNDERPADS) PadsIndications: Cerebrovascular accident (CVA), unspecified mechanism isosorbide mononitrate Take 1 tablet 90 tablet 1 03/24/2019 Active 30 mg 24 hr by mouth daily. 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 [place] [address] Harpreet Garcia Bls Eeg 05/29/2019 Office Visit Geriatric Medicine Silke Ball MD [address] [place] [address] [phone] 05/30/2019 Office Visit Cardiology Will Prince M D [address] [place] [address] [place] [address]75 15 [phone] 07/31/2019 Office Visit Neurology Mary Reobllar ANP [address] [place] [address] [phone] Health Maintenance Due Date Last Done Comments [...] history exists documented as of this encounter Procedures Procedure Name Priority Date/Time Associated Diagnosis Comme nts HOME HEALTH - OTHER Routine 05/09/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 Medicare A & B t 2 [id number] MIKAYLA CHAU [phone] [facility] MEDICAID OF xxxxxxxxx 2019-Presemily [phone] [address] Medicaid [place] 0 [id number] [place] [address] documented as of this encounter
--- OUTSIDE RECORDS SUMMARY | 2019-07-06 16:39 | XMS REPORT | Summary of Care ---
:1940 Author Organization [facility] - [facility] Address [address] [place] [address] Care Team Providers Name Role Phone Silke Ball MD Primary Care Provider Reason for Referral (Routine) Status Reason Specialty Diagnoses / Referred By Referred To Procedures Contact Contact New Request Vascular Surgery Diagnoses Uncontrolled hypertension Will Prince, Jg RENAL ARTERY DUPLEX BY VASCULAR LAB [address] [place] [address] [address] [place] [address] Reason for Visit Reason Comments New Patient Establish Care (Routine) Status Reason Specialty Diagnoses / Referred By Referred To Procedures Contact Contact New Request Cardiology Diagnoses Cerebrovascular accident (CVA), unspecified mechanism Silke Ball Procedures CONSULT/REFERRAL CARDIOLOGY MD Kellen [address] [place] [address] Encounter Details Date Type Department Care Team Description 05/30/2019 Office Visit [facility] Will Prince M D Uncontrolled hypertension (Primary Dx); Cardiology- [address] Coronary artery disease invo lving kotlik coronary artery of kotlik heart without angina pectoris; [address] Cerebrovascular accident (CVA) due to th rombosis of right posterior cerebral artery; [address], [address] Hyperlipidemia, unspecified hyperlipidem ia type; [place], [place] Status post elida cement of implantable loop recorder; [id number] Left-sided carotid artery disease, unspe cified type [phone] Allergies Active Allergy Reactions Severity Noted Date Comments Codeine Unknown - See comments 01/05/2014 Prisca nt does not remember reaction Morphine Unknown - See comments 01/07/2019 documented as of this encounter (statuses as of 05/30/2019) Medications Medication Sig Dispensed Refills Start End Date Status Date nitroglycerin 0.4 mg Max 3 tablets 1 Bottle 3 Active sublingual in 15 minutes 9 tabletIndications: - then go to Chest pain, ER unspecified type rivastigmine 4.6 Apply 1 Patch 30 Patch 1 Active mg/24 hr to skin 9 patchIndications: daily. Cerebrovascular accident (CVA), unspecified mechanism aspirin 81 mg EC Take 81 mg by 0 Active tablet mouth daily. clopidogrel 75 mg Take 1 tablet 30 tablet 5 08/01/19 Active tabletIndications: by mouth 9 20 Encephalopathy acute daily for 180 days. aspirin 81 mg Take 1 tablet 90 tablet 1 08/01/19 Ac tive chewable by mouth 9 20 tabletIndications: daily for 180 Encephalopathy acute days. levETIRAcetam 500 mg Take 1 tablet 180 tablet 1 07/20 Active tabletIndications: by mouth 2 9 20 Encephalopathy acute (two) times daily for 180 days. Diaper,Brief, Use as 30 Each 03/24/19 Active Adult,Disposable directed - 15 0 21 (DEPEND UNDERWEAR /day S-M) MiscIndications: Cerebrovascular accident (CVA), unspecified mechanism Underpads (BED Use as 90 Each Activ e UNDERPADS) directed 0 PadsIndications: Cerebrovascular accident (CVA), unspecified mechanism isosorbide Take 1 tablet 90 tablet 1 Activ e mononitrate 30 mg 24 by mouth 0 [...] hours as needed for Pain (scale 4-6). albuterol 2.5 mg /3 Inhale 3 mL 90 Vial 5 Active mL (0.083 %) every 4 0 nebulizer (four) hours solutionIndications: as needed for Asthma with acute Wheezing or exacerbation, Shortness of unspecified asthma Breath. severity, unspecified whether persistent metFORMIN 500 mg Take 1 tablet 60 tablet 2 Active tabletIndications: by mouth 2 0 Controlled type 2 (two) times diabetes mellitus daily with with diabetic meals. neuropathy, without long-term current use of insulin amLODIPine 5 mg Take 1 tablet 30 tablet 3 Active tabletIndications: by mouth 0 Uncontrolled daily. hypertension carvediloL 6.25 mg Take 1 tablet 60 tablet 3 Active tablet by mouth 2 0 (two) times daily with meals. CARVEDILOL 3.125 mg TAKE ONE 60 tablet 2 05/30/19 Discontinued tabletIndications: TABLET BY 9 20 ( Reorder) Chronic congestive MOUTH TWICE heart failure, DAILY WITH unspecified heart MEALS failure type Hospital, Clinic, or Other Ordered Dose Route Frequency Start Date End Date Status Facility Administered Medication albuterol (PROVENTIL) 2.5 mg 2.5 mg Inhale Q6HPRN 03/24/2019 Active /3 mL (0.083 %) nebulizer solution 2.5 mg documented as of this encounter (statuses as of 05/30/2019) Active Problems Problem Noted Date Stroke 01/25/2019 Weakness 01/25/2019 Arthritis of right hip 06/30/2016 [place] (myocardial infarction) Frequent falls Spinal stenosis 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, without long-term current use of insulin HTN (hypertension) Hyperlipidemia Hypertriglyceridemia CVA (cerebral vascular accident) Overview: 1 large and several mini H/O hepatitis CAD (coronary artery disease) Peripheral neuropathy Urinary incontinence documented as of this encounter (statuses as of 05/30/2019) Immunizations Name Administration Dates Next Due Influenza [...] Sign Reading Time Taken Comments Blood Pressure 170/84 05/30/2019 4:10 PM CDT Pulse 58 05/30/2019 4:06 PM CDT Temperature - - Respiratory Rate 20 05/30/2019 4:06 PM CDT Oxygen Saturation 96% 05/30/2019 4:06 PM CDT Inhaled Oxygen Concentration - - Weight 54 kg (119 lb) 05/30/2019 4:06 PM CDT Height 149.9 cm (4' 11") 05/30/2019 4:06 PM CDT Body Mass Index 24.04 05/30/2019 4:06 PM CDT documented in this encounter Patient Instructions Patient InstructionsWill Prince MD - 05/30/2019 4:00 PM CDTAdd amlodipine 5 mg daily Increase carvedilol to 6.25 mg 2 times a day documented in this encounter Progress Notes Will Prince MD - 05/30/2019 4:00 PM CDT CARDIOLOGY CLINIC NOTE 05/30/2019 Reason for Referral/Presenting Complaint: CAD, HTN, stroke PCP: Silke Ball History of Present Illness: Janell Zuniga is an 78 years old female with history of HTN, HLD, CAD s/p CABG, carotid disease s/p L CEA, and multiple strokes. Carotid disease--L CEA in [facility] in 2018. CAD--s/p CABG in 2015. H/o multiple strokes--most recent one in 01/2019. Found to have intracranial stenosis. S/p ILR. Her BP has been elevated at least > 170. 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 Severe stenosis at the ostium of right vertebral artery. Focal moderate stenoses of the bilateral P2 investigator utility bill complaints, left M1 MCA and right M2 MCA inferior division. Pseudoaneurysm versus ulcerated plaque is noted adjacent to the ostium of the left subclavian artery from the aortic arch. Ectasia and P2 and appearance of the bilateral supraclinoid ICAs may represent fibromuscular dysplasia changes or advanced atherosclerotic Disease. Cardiovascular testing: EKG: Normal sinus rhythm Possible Left atrial enlargement Incomplete right bundle branch block left anterior fascicular block Left ventricular hypertrophy with repolarization abnormality Echocardiogram: Left ventricular systolic function is normal. Ejection Fraction = 55-60%. Diastolic function is pseudonormal. Injection of agitated saline contrast documented no interatrial shunt. Review of Systems: General: (-) fever, (-) chills, (-) weight change, (-) dizziness, (+) fatigue Skin: (-) rash HEENT: (-) headache, (-) change in vision Neck: (-) difficulty swallowing Heme: negative Resp: (-) cough, (-) dyspnea on exertion Cardio: (-) chest pain, (-) palpitations, (-) syncope GI: (-) vomiting, (-) diarrhea : negative Endo: (-) diabetes, (-) thyroid disease Neuro: (-) numbness, (-) tingling, (+) weakness Back: (-) pain NANCY: (-) muscle pain, (-) claudication Psych: (-) anxiety, (-) depression Past Medical History: Past Medical History: Diagnosis Date CAD (coronary artery disease) CVA (cerebral infarction) 1 large and several mini Diabetes mellitus Frequent falls H/O hepatitis cannot donate blood HTN (hypertension) Hyperlipidemia Hypertriglyceridemia [place] (myocardial infarction) Peripheral neuropathy Spinal stenosis Urinary incontinence Current Medications: Current Outpatient Medications Medication Sig Dispense Refill amLODIPine 5 mg tablet Take 1 tablet by mouth daily. 30 tablet 3 carvediloL 6.25 mg tablet Take 1 tablet by mouth 2 (two) times daily with meals. 60 tablet 3 albuterol 2.5 mg /3 mL (0.083 %) nebulizer solution Inhale 3 mL every 4 (four) hours as needed for Wheezing or Shortness of Breath. 90 Vial 5 metFORMIN 500 mg tablet Take 1 tablet by mouth 2 (two) times daily with meals. 60 tablet 2 isosorbide mononitrate 30 mg 24 hr tablet Take 1 tablet by mouth daily. 90 tablet 1 lisinopril 30 mg tablet Take 1 tablet by mouth daily. 90 tablet 0 aspirin 81 mg chewable tablet Take 1 tablet by mouth daily for 180 days. 90 tablet 1 clopidogrel 75 mg tablet Take 1 tablet by mouth daily for 180 days. 30 tablet 5 levETIRAcetam 500 mg tablet Take 1 tablet by mouth 2 (two) times daily for 180 days. 180 tablet 1 aspirin 81 mg EC tablet Take 81 mg by mouth daily. rivastigmine 4.6 mg/24 hr patch Apply 1 Patch to skin daily. 30 Patch 1 acetaminophen 325 mg tablet Take 2 tablets by mouth every 6 (six) hours as needed for Pain (scale 4-6). 90 tablet 1 Diaper,Brief, Adult,Disposable (DEPEND UNDERWEAR S-M) Misc Use as directed - 15 /day 30 Each 5 Underpads (BED UNDERPADS) Pads Use as directed 90 Each 5 nitroglycerin 0.4 mg sublingual tablet Max 3 tablets in 15 minutes - then go to ER 1 Bottle 3 Current Facility-Administered Medications Medication Dose Route Frequency Last Rate Last Dose albuterol (PROVENTIL) 2.5 mg /3 mL (0.083 %) nebulizer solution 2.5 mg 2.5 mg Inhalation Q6HPRN Social History: Social History Socioeconomic History Marital status: Spouse name: Not on file Number of children: 8 Years of education: 11 Highest education level: Not on file Occupational History 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 Family History Family History Problem Relation Age of Onset Heart Mother Diabetes Father Diabetes Brother Heart Brother Physical Examination: BP (!) 170/84 | Pulse 58 | Resp 20 | Ht 4' 11" (1.499 m) | Wt 119 lb (54 kg) | SpO2 96% | BMI 24.04 kg/m Constitutional: alert and oriented x 3 (person, place and date/time); no apparent distress ENT: normocephalic atraumatic, supple, no lymphadenopathy, no bruits, no JVD Lungs: clear to auscultation bilaterally Cardiovascular: S1, S2 normal, regular; no murmurs, rubs or gallops GI: soft; non-tender; non-distended; normoactive bowel sounds : not examined Musculoskeletal: Extremities: no clubbing, cyanosis, or edema Skin: no rashes Neuro: + R weakness Assessment/Plan: ICD-10-CM ICD-9-CM 1. Uncontrolled hypertension I10 401.9 2. Coronary artery disease involving kotlik coronary artery of kotlik heart without angina pectoris I25.10 414.01 3. Cerebrovascular accident (CVA) due to thrombosis of right posterior cerebral artery I63.331 434.01 4. Hyperlipidemia, unspecified hyperlipidemia type E78.5 272.4 5. Status post placement of implantable loop recorder Z95.818 V45.09 6. Left-sided carotid artery disease, unspecified type I73.9 447.9 Uncontrolled HTN--will get renal artery duplex to assess NORMA given CAD/carotid disease. Will increase coreg to 6.25 mg BID. Add amlodipine 5 mg daily. Continue lisinopril. Daily BP log. CAD--s/p CABG. Normal LVEF. Continue ASA/plavix/lipitor/coreg. Carotid artery disease--s/p L CEA. CT angiogram showed no significant stenosis. Multiple strokes--s/p ILR. Device check reviewed. Patient was counseled for lifestyle modifications including: diet and exercise. RTC 1 month Will Prince MD, FACC, MAT Pharmaceutical Assistant, Division of Cardiology [facility] documented in this encounter Plan of Treatment Date Type Specialty Care Team Description 06/09/2019 Concrete Craftsman Visit Cardiology Pc, Adc Vascular Room 1 - 07/03/2019 Office Visit Cardiology Will Prince M D [address] [facility] [address] [place], [place] [address] [phone] 07/11/2019 Office Visit Geriatric Medicine Alon Melo, JESSICA [address] [place] [address] 07/31/2019 Office Visit Neurology Mary Rebollar, JESSICA [address] [place], [place] [phone] Health Maintenance Due Date Last Done Comments EYE EXAM 1950 URINE MICROALBUMIN 1950 DTaP,Tdap,and Td Vaccines 1949 (1 - Tdap) Zoster Recombinant Vaccine 1988 (SHINGRIX) (1 of 2) Medicare Wellness Visit 10/21/2003 Osteoporosis Screening 10/21/2003 FOOT EXAM 07/16/2018 07/16/2017, 07/16/2017 PNEUMOCOCCAL VACCINES 65+ 03/29/2019 03/29/2018 (2 of 2 - PCV13) INFLUENZA VACCINE (#1) 2019 03/29/2018 Postponed from 11/20/2018 (Refu sed) HgA1C 11/29/2019 05/29/2019, 01/25/2019, 09/15/2018, Additional history exists LDL-C 01/27/2020 01/26/2019, 01/25/2019, 09/15/2018, Additional history exists CREATININE (SERUM) 02/01/2020 01/31/2019, 01/28/2019, 01/27/2019, Additional history exists documented as of this encounter Results Not on filedocumented in this encounter Visit Diagnoses Diagnosis Uncontrolled hypertension - Primary Unspecified essential hypertension Coronary artery disease involving kotlik coronary artery of kotlik heart without angina pectoris Cerebrovascular accident (CVA) due to th rombosis of right posterior cerebral artery Hyperlipidemia, unspecified hyperlipidem ia type Status post placement of implantable loo p recorder Left-sided carotid artery disease, unspe cified type documented in this encounter Insurance Payer Benefit Plan / Subscriber ID Effective Dates Phone Addre ss Type Group MEDICARE MEDICARE PART xxxxxxxxxxx 2004-Presemeterio [phone] [address] Medicare A & B t 2 [id number] MIKAYLA CHAU [id number] [facility] MEDICAID OF xxxxxxxxx 2019-Richard [phone] [address] Medicaid [facility] 0 [id number] [place] [address] documented as of this encounter
--- OUTSIDE RECORDS SUMMARY | 2019-07-06 16:39 | XMS REPORT | Summary of Care ---
:1940 Author Organization [facility] - [facility] Address [address] [place] [address] Care Team Providers Name Role Phone Silke Ball MD Primary Care Provider [phone] Reason for Referral (Routine) Status Reason Specialty Diagnoses / Referred By Referred To Procedures Contact Contact New Request Vascular Surgery Diagnoses Uncontrolled hypertension Will Prince, Jg RENAL ARTERY DUPLEX BY VASCULAR LAB [address] [place] [address] [address] [place] [address] Reason for Visit Reason Comments New Patient Establish Care (Routine) Status Reason Specialty Diagnoses / Referred By Referred To Procedures Contact Contact New Request Cardiology Diagnoses Cerebrovascular accident (CVA), unspecified mechanism Silke Ball Procedures CONSULT/REFERRAL CARDIOLOGY MD Kellen [address] [place] [address] Encounter Details Date Type Department Care Team Description 05/30/2019 Office Visit [facility] Prince M D Uncontrolled hypertension (Primary Dx); Cardiology- [address] Coronary artery disease invo lving [place]osh[place] coronary artery of conf[place] heart without angina pectoris; [address] Cerebrovascular accident (CVA) due to th rombosis of right posterior cerebral artery; [address] Hyperlipidemia, unspecified hyperlipidem ia type; [place], [place] Status post elida cement of implantable loop recorder; [id number] Left-sided carotid artery disease, unspe cified type [phone] Allergies Active Allergy Reactions Severity Noted Date [...] hr daily. tabletIndications: Coronary artery disease involving confederated gosh[place] heart without angina pectoris, unspecified vessel or [...] Weakness 01/25/2019 Arthritis of right hip 06/30/2016 [place] (myocardial infarction) Frequent falls Spinal stenosis Controlled [...] and multiple strokes. Carotid disease--L CEA in [place] [facility] in 2018. CAD--s/p CABG in 2015. 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 Coronary artery disease involving conf[place] gosh[place] coronary artery of conf[place]erated [place] heart without angina pectoris I25.10 414.01 3. [...] 1 month Will Prince MD, FACC, MAT Enhanced Environmental Operator, Division of Cardiology [facility] documented in this encounter Plan of Treatment Date Type Specialty Care Team Description 06/09/2019 Wool Tamper Visit Cardiology Pc, Adc Vascular Room 1 - 07/03/2019 Office Visit Cardiology Will Prince M D [address] [facility] [address] [place], [place] [address] [phone] 07/11/2019 Office Visit Geriatric Medicine Alon Melo, JESSICA [address] [place] [address] 07/31/2019 Office Visit Neurology Mary Rebollar, JESSICA [address] [place], [place] [phone] Health Maintenance Due Date [...] Unspecified essential hypertension Coronary artery disease involving confederated gosh[place] coronary artery of confederated gosh[place] heart without angina pectoris Cerebrovascular accident (CVA) [...] BOX Medicare A & B t 2 [id number] MIKAYLA CHAU [address] [facility] MEDICAID OF xxxxxxxxx 2019-Richard [phone] [address] Medicaid [facility] [id number] [place] [address] documented as of this encounter
--- OUTSIDE RECORDS SUMMARY | 2019-07-06 16:40 | XMS REPORT | Summary of Care ---
:1940 Author Organization [facility] - [facility] Address [address] [place] [address] Care Team Providers Name Role Phone Silke Ball MD Primary Care Provider [phone] Reason for Visit Reason Comments Refill Request Encounter Details Date Type Department Care Team Description 05/30/2019 Refill [facility] Geriatrics- Silke Thacker Refill Request [facility] Multispecialty Ctr MD Kellen [address] [place] [address] [address] [place], [place] [phone] [place] [address] [phone] Allergies Active Allergy Reactions Severity Noted Date Comments Codeine Unknown - See comments 01/05/2014 Patie nt does not remember reaction Morphine Unknown - See comments 01/07/2019 documented as of this encounter (statuses as of 05/31/2019) Medications Medication Sig Dispensed Refills Start Date End Date Status nitroglycerin 0.4 mg Max 3 tablets 1 Bottle 3 10/07/2018 Active sublingual in 15 minutes tabletIndications: - then go to Chest pain, ER unspecified type rivastigmine 4.6 Apply 1 Patch 30 Patch 1 10/11/2018 Active mg/24 hr to skin daily. patchIndications: Cerebrovascular accident (CVA), unspecified mechanism aspirin 81 mg EC Take 81 mg by 0 Active tablet mouth daily. clopidogrel 75 mg Take 1 tablet 30 tablet 5 02/02/2019 02 Active tabletIndications: by mouth daily 0 Encephalopathy acute for 180 days. aspirin 81 mg Take 1 tablet 90 tablet 1 02/02/2019 A ctive chewable by mouth daily 0 tabletIndications: for 180 days. Encephalopathy acute levETIRAcetam 500 mg Take 1 tablet 180 tablet 1 02/01/2019 Active tabletIndications: by mouth 2 0 Encephalopathy acute (two) times daily for 180 days. Diaper,Brief, Use as 30 Each 03/24/2019 Activ e Adult,Disposable directed - 15 1 (DEPEND UNDERWEAR /day S-M) MiscIndications: Cerebrovascular accident (CVA), unspecified mechanism Underpads (BED Use as 90 Each 03/24/2019 Acti ve UNDERPADS) directed PadsIndications: Cerebrovascular accident (CVA), unspecified mechanism isosorbide Take 1 tablet 90 tablet 1 03/24/2019 Acti ve mononitrate 30 mg 24 by mouth hr daily. tabletIndications: Coronary artery disease involving [place] heart without angina pectoris, unspecified vessel or lesion type lisinopril 30 mg Take 1 tablet 90 tablet 0 03/24/2019 Active tabletIndications: by mouth Essential daily. hypertension acetaminophen 325 mg Take 2 tablets 90 tablet 1 04/24/2019 Active tablet by mouth every 6 (six) hours as needed for Pain (scale 4-6). albuterol 2.5 mg /3 Inhale 3 mL 90 Vial 5 05/29/2019 Active mL (0.083 %) every 4 (four) nebulizer hours as solutionIndications: needed for Asthma with acute Wheezing or exacerbation, Shortness of unspecified asthma Breath. severity, unspecified whether persistent metFORMIN 500 mg Take 1 tablet 180 tablet 1 05/31/2019 Active tabletIndications: by mouth 2 Controlled type 2 (two) times diabetes mellitus daily with with diabetic meals. neuropathy, without long-term current use of insulin amLODIPine 5 mg Take 1 tablet 30 tablet 3 05/30/2019 Active tabletIndications: by mouth Uncontrolled daily. hypertension carvediloL 6.25 mg Take 1 tablet 60 tablet 3 05/30/2019 Active tablet by mouth 2 (two) times daily with meals. metFORMIN 500 mg Take 1 tablet 60 tablet 2 05/29/2019 05/31/19 2 Discontinued tabletIndications: by mouth 2 0 Controlled type 2 (two) times diabetes mellitus daily with with diabetic meals. neuropathy, without long-term current use of insulin Hospital, Clinic, or Other Ordered Dose Route Frequency Start Date End Date Status Facility Administered Medication albuterol (PROVENTIL) 2.5 mg 2.5 mg Inhale Q6HPRN 03/24/2019 Active /3 mL (0.083 %) nebulizer solution 2.5 mg documented as of this encounter (statuses as of 05/31/2019) Active Problems Problem Noted Date Stroke 01/25/2019 Weakness 01/25/2019 Arthritis of right hip 06/30/2016 AR (myocardial infarction) Frequent falls Spinal stenosis 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, without long-term current use of insulin HTN (hypertension) Hyperlipidemia Hypertriglyceridemia CVA (cerebral vascular accident) Overview: 1 large and several mini H/O hepatitis CAD (coronary artery disease) Peripheral neuropathy Urinary incontinence documented as of this encounter (statuses as of 05/31/2019) Immunizations Name Administration Dates Next Due Influenza [...] Date Type Specialty Care Team Description 06/09/2019 Volunteer Manager Visit Cardiology Pc, Adc Vascular Room 1 - 07/03/2019 Office Visit Cardiology Will Prince M D [address] [facility] [address] [place], [place] [address] 15 [phone] 07/11/2019 Office Visit Geriatric Medicine Alon Melo ANP [address] [place] [address] 07/31/2019 Office Visit Neurology Mary Rebollar ANP [address] [place] [address] [phone] Health Maintenance Due Date Last Done [...] filedocumented in this encounter Visit Diagnoses Diagnosis Controlled type 2 diabetes mellitus with diabetic neuropathy, without long-term current use of insulin documented in this encounter Insurance Payer Benefit Plan / Subscriber ID Effective Dates Phone Addre ss Type Group MEDICARE MEDICARE PART xxxxxxxxxxx 2004-Presemeterio [phone] Medicare A & B t 2 [id number] MIKAYLA CHAU [phone] [facility] MEDICAID OF xxxxxxxxx 2019-Prese [phone] Medicaid [place] nt 0 [id number] [place] [address] documented as of this encounter
--- OUTSIDE RECORDS SUMMARY | 2019-07-06 16:40 | XMS REPORT | Summary of Care ---
:1940 Author Organization [facility] - [facility] Address [address] [place] [address] Care Team Providers Name Role Phone Silke Ball MD Primary Care Provider [phone] Reason for Visit Reason Comments Assessment Encounter Details Date Type Department Care Team Description 05/26/2019 Telephone [facility] Geriatrics- Silke Simmons [facility] Multispecialty Ctr MD Kellen [address] [place], [place] [address] [place], [place] [id number] Allergies Active Allergy Reactions Severity Noted Date Comments Codeine Unknown - See comments 01/05/2014 Patie nt does not remember reaction Morphine Unknown - See comments 01/07/2019 documented as of this encounter (statuses as of 06/06/2019) Medications Medication Sig Dispensed Refills Start Date End Date Status nitroglycerin 0.4 mg Max 3 tablets 1 Bottle 3 10/07/2018 Active sublingual in 15 minutes - tabletIndications: then go to ER Chest pain, unspecified type rivastigmine 4.6 mg/24 Apply 1 Patch 30 Patch 1 10/11/2018 Active hr patchIndications: to skin daily. Cerebrovascular accident (CVA), unspecified mechanism aspirin [...] mouth daily. tabletIndications: Coronary artery disease involving [place] heart without angina pectoris, unspecified vessel or [...] as of this encounter (statuses as of 06/06/2019) Active Problems Problem Noted Date Stroke 01/25/2019 Weakness 01/25/2019 Arthritis of right hip 06/30/2016 [place] (myocardial infarction) Frequent falls Spinal stenosis 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, without long-term current use of insulin HTN (hypertension) Hyperlipidemia Hypertriglyceridemia CVA (cerebral vascular accident) Overview: 1 large and several mini H/O hepatitis CAD (coronary artery disease) Peripheral neuropathy Urinary incontinence documented as of this encounter (statuses as of 06/06/2019) Immunizations Name Administration Dates Next Due Influenza [...] Date Type Specialty Care Team Description 06/09/2019 Home Health Aide Caregiver Visit Cardiology Will Prince MD [address] [place] [address] [phone] Pc, Adc Vascular Room 1 - 07/03/2019 Office Visit Cardiology Will Prince M D [address] [address] [phone] 07/11/2019 Office Visit Geriatric Medicine Alon Melo, ANP [address] [facility] [address] [place], [place] [address] 07/31/2019 Office Visit Neurology Mary Rebollar, JESSICA [address] [place], [place] [address] Health Maintenance Due Date Last Done Comments EYE EXAM 1950 URINE MICROALBUMIN 1950 DTaP,Tdap,and Td Vaccines (1 - 1949 Tdap) Zoster Recombinant Vaccine 1988 (SHINGRIX) (1 of 2) Medicare Wellness Visit 10/21/2003 Osteoporosis Screening 10/21/2003 FOOT EXAM 07/16/2018 07/16/2017, 07/16/2017 INFLUENZA VACCINE (#1) 2018 03/29/2018 PNEUMOCOCCAL VACCINES 65+ (2 of 2 03/29/2019 03/29/2018 - PCV13) HgA1C 11/29/2019 05/29/2019, 01/25/2019, 09/15/2018, Additional history exists LDL-C 01/27/2020 01/26/2019, 01/25/2019, 09/15/2018, Additional history exists CREATININE (SERUM) 02/01/2020 01/31/2019, 01/28/2019, 01/27/2019, Additional history exists documented as of this encounter Results Not on filedocumented in this encounter Insurance Payer Benefit Plan / Subscriber ID Effective Dates Phone Addre ss Type Group MEDICARE MEDICARE PART xxxxxxxxxxx 2004-Presen [phone] [address] Medicare A & B t 2 [id number] MIKAYLA CHAU [id number] [facility] MEDICAID OF xxxxxxxxx 2019-Prese [phone] [address] Medicaid [place] nt 0 [id number] [place] [address] documented as of this encounter
--- OUTSIDE RECORDS SUMMARY | 2019-07-06 16:40 | XMS REPORT | Summary of Care ---
:1940 Author Organization [facility] - [facility] Address [address] [place] [address] Care Team Providers Name Role Phone Silke Ball MD Primary Care Provider [phone] Reason for Visit Reason Comments Notification letter Encounter Details Date Type Department Care Team Description 05/30/[address] [facility] Geriatrics- Silke Ball Notification (letter) Eva Foreman MD Multispecialty Ctr [address] [place] [phone] Allergies Active Allergy Reactions Severity Noted Date Comments Codeine Unknown - See comments 01/05/2014 Patie nt does not remember reaction Morphine Unknown - See comments 01/07/2019 documented as of this encounter (statuses as of 05/31/2019) Medications Medication Sig Dispensed Refills Start Date End Date Status nitroglycerin 0.4 mg Max 3 tablets in [...] daily. clopidogrel 75 mg Take 1 tablet by 30 tablet 5 02/02/201907/20 Active tabletIndications: mouth daily for Encephalopathy acute 180 days. aspirin 81 mg chewable Take 1 tablet by 90 tablet 1 02/02/2019 08/01/2019 Active tabletIndications: mouth daily for Encephalopathy acute 180 days. levETIRAcetam 500 mg Take 1 tablet by 180 tablet 1 02/01/2019 07/31/2019 Active tabletIndications: mouth 2 (two) Encephalopathy acute times daily for 180 days. Diaper,Brief, Use as directed 30 Each 03/24/2019 1 Active Adult,Disposable - 15 /day (DEPEND UNDERWEAR S-M) MiscIndications: Cerebrovascular accident (CVA), unspecified mechanism Underpads (BED Use as directed 90 Each 03/24/2019 Active UNDERPADS) PadsIndications: Cerebrovascular accident (CVA), unspecified mechanism isosorbide mononitrate Take 1 tablet by 90 tablet 1 03/24/2019 Active 30 mg 24 hr mouth daily. tabletIndications: Coronary artery disease involving [place] heart without angina pectoris, unspecified vessel or lesion type lisinopril 30 mg Take 1 tablet by 90 tablet 0 03/24/2019 Active tabletIndications: mouth daily. Essential hypertension acetaminophen 325 mg Take 2 tablets 90 tablet 1 04/24/2019 Active tablet by mouth every 6 (six) hours as needed for Pain (scale 4-6). albuterol 2.5 mg /3 mL Inhale 3 mL 90 Vial 5 05/29/2019 Active (0.083 %) nebulizer every 4 (four) solutionIndications: hours as needed Asthma with acute for Wheezing or exacerbation, Shortness of unspecified asthma Breath. severity, unspecified whether persistent metFORMIN 500 mg Take 1 tablet by 60 tablet 2 05/29/2019 Active tabletIndications: mouth 2 (two) Controlled type 2 times daily with diabetes mellitus with meals. diabetic neuropathy, without long-term current use of insulin amLODIPine 5 mg Take 1 tablet by 30 tablet 3 05/30/2019 Active tabletIndications: mouth daily. Uncontrolled hypertension carvediloL 6.25 mg Take 1 tablet by 60 tablet 3 05/30/2019 Active tablet mouth 2 (two) times daily with meals. Hospital, Clinic, or Other Ordered Dose Route Frequency Start Date End Date Status Facility Administered Medication albuterol (PROVENTIL) 2.5 mg 2.5 mg Inhale Q6HPRN 03/24/2019 Active /3 mL (0.083 %) nebulizer solution 2.5 mg documented as of this encounter (statuses as of 05/31/2019) Active Problems Problem Noted Date Stroke 01/25/2019 Weakness 01/25/2019 Arthritis of right hip 06/30/2016 [place] (myocardial infarction) Frequent falls Spinal stenosis Controlled [...] encounter Progress Notes Theresa Heck LMSW - 05/31/2019 3:06 PM CDTSOCIAL WORK NOTE: IVORY assisted MD with completion of [id number] for patient's daughter to assist her with her finances. IVORY left vmm for patient's daughter informing that form is ready for cigar packer and picker at clinic but to call back if she wants mailed. Theresa Heck LMSW, [facility]- Geotechnical Operating Engineer- [facility] Ambulatory Geotechnical Operating Engineer- Metal Stud Framer [email or web address] documented in this encounter Plan of Treatment Date Type Specialty Care Team Description 06/09/2019 Excellence Specialist Visit Cardiology Pc, Adc Vascular Room 1 - 07/03/2019 Office Visit Cardiology Will Prince M D [address] [facility] [address] [place] [address] [phone] 07/11/2019 Office Visit Geriatric Medicine Alon Melo, ANP [address] [place] [address] 07/31/2019 Office Visit Neurology Mary Rebollar, JESSICA [address] [place], [place] [phone] Health Maintenance Due Date [...] Type Group MEDICARE MEDICARE PART xxxxxxxxxxx 2004-Presen [phone] [address] Medicare A & B t 2 [id number] MIKAYLA CHAU [id number] [facility] MEDICAID OF xxxxxxxxx 2019-Prese [phone] [address] Medicaid [facility] 0 [id number] [place] [address] documented as of this encounter
--- NOTE | 2019-07-06 16:41 | EDPHYS ---
Physician Documentation [facility] Name: Janell Zuniga Age: 78 yrs Sex: Female : 1940 Arrival Date: 07/06/2019 Time: 16:35 Bed 20 Private MD: ED Physician Cruz Lu HPI: 07/05 16:35 This 78 yrs old Female presents to ER via Unassigned with complaints of PEG ps1 tube clogged. 16:35 Patient was seen yesterday and transferred for dislodged G tube. Now BIBEMS for clogged ps1 tube that was placed yesterday from OSH. Has medication granules in distal opening of tube. . Historical: - Allergies: 16:38 Codeine; ah 16:38 Latex, Natural Rubber; ah 16:38 Morphine; ah - PMHx: 16:38 Aphasia; CAD; CVA; Diabetes - NIDDM; hemiparesis right; Hypertension; ah - Immunization history:: Adult Immunizations up to date. - Social history:: Smoking status: Patient denies any tobacco usage or history of. ROS: 16:35 Constitutional: Negative for fever, chills, and weight loss, Eyes: Negative for injury, ps1 pain, redness, and discharge, Cardiovascular: Negative for chest pain, palpitations, and edema, Skin: Negative for injury, rash, and discoloration. 16:35 Abdomen/GI: Positive for G tube displaced. 16:35 Neuro: Positive for weakness. Exam: 16:35 Constitutional: This is a well developed, well nourished patient who is awake, alert, ps1 and in no acute distress. Head/Face: Normocephalic, atraumatic. Eyes: Pupils equal round and reactive to light, extra-ocular motions intact. Lids and lashes normal. Conjunctiva and sclera are non-icteric and not injected. 16:35 Chest/axilla: Inspection: normal. 16:35 Cardiovascular: Rate: normal, Rhythm: regular. 16:35 Respiratory: the patient does not display signs of respiratory distress, Respirations: normal. 16:35 Abdomen/GI: [address] Medication granules at distal end. . Vital Signs: 16:20 BP 169 / 72; Pulse 78; Resp 16; Temp 98.1; Pulse Ox 96% ; Weight 49.9 kg; Height 5 ft. 1 in. (154.94 cm); 16:20 Body Mass Index 20.78 (49.90 kg, 154.94 cm) Procedures: 16:35 Performed PEG tube maintenance.. Deflated balloon and removed granules. Replaced ps1 without difficulty. Flushed without resistance. . MDM: 16:35 Data reviewed: vital signs, nurses notes. Counseling: I had a detailed discussion with ps1 the patient and/or guardian regarding: the historical points, exam findings, and any diagnostic results supporting the discharge/admit diagnosis, the need for outpatient follow up, to return to the emergency department if symptoms worsen or persist or if there are any questions or concerns that arise at home. 16:40 Patient medically screened. ps1 Administered Medications: No medications were administered Disposition: 07/06/19 16:40 Discharged to Home. Impression: PEG tube malfunction. - Condition is Stable. - Discharge Instructions: PEG Tube Home Guide. - Medication Reconciliation Form, Thank You Letter, Antibiotic Education, Prescription Opioid Use form. - Follow up: Private Physician; When: As needed; Reason: Recheck today's complaints, Continuance of care, Re-evaluation by your physician. Follow up: Emergency Department; When: As needed; Reason: If symptoms return, Trouble breathing, Worsening of condition. - Problem is new. - Symptoms are resolved. Signatures: Cruz Lu MD MD [facility] Donita Laughlin RN RN Corrections: (The following items were deleted from the chart) 17:08 16:40 07/06/2019 16:40 Discharged to Home. Impression: PEG tube malfunction. Condition ah is Stable. Forms are Medication Reconciliation Form, Thank You Letter, Antibiotic Education, Prescription Opioid Use. Follow up: Private Physician; When: As needed; Reason: Recheck today's complaints, Continuance of care, Re-evaluation by your physician. Follow up: Emergency Department; When: As needed; Reason: If symptoms return, Trouble breathing, Worsening of condition. Problem is new. Symptoms are resolved. ps1
--- NOTE | 2019-07-06 16:41 | ER ---
Nurse's Notes [facility] Name: Janell Zuniga Age: 78 yrs Sex: Female : 1940 Arrival Date: 07/06/2019 Time: 16:35 Bed 20 Private MD: Diagnosis: PEG tube malfunction Presentation: 07/05 16:20 Chief complaint: EMS states: peg tube is dislodged and or clogged. Coronavirus screen: Proceed with normal triage. Patient denies a cough. Patient denies shortness of breath or difficulty breathing. Patient denies measured and/or subjective temperature greater than 100.4F prior to today's visit. Patient denies travel on a cruise ship or to a country the [facility] currently lists as an affected area. Patient denies contact with known and/or suspected case of COVID-19. Ebola Screen: No symptoms or risks identified at this time. Initial Sepsis Screen: Does the patient meet any 2 criteria? No. Patient's initial sepsis screen is negative. Does the patient have a suspected source of infection? No. Patient's initial sepsis screen is negative. Risk Assessment: Do you want to hurt yourself or someone else? Patient reports no desire to harm self or others. 16:20 Method Of Arrival: EMS: [facility] 16:20 Acuity: ANANT 4 16:55 Onset of symptoms was July 06, 2019. Triage Assessment: 16:39 General: Appears in no apparent distress. Pain: Denies pain. Historical: - Allergies: 16:38 Codeine; 16:38 Latex, Natural Rubber; 16:38 Morphine; - PMHx: 16:38 Aphasia; CAD; CVA; Diabetes - NIDDM; hemiparesis right; Hypertension; - Immunization history:: Adult Immunizations up to date. - Social history:: Smoking status: Patient denies any tobacco usage or history of. Screenin:46 Abuse screen: Denies threats or abuse. Nutritional screening: No deficits noted. Tuberculosis screening: No symptoms or risk factors identified. Fall Risk None identified. Assessment: 16:39 General: Appears in no apparent distress. Behavior is calm, cooperative. Pain: Denies pain. Neuro: Level of Consciousness is awake, alert, obeys commands, Oriented to none. Cardiovascular: Heart tones S1 S2 present. Respiratory: Airway is patent Respiratory effort is even, unlabored, Respiratory pattern is regular, symmetrical, Breath sounds are clear bilaterally. GI: PEG tube clogged with medication residue, removed and cleared out per MD Bowel sounds present X 4 quads. Abd is soft and non tender X 4 quads. :. EENT: No signs and/or symptoms were reported regarding the EENT system. Derm: No signs and/or symptoms reported regarding the dermatologic system. Musculoskeletal: No signs and/or symptoms reported regarding the musculoskeletal system. Vital Signs: 16:20 BP 169 / 72; Pulse 78; Resp 16; Temp 98.1; Pulse Ox 96% ; Weight 49.9 kg; Height 5 ft. ah 1 in. (154.94 cm); 16:20 Body Mass Index 20.78 (49.90 kg, 154.94 cm) ED Course: 16:35 Patient arrived in ED. 16:35 Cruz Lu MD is Attending Physician. [facility] 16:35 Donita Laughlin, RN is Primary Nurse. 16:37 Triage completed. 16:47 Arm band placed on right wrist. 16:47 No provider procedures requiring assistance completed. Patient did not have IV access during this emergency room visit. 16:54 Patient has correct armband on for positive identification. Administered Medications: No medications were administered Outcome: 16:40 Discharge ordered by . [facility] 17:05 Discharged to home via ambulance. 17:05 Condition: good 17:05 Discharge instructions given to regional program manager, EMS, Instructed on discharge instructions, Demonstrated understanding of instructions, follow-up care. 17:08 Patient left the ED. Signatures: Corinne Raya RN RN Cruz Lu MD MD ps1 Donita Laughlin RN RN Corrections: (The following items were deleted from the chart) 16:56 16:39 Neuro: Level of Consciousness is awake, alert, Oriented to person, place, time, situation,
--- OUTSIDE RECORDS SUMMARY | 2019-07-06 16:41 | XMS REPORT | Summary of Care ---
:1940 Author Organization [facility] - Health Address [address] [place] [address] Care Team Providers Name Role Phone Silke Ball MD Primary Care Provider [phone] Encounter Details Date Type Department Care Team Description 05/18/2019 Orders Only [facility] Doctor Unassigned, No 301 [facility] [place] [address] 301 [place] [address] Allergies Active Allergy Reactions Severity Noted Date [...] mouth daily. tabletIndications: Coronary artery disease involving [place] heart without angina pectoris, unspecified vessel or [...] Date Type Specialty Care Team Description 06/09/2019 Damper Fitter Visit Cardiology Will Prince MD [address] [facility] [address] [place] [address] [phone] Pc, Adc Vascular Room 1 - 07/03/2019 Office Visit Cardiology Will Prince M D 146 [facility] [address] [place], [place] [address] 07/11/2019 Office Visit Geriatric Medicine Alon Melo, ANP [address] [place], [place] [address] 07/31/2019 Office Visit Neurology Mary Rebollar, ANP [address] [facility] [place] [place] [phone] Health Maintenance Due Date [...] Comme nts HOME HEALTH - OTHER Routine 05/18/2019 12:01 AM CARVER AND CHECKERER SPECIALS documented in this encounter Results Not on filedocumented in this encounter Insurance Payer Benefit Plan / Subscriber ID Effective Dates Phone Addre ss Type Group MEDICARE MEDICARE PART xxxxxxxxxxx 2004-Presen [phone] [address] Medicare A & B t 2 [id number] MIKAYLA CHAU [id number] [facility] MEDICAID OF xxxxxxxxx 2019-Prese [phone] [address] Medicaid [place] nt 0 [id number] [place] [address] documented as of this encounter
--- OUTSIDE RECORDS SUMMARY | 2019-07-06 16:41 | XMS REPORT | Summary of Care ---
:1940 Author Organization [facility] - Health Address [address] [place] [address] Care Team Providers Name Role Phone Silke Ball MD Primary Care Provider [phone] Encounter Details Date Type Department Care Team Description 05/29/2019 Orders Only [facility] Doctor Unassigned, No 301 [facility] [place] [address] 301 [place] [address] Allergies Active Allergy Reactions Severity Noted Date [...] Underpads (BED Use as directed 90 Each 5 03/24/2019 Active UNDERPADS) PadsIndications: Cerebrovascular accident (CVA), unspecified mechanism isosorbide mononitrate Take 1 tablet by 90 tablet 1 03/24/2019 Active 30 mg 24 hr mouth daily. tabletIndications: Coronary artery disease involving [place] heart without angina pectoris, unspecified vessel or [...] unspecified asthma Breath. severity, unspecified whether persistent Hospital, Clinic, or Other Ordered Dose Route Frequency Start Date End Date Status Facility Administered Medication albuterol (PROVENTIL) 2.5 mg 2.5 mg Inhale Q6HPRN 03/24/2019 Active /3 mL (0.083 %) nebulizer solution 2.5 mg documented as of this encounter (statuses as of 06/06/2019) Active Problems Problem Noted Date Stroke 01/25/2019 Weakness 01/25/2019 Arthritis of right hip 06/30/2016 [place] (myocardial infarction) Frequent falls Spinal stenosis Controlled [...] Date Type Specialty Care Team Description 06/09/2019 Laboratory Monitor Visit Cardiology Will Prince MD [address] [facility] [address] [place], [place] [address] Pc, Adc Vascular Room 1 - 07/03/2019 Office Visit Cardiology Will Prince M D 146 [facility] [address] [place] [address] 07/11/2019 Office Visit Geriatric Medicine Alon Melo, ANP [address] [place], [place] [address] 07/31/2019 Office Visit Neurology Mary Rebollar, ANP 301 [place], [place] [phone] Health Maintenance Due Date [...] Comme nts HOME HEALTH - OTHER Routine 05/29/2019 12:01 AM CDT documented in this encounter Results Not on filedocumented in this encounter Insurance Payer Benefit Plan / Subscriber ID Effective Dates Phone Addre ss Type Group MEDICARE MEDICARE PART xxxxxxxxxxx 2004-Presemeterio [phone] [address] Medicare A & B t 2 [id number] MIKAYLA CHAU [phone] [facility] MEDICAID OF xxxxxxxxx 2019-Presemily [phone] [address] Medicaid [facility] 0 [id number] [place] [address] documented as of this encounter
--- OUTSIDE RECORDS SUMMARY | 2019-07-06 16:42 | XMS REPORT | Summary of Care ---
:1940 Author Organization [facility] Address [address] [place] [id number] Care Team Providers Name Role Phone Silke Ball MD Primary Care Provider [phone] Reason for Referral (Routine) Status Reason Specialty Diagnoses / Referred By Referred To Procedures Contact Contact New Request Neurology Diagnoses Polypharmacy Seizure Silke Ball Procedures CONSULT NEUROLOGY MD Kellen [address] [place] [address] (Routine) Status Reason Specialty Diagnoses / Referred By Referred To Procedures Contact Contact New Request Ophthalmology Diagnoses Dry eye Silke Ball Procedures CONSULT/REFERRAL OPHTHALMOLOGY Preferred location: [facility] MD Kellen [address] [place] [address] Reason for Visit Reason Comments Follow-up diabetes Encounter Details Date Type Department Care Team Description 05/29/2019 Office Visit [facility] Geriatrics- Silke Ball Impaired gait and mobility (Primary Dx); Eva Foreman MD Asthma with acute exacerbation, unspecif ied asthma severity, unspecified whether persistent; [facility] [address] Dry eye; [address] [facility] [place], [place] Essential hypertension; [place] [address] Controlled type 2 diabetes mellitus with diabetic neuropathy, without long-term current use of insulin; [id number] Polypharmacy; [phone] Seizure (Fax) Allergies Active Allergy Reactions Severity Noted Date Comments Codeine Unknown - See comments 01/05/2014 Prisca nt does not remember reaction Morphine Unknown - See comments 01/07/2019 documented as of this encounter (statuses as of 06/11/2019) Medications Medication Sig Dispensed Refills Start End [...] hr daily. tabletIndications: Coronary artery disease involving [place] heart without angina pectoris, unspecified vessel or [...] unspecified asthma Breath. severity, unspecified whether persistent CARVEDILOL 3.125 mg TAKE ONE 60 tablet 2 05/30/19 Discontinued tabletIndications: TABLET BY 9 20 ( Reorder) Chronic congestive MOUTH TWICE heart failure, DAILY WITH unspecified heart MEALS failure type metFORMIN 500 mg Take 1 tablet 60 tablet 2 05/31/19 Discontinued tabletIndications: by mouth 2 0 20 Controlled type 2 (two) times diabetes mellitus daily with with diabetic meals. neuropathy, without long-term current use of insulin Hospital, Clinic, or Other Ordered Dose Route Frequency Start Date End Date Status Facility Administered Medication albuterol (PROVENTIL) 2.5 mg 2.5 mg Inhale Q6HPRN 03/24/2019 Active /3 mL (0.083 %) nebulizer solution 2.5 mg documented as of this encounter (statuses as of 06/11/2019) Active Problems Problem Noted Date Stroke 01/25/2019 Weakness 01/25/2019 Arthritis of right hip 06/30/2016 MA (myocardial infarction) Frequent falls Spinal stenosis 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, without long-term current use of insulin HTN (hypertension) Hyperlipidemia Hypertriglyceridemia CVA (cerebral vascular accident) Overview: 1 large and several mini H/O hepatitis CAD (coronary artery disease) Peripheral neuropathy Urinary incontinence documented as of this encounter (statuses as of 06/11/2019) Immunizations Name Administration Dates Next Due Influenza Virus Vaccine 03/29/2018 Pneumococcal Polysaccharide, PPSV23 (PNEUMOVAX) 03/29/2018 documented as of this encounter Social History Tobacco Use Types Packs/Day Years Used Date Never Smoker Smokeless Tobacco: Never Used Tobacco Cessation: Counseling Given: No Alcohol Use Drinks/Week oz/Week Comments No Sex Assigned at Date Recorded Not on file Job Start Date Occupation Industry Not on file Not on file Not on file Travel History Travel Start Travel End No recent travel history available. 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 Pending MD signature approval. Danae Red RN 06/01/2019 10:44 AM Ayana wiseman MA - 05/29/2019 3:30 PM CDT Capillary puncture performed by clean technique on the finger. Sample collected per manufacture directions. Slight pressure and a bandage/dressing were applied to the site. The patient tolerated the procedure well. Labs were processed on site per lab order on 05/29/2019 Results given to physician and resulted in EPIC. Ayana Olivera MA 05/29/2019 5:11 PM Silke Zeng MD - 05/29/2019 3:30 PM CDT Cc: Chief Complaint Patient presents with Follow-up [facility] Nadia is a 78 year old female comes with her daughter. HPI She did bring blood pressure LOG 132/68, 140/68, 154/81 & FSBG LOG 275, 300 mg %, NO changesin weight. She was not in the hospital [facility] due to high FSBG >300 mg%. She did have 3 falls. She is forgetting she can not walk on her own. ASSESSMENT AND PLAN: ICD-10-CM ICD-9-CM 1. Impaired gait and mobility R26.89 781.2 2. Asthma with acute exacerbation, unspecified asthma severity, unspecified whether persistent J45.901 493.92 3. Dry eye H04.129 375.15 4. Essential hypertension I10 401.9 5. Controlled type 2 diabetes mellitus with diabetic neuropathy, without long- term current use of insulin E11.40 250.60 357.2 Impaired gait and mobility (primary encounter diagnosis) Comment: patient is not walking due to sarcopenia, WC bound Plan: ID PLACARD/LICENSE PLATE Asthma with acute exacerbation, unspecified asthma severity, unspecified whether persistent Comment: no recent exacerbation Plan: albuterol 2.5 mg /3 mL (0.083 %) nebulizer Solution PRN, BID + PRN Dry eye Plan: CONSULT/REFERRAL OPHTHALMOLOGY Preferred location: [facility] Essential hypertension Comment: well controlled Plan: The current medical regimen is effective; continue present plan and medications. Controlled type 2 diabetes mellitus with diabetic neuropathy, without long-term current use of insulin Comment: she is not on medications Plan: POCT HEMOGLOBIN A1C TEST today START METFORMIN 500 mg BID I certify that Janell Zuniga is under my care and that I had a [id number] encounter with this patient on: 05-29-2019 The primary reason for the durable medical equipment: sarcopenia, inability to walk or get up I am ordering and certify that, based on my findings, the following is medically necessary durable medical equipment: [place] Lift A patient lift is required for patient transfer between bed and a chair, wheelchair, or commode andwithout the use of a lift, the patient would be bed confined. Height: Ht Readings from Last 1 Encounters: 05/12/19 4' 2" (1.27 m) Weight: Wt Readings from Last 1 Encounters: 05/29/19 119 lb (54 kg) Duration of need: 99 months. Polypharmacy Seizure Comment: presumed on Keppra Plan: CONSULT NEUROLOGY Orders Placed This Encounter Procedures ID PLACARD/LICENSE PLATE POCT HEMOGLOBIN A1C TEST CONSULT/REFERRAL OPHTHALMOLOGY Preferred location: [facility] CONSULT/REFERRAL SOCIAL WORK-AMBULATORY CONSULT NEUROLOGY Allergies Janell is allergic to codeine and morphine. Medications Outpatient Medications Prior to Visit Medication Sig Dispense Refill acetaminophen 325 mg tablet Take 2 tablets by mouth every 6 (six) hours as needed for Pain (scale 4-6). 90 tablet 1 Diaper,Brief, Adult,Disposable (DEPEND UNDERWEAR S-M) Misc Use as directed - 15 /day 30 Each 5 isosorbide mononitrate 30 mg 24 hr tablet Take 1 tablet by mouth daily. 90 tablet 1 lisinopril 30 mg tablet Take 1 tablet by mouth daily. 90 tablet 0 Underpads (BED UNDERPADS) Pads Use as directed 90 Each 5 aspirin 81 mg chewable tablet Take 1 tablet by mouth daily for 180 days. 90 tablet 1 clopidogrel 75 mg tablet Take 1 tablet by mouth daily for 180 days. 30 tablet 5 levETIRAcetam 500 mg tablet Take 1 tablet by mouth 2 (two) times daily for 180 days. 180 tablet 1 aspirin 81 mg EC tablet Take 81 mg by mouth daily. CARVEDILOL 3.125 mg tablet TAKE ONE TABLET BY MOUTH TWICE DAILY WITH MEALS 60 tablet 2 rivastigmine 4.6 mg/24 hr patch Apply 1 Patch to skin daily. 30 Patch 1 nitroglycerin 0.4 mg sublingual tablet Max 3 tablets in 15 minutes - then go to ER 1 Bottle 3 Facility-Administered Medications Prior to Visit Medication Dose Route Frequency Provider Last Rate Last Dose albuterol (PROVENTIL) 2.5 mg /3 mL (0.083 %) nebulizer solution 2.5 mg 2.5 mg Inhalation [id number] Kenney MD Histories Past Medical History: Diagnosis Date CAD (coronary artery disease) CVA (cerebral infarction) 1 large and several mini Diabetes mellitus Frequent falls H/O hepatitis cannot donate blood HTN (hypertension) Hyperlipidemia Hypertriglyceridemia MA (myocardial infarction) Peripheral neuropathy Spinal stenosis Urinary incontinence Past Surgical History: Procedure Laterality Date CORONARY ARTERY BYPASS GRAFT 2016 OPEN APPENDECTOMY [place] REMOVAL OF OVARY(S) REMOVE TONSILS/ADENOIDS,<12 Y/O STENT PLACEMENT (SHX) TOTAL HIP ARTHROPLASTY Right 2016 Social History Socioeconomic History Marital status: Spouse name: Not on file Number of children: 8 Years of education: 11 Highest education level: Not on file Occupational History 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 Respiratory: Positive for chest tightness, shortness of breath and wheezing. Musculoskeletal: Positive for arthralgias, gait problem and myalgias. Psychiatric/Behavioral: Positive for behavioral problems, confusion and sleep disturbance. The patient is nervous/anxious. Endocrine: Positive for polyphagia. Patient adhering to her current treatment. Patient family history does not contribute to evaluation and treatment of her current problem. ROS according to [facility] Vital Signs BP (!) 156/70 | Pulse 68 | Temp 36.8 C (98.2 F) (Oral) | Resp 18 | Wt 119 lb (54 kg) | VvW258% | BMI 33.47 kg/m Physical Exam General: alert, oriented to self, place , but no time; no apparent distress, appearing age appropriate; quiet Skin: no rashes or suspicious lesions are seen Ears: external ears normal, Oropharynx: normal, clear without erythema or exudate Neck: neck supple, no adenopathy, normal size Lungs: no wheezes or crackles Heart: regular rate and rhythm, no murmur Abdomen: abdomen soft, non-tender, non-distended, normal active [...] benefits of treatment, treatment options and prevention: seizures, gait /immobility, fall prevention Silke Ball MD [facility] Proof Technician Helper, Division of Geriatrics Department of Internal Medicine O: [phone] F: [phone] P: [phone] E: [email or web address] Doctor# [id number] Garth Aaron Naheed, MA - 05/29/2019 3:30 PM CDT Janell Zuniga is a 78 year old female seen for a follow up ; Patient Active Problem List Diagnosis MA (myocardial infarction) Frequent falls Spinal stenosis Controlled type 2 diabetes mellitus with diabetic neuropathy, without long- term current use of insulin HTN (hypertension) Hyperlipidemia Hypertriglyceridemia CVA (cerebral vascular accident) H/O hepatitis CAD (coronary artery disease) Peripheral neuropathy Arthritis of right hip Urinary incontinence Stroke Weakness Current Outpatient Medications on File Prior to Visit Medication Sig Dispense Refill acetaminophen 325 mg tablet Take 2 tablets by mouth every 6 (six) hours as needed for Pain (scale 4-6). 90 tablet 1 Diaper,Brief, Adult,Disposable (DEPEND UNDERWEAR S-M) Misc Use as directed - 15 /day 30 Each 5 isosorbide mononitrate 30 mg 24 hr tablet Take 1 tablet by mouth daily. 90 tablet 1 lisinopril 30 mg tablet Take 1 tablet by mouth daily. 90 tablet 0 Underpads (BED UNDERPADS) Pads Use as directed 90 Each 5 aspirin 81 mg chewable tablet Take 1 tablet by mouth daily for 180 days. 90 tablet 1 clopidogrel 75 mg tablet Take 1 tablet by mouth daily for 180 days. 30 tablet 5 levETIRAcetam 500 mg tablet Take 1 tablet by mouth 2 (two) times daily for 180 days. 180 tablet 1 aspirin 81 mg EC tablet Take 81 mg by mouth daily. CARVEDILOL 3.125 mg tablet TAKE ONE TABLET BY MOUTH TWICE DAILY WITH MEALS 60 tablet 2 rivastigmine 4.6 mg/24 hr patch Apply 1 Patch to skin daily. 30 Patch 1 nitroglycerin 0.4 mg sublingual tablet Max 3 tablets in 15 minutes - then go to ER 1 Bottle 3 Current Facility-Administered Medications on File Prior to Visit Medication Dose Route Frequency Provider Last Rate Last Dose albuterol (PROVENTIL) 2.5 mg /3 mL (0.083 %) nebulizer solution 2.5 mg 2.5 mg Inhalation [id number] Kenney MD Level of pain 0 Location of pain n/a Medications and allergies reviewed with patient by provider Patient's last eye exam was unknown. Patient's last pneumococcal vaccination was 2018. Patient is a diabetic,/ did prep room by placing monofilament and drape for provider. Notified provider of health maintenance needs Diabetes related Health Maintenance Due Topic Date Due EYE EXAM 1950 URINE MICROALBUMIN 1950 FOOT EXAM 07/16/2018 PNEUMOCOCCAL VACCINES 65+ (2 of 2 - PCV13) 03/29/2019 Health Maintenance Summary Status Date EYE EXAM Overdue 1950 URINE MICROALBUMIN Overdue 1948 DTaP,Tdap,and Td Vaccines Overdue 1949 Zoster Recombinant Vaccine (SHINGRIX) Overdue 1988 Medicare Wellness Visit Overdue 10/21/2003 Osteoporosis Screening Overdue 10/21/2003 FOOT EXAM Overdue 07/16/2018 Done 07/16/2017 Smart[employer]: FINDINGS - PHYSICAL EXAM - CARDIOVASCULAR - PULSES - PEDAL PULSE TAKEN Done 07/16/2017 [employer]: WORKFLOW - DIABETES - DIABETIC FOOT EXAM PERFORMED INFLUENZA VACCINE Overdue 11/20/2018 Done 03/29/2018 Imm Admin: Influenza Virus Vaccine PNEUMOCOCCAL VACCINES 65+ Overdue 03/29/2019 Done 03/29/2018 Imm Admin: Pneumococcal Polysaccharide, PPSV23 (PNEUMOVAX) HgA1C Next Due 07/26/2019 Done 01/25/2019 GLYCOSYLATED HEMOGLOBIN (A1C) HGB A1C Done 09/15/2018 GLYCOSYLATED HEMOGLOBIN (A1C) HGB A1C Patient has more history with this topic... LDL-C Next Due 01/27/2020 Done 01/26/2019 LIPID PANEL (29341)(TOTAL CHOLESTEROL, TRIGLYCERIDES, HDL) LDL CHOL Done 01/25/2019 LIPID PANEL (41841)(TOTAL CHOLESTEROL, TRIGLYCERIDES, HDL) LDL CHOL Patient has more history with this topic... CREATININE (SERUM) Next Due 02/01/2020 Done 01/31/2019 COMP. METABOLIC PANEL (27606) CREATININE Done 01/28/2019 BASIC METABOLIC PANEL (NA, K, CL, CO2, GLUCOSE, BUN, CREATININE, CA) CREATININE Patient has more history with this topic... Notified provider of high blood pressure documented in this encounter Plan of Treatment Date Type Specialty Care Team Description 07/03/2019 Office Visit Cardiology Will Prince M D [address] [place] [address] [address] [place], [place] [address] [phone] 07/11/2019 Office Visit Geriatric Medicine Alon Melo, JESSICA [address] [place] [address] [phone] 07/31/2019 Office Visit Neurology Mary Rebollar ANP [address] [place] [phone] Health Maintenance Due Date Last Done [...] Name Priority Date/Time Associated Diagnosis Comme nts POCT HEMOGLOBIN A1C Routine 05/29/2019 Controlled type 2 Res ults for this TEST diabetes mellitus with proce dure are in the diabetic neuropathy, results section. without long-term current use of insulin documented in this encounter Results POCT HEMOGLOBIN A1C TEST (05/29/2019) Pathologist Sig nature POCT HBA1C 8.6 (A) 4 - 6 % Specimen Blood - CAPILLARY documented in this encounter Visit Diagnoses Diagnosis Impaired gait and mobility - Primary Asthma with acute exacerbation, unspecif ied asthma severity, unspecified whether persistent Dry eye Essential hypertension Unspecified essential hypertension Controlled type 2 diabetes mellitus with diabetic neuropathy, without long-term current use of insulin Polypharmacy Issue of repeat prescriptions Seizure Other convulsions documented in this encounter Insurance Payer Benefit Plan / Subscriber ID Effective Dates Phone Addre ss Type Group MEDICARE MEDICARE PART xxxxxxxxxxx 2004-Tereza [phone] Medicare A & B t [address] [id number] MIKAYLA CHAU [id number] [place] MEDICAID OF xxxxxxxxx 2019-Richard [phone] Medicaid [place] [id number] [place] [address] documented as of this encounter
--- OUTSIDE RECORDS SUMMARY | 2019-07-06 16:42 | XMS REPORT | Summary of Care ---
:1940 Author Organization [facility] - [facility] Address [address] [place] [address] Care Team Providers Name Role Phone Silke Ball MD Primary Care Provider [phone] Reason for Referral (Routine) Status Reason Specialty Diagnoses / Referred By Referred To Procedures Contact Contact New Request Neurology Diagnoses Polypharmacy Seizure Silke Ball Procedures CONSULT NEUROLOGY MD Kellen [address] [place] [address] (Routine) Status Reason Specialty Diagnoses / Referred By Referred To Procedures Contact Contact New Request Ophthalmology Diagnoses Dry eye Silke Ball Procedures CONSULT/REFERRAL OPHTHALMOLOGY Preferred location: [facility] MD Kellen [address] [place] [address] Reason for Visit Reason Comments Follow-up diabetes Encounter Details Date Type Department Care Team Description 05/29/2019 Office Visit [facility] Geriatrics- Silke Ball Impaired gait and mobility (Primary Dx); Eva Foreman MD Asthma with acute exacerbation, unspecif ied asthma severity, unspecified whether persistent; [facility] [address] Dry eye; [address] [facility] [place], [place] Essential hypertension; [place] [address] Controlled type 2 diabetes mellitus with diabetic neuropathy, without long-term current use of insulin; [phone] Polypharmacy; [phone] Seizure (Fax) Allergies Active Allergy Reactions Severity [...] hr daily. tabletIndications: Coronary artery disease involving [place] heart without angina pectoris, unspecified vessel or [...] Weakness 01/25/2019 Arthritis of right hip 06/30/2016 NC (myocardial infarction) Frequent falls Spinal stenosis Controlled [...] Body Mass Index 33.47 05/12/2019 1:32 PM PRODUCE WEIGHER documented in this encounter Progress Notes Danae Red RN - 05/29/2019 3:30 PM CDTPlaced [place] lift orders in [place]. Pending MD signature approval. Danae Red RN [...] Chief Complaint Patient presents with Follow-up HOSPITAL [facility] Nadia is a 78 year old female comes with her daughter. HPI She did bring blood pressure LOG 132/68, 140/68, 154/81 & FSBG LOG 275, 300 mg %, NO changesin weight. She was not in the hospital [facility] due to high FSBG >300 [...] Dry eye Plan: CONSULT/REFERRAL OPHTHALMOLOGY Preferred location: [facility] Essential hypertension Comment: well controlled Plan: The current medical regimen is effective; continue present plan and medications. Controlled type 2 diabetes mellitus with diabetic neuropathy, without long-term current use of insulin Comment: she is not on medications Plan: POCT HEMOGLOBIN A1C TEST today START METFORMIN 500 mg BID I certify that Janell Zuniga is under my care and that I had a [id number] encounter with this patient on: 05-29-2019 The [...] HEMOGLOBIN A1C TEST CONSULT/REFERRAL OPHTHALMOLOGY Preferred location: [facility] CONSULT/REFERRAL SOCIAL WORK-AMBULATORY CONSULT NEUROLOGY Allergies [...] nebulizer solution 2.5 mg 2.5 mg Inhalation [id number] Kenney MD Histories Past Medical History: Diagnosis [...] Not on file Occupational History 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 ROS according to template in [facility] Vital Signs BP (!) 156/70 | Pulse 68 | Temp 36.8 C (98.2 F) (Oral) | Resp 18 | Wt 119 lb (54 kg) | ImI593% | BMI 33.47 kg/m Physical Exam General: [...] gait /immobility, fall prevention Silke Ball MD [facility] Chief Knowledge Officer, Division of Geriatrics Department of Internal Medicine O: [phone] F: [phone] P: [phone] E: [email or web address] Doctor# [id number] Garth Aaron Naheed, MA - 05/29/2019 3:30 PM CDT Janell Zuniga is a 78 year old female seen for a follow up ; Patient Active Problem List Diagnosis NC (myocardial infarction) Frequent falls Spinal stenosis Controlled [...] nebulizer solution 2.5 mg 2.5 mg Inhalation [id number] Kenney MD Level of pain 0 Location [...] Next Due 01/27/2020 Done 01/26/2019 LIPID PANEL (91805)(TOTAL CHOLESTEROL, TRIGLYCERIDES, HDL) LDL CHOL Done 01/25/2019 LIPID PANEL (69670)(TOTAL CHOLESTEROL, TRIGLYCERIDES, HDL) LDL CHOL Patient has more history with this topic... CREATININE (SERUM) Next Due 02/01/2020 Done 01/31/2019 COMP. METABOLIC PANEL (73327) CREATININE Done 01/28/2019 BASIC METABOLIC PANEL (NA, K, CL, CO2, GLUCOSE, BUN, CREATININE, CA) CREATININE Patient has more history with this topic... Notified provider of high blood pressure documented in this encounter Plan of Treatment Date Type Specialty Care Team Description 07/03/2019 Office Visit Cardiology Will Prince M D [address] [place] [address] [address] [place], [place] [address] [phone] 07/11/2019 Office Visit Geriatric Medicine Alon Melo, JESSICA [address] [place] [address] 555 07/31/2019 Office Visit Neurology Mary Rebollar ANP [address] [place] [address] [phone] Health Maintenance Due Date Last Done [...] BOX Medicare A & B t 2 [id number] MIKAYLA CHAU [address] [facility] MEDICAID OF xxxxxxxxx 2019-Richard [phone] [address] Medicaid [place] nt 0 [id number] [place] [address] documented as of this encounter
--- OUTSIDE RECORDS SUMMARY | 2019-07-06 16:43 | XMS REPORT | Summary of Care ---
:1940 Author Organization [facility] - [facility] Address [address] [place] [address] Care Team Providers Name Role Phone Silke Ball MD Primary Care Provider [phone] Reason for Visit Reason Comments Forms Title XIX from Miladis batista ing signatures Encounter Details Date Type Department Care Team Description 06/12/2019 Telephone [facility] Geriatrics- Silke Ball Forms (Title XIX from [place] [facility] [address] signatures) [address] [place] [phone] Allergies Active Allergy Reactions Severity Noted Date Comments Codeine Unknown - See comments 01/05/2014 Patie nt does not remember reaction Morphine Unknown - See comments 01/07/2019 documented as of this encounter (statuses as of 06/14/2019) Medications Medication Sig Dispensed Refills Start Date [...] days. Diaper,Brief, Use as directed 30 Each 5 03/24/2019 1 Active Adult,Disposable - 15 /day (DEPEND UNDERWEAR S-M) MiscIndications: Cerebrovascular accident (CVA), unspecified mechanism Underpads (BED Use as directed 90 Each 5 03/24/2019 Active UNDERPADS) PadsIndications: Cerebrovascular accident (CVA), unspecified mechanism isosorbide mononitrate Take 1 tablet by 90 tablet 1 03/24/2019 Active 30 mg 24 hr mouth daily. tabletIndications: Coronary artery disease involving [place] heart without angina pectoris, unspecified vessel or [...] metFORMIN 500 mg Take 1 tablet by 180 tablet 1 05/31/2019 Active tabletIndications: mouth 2 (two) Controlled type [...] as of this encounter (statuses as of 06/14/2019) Active Problems Problem Noted Date Stroke 01/25/2019 Weakness 01/25/2019 Arthritis of right hip 06/30/2016 [place] (myocardial infarction) Frequent falls Spinal stenosis 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, without long-term current use of insulin HTN (hypertension) Hyperlipidemia Hypertriglyceridemia CVA (cerebral vascular accident) Overview: 1 large and several mini H/O hepatitis CAD (coronary artery disease) Peripheral neuropathy Urinary incontinence documented as of this encounter (statuses as of 06/14/2019) Immunizations Name Administration Dates Next Due Influenza [...] Office Visit Cardiology Will Prince M D [address] [place] [address] [place] [address] [phone] 07/11/2019 Office Visit Geriatric Medicine Alon Melo, JESSICA [address] [place], [place] [address] 07/31/2019 Office Visit Neurology Mary Rebollar, JESSICA 301 [place], [place] [address] Health Maintenance Due Date [...] BOX Medicare A & B t 2 [id number] MIKAYLA CHAU [address] [facility] MEDICAID OF xxxxxxxxx 2019-Prese [phone] [address] Medicaid [place] nt 0 [id number] [place] [address] documented as of this encounter
--- OUTSIDE RECORDS SUMMARY | 2019-07-06 16:43 | XMS REPORT | Summary of Care ---
:1940 Author Organization [facility] - Health Address [address] [place] [address] Care Team Providers Name Role Phone Silke Ball MD Primary Care Provider [phone] Encounter Details Date Type Department Care Team Description 06/14/2019 Orders Only [facility] Doctor Unassigned, No 301 [facility] [place] [address] 301 [place] [address] Allergies Active Allergy Reactions Severity Noted Date [...] mouth daily. tabletIndications: Coronary artery disease involving [place] heart without angina pectoris, unspecified vessel or [...] Office Visit Cardiology Will Prince M D [address] [place] [address] [place] [address] [phone] 07/11/2019 Office Visit Geriatric Medicine Alon Melo ANP [address] [facility] [address] [place], [place] [address] 07/31/2019 Office Visit Neurology Mary Rebollar ANP 301 [place], [place] [address] Health Maintenance Due Date [...] Comme nts HOME HEALTH - OTHER Routine 06/14/2019 12:01 AM CDT documented in this encounter Results Not on filedocumented in this encounter Insurance Payer Benefit Plan / Subscriber ID Effective Dates Phone Addre ss Type Group MEDICARE MEDICARE PART xxxxxxxxxxx 2004-Presemeterio [phone] [address] Medicare A & B t 2 [id number] MIKAYLA CHAU [phone] [facility] MEDICAID OF xxxxxxxxx 2019-Presemily [phone] [address] Medicaid [facility] 0 [id number] [place] [address] documented as of this encounter
--- OUTSIDE RECORDS SUMMARY | 2019-07-06 16:43 | XMS REPORT | Summary of Care ---
:1940 Author Organization [facility] - [facility] Address [address] [place] [address] Care Team Providers Name Role Phone Silke Ball MD Primary Care Provider [phone] Reason for Visit Reason Comments Forms Encounter Details Date Type Department Care Team Description 06/15/2019 Telephone [facility] Geriatrics- Silke Thacker [facility] MD Kellen [address] [place], [place] [phone] [place], [place] [id number] Allergies Active Allergy Reactions Severity Noted Date Comments Codeine Unknown - See comments 01/05/2014 Patie nt does not remember reaction Morphine Unknown - See comments 01/07/2019 documented as of this encounter (statuses as of 06/16/2019) Medications Medication Sig Dispensed Refills Start Date [...] mouth daily. tabletIndications: Coronary artery disease involving [place] heart without angina pectoris, unspecified vessel or [...] as of this encounter (statuses as of 06/16/2019) Active Problems Problem Noted Date Stroke 01/25/2019 [...] as of this encounter (statuses as of 06/16/2019) Immunizations Name Administration Dates Next Due Influenza [...] Visit Cardiology Will Prince M D [address] [place] [address] 15 [phone] 07/11/2019 Office Visit Geriatric Medicine lAon Melo, JESSICA [address] [place] [address] 07/31/2019 Office Visit Neurology Mary Rebollar ANP 301 [place], [place] [address] Health Maintenance Due Date [...] BOX Medicare A & B t 2 [id number] MIKAYLA CHAU [address] [facility] MEDICAID OF xxxxxxxxx 2019-Prese [phone] [address] Medicaid [place] nt 0 [id number] [place] [address] documented as of this encounter
--- OUTSIDE RECORDS SUMMARY | 2019-07-06 16:44 | XMS REPORT | Summary of Care ---
:1940 Author Organization [facility] - [facility] Address [address] [place] [address] Care Team Providers Name Role Phone Silke Ball MD Primary Care Provider [phone] Encounter Details Date Type Department Care Team Description 06/01/2019 Hospital Encounter [facility] Heart Yanira Douglas MD 301 [facility] [place] [address] Center EP Device Rose, Remote Device Check At Home - Clinic [facility] [address] [facility] [address], 6.312 [place] [phone] Allergies Active Allergy Reactions Severity Noted Date Comments Codeine Unknown - See comments 01/05/2014 Patie nt does not remember reaction Morphine Unknown - See comments 01/07/2019 documented as of this encounter (statuses as of 06/21/2019) Medications Medication Sig Dispensed Refills Start Date [...] mouth daily. tabletIndications: Coronary artery disease involving [place] heart without angina pectoris, unspecified vessel or [...] as of this encounter (statuses as of 06/21/2019) Active Problems Problem Noted Date Stroke 01/25/2019 Weakness 01/25/2019 Arthritis of right hip 06/30/2016 [place] (myocardial infarction) Frequent falls Spinal stenosis 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, without long-term current use of insulin HTN (hypertension) Hyperlipidemia Hypertriglyceridemia CVA (cerebral vascular accident) Overview: 1 large and several mini H/O hepatitis CAD (coronary artery disease) Peripheral neuropathy Urinary incontinence documented as of this encounter (statuses as of 06/21/2019) Immunizations Name Administration Dates Next Due Influenza [...] Office Visit Cardiology Will Prince M D [address] [place] [address] [place] [address] [phone] 07/11/2019 Telemedicine Visit Geriatric Medicine Moiz Melo, ANP 301 [facility] [address] [place], [place] [address] 07/31/2019 Office Visit Neurology Mary Rebollar, JESSICA [address] [place], [place] [address] Health Maintenance Due Date [...] BOX Medicare A & B t 2 [id number] MKIAYLA CHAU [address] [facility] MEDICAID OF xxxxxxxxx 2019-Prese [phone] [address] Medicaid [facility] 0 [id number] [place] [address] documented as of this encounter
--- OUTSIDE RECORDS SUMMARY | 2019-07-06 16:44 | XMS REPORT | Summary of Care ---
:1940 Author Organization [facility] - [facility] Address [address] [place] [address] Care Team Providers Name Role Phone Silke Ball MD Primary Care Provider [phone] Reason for Visit Reason Comments Rx Concern/Question albuterol Encounter Details Date Type Department Care Team Description 06/16/2019 Telephone [facility] Geriatrics- Silke Ball Rx Concern/Question Haines MD Kellen (albuterol) [facility] [address] [place] [address] [address] [place] [phone] Allergies Active Allergy Reactions Severity Noted Date Comments Codeine Unknown - See comments 01/05/2014 Patie nt does not remember reaction Morphine Unknown - See comments 01/07/2019 documented as of this encounter (statuses as of 06/19/2019) Medications Medication Sig Dispensed Refills Start Date [...] as of this encounter (statuses as of 06/19/2019) Active Problems Problem Noted Date Stroke 01/25/2019 Weakness 01/25/2019 Arthritis of right hip 06/30/2016 ND (myocardial infarction) Frequent falls Spinal stenosis 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, without long-term current use of insulin HTN (hypertension) Hyperlipidemia Hypertriglyceridemia CVA (cerebral vascular accident) Overview: 1 large and several mini H/O hepatitis CAD (coronary artery disease) Peripheral neuropathy Urinary incontinence documented as of this encounter (statuses as of 06/19/2019) Immunizations Name Administration Dates Next Due Influenza [...] Office Visit Cardiology Will Prince M D [address] [place], [place] [address] 15 [phone] 07/11/2019 Office Visit Geriatric Medicine [facility]on Melo ANP [address] [facility] [address] [place], [place] [address] 07/31/2019 Office Visit Neurology Mary Rebollar ANP 301 [place], [place] [address] Health Maintenance Due Date [...] BOX Medicare A & B t 2 [id number] MIKAYLA CHAU [address] [facility] MEDICAID OF xxxxxxxxx 2019-Prese [phone] [address] Medicaid [place] nt 0 [id number] [place] [address] documented as of this encounter
--- OUTSIDE RECORDS SUMMARY | 2019-07-06 16:45 | XMS REPORT | Summary of Care ---
:1940 Author Organization [facility] - Health Address [address] [place] [address] Care Team Providers Name Role Phone Silke Ball MD Primary Care Provider [phone] Reason for Visit Reason Comments Notification Letters Encounter Details Date Type Department Care Team Description 06/20/2019 Telephone [facility] Geriatrics- Theresa Heck N otification; Letters [place] [facility] [phone] [place] [address] [place] [phone] (Fax) [phone] Allergies Active Allergy Reactions Severity Noted Date Comments Codeine Unknown - See comments 01/05/2014 Patie nt does not remember reaction Morphine Unknown - See comments 01/07/2019 documented as of this encounter (statuses as of 06/23/2019) Medications Medication Sig Dispensed Refills Start Date [...] mouth daily. tabletIndications: Coronary artery disease involving [place] heart without angina pectoris, unspecified vessel or [...] mouth 2 (two) times daily with meals. atorvastatin 40 mg Take 40 mg by 0 05/01/2019 Active tablet mouth at bedtime. Hospital, Clinic, or Other Ordered Dose Route Frequency Start Date End Date Status Facility Administered Medication albuterol (PROVENTIL) 2.5 mg 2.5 mg Inhale Q6HPRN 03/24/2019 Active /3 mL (0.083 %) nebulizer solution 2.5 mg documented as of this encounter (statuses as of 06/23/2019) Active Problems Problem Noted Date Stroke 01/25/2019 [...] as of this encounter (statuses as of 06/23/2019) Immunizations Name Administration Dates Next Due Influenza [...] Date Type Specialty Care Team Description 07/03/2019 Telemedicine Visit Cardiology Will Prince MD [address] [place] [address] [place] [address] [phone] 07/11/2019 Telemedicine Visit Geriatric Medicine Moiz Melo, ANP [address] [place] [address] 07/31/2019 Office Visit Neurology Mary Rebollar, JESSICA 301 [place], [place] [address] Health Maintenance Due Date [...] BOX Medicare A & B t 2 [id number] MIKAYLA HCAU [address] [facility] MEDICAID OF xxxxxxxxx 2019-Prese [phone] [address] Medicaid [place] nt 0 [id number] [facility] [address] documented as of this encounter
--- OUTSIDE RECORDS SUMMARY | 2019-07-06 16:45 | XMS REPORT | Summary of Care ---
:1940 Author Organization [facility] - Health Address [address] [place] [address] Care Team Providers Name Role Phone Silke Ball MD Primary Care Provider Reason for Visit Reason Comments Notification Letters Encounter Details Date Type Department Care Team Description 06/20/2019 Telephone [facility] Geriatrics- Theresa Heck N otification; Letters [place] [facility] Ctr [phone] [place] [address] [place] [phone] (Fax) [phone] Allergies Active Allergy Reactions Severity Noted Date Comments Codeine Unknown - See comments 01/05/2014 Patie nt does not remember reaction Morphine Unknown - See comments 01/07/2019 documented as of this encounter (statuses as of 06/26/2019) Medications Medication Sig Dispensed Refills Start Date [...] mouth daily. tabletIndications: Coronary artery disease involving [place] heart without angina pectoris, unspecified vessel or [...] as of this encounter (statuses as of 06/26/2019) Active Problems Problem Noted Date Stroke 01/25/2019 Weakness 01/25/2019 Arthritis of right hip 06/30/2016 ME (myocardial infarction) Frequent falls Spinal stenosis 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, without long-term current use of insulin HTN (hypertension) Hyperlipidemia Hypertriglyceridemia CVA (cerebral vascular accident) Overview: 1 large and several mini H/O hepatitis CAD (coronary artery disease) Peripheral neuropathy Urinary incontinence documented as of this encounter (statuses as of 06/26/2019) Immunizations Name Administration Dates Next Due Influenza [...] 07/03/2019 Telemedicine Visit Cardiology Will Prince MD [address] [place] [address] [place] [address] [phone] 07/11/2019 Telemedicine Visit Geriatric Medicine Mioz Melo, ANP [address] [place] [address] 07/31/2019 Office Visit Neurology Mary Rebollar, JESSICA 301 [place], [place] [address] Health Maintenance Due Date [...] BOX Medicare A & B t 2 [id number] MIKAYLA CHAU [address] [facility] MEDICAID OF xxxxxxxxx 2019-Prese [phone] [address] Medicaid [place] nt 0 [id number] [place] [address] documented as of this encounter
--- OUTSIDE RECORDS SUMMARY | 2019-07-06 16:45 | XMS REPORT | Summary of Care ---
:1940 Author Organization [facility] Address [address] [place] [address] Care Team Providers Name Role Phone Silke Ball MD Primary Care Provider [phone] Reason for Visit Reason Comments Orders Notification Encounter Details Date Type Department Care Team Description 06/21/2019 Telephone [facility] Geriatrics- Silke Ball Orders; Notification [facility] Luly sandoval MD Ctr [address] [place] [phone] Allergies Active Allergy Reactions Severity Noted Date [...] mouth daily. tabletIndications: Coronary artery disease involving [place] heart without angina pectoris, unspecified vessel or [...] Weakness 01/25/2019 Arthritis of right hip 06/30/2016 [place] (myocardial infarction) Frequent falls Spinal stenosis Controlled [...] 07/03/2019 Telemedicine Visit Cardiology Will Prince MD [address] [facility] [address] [place] [address] 15 [phone] 07/11/2019 Telemedicine Visit Geriatric Medicine Moiz Melo, ANP [address] [facility] [address] [place], [place] [address] 07/31/2019 Office Visit Neurology Mray Rebollar, ANP 301 [place], [place] [address] Health Maintenance Due Date [...] BOX Medicare A & B t 2 [id number] MIKAYLA CHAU [address] [facility] MEDICAID OF xxxxxxxxx 2019-Prese [phone] [address] Medicaid [place] nt 0 [id number] [place] [address] documented as of this encounter
--- OUTSIDE RECORDS SUMMARY | 2019-07-06 16:45 | XMS REPORT | Summary of Care ---
:1940 Author Organization [facility] - Health Address [address] [place] [address] Care Team Providers Name Role Phone Silke Ball MD Primary Care Provider [phone] Encounter Details Date Type Department Care Team Description 06/05/2019 Orders Only [facility] Doctor Unassigned, No [address] [facility] [place] [address] [address] [place] [address] Allergies Active Allergy Reactions Severity Noted Date Comments Codeine Unknown - See comments 01/05/2014 Patie nt does not remember reaction Morphine Unknown - See comments 01/07/2019 documented as of this encounter (statuses as of 06/22/2019) Medications Medication Sig Dispensed Refills Start Date [...] mouth daily. tabletIndications: Coronary artery disease involving [place] heart without angina pectoris, unspecified vessel or [...] as of this encounter (statuses as of 06/22/2019) Active Problems Problem Noted Date Stroke 01/25/2019 Weakness 01/25/2019 Arthritis of right hip 06/30/2016 [place] (myocardial infarction) Frequent falls Spinal stenosis 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, without long-term current use of insulin HTN (hypertension) Hyperlipidemia Hypertriglyceridemia CVA (cerebral vascular accident) Overview: 1 large and several mini H/O hepatitis CAD (coronary artery disease) Peripheral neuropathy Urinary incontinence documented as of this encounter (statuses as of 06/22/2019) Immunizations Name Administration Dates Next Due Influenza [...] Office Visit Cardiology Will Prince M D [address] [place] [address] [place] [address] [phone] 07/11/2019 Telemedicine Visit Geriatric Medicine Moiz Melo, ANP [address] [facility] [address] [place], [place] [address] 07/31/2019 Office Visit Neurology Mary Rebollar, ANP [address] [place], [place] [phone] Health Maintenance Due Date [...] Comme nts HOME HEALTH - OTHER Routine 06/05/2019 12:01 AM CDT documented in this encounter Results Not on filedocumented in this encounter Insurance Payer Benefit Plan / Subscriber ID Effective Dates Phone Addre ss Type Group MEDICARE MEDICARE PART xxxxxxxxxxx 2004-Presemeterio [phone] [address] Medicare A & B t 2 [id number] MIKAYLA CHAU [id number] [facility] MEDICAID OF xxxxxxxxx 2019-Presemily [phone] [address] Medicaid [facility] 0 [id number] [place] [address] documented as of this encounter
--- OUTSIDE RECORDS SUMMARY | 2019-07-06 16:46 | XMS REPORT | Summary of Care ---
:1940 Author Organization [facility] - [facility] Address [address] [place] [address] Care Team Providers Name Role Phone Silke Ball MD Primary Care Provider [phone] Reason for Visit Reason Comments Orders Encounter Details Date Type Department Care Team Description 07/06/2019 Telephone [facility] Geriatrics- [facility] Silke Ball [facility] MD Kellen [address] [place], [place] [phone] [place], [place] [id number] Allergies Active Allergy Reactions Severity Noted Date Comments Codeine Unknown - See comments 01/05/2014 Patie nt does not remember reaction Morphine Unknown - See comments 01/07/2019 documented as of this encounter (statuses as of 07/06/2019) Medications Medication Sig Dispensed Refills Start Date [...] mouth daily. 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, without long-term current use of insulin HTN (hypertension) Hyperlipidemia Hypertriglyceridemia CVA (cerebral vascular accident) Overview: 1 large and several mini H/O hepatitis CAD (coronary artery disease) Peripheral neuropathy Urinary incontinence documented as of this encounter (statuses as of 07/06/2019) Immunizations Name Administration Dates Next Due Influenza [...] Treatment Date Type Specialty Care Team Description 07/11/2019 Telemedicine Visit Geriatric Medicine Moiz Melo, JESSICA 301 [facility] [address] [place] [address] 07/31/2019 Telemedicine Visit Neurology Mary Moreland ANP [address] [place] [phone] Charli Kothari MD [address] [place] [address]. [place] [address] 08/28/2019 Office Visit Geriatric Medicine Alon Melo ANP 301 [facility] [address] [place] [address] Health Maintenance Due Date Last Done Comments [...] BOX Medicare A & B t 2 [id number] MIKAYLA CHAU [id number] [facility] MEDICAID OF xxxxxxxxx 2019-Prese [phone] [address] Medicaid [facility] 0 [id number] [place] [address] documented as of this encounter
--- OUTSIDE RECORDS SUMMARY | 2019-07-06 16:46 | XMS REPORT | Summary of Care ---
:1940 Author Organization [facility] - [facility] Address [address] [place] [address] Care Team Providers Name Role Phone Silke Ball MD Primary Care Provider [phone] Reason for Visit Reason Comments Authorization albuterol Encounter Details Date Type Department Care Team Description 07/04/2019 Telephone [facility] Geriatrics- Silke Ball Authorization vEa Foreman MD (albuterol) Multispecialty Ctr [address] [place] [address] [place] [phone] Allergies Active Allergy Reactions Severity Noted Date Comments Codeine Unknown - See comments 01/05/2014 Patie nt does not remember reaction Morphine Unknown - See comments 01/07/2019 documented as of this encounter (statuses as of 07/04/2019) Medications Medication Sig Dispensed Refills Start Date [...] mouth daily. tabletIndications: Coronary artery disease involving [place] heart without angina pectoris, unspecified vessel or [...] as of this encounter (statuses as of 07/04/2019) Active Problems Problem Noted Date Stroke 01/25/2019 [...] as of this encounter (statuses as of 07/04/2019) Immunizations Name Administration Dates Next Due Influenza [...] Description 07/11/2019 Telemedicine Visit Geriatric Medicine Moiz Melo ANP 301 [facility] [address] [place] [address] 07/31/2019 Telemedicine Visit Neurology Mary Moreland ANP [address] [place] [phone] Charli Kothari MD [address] [place] [address]. [place] [phone] 08/28/2019 Office Visit Geriatric Medicine Alon Melo ANP 301 [facility] [address] [place] [address] Health Maintenance Due Date Last [...] Type Group MEDICARE MEDICARE PART xxxxxxxxxxx 2004-Presen [phone] [address] Medicare A & B t 2 [id number] MIKAYLA CHAU [id number] [facility] MEDICAID OF xxxxxxxxx 2019-Prese [id number] [address] Medicaid [place] 0 [id number] [place] [address] documented as of this encounter
--- OUTSIDE RECORDS SUMMARY | 2019-07-06 16:46 | XMS REPORT | Summary of Care ---
:[address] [facility] - [facility] Address [address] [place] [address] Care Team Providers Name Role Phone Silke Ball MD Primary Care Provider [phone] Reason for Visit Reason Comments Orders Notification Encounter Details Date Type Department Care Team Description 07/05/2019 Telephone [facility] Geriatrics- Silke Ball Orders; Notification [place] [facility] Luly sandoval MD Ctr [address] [place] [phone] Allergies Active Allergy Reactions Severity Noted Date Comments Codeine Unknown - See comments 01/05/2014 Patie nt does not remember reaction Morphine Unknown - See comments 01/07/2019 documented as of this encounter (statuses as of 07/05/2019) Medications Medication Sig Dispensed Refills Start Date [...] mouth daily. tabletIndications: Coronary artery disease involving [place] [...] as of this encounter (statuses as of 07/05/2019) Active Problems Problem Noted Date Stroke 01/25/2019 [...] as of this encounter (statuses as of 07/05/2019) Immunizations Name Administration Dates Next Due Influenza [...] Visit Geriatric Medicine Moiz Melo, JESSICA 301 [facility] [address] [place] [address] 07/31/2019 Telemedicine Visit Neurology Mary Moreland ANP [address] [place] [phone] Charli Kothari MD [address] [place] [address]. [place] [address] 08/28/2019 Office Visit Geriatric Medicine Alon Melo ANP 301 [facility] [address] [place] [address] Health Maintenance Due Date Last [...] BOX Medicare A & B t 2 [id number] MIKAYLA CHAU [id number] [facility] MEDICAID OF xxxxxxxxx 2019-Prese [phone] [address] Medicaid [facility] 0 [id number] [place] [address] documented as of this encounter
== END 2019-07-06 17:08 | disposition home or self-care (01) ==
LOC: ER 16:23
DX: K94.23 Gastrostomy malfunction (principal); I10 Essential (primary) hypertension; Z88.5 Allergy status to narcotic agent; Z91.040 Latex allergy status; Z91.048 Other nonmedicinal substance allergy status
CPT/HCPCS: 99283

== ENCOUNTER 2019-07-07 17:58 | Emergency (ER) | payer OTHER ==
--- OUTSIDE RECORDS SUMMARY | 2019-07-07 18:03 | XMS REPORT ---
:1940 Author Organization [facility] t Address [address] [place] [address] Care Team Providers Name Role Phone Unavailable [...] Type Clinicians Facility Department ID 2018-03-23 Inpatient [facility] MED 9002 19:28:00 2018-03-22 Inpatient [facility] MED 7502 04:21:00 Results Test Description Test Time Test Comments Text Results Atomic Results Result Comments - CT HEAD/BRAIN W/O CONT 2019-02-28 14:38:00 Name: RONALD VILLANUEVA [facility] : 1940 Age/S: 78 / F [address] [place] [address] Blvd Unit #: [id number] Loc: [place] [address] Phys: Lucina Stewart MD Acct: [id number] Dis Da te: Status: REG CLI PHONE #: [phone] Exam Date: 02/28/2019 1416 FAX #: [phone] [place] son: EVAL FOR PROGRESSION OF STRO KE. EXAMS: CPT CODE: [id number] CT HEAD /BRAIN W/O CONT 19531 CT head wit hout contrast 02/28/2019 HISTORY: [...] and lateral lef t occipital infarcts. SL: [id number] at 14 38 Reported and signed by: Miguelina Ventura M.D. CC: Lucina Stewart MD Technologist:Pj Acosta, RT(R)(CT) CTDI: DLP: Trnscb Date/Time: 2018 (3772) t.SDR.BJM4 Orig Print D/T: S: 2018 (2502) PAGE 1 Signed Report VITAMIN B12 2019-02-18 08:36:00 Test Item Value Reference Range Comments VITAMIN B12 (test code = VITB12) 424 pg/mL 193-986 INFECTION CONTROL [id number] 04:13:00 Test Item Value Reference Range Comments AG HEPATITIS B SURFACE (test code = NON REACTIVE INDEX NonReacti ve HBSAG) AB HEPATITIS C (test code = HCVAB) NON REACTIVE INDEX NON REACT. AB HIV 1 2 (test code = APX23GQ) NONREACTIVE INDEX NONREACTIVE HIV 1/2 RAPID SCREEN (test code = NONREACTIVE NONREACTIVE LGD50QCR) AG HIV1 P24 (test code = JHU3L20) NONREACTIVE NONREACTIVE SOURCE PATIENTINFECTION CONTROL [id number] 03:03:00 Test Item Value Reference Range Comments AG HEPATITIS B SURFACE (test code = NON REACTIVE INDEX NonReacti ve HBSAG) AB HEPATITIS C (test code = HCVAB) NON REACTIVE INDEX NON REACT. AB HIV 1 2 (test code = RTS99YB) INDEX NONREACTIVE HIV 1/2 RAPID SCREEN (test code = NONREACTIVE NONREACTIVE BMZ85MUX) AG HIV1 P24 (test code = GHU8F02) NONREACTIVE NONREACTIVE SOURCE PATIENTINFECTION CONTROL [id number] 02:24:00 Test Item Value Reference Range Comments AG HEPATITIS B SURFACE (test code = NON REACTIVE INDEX NonReacti ve HBSAG) AB HEPATITIS C (test code = HCVAB) INDEX NON REACT. AB HIV 1 2 (test code = OVX82MT) INDEX NONREACTIVE HIV 1/2 RAPID SCREEN (test code = NONREACTIVE NONREACTIVE KMY71NYR) AG HIV1 P24 (test code = YCG3T15) NONREACTIVE NONREACTIVE SOURCE PATIENTINFECTION CONTROL [id number] 02:14:00 Test Item Value Reference Range Comments AG HEPATITIS B SURFACE (test code = HBSAG) INDEX NonRe active AB HEPATITIS C (test code = HCVAB) INDEX NON REACT. AB HIV 1 2 (test code = JVJ66BM) INDEX NONREACTIVE HIV 1/2 RAPID SCREEN (test code = TEC96SBP) NONREACTIVE NONR EACTIVE AG HIV1 P24 (test code = UNI8X40) NONREACTIVE NONREACTIVE SOURCE PATIENTBASIC METABOLIC [id number] 08:46:00 Test Item Value Reference Range Comments [...] = CA) 8.6 mg/dL 8.0-10.5 THYROID STIMULATING [id number] 08:46:00 Test Item Value Reference Range Comments THYROID STIMULATING HORMONE (test 3.35 0.42-5.47 Results in kyaw-International code = TSH) Units/mL CBC W/AUTO [id number] 07:21:00 Test Item Value Reference Range Comments [...] (test code = MDIFF) NO BASIC METABOLIC [id number] 05:09:00 Test Item Value Reference Range Comments [...] = CA) 8.3 mg/dL 8.0-10.5 BASIC METABOLIC [id number] 05:07:00 Test Item Value Reference Range Comments [...] = CA) 8.3 mg/dL 8.0-10.5 CBC W/AUTO [id number] 04:57:00 Test Item Value Reference Range Comments [...] MDIFF) NO UA RFLX MICR CULT IF [id number] 17:29:00 Test Item Value Reference Range Comments [...] srcSpecimen Description: STRAIGHT CATH- CT HEAD/BRAIN W/O [id number] 17:29:00 Name: RONALD ALLEN [facility] : 1940 Age/S: 78 / F [address] [place] [address] Unit #: [id number] Loc: [place], [place] Phys: Xander Brown MD Acct: [id number] Dis Date: Status: PRE ER PHONE #: [phone] Exam Date: 02/13/2019 1647 FAX #: [phone] Reason: AlteredMental Status EXAMS: CPTCODE: [id number] CT HEAD/BRAIN W/O CONT 99272 Clinical Ind ication: Altered mental status. Comparison: [...] 1 Signed Report (CONTINUED) Name: RONALD ALLEN [facility] : 1940 Age/S: 78 / F [address] [place] [address] Blvd Unit #: [id number] Loc: [place] [address] Phys: Xander Brown MD Acct: [id number] Dis Date: Status: PRE ER PHONE #: [phone] Exam Date: 02/13/2019 1647 FAX #: [phone] Reason: Altered Mental Status EXAMS: CPT CODE: [id number] CT HEAD/BRAIN W/O CONT 79018<Continued> cerebral parenchymal volume loss. SL: APATIL-H at 0341 Reported and signed by: Lea Pace M.D. CC: Xander Brown MD Technologist:Katherine Headley RT(R)(CT) CTDI: DLP: Trnscb Date/Time: 02/13/2019 (1729) WilberVB9 Orig Print D/T: S: 02/13/2019 (4584) PAGE 2 Signed ReportTROPONIN-I [id number] 15:49:00 Test Item Value Reference Range Comments TROPONIN-I RAPID (test 0.02 ng/mL 0.00-0.08 Performed by certified cracker and cookie machine operator code = TROPIRAP) at [facility] Negative: <= 0.08 Positive: >= [...] in tropo jaron levels characteristic o f HI. - XR CHEST 1 [id number] 15:46:00 FAX: Xander Brown MD [phone] [place]: [address]: PRE Name: LANIE ALLENOINWILLIE Ingram [facility] : 1940 Age/S: 78/F [address] [place] [address] Unit#: [id number] Loc: [address] [address] Phys: Xander Brown MD Acct: [id number] Dis Date: Status: PRE ER PHONE #: [phone] Exam Date: 02/13/2019 1540 FAX #: [phone] Reason: Altered Mental Status EXAMS: CPT CODE: [id number] XR CHEST 1 V 37029 EXAM: XR CHEST 1 VIEW DATE: 02/13/2019 3:19 PM : 1940; Age: 78 years y/o Female INDICATION: Altered Mental Status COMPARISON: December 25, 2018 TECHNIQUE: AP chest. IMPRESSION: Lines, tubes and hardware: Prior sternotomy changes. Heart, mediastinum and lungs: The heart size is enlarged but unchanged. Vascular calcifications are present at the aorta. Pulmonary vascularity is normal. No consolidation or pleural effusion. SL: [id number] at 1546 Reported and signed by: Shonda Jaquez D.O. CC: Xander Brown MD Technologist: Dixie Graf, RT(R)(M); Dodie Fernandez RT(R) Trnscrd Date/Time/By: 02/13/2019 (1256) : By: WilberMP37 Orig Print D/T: S: 02/13/2019 (8027) PAGE 1 Signed ReportHEPATIC FUNCTION [id number] 15:44:00 Test Item Value Reference Range Comments [...] ALKP) 91 IUnit/L 20 -125 CHEMISTRY 8 [id number] 15:42:00 Test Item Value Reference Range Comments [...] code = 46 ML/MIN GFRBED) CHEMISTRY 8 [id number] 15:42:00 Test Item Value Reference Range Comments ISTAT-SODIUM (test code = 140 MMOL/L 134-147 NAP) ISTAT-POTASSIUM (test code = 3.9 MMOL/L 3.4-5.0 KP) ISTAT-CHLORIDE (test code = 101 MMOL/L 100-108 Perf ormed by certified CLP) cracker and cookie machine operator at [facility] ISTAT CARBON DIOXIDE (test 29.0 mmol/L 21-33 code = ISTAT-CO2) ISTAT CALCIUM IONIZED (test 1.22 MG/DL 1.12-1.32 code = ISTAT-JOJO) ISTAT-GLUCOSE (test code = 157 MG/DL 70-110 GLUP) ISTAT-BUN (test code = BUNP) 30 MG/DL 7-18 BEDSIDE CREATININE (test code 1.2 MG/DL 0.6-1.3 = CREATBED) GLOMERULAR FILTRATION RATE 46 ML/MIN POC (test code = GFRBED) CBC W/AUTO [id number] 15:29:00 Test Item Value Reference Range Comments [...] DIFF REQUIRED (test code = MDIFF) NO [id number] 12:34:00 Test Item Value Reference Range Comments GLUBED (test code = GLUBED) 187 MG/DL 70-110 Perf ormed by certified cracker and cookie machine operator at [facility] [id number] 08:06:00 Test Item Value Reference Range Comments GLUBED (test code = GLUBED) 120 MG/DL 70-110 Perf ormed by certified cracker and cookie machine operator at [facility] [id number] 21:13:00 Test Item Value Reference Range Comments GLUBED (test code = GLUBED) 100 MG/DL 70-110 Perf ormed by certified cracker and cookie machine operator at [facility] [id number] 19:31:00 Test Item Value Reference Range Comments GLUBED (test code = GLUBED) 211 MG/DL 70-110 Perf ormed by certified cracker and cookie machine operator at [facility] [id number] 13:29:00 Test Item Value Reference Range Comments GLUBED (test code = GLUBED) 155 MG/DL 70-110 Perf ormed by certified cracker and cookie machine operator at [facility] [id number] 08:20:00 Test Item Value Reference Range Comments GLUBED (test code = GLUBED) 129 MG/DL 70-110 Perf ormed by certified cracker and cookie machine operator at [facility] [id number] 20:42:00 Test Item Value Reference Range Comments GLUBED (test code = GLUBED) 213 MG/DL 70-110 Perf ormed by certified cracker and cookie machine operator at [facility] [id number] 17:06:00 Test Item Value Reference Range Comments GLUBED (test code = GLUBED) 73 MG/DL 70-110 Perf ormed by certified cracker and cookie machine operator at [facility] [id number] 15:11:00 Test Item Value Reference Range Comments GLUBED (test code = GLUBED) 230 MG/DL 70-110 Perf ormed by certified cracker and cookie machine operator at [facility] BASIC METABOLIC [id number] 10:02:00 Test Item Value Reference Range Comments [...] = CA) 8.9 mg/dL 8.0-10.5 CBC W/AUTO [id number] 08:25:00 Test Item Value Reference Range Comments [...] DIFF REQUIRED (test code = MDIFF) NO [id number] 08:24:00 Test Item Value Reference Range Comments GLUBED (test code = GLUBED) 133 MG/DL 70-110 Perf ormed by certified cracker and cookie machine operator at [facility] [id number] 20:47:00 Test Item Value Reference Range Comments GLUBED (test code = GLUBED) 212 MG/DL 70-110 Perf ormed by certified cracker and cookie machine operator at [facility] - DUP VEIN [id number] 15:47:00 Name: RONALD ALLEN [facility] : 1940 Age/S: 78 / F [address] [place] [address] Unit #: [id number] Loc: [place] [id number] Phys: Sarbjit Carr DO Acct: [id number] Dis Date: Status: ADM IN PHONE #: [phone] Exam Date: 12/25/2018 153 FAX #: [phone] Reason: LLE swelling eval for DVT EXAMS: CPTCODE: [id number] DUP VEIN UNI/LTD 35497 PROCEDURE: LEFT UNILATERAL LOWER EXTREMITY VENOUS ULTRASOUND [...] PURPOSES ONLY RESULT CODE: CVR SL:01 at 5639 Reported and signed by:Markie Cooper M.D. CC: Sarbjit Carr DO Technologist: Selina Alicea RDMS(OB)(AB) Trnnmb Date/Time: 12/25/2018 (4210) [email or web address].AJJ Orig Print D/T: S: 12/25/2018 (0090) Probe: PAGE 1 Signed Report B-TYPE NATRIURETIC [id number] 14:34:00 Test Item Value Reference Range Comments B-TYPE NATRIURETIC PEPTIDE (test code = BNP) 126.1 PG/ML 0-1 00 PROTHROMBIN [id number] 14:09:00 Test Item Value Reference Range Comments PROTHROMBIN TIME PATIENT 10.1 SECONDS 9.3-12.9 (test code = PTP) INTERNATIONAL NORMAL RATIO 0.9 0.8-1.2 TARGET INR BY (test code = INR) INDICATION I ndication INR1. Prophylax is of venous thrombosis 2.0 - 3.0 (orthopedi c surgery), Prophylaxis of venous thrombosis (othe r than high-risk surg nelida), Treatment of Tatiana p Vein Thrombosis/Pulmo nary Embolism, Preven tion [...] (to prevent recurrent infarc t). THROMBOPLASTIN TIME [id number] 14:09:00 Test Item Value Reference Range Comments THROMBOPLASTIN TIME PARTIAL 20.2 Seconds 25.0-39.5 Therapeutic Range: (test code = PTT) 50.4 - 88.3 Se conds Effective 0 07/05/2018 - CT HEAD/BRAIN W/O [id number] 13:48:00 Name: RONALD ALLEN [facility] [place] : 1940 Age/S: 78 / F [address] [place] [address] Unit #: [id number] Loc: [place] [id number] Phys: Sarbjit Carr DO Acct: [id number] Dis Date: Status: REG ER PHONE #: [phone] Exam Date: 12/25/2018 1319 FAX #: [phone] Reason: altered mental status EXAMS: CPTCODE: [id number] CT HEAD/BRAIN W/O CONT 99504 CT head without contrast 12/25/2018 HISTORY: Altered [...] changes. 3. No acute intracranial abnormality. SL: [id number] at 1348 Reported and signed by: Robbie Ventura M.D. CC: Sarbjit Hayward Technologist:ANGELA Fajardo CTDI: DLP: Trnscb Date/Time: 12/25/2018 (6601) WilberBJM4 Orig Print D/T: S: 12/25/2018 (4654)PAGE 1 Signed Report URINALYSIS [id number] 13:40:00 Test Item Value Reference Range Comments [...] /LPF NONE SEEN COMMENTS: Clean CatchHEPATIC FUNCTION [id number] 13:38:00 Test Item Value Reference Range Comments [...] is in INTERNATIONAL code = CK) UNITS/LITER [id number] 13:38:00 Test Item Value Reference Range Comments LIPASE (test code = LIP) 409 IUnit/L 73-393 CBC W/AUTO [id number] 13:34:00 Test Item Value Reference Range Comments [...] = MDIFF) NO - XR CHEST 1 [id number] 13:12:00 FAX: Kristy Sarbjit Carr DO [phone] [place]: St: PRE Name: RONALD ALLEN [facility] : 1940 Age/S: 78/F [address] [place] [address] Unit#: [id number] Loc: [address] [place] [address] Phys: Sarbjit Carr DO Acct: [id number] Dis Date: Status: PRE ER PHONE #: [phone] Exam Date: 12/25/2018 1258 FAX #: [phone] Reason: Weakness EXAMS: CPT CODE: [id number] XR CHEST 1 V 12100 EXAM: Single view AP chest. EXAM DATE: [...] RT(R); Elif Ang RT(R) Trnscrd Date/Time/By: 12/25/2018 (9447) : By: Dioni Orig Print D/T: S: 12/25/2018 (4605) PAGE 1 Signed ReportTROPONIN-I [id number] 13:00:00 Test Item Value Reference Range Comments TROPONIN-I RAPID (test 0.01 ng/mL 0.00-0.08 Performed by certified cracker and cookie machine operator code = TROPIRAP) at [facility] Negative: <= 0.08 Positive: >= 0.09An elevated [...] in tropo jaron levels characteristic o f HI. CHEMISTRY 8 [id number] 12:54:00 Test Item Value Reference Range Comments [...] code = 38 ML/MIN GFRBED) CHEMISTRY 8 [id number] 12:54:00 Test Item Value Reference Range Comments ISTAT-SODIUM (test code = 136 MMOL/L 134-147 NAP) ISTAT-POTASSIUM (test code = 4.9 MMOL/L 3.4-5.0 KP) ISTAT-CHLORIDE (test code = 101 MMOL/L 100-108 Perf ormed by certified CLP) cracker and cookie machine operator at [facility] ISTAT CARBON DIOXIDE (test 27.0 mmol/L 21-33 code = ISTAT-CO2) ISTAT CALCIUM IONIZED (test 1.13 MG/DL 1.12-1.32 code = ISTAT-JOJO) ISTAT-GLUCOSE (test code = 212 MG/DL 70-110 GLUP) ISTAT-BUN (test code = BUNP) 52 MG/DL 7-18 BEDSIDE CREATININE (test code 1.4 MG/DL 0.6-1.3 = CREATBED) GLOMERULAR FILTRATION RATE 38 ML/MIN POC (test code = GFRBED) TROPONIN I [id number] 14:47:00 Test Item Value Reference Range Comments [...] = CK) 47 Unit/L 26-192 CBC W/O [id number] 13:44:00 Test Item Value Reference Range Comments [...] 10.10 fL 7.0-10.5 - XR CHEST 1 [id number] 13:38:00 Name: RONALD ALLEN [facility] : 1940 Age/S: 77 / F [address] Unit #: [id number] Loc: [place] [address] Phys: Stevan Mullins MD Acct: [id number] Dis Date: Status: REG ER PHONE #: [phone] Exam Date: 08/26/2018 1330 FAX #: Reason: chest pain EXAMS: CPT: [id number] XR CHEST 1 V 27784 Fluoro Time: DAP (Gy m2): Air Kerma (mGy): HISTORY: chest pain Comparison to August 15, 2018 Location code: B2 FINDINGS: Frontal view of the chest demonstrates normal cardiomediastinal silhouette. The trachea is midline. The lungs are clear. There is no effusion or pneumothorax. The bones are intact. Median sternotomy wires noted. IMPRESSION: No acute pulmonary process. at 1331 Reported and signed by: Bear Pittman M.D. CC: Stevan Mullins MD PAGE 1 Signed Report Name: RONALD ALLEN [facility] : 1940 Age/S: 77 / F [address] Unit #: [id number] Loc: [place] [address] Phys: Stevan Mullins MD Acct: [id number] Dis Date: Status: REG ER PHONE #: [phone] Exam Date: 08/26/2018 1330 FAX #: Reason: chest pain EXAMS: CPT: [id number] XR CHEST 1 V 54609 Fluoro Time: DAP (Gy m2): Air Kerma (mGy): <Continued> Technologist: RT Moe(R) Trnscb Date/Time: 08/26/2018 (1394) tLUIZRK5 Orig Print D/T: S: 08/26/2018 (0347) PAGE 2 Signed ReportTROPONIN I [id number] 13:36:00 Test Item Value Reference Range Comments TROPONIN I RAPID (test code 0.01 ng/mL 0.00-0.08 - Th e use of serial sampling = TROPIRAP) and testing prot ocol is a recommended prac ligia- An elevated troponi n level alone is often not suf ficient for diagnosis of mecca cardial infarction. CHEMISTRY 8 [id number] 13:28:00 Test Item Value Reference Range Comments [...] code = GFRBED) 57 39-90 CHEMISTRY 8 [id number] 13:28:00 Test Item Value Reference Range Comments [...] = 57 39-9 0 GFRBED) GLUCOSE BEDSIDE [id number] 16:57:00 Test Item Value Reference Range Comments GLUCOSE BEDSIDE TESTING (test code = GLUBED) 117 mg/dL 70- 110 - CT HEAD/BRAIN W/O [id number] 16:28:00 Name: RONALD ALLEN [facility] : 1940 Age/S: 77 / F [address] Unit #: [id number] Loc: [place] [address] Phys: Paddy Pittman MD Acct: [id number] Dis Date: Status: ADM IN PHONE #: [phone] Exam Date: 08/16/2018 1610 FAX #: Reason: H/O cva EXAMS: CPT: [id number] CT HEAD/BRAIN W/O CONT 88910 CT HEAD WITHOUT CONTRAST. HISTORY: H/O cva [...] left temporal occipital lobe infarct within the MACHINES TECHNICIAN territory. at 1628 Reported and signed by: Bonifacio Hameed M.D. PAGE 1 Signed Report (CONTINUED) Name: DEEPTITWYLARULARONALD [facility] : 03/1940 Age/S: 77 / F [address] Unit #: [id number] Loc: [place] [address] Phys: Paddy Pittman MD Acct: [id number] Dis Date: Status: ADM IN PHONE #: [phone] Exam Date: 08/16/2018 1610 FAX #: R kavitha: H/O cva EXAMS: CPT: [id number] CT HEAD/BRAIN W/O CONT 23602 <Continued> CC: Jose Lloyd MD; Paddy Pittman MD Technologist:Miguel Angel Combs, RT(R)(CT)(MRI) CTDI: DLP: Trnscb Date/Time: 08/16/2018 (5699) WilberSP17 Orig Print D/T: S: 08/16/2018 (5637) PAGE 2 Signed ReportUA RFLX MICR CULT IF [id number] 12:34:00 Test Item Value Reference Range Comments [...] OtherOther Indication: CONFUSIONUA RFLX MICR CULT IF [id number] 12:33:00 Test Item Value Reference Range Comments [...] Indication for Culture: OtherOther Indication: CONFUSIONGLUCOSE BEDSIDE [id number] 11:56:00 Test Item Value Reference Range Comments GLUCOSE BEDSIDE TESTING (test code = GLUBED) 153 mg/dL 70- 110 GLUCOSE BEDSIDE [id number] 08:07:00 Test Item Value Reference Range Comments GLUCOSE BEDSIDE TESTING (test code = GLUBED) 118 mg/dL 70- 110 BASIC METABOLIC [id number] 04:36:00 Test Item Value Reference Range Comments [...] CA) 8.9 MG/DL 8.5-10.1 Completed by Nursing: [id number] 04:36:00 Test Item Value Reference Range Comments [...] varyby method. Completed by Nursing: NOGLUCOSE BEDSIDE [id number] 20:20:00 Test Item Value Reference Range Comments GLUCOSE BEDSIDE TESTING (test code = GLUBED) 111 mg/dL 70- 110 GLUCOSE BEDSIDE [id number] 18:34:00 Test Item Value Reference Range Comments GLUCOSE BEDSIDE TESTING (test code = GLUBED) 131 mg/dL 70- 110 [id number] 13:43:00 Test Item Value Reference Range Comments [...] varyby method. Completed by Nursing: NOCHEMISTRY 8 [id number] 09:11:00 Test Item Value Reference Range Comments [...] code = GFRBED) 57 39-90 CHEMISTRY 8 [id number] 09:11:00 Test Item Value Reference Range Comments [...] = 57 39-9 0 GFRBED) COMPREHENSIVE METABOLIC [id number] 07:02:00 Test Item Value Reference Range Comments [...] -117 Completed by Nursing: NONT PRO-BRAIN NATRIURETIC [id number] 07:02:00 Test Item Value Reference Range Comments NT PRO-BRAIN NATRIURETIC PEPTI (test code = 839 PG/ML 0-10 0 PROBNP) Completed by Nursing: [id number] 07:02:00 Test Item Value Reference Range Comments [...] varyby method. Completed by Nursing: NOCOMPREHENSIVE METABOLIC [id number] 07:00:00 Test Item Value Reference Range Comments [...] -117 Completed by Nursing: NONT PRO-BRAIN NATRIURETIC [id number] 07:00:00 Test Item Value Reference Range Comments NT PRO-BRAIN NATRIURETIC PEPTI (test code = PROBNP) PG/ML 0-100 Completed by Nursing: [id number] 07:00:00 Test Item Value Reference Range Comments TROPONIN-I (test code = TROPI) NG/ML 0.000-0.045 Completed by Nursing: NOCBC W/AUTO [id number] 06:52:00 Test Item Value Reference Range Comments [...] DIFF/SCN CRITERI A - XR CHEST 1 [id number] 06:47:00 Name: RONALD ALLEN [facility] : 1940 Age/S: 77 / F [address] Unit #: [id number] Loc: [place] [address] Phys: Fadumo Mendoza MD Acct: [id number] Dis Date: Status: PRE ER PHONE #: [phone] Exam Date: 08/15/2018 0635 FAX #: Reason: L chest pain EXAMS: CPT: [id number] XR CHEST 1 V 44431 Fluoro Time: DAP (Gy m2): Air Kerma [...] PAGE 1 Signed Report Name: LARRY ALLEN [facility] : 1940 Age/S: 77 / F [address] Unit #: [id number] Loc: [place], [place] [address]Blkp: Fadumo Mendoza MD Acct: [id number] Dis Date: Status: PRE ER PHONE #: [phone] Exam Date: 08/15/2018 0635 FAX #: Reason: L chest pain EXAMS: CPT: [id number] XRCHEST 1 V 45115 Fluoro Time: DAP (Gy m2): Air Kerma (mGy): <Continued> Technologist: Marcella Preston RT(R)(CT) Trnscb Date/Time: 08/15/2018 (0647) Keisha.PMT Orig Print D/T: S: 08/15/2018 (0659) PAGE 2 Signed ReportTROPONIN I [id number] 06:30:00 Test Item Value Reference Range Comments TROPONIN I RAPID (test code 0.01 ng/mL 0.00-0.08 - Th e use of serial sampling = TROPIRAP) and testing prot ocol is a recommended prac ligia- An elevated troponi n level alone is often not suf ficient for diagnosis of mecca cardial infarction.
--- OUTSIDE RECORDS SUMMARY | 2019-07-07 18:19 | XMS REPORT | Summary of Care ---
:1940 Author Organization [facility] - Health Address [address] [place] [address] Care Team Providers Name Role Phone Silke Ball MD Primary Care Provider [phone] Encounter Details Date Type Department Care Team Description 06/29/2019 Orders Only [facility] Doctor Unassigned, No [address] [facility] [place] [address] [address] [place] [address] Allergies Active Allergy Reactions Severity Noted Date Comments Codeine Unknown - See comments 01/05/2014 Patie nt does not remember reaction Morphine Unknown - See comments 01/07/2019 documented as of this encounter (statuses as of 07/07/2019) Medications Medication Sig Dispensed Refills Start Date [...] mouth daily. tabletIndications: Coronary artery disease involving [place] heart without angina pectoris, unspecified vessel or [...] as of this encounter (statuses as of 07/07/2019) Active Problems Problem Noted Date Stroke 01/25/2019 [...] as of this encounter (statuses as of 07/07/2019) Immunizations Name Administration Dates Next Due Influenza [...] Visit Geriatric Medicine Moiz Melo, ANP [address] [facility] [address] [place] [address] 77 [phone] 07/31/2019 Telemedicine Visit Neurology Mary Moreland ANP [address] [place] [phone] Charli Kothari MD [address] [place] [address]. [place] [address] 08/28/2019 Office Visit Geriatric Medicine Alon Melo ANP [address] [facility] [address] [place] [address] 77 [phone] Health Maintenance Due Date Last [...] Name Priority Date/Time Associated Diagnosis Comme nts DME/SUPPLY JUSTIFICATION Routine 06/29/2019 12:01 AM CDT documented in this encounter Results Not on filedocumented in this encounter Insurance Payer Benefit Plan / Subscriber ID Effective Dates Phone Addre ss Type Group MEDICARE MEDICARE PART xxxxxxxxxxx 2004-Presemeterio [phone] [address] Medicare A & B t 2 [id number] [place] [id number] [facility] MEDICAID OF xxxxxxxxx 2019-Presemily [phone] [address] Medicaid [facility] [id number] [place] [address] documented as of this encounter
--- NOTE | 2019-07-07 20:12 | ER ---
Nurse's Notes [facility] Name: Janell Zuniga Age: 78 yrs Sex: Female : 1940 Arrival Date: 07/07/2019 Time: 18:04 Bed 4 Private MD: Diagnosis: Gastrostomy malfunction Presentation: 07/06 18:04 Chief complaint: Patient's son or daughter states: PEG tube clogged, seen yesterday for ph same complaint. Coronavirus screen: Patient denies a cough. Patient denies shortness of breath or difficulty breathing. Patient denies measured and/or subjective temperature greater than 100.4F prior to today's visit. Patient denies travel on a cruise ship or to a country the [facility] currently lists as an affected area. Patient denies contact with known and/or suspected case of COVID-19. Ebola Screen: No symptoms or risks identified at this time. Initial Sepsis Screen: Does the patient meet any 2 criteria? No. Patient's initial sepsis screen is negative. Does the patient have a suspected source of infection? No. Patient's initial sepsis screen is negative. Risk Assessment: Do you want to hurt yourself or someone else? Patient reports no desire to harm self or others. Onset of symptoms was July 07, 2019. 18:04 Method Of Arrival: Wheelchair ph 18:04 Acuity: ANANT 4 ph Historical: - Allergies: 18:07 Codeine; ph 18:07 Latex, Natural Rubber; ph 18:07 Morphine; ph - PMHx: 18:07 Aphasia; CAD; CVA; Diabetes - NIDDM; hemiparesis right; Hypertension; ph - Immunization history:: Adult Immunizations unknown. - Social history:: Smoking status: Patient denies any tobacco usage or history of. Screenin:38 Abuse screen: Denies threats or abuse. Denies injuries from another. Nutritional ph screening: No deficits noted. Tuberculosis screening: No symptoms or risk factors identified. Fall Risk Secondary diagnosis (15 points) impaired mobility, CVA, No IV (0 pts). Ambulatory Aid- None/Bed Rest/Nurse Assist (0 pts). Gait- Impaired (20 pts.). Mental Status- Overestimates/Forgets Limitations (15 pts.). Total [place] Fall Scale indicates High Risk Score (45 or more points). Fall prevention measures have been instituted. Side Rails Up X 2 Placed Close to Nursing Station Frequent Obs/Assessments Occuring Family Present and informed to notify staff if the need to leave the bedside As available patient and family educated on Fall Prevention Program and Strategies. Assessment: 18:20 Reassessment: attempted to flush PEG w/ warm water, difficult to flush. ph 18:34 General: Appears in no apparent distress. Behavior is calm, cooperative, drowsy. Pain: ph Unable to use pain scale. Does not appear to understand pain scale. Neuro: Level of Consciousness is awake, alert. GI: Abdomen is non-distended, PEG tube in place, Site clean. Derm: Skin is intact, Skin is pink, warm \T\ dry. Vital Signs: 18:09 BP 113 / 64; Pulse 69; Resp 18 S; Temp 97.2(TE); Pulse Ox 98% on R/A; Weight 53.98 kg ca1 (R); Height 4 ft. 7 in. (139.70 cm) (R); 18:09 Body Mass Index 27.66 (53.98 kg, 139.70 cm) ca1 ED Course: 18:04 Patient arrived in ED. ph 18:05 Mynor Marin MD is Attending Physician. kdr 18:05 Triage completed. ph 18:07 Arm band placed on Patient placed in an exam room. ph 18:13 Mary Barron, RN is Primary Nurse. hb 18:37 Jackeline Mcfarland, RN is Primary Nurse. ph 19:19 Patient has correct armband on for positive identification. Call light in reach. Pulse ph ox on. Sitter at bedside. NIBP on. Door closed. Noise minimized. Warm blanket given. 20:51 Attending Physician role handed off by Mynor Marin MD tw4 20:51 Rajesh Donahue MD is Attending Physician. tw4 20:52 Mynor Marin MD is Attending Physician. tw4 Administered Medications: No medications were administered Outcome: 20:12 Discharge ordered by . tw4 21:30 Patient left the ED. bb Signatures: Mynor Marin MD MD [facility] Dixie Henriquez RN RN Jackeline Mcfarland RN RN Mary Barron RN RN Rajesh Donahue MD MD tw4 Acob, Caryn, RN RN ca1
--- NOTE | 2019-07-07 20:12 | EDPHYS ---
Physician Documentation [facility] Name: Janell Zuniga Age: 78 yrs Sex: Female : 1940 Arrival Date: 07/07/2019 Time: 18:04 Bed 4 Private MD: ED Physician Mynor Marin Historical: - Allergies: 07/06 18:07 Codeine; ph 18:07 Latex, Natural Rubber; ph 18:07 Morphine; ph - PMHx: 18:07 Aphasia; CAD; CVA; Diabetes - NIDDM; hemiparesis right; Hypertension; ph - Immunization history:: Adult Immunizations unknown. - Social history:: Smoking status: Patient denies any tobacco usage or history of. Vital Signs: 18:09 BP 113 / 64; Pulse 69; Resp 18 S; Temp 97.2(TE); Pulse Ox 98% on R/A; Weight 53.98 kg ca1 (R); Height 4 ft. 7 in. (139.70 cm) (R); 18:09 Body Mass Index 27.66 (53.98 kg, 139.70 cm) ca1 Procedures: 20:54 G-tube placement: a 18 [place] Citizen catheter was placed, by the ED physician, Rajesh whitlock MD. MDM: 20:12 Patient medically screened. tw4 07/06 18:07 Order name: [place]. Order: Irrigate PEG tube; Complete Time: 19:19 kdr Administered Medications: No medications were administered Disposition: 07/07/19 20:12 Discharged to Home. Impression: Gastrostomy malfunction. - Condition is Stable. - Discharge Instructions: Gastrostomy Tube Replacement, Gastrostomy Tube Home Guide, Adult, PEG Tube Home Guide, Bsyo-[id number], Gastrostomy Tube Replacement, Care After. - Medication Reconciliation Form, Thank You Letter, Antibiotic Education, Prescription Opioid Use form. - Follow up: Private Physician; When: Upon discharge from the Emergency Department; Reason: Recheck today's complaints, Continuance of care, Re-evaluation by your physician. Addendum: 07/20/2019 06:17 Addendum: HPI: Pt is an 78 year old elderly female with multiple visits for dislodge t w4 PEG tube. Daughter states that the tube will not flush properly and was recently replaced last week. Daughter states that she has been flushing the tube with water after feedings and medication administration. Thera are no other symptoms reported at this time. Daughter denies sick contacts or recent travel. Addendum: ROS: All systems negative . Addendum: PE: General well developed elderly female in NAD HEENT: [place]ERLA EOMI neck supple Resp: CTAB ,nl BS Cv: RRR, S1 S2, no murmurs no gallops Abdomen: gastrostomy tube in place normal BS nontender nondistended Neuro: alert awake, nonverbal CN grossly intact, strength grossly intact. Signatures: Mynor Marin MD MD [facility] Dixie Henriquez RN RN bb Jackeline Mcfarland RN RN ph Rajesh Donahue MD MD tw4 Corrections: (The following items were deleted from the chart) 07/06 21:30 20:12 07/07/2019 20:12 Discharged to Home. Impression: Gastrostomy malfunction. bb Condition is Stable. Forms are Medication Reconciliation Form, Thank You Letter, Antibiotic Education, Prescription Opioid Use. Follow up: Private Physician; When: Upon discharge from the Emergency Department; Reason: Recheck today's complaints, Continuance of care, Re-evaluation by your physician. tw4
[2019-07-07 21:35] VITALS: BP 113/64; TEMP 97.2; O2SAT 98
== END 2019-07-07 21:30 | disposition home or self-care (01) ==
LOC: ER 17:58
DX: K94.23 Gastrostomy malfunction (principal)
CPT/HCPCS: 99284

== ENCOUNTER 2019-07-10 00:58 | Emergency (ER) | payer OTHER ==
--- OUTSIDE RECORDS SUMMARY | 2019-07-10 01:05 | XMS REPORT ---
:1940 Author Organization [facility] t Address [address] [place] [address] Care Team Providers Name Role Phone Unavailable [...] Type Clinicians Facility Department ID 2018-03-23 Inpatient [facility] 9002 19:28:00 2018-03-22 Inpatient [facility] MED 7502 04:21:00 Results Test Description Test Time Test Comments Text Results Atomic Results Result Comments - CT HEAD/BRAIN W/O CONT 2019-02-28 14:38:00 Name: RONALD VILLANUEVA [facility] : 1940 Age/S: 78 / F [address] [place] [address] Blvd Unit #: [id number] Loc: [place] [address] Phys: Lucina Stewart MD Acct: [id number] Dis Da te: Status: REG CLI PHONE #: [phone] Exam Date: 02/28/2019 1416 FAX #: [phone] [place] son: EVAL FOR PROGRESSION OF STRO KE. EXAMS: CPT CODE: [id number] CT HEAD /BRAIN W/O CONT 28827 CT head wit hout contrast 02/28/2019 HISTORY: [...] and lateral lef t occipital infarcts. SL: [id number] at 14 38 Reported and signed by: Miguelina Ventura M.D. CC: Lucina Stewart MD Technologist:Pj Acosta, RT(R)(CT) CTDI: DLP: Trnscb Date/Time: 2018 (8317) t.SDR.BJM4 Orig Print D/T: S: 2018 (2383) PAGE 1 Signed Report VITAMIN B12 2019-02-18 08:36:00 Test Item Value Reference Range Comments VITAMIN B12 (test code = VITB12) 424 pg/mL 193-986 INFECTION CONTROL [id number] 04:13:00 Test Item Value Reference Range Comments AG HEPATITIS B SURFACE (test code = NON REACTIVE INDEX NonReacti ve HBSAG) AB HEPATITIS C (test code = HCVAB) NON REACTIVE INDEX NON REACT. AB HIV 1 2 (test code = KKV13WQ) NONREACTIVE INDEX NONREACTIVE HIV 1/2 RAPID SCREEN (test code = NONREACTIVE NONREACTIVE [id number]) AG HIV1 P24 (test code = EEE9Q04) NONREACTIVE NONREACTIVE SOURCE PATIENTINFECTION CONTROL [id number] 03:03:00 Test Item Value Reference Range Comments AG HEPATITIS B SURFACE (test code = NON REACTIVE INDEX NonReacti ve HBSAG) AB HEPATITIS C (test code = HCVAB) NON REACTIVE INDEX NON REACT. AB HIV 1 2 (test code = ZBK95VD) INDEX NONREACTIVE HIV 1/2 RAPID SCREEN (test code = NONREACTIVE NONREACTIVE UFO40LQI) AG HIV1 P24 (test code = TJO9E01) NONREACTIVE NONREACTIVE SOURCE PATIENTINFECTION CONTROL [id number] 02:24:00 Test Item Value Reference Range Comments AG HEPATITIS B SURFACE (test code = NON REACTIVE INDEX NonReacti ve HBSAG) AB HEPATITIS C (test code = HCVAB) INDEX NON REACT. AB HIV 1 2 (test code = VKS08EL) INDEX NONREACTIVE HIV 1/2 RAPID SCREEN (test code = NONREACTIVE NONREACTIVE MKB13EAY) AG HIV1 P24 (test code = IMR7O22) NONREACTIVE NONREACTIVE SOURCE PATIENTINFECTION CONTROL [id number] 02:14:00 Test Item Value Reference Range Comments AG HEPATITIS B SURFACE (test code = HBSAG) INDEX NonRe active AB HEPATITIS C (test code = HCVAB) INDEX NON REACT. AB HIV 1 2 (test code = YYB25WG) INDEX NONREACTIVE HIV 1/2 RAPID SCREEN (test code = ISR85ADV) NONREACTIVE NONR EACTIVE AG HIV1 P24 (test code = HLW5N73) NONREACTIVE NONREACTIVE SOURCE PATIENTBASIC METABOLIC [id number] 08:46:00 Test Item Value Reference Range Comments [...] = CA) 8.6 mg/dL 8.0-10.5 THYROID STIMULATING [id number] 08:46:00 Test Item Value Reference Range Comments THYROID STIMULATING HORMONE (test 3.35 0.42-5.47 Results in kyaw-International code = TSH) Units/mL CBC W/AUTO [id number] 07:21:00 Test Item Value Reference Range Comments [...] (test code = MDIFF) NO BASIC METABOLIC [id number] 05:09:00 Test Item Value Reference Range Comments [...] = CA) 8.3 mg/dL 8.0-10.5 BASIC METABOLIC [id number] 05:07:00 Test Item Value Reference Range Comments [...] = CA) 8.3 mg/dL 8.0-10.5 CBC W/AUTO [id number] 04:57:00 Test Item Value Reference Range Comments [...] MDIFF) NO UA RFLX MICR CULT IF [id number] 17:29:00 Test Item Value Reference Range Comments [...] srcSpecimen Description: STRAIGHT CATH- CT HEAD/BRAIN W/O [id number] 17:29:00 Name: RONALD ALLEN [facility] : 1940 Age/S: 78 / F [address] [place] [address] Unit #: [id number] Loc: [place], [place] Phys: Xander Brown MD Acct: [id number] Dis Date: Status: PRE ER PHONE #: [phone] Exam Date: 02/13/2019 1647 FAX #: [phone] Reason: AlteredMental Status EXAMS: CPTCODE: [id number] CT HEAD/BRAIN W/O CONT 04881 Clinical Ind ication: Altered mental status. Comparison: [...] 1 Signed Report (CONTINUED) Name: RONALD ALLEN [facility] : 1940 Age/S: 78 / F [address] [place] [address] Blvd Unit #: [id number] Loc: [place] [address] Phys: Xander Brown MD Acct: [id number] Dis Date: Status: PRE ER PHONE #: [phone] Exam Date: 02/13/2019 1647 FAX #: [phone] Reason: Altered Mental Status EXAMS: CPT CODE: [id number] CT HEAD/BRAIN W/O CONT 15275<Continued> cerebral parenchymal volume loss. SL: APATIL-H at 8968 Reported and signed by: Lea Pace M.D. CC: Xander Brown MD Technologist:Katherine Headley RT(R)(CT) CTDI: DLP: Trnscb Date/Time: 02/13/2019 (1729) WilberVB9 Orig Print D/T: S: 02/13/2019 (1757) PAGE 2 Signed ReportTROPONIN-I [id number] 15:49:00 Test Item Value Reference Range Comments TROPONIN-I RAPID (test 0.02 ng/mL 0.00-0.08 Performed by certified presetter operator code = TROPIRAP) at [facility] Negative: <= 0.08 Positive: >= 0.09An [...] in tropo jaron levels characteristic o f MO. - XR CHEST 1 [id number] 15:46:00 FAX: Xander Brown MD [phone] [place]: [address]: PRE Name: LANIE ALLENOINWILLIE Ingram [facility] : 1940 Age/S: 78/F [address] [place] [address] Unit#: [id number] Loc: [address] [address] Phys: Xander Brown MD Acct: [id number] Dis Date: Status: PRE ER PHONE #: [phone] Exam Date: 02/13/2019 1540 FAX #: [phone] Reason: Altered Mental Status EXAMS: CPT CODE: [id number] XR CHEST 1 V 73800 EXAM: XR CHEST 1 VIEW DATE: 02/13/2019 3:19 PM : 1940; Age: 78 years y/o Female INDICATION: Altered Mental Status COMPARISON: December 25, 2018 TECHNIQUE: AP chest. IMPRESSION: Lines, tubes and hardware: Prior sternotomy changes. Heart, mediastinum and lungs: The heart size is enlarged but unchanged. Vascular calcifications are present at the aorta. Pulmonary vascularity is normal. No consolidation or pleural effusion. SL: [id number] at 1546 Reported and signed by: Shonda Jaquez D.O. CC: Xander Brown MD Technologist: Dixie Graf, RT(R)(M); Dodie Fernandez RT(R) Trnscrd Date/Time/By: 02/13/2019 (4514) : By: WilberMP37 Orig Print D/T: S: 02/13/2019 (4235) PAGE 1 Signed ReportHEPATIC FUNCTION [id number] 15:44:00 Test Item Value Reference Range Comments [...] ALKP) 91 IUnit/L 20 -125 CHEMISTRY 8 [id number] 15:42:00 Test Item Value Reference Range Comments [...] code = 46 ML/MIN GFRBED) CHEMISTRY 8 [id number] 15:42:00 Test Item Value Reference Range Comments ISTAT-SODIUM (test code = 140 MMOL/L 134-147 NAP) ISTAT-POTASSIUM (test code = 3.9 MMOL/L 3.4-5.0 KP) ISTAT-CHLORIDE (test code = 101 MMOL/L 100-108 Perf ormed by certified CLP) presetter operator at [facility] ISTAT CARBON DIOXIDE (test 29.0 mmol/L 21-33 code = ISTAT-CO2) ISTAT CALCIUM IONIZED (test 1.22 MG/DL 1.12-1.32 code = ISTAT-JOJO) ISTAT-GLUCOSE (test code = 157 MG/DL 70-110 GLUP) ISTAT-BUN (test code = BUNP) 30 MG/DL 7-18 BEDSIDE CREATININE (test code 1.2 MG/DL 0.6-1.3 = CREATBED) GLOMERULAR FILTRATION RATE 46 ML/MIN POC (test code = GFRBED) CBC W/AUTO [id number] 15:29:00 Test Item Value Reference Range Comments [...] DIFF REQUIRED (test code = MDIFF) NO [id number] 12:34:00 Test Item Value Reference Range Comments GLUBED (test code = GLUBED) 187 MG/DL 70-110 Perf ormed by certified presetter operator at [facility] [id number] 08:06:00 Test Item Value Reference Range Comments GLUBED (test code = GLUBED) 120 MG/DL 70-110 Perf ormed by certified presetter operator at [facility] [id number] 21:13:00 Test Item Value Reference Range Comments GLUBED (test code = GLUBED) 100 MG/DL 70-110 Perf ormed by certified presetter operator at [facility] [id number] 19:31:00 Test Item Value Reference Range Comments GLUBED (test code = GLUBED) 211 MG/DL 70-110 Perf ormed by certified presetter operator at [facility] [id number] 13:29:00 Test Item Value Reference Range Comments GLUBED (test code = GLUBED) 155 MG/DL 70-110 Perf ormed by certified presetter operator at [facility] [id number] 08:20:00 Test Item Value Reference Range Comments GLUBED (test code = GLUBED) 129 MG/DL 70-110 Perf ormed by certified presetter operator at [facility] [id number] 20:42:00 Test Item Value Reference Range Comments GLUBED (test code = GLUBED) 213 MG/DL 70-110 Perf ormed by certified presetter operator at [facility] [id number] 17:06:00 Test Item Value Reference Range Comments GLUBED (test code = GLUBED) 73 MG/DL 70-110 Perf ormed by certified presetter operator at [facility] [id number] 15:11:00 Test Item Value Reference Range Comments GLUBED (test code = GLUBED) 230 MG/DL 70-110 Perf ormed by certified presetter operator at [facility] BASIC METABOLIC [id number] 10:02:00 Test Item Value Reference Range Comments [...] = CA) 8.9 mg/dL 8.0-10.5 CBC W/AUTO [id number] 08:25:00 Test Item Value Reference Range Comments [...] DIFF REQUIRED (test code = MDIFF) NO [id number] 08:24:00 Test Item Value Reference Range Comments GLUBED (test code = GLUBED) 133 MG/DL 70-110 Perf ormed by certified presetter operator at [facility] [id number] 20:47:00 Test Item Value Reference Range Comments GLUBED (test code = GLUBED) 212 MG/DL 70-110 Perf ormed by certified presetter operator at [facility] ed Ctr - DUP VEIN UNI/[id number] 15:47:00 Name: RONALD ALLEN [facility] : 1940 Age/S: 78 / F [address] [place] [address] Unit #: [id number] Loc: [place] [id number] Phys: Sarbjit Carr DO Acct: [id number] Dis Date: Status: ADM IN PHONE #: [phone] Exam Date: 12/25/2018 153 FAX #: [phone] Reason: LLE swelling eval for DVT EXAMS: CPTCODE: [id number] DUP VEIN UNI/LTD 87262 PROCEDURE: LEFT UNILATERAL LOWER EXTREMITY VENOUS ULTRASOUND [...] PURPOSES ONLY RESULT CODE: CVR SL:01 at 3187 Reported and signed by:Markie Cooper M.D. CC: Sarbjit Carr DO Technologist: Selina Alicea RDMS(OB)(AB) Trnwab Date/Time: 12/25/2018 (9060) [email or web address].AJJ Orig Print D/T: S: 12/25/2018 (7156) Probe: PAGE 1 Signed Report B-TYPE NATRIURETIC [id number] 14:34:00 Test Item Value Reference Range Comments B-TYPE NATRIURETIC PEPTIDE (test code = BNP) 126.1 PG/ML 0-1 00 PROTHROMBIN [id number] 14:09:00 Test Item Value Reference Range Comments [...] (to prevent recurrent infarc t). THROMBOPLASTIN TIME [id number] 14:09:00 Test Item Value Reference Range Comments THROMBOPLASTIN TIME PARTIAL 20.2 Seconds 25.0-39.5 Therapeutic Range: (test code = PTT) 50.4 - 88.3 Se conds Effective 0 07/05/2018 - CT HEAD/BRAIN W/O [id number] 13:48:00 Name: RONALD ALLEN [facility] : 1940 Age/S: 78 / F [address] [place] [address] Unit #: [id number] Loc: [place] [id number] Phys: Sarbjit Carr DO Acct: [id number] Dis Date: Status: REG ER PHONE #: [phone] Exam Date: 12/25/2018 1319 FAX #: [phone] Reason: altered mental status EXAMS: CPTCODE: [id number] CT HEAD/BRAIN W/O CONT 66188 CT head without contrast 12/25/2018 HISTORY: Altered [...] changes. 3. No acute intracranial abnormality. SL: [id number] at 1348 Reported and signed by: Robbie Ventura M.D. CC: Sarbjit Hayward Technologist:ANGELA Fajardo CTDI: DLP: Trnscb Date/Time: 12/25/2018 (0929) WilberBJM4 Orig Print D/T: S: 12/25/2018 (1321)PAGE 1 Signed Report URINALYSIS [id number] 13:40:00 Test Item Value Reference Range Comments [...] /LPF NONE SEEN COMMENTS: Clean CatchHEPATIC FUNCTION [id number] 13:38:00 Test Item Value Reference Range Comments [...] is in INTERNATIONAL code = CK) UNITS/LITER [id number] 13:38:00 Test Item Value Reference Range Comments LIPASE (test code = LIP) 409 IUnit/L 73-393 CBC W/AUTO [id number] 13:34:00 Test Item Value Reference Range Comments [...] = MDIFF) NO - XR CHEST 1 [id number] 13:12:00 FAX: Kristy Sarbjit Carr DO [phone] [place]: St: PRE Name: RONALD ALLEN [facility] : 1940 Age/S: 78/F [address] [place] [address] Unit#: [id number] Loc: [address] [place] [address] Phys: Sarbjit Carr DO Acct: [id number] Dis Date: Status: PRE ER PHONE #: [phone] Exam Date: 12/25/2018 1258 FAX #: [phone] Reason: Weakness EXAMS: CPT CODE: [id number] XR CHEST 1 V 01119 EXAM: Single view AP chest. EXAM DATE: [...] RT(R); Elif Ang RT(R) Trnscrd Date/Time/By: 12/25/2018 (1347) : By: Dioni Orig Print D/T: S: 12/25/2018 (3161) PAGE 1 Signed ReportTROPONIN-I [id number] 13:00:00 Test Item Value Reference Range Comments TROPONIN-I RAPID (test 0.01 ng/mL 0.00-0.08 Performed by certified presetter operator code = TROPIRAP) at [facility] Negative: <= 0.08 Positive: >= 0.09An elevated [...] in tropo jaron levels characteristic o f MO. CHEMISTRY 8 [id number] 12:54:00 Test Item Value Reference Range Comments [...] code = 38 ML/MIN GFRBED) CHEMISTRY 8 [id number] 12:54:00 Test Item Value Reference Range Comments ISTAT-SODIUM (test code = 136 MMOL/L 134-147 NAP) ISTAT-POTASSIUM (test code = 4.9 MMOL/L 3.4-5.0 KP) ISTAT-CHLORIDE (test code = 101 MMOL/L 100-108 Perf ormed by certified CLP) presetter operator at [facility] ISTAT CARBON DIOXIDE (test 27.0 mmol/L 21-33 code = ISTAT-CO2) ISTAT CALCIUM IONIZED (test 1.13 MG/DL 1.12-1.32 code = ISTAT-JOJO) ISTAT-GLUCOSE (test code = 212 MG/DL 70-110 GLUP) ISTAT-BUN (test code = BUNP) 52 MG/DL 7-18 BEDSIDE CREATININE (test code 1.4 MG/DL 0.6-1.3 = CREATBED) GLOMERULAR FILTRATION RATE 38 ML/MIN POC (test code = GFRBED) TROPONIN I [id number] 14:47:00 Test Item Value Reference Range Comments [...] = CK) 47 Unit/L 26-192 CBC W/O [id number] 13:44:00 Test Item Value Reference Range Comments [...] 10.10 fL 7.0-10.5 - XR CHEST 1 [id number] 13:38:00 Name: RONALD ALLEN [facility] : 1940 Age/S: 77 / F [address] Unit #: [id number] Loc: [place] [address] Phys: Stevan Mullins MD Acct: [id number] Dis Date: Status: REG ER PHONE #: [phone] Exam Date: 08/26/2018 1330 FAX #: Reason: chest pain EXAMS: CPT: [id number] XR CHEST 1 V 07471 Fluoro Time: DAP (Gy m2): Air Kerma (mGy): HISTORY: chest pain Comparison to August 15, 2018 Location code: B2 FINDINGS: Frontal view of the chest demonstrates normal cardiomediastinal silhouette. The trachea is midline. The lungs are clear. There is no effusion or pneumothorax. The bones are intact. Median sternotomy wires noted. IMPRESSION: No acute pulmonary process. at 1339 Reported and signed by: Bear Pittman M.D. CC: Stevan Mullins MD PAGE 1 Signed Report Name: RONALD ALLEN [facility] : 1940 Age/S: 77 / F [id number] Unit #: [id number] Loc: [place] [address] Phys: Stevan Mullins MD Acct: [id number] Dis Date: Status: REG ER PHONE #: [phone] Exam Date: 08/26/2018 1330 FAX #: Reason: chest pain EXAMS: CPT: [id number] XR CHEST 1 V 93614 Fluoro Time: DAP (Gy m2): Air Kerma (mGy): <Continued> Technologist: RT Moe(R) Trnscb Date/Time: 08/26/2018 (0939) tLUIZRK5 Orig Print D/T: S: 08/26/2018 (4429) PAGE 2 Signed ReportTROPONIN I [id number] 13:36:00 Test Item Value Reference Range Comments TROPONIN I RAPID (test code 0.01 ng/mL 0.00-0.08 - Th e use of serial sampling = TROPIRAP) and testing prot ocol is a recommended prac ligia- An elevated troponi n level alone is often not suf ficient for diagnosis of mecca cardial infarction. CHEMISTRY 8 [id number] 13:28:00 Test Item Value Reference Range Comments [...] code = GFRBED) 57 39-90 CHEMISTRY 8 [id number] 13:28:00 Test Item Value Reference Range Comments [...] = 57 39-9 0 GFRBED) GLUCOSE BEDSIDE [id number] 16:57:00 Test Item Value Reference Range Comments GLUCOSE BEDSIDE TESTING (test code = GLUBED) 117 mg/dL 70- 110 - CT HEAD/BRAIN W/O [id number] 16:28:00 Name: RONALD ALLEN [facility] : 1940 Age/S: 77 / F [address] Unit #: [id number] Loc: [place] [address] Phys: Paddy Pittman MD Acct: [id number] Dis Date: Status: ADM IN PHONE #: [phone] Exam Date: 08/16/2018 1610 FAX #: Reason: H/O cva EXAMS: CPT: [id number] CT HEAD/BRAIN W/O CONT 42806 CT HEAD WITHOUT CONTRAST. HISTORY: H/O cva [...] left temporal occipital lobe infarct within the [employer] territory. at 1628 Reported and signed by: Bonifacio Hameed M.D. PAGE 1 Signed Report (CONTINUED) Name: DEEPTITWYLARULARONALD [facility] : 03/1940 Age/S: 77 / F [address] Unit #: [id number] Loc: [place] [address] Phys: Paddy Pittman MD Acct: [id number] Dis Date: Status: ADM IN PHONE #: [phone] Exam Date: 08/16/2018 1610 FAX #: R kavitha: H/O cva EXAMS: CPT: [id number] CT HEAD/BRAIN W/O CONT 02639 <Continued> CC: Jose Lloyd MD; Paddy Pittman MD Technologist:Miguel Angel Combs, RT(R)(CT)(MRI) CTDI: DLP: Trnscb Date/Time: 08/16/2018 (8387) WilberSP17 Orig Print D/T: S: 08/16/2018 (7027) PAGE 2 Signed ReportUA RFLX MICR CULT IF [id number] 12:34:00 Test Item Value Reference Range Comments [...] OtherOther Indication: CONFUSIONUA RFLX MICR CULT IF [id number] 12:33:00 Test Item Value Reference Range Comments [...] Indication for Culture: OtherOther Indication: CONFUSIONGLUCOSE BEDSIDE [id number] 11:56:00 Test Item Value Reference Range Comments GLUCOSE BEDSIDE TESTING (test code = GLUBED) 153 mg/dL 70- 110 GLUCOSE BEDSIDE [id number] 08:07:00 Test Item Value Reference Range Comments GLUCOSE BEDSIDE TESTING (test code = GLUBED) 118 mg/dL 70- 110 BASIC METABOLIC [id number] 04:36:00 Test Item Value Reference Range Comments [...] CA) 8.9 MG/DL 8.5-10.1 Completed by Nursing: [id number] 04:36:00 Test Item Value Reference Range Comments [...] varyby method. Completed by Nursing: NOGLUCOSE BEDSIDE [id number] 20:20:00 Test Item Value Reference Range Comments GLUCOSE BEDSIDE TESTING (test code = GLUBED) 111 mg/dL 70- 110 GLUCOSE BEDSIDE [id number] 18:34:00 Test Item Value Reference Range Comments GLUCOSE BEDSIDE TESTING (test code = GLUBED) 131 mg/dL 70- 110 [id number] 13:43:00 Test Item Value Reference Range Comments [...] varyby method. Completed by Nursing: NOCHEMISTRY 8 [id number] 09:11:00 Test Item Value Reference Range Comments [...] code = GFRBED) 57 39-90 CHEMISTRY 8 [id number] 09:11:00 Test Item Value Reference Range Comments [...] = 57 39-9 0 GFRBED) COMPREHENSIVE METABOLIC [id number] 07:02:00 Test Item Value Reference Range Comments [...] -117 Completed by Nursing: NONT PRO-BRAIN NATRIURETIC [id number] 07:02:00 Test Item Value Reference Range Comments NT PRO-BRAIN NATRIURETIC PEPTI (test code = 839 PG/ML 0-10 0 PROBNP) Completed by Nursing: [id number] 07:02:00 Test Item Value Reference Range Comments [...] varyby method. Completed by Nursing: NOCOMPREHENSIVE METABOLIC [id number] 07:00:00 Test Item Value Reference Range Comments [...] -117 Completed by Nursing: NONT PRO-BRAIN NATRIURETIC [id number] 07:00:00 Test Item Value Reference Range Comments NT PRO-BRAIN NATRIURETIC PEPTI (test code = PROBNP) PG/ML 0-100 Completed by Nursing: [id number] 07:00:00 Test Item Value Reference Range Comments TROPONIN-I (test code = TROPI) NG/ML 0.000-0.045 Completed by Nursing: NOCBC W/AUTO [id number] 06:52:00 Test Item Value Reference Range Comments [...] DIFF/SCN CRITERI A - XR CHEST 1 [id number] 06:47:00 Name: RONALD ALLEN [facility] : 1940 Age/S: 77 / F [id number] Unit #: [id number] Loc: [place] [address] Phys: Fadumo Mendoza MD Acct: [id number] Dis Date: Status: PRE ER PHONE #: [phone] Exam Date: 08/15/2018 0635 FAX #: Reason: L chest pain EXAMS: CPT: [id number] XR CHEST 1 V 92317 Fluoro Time: DAP (Gy m2): Air Kerma [...] 1 Signed Report Name: LARRY ALLEN [facility] : 1940 Age/S: 77 / F [address] [address] Unit #: [id number] Loc: [place], [place] [address]Ourw: Fadumo Mendoza MD Acct: [id number] Dis Date: Status: PRE ER PHONE #: [phone] Exam Date: 08/15/2018 0635 FAX #: Reason: L chest pain EXAMS: CPT: [id number] XRCHEST 1 V 88011 Fluoro Time: DAP (Gy m2): Air Kerma (mGy): <Continued> Technologist: Marcella Preston RT(R)(CT) Trnscb Date/Time: 08/15/2018 (0647) Keisha.PMT Orig Print D/T: S: 08/15/2018 (0630) PAGE 2 Signed ReportTROPONIN I [id number] 06:30:00 Test Item Value Reference Range Comments TROPONIN I RAPID (test code 0.01 ng/mL 0.00-0.08 - Th e use of serial sampling = TROPIRAP) and testing prot ocol is a recommended prac liiga- An elevated troponi n level alone is often not suf ficient for diagnosis of mecca cardial infarction.
[2019-07-10 01:39] LABS: Protime INR 1.06
[2019-07-10 01:47] LABS: Absolute Lymphocytes (CBC) 4.2 K/uL (0.7-4.9); Basophils % 0.6 % (0-1.3); Hematocrit 34.5 % (36.0-45.0); Lymphocytes % 21.1 % (15.3-44.8); MPV 8.5 fL (7.6-11.3); RBC Red Blood Cell Count 4.18 M/uL (3.86-4.86)
[2019-07-10 01:56] LABS: ALT/SGPT 54 U/L (12-78); AST/SGOT 42 U/L (15-37); Albumin 3.1 g/dL (3.4-5.0); Alkaline Phosphatase 196 U/L (45-117); BUN Blood Urea Nitrogen 22 mg/dL (7-18); Bicarbonate 21 mmol/L (21-32); Bilirubin Direct 0.2 mg/dL (0-0.2); Bilirubin Total 0.4 mg/dL (0.2-1.0); Glucose Level 183 mg/dL (74-106); Magnesium 2.7 mg/dL (1.8-2.4); NT PRO-BNP 2167 pg/mL (<450); Potassium 4.9 mmol/L (3.5-5.1); Sodium Level 136 mmol/L (136-145); Troponin (Emerg Dept Use Only) < 0.02 ng/mL (0.0-0.045)
[2019-07-10 02:02] LABS: Arterial Blood Carboxyhemoglob 1.5 % (0-1.5); Blood Gas Oxyhemoglobin 97.6 % (94-97); Blood O2 Saturation 99.8 % (92-98.5)
[2019-07-10 02:35] LABS: Blood Morphology Comment NOT SEEN (NOT SEEN); Platelet Estimate INCR
[2019-07-10 03:36] LABS: Urine Amorphous Sediment 2+ /HPF (NONE SEEN); Urine Bacteria <20 /HPF (<20); Urine Culture Reflex Order NOT NEEDED; Urine RBC <5 /HPF (NONE SEEN)
--- NOTE | 2019-07-10 03:43 | ER ---
Nurse's Notes [facility] Name: Janell Zuniga Age: 78 yrs Sex: Female : 1940 Arrival Date: 07/10/2019 Time: 00:59 Bed 3 Private MD: Diagnosis: Dyspnea;Acute bronchospasm Presentation: 07/09 01:12 Chief complaint: EMS states: they were toned out for report of pt in respiratory bb distress which started earlier last night pt sats were low on their arrival they put here on a NRB for sats of 54%. Coronavirus screen: Proceed with normal triage. Ebola Screen: No symptoms or risks identified at this time. Initial Sepsis Screen: Does the patient meet any 2 criteria? No. Patient's initial sepsis screen is negative. Does the patient have a suspected source of infection? No. Patient's initial sepsis screen is negative. Risk Assessment: Do you want to hurt yourself or someone else? Unable to obtain. Onset of symptoms was July 09, 2019. Care prior to arrival: Medication(s) given: Albuterol Neb x 1, Glucose check: 182 Oxygen administered. via a non-rebreather mask. 01:12 Method Of Arrival: EMS: [facility] bb 01:12 Acuity: ANANT 2 bb Triage Assessment: 01:30 Respiratory: Reports family reporting pt had shortness of breath prior to arrival jd3 Onset: The symptoms/episode began/occurred just prior to arrival, the patient has mild shortness of breath. Historical: - Allergies: 01:17 Codeine; bb 01:17 Latex, Natural Rubber; bb 01:17 Morphine; bb - Home Meds: 01:17 aspirin 81 mg Oral chew 1 tab once daily [Active]; divalproex 125 mg Oral cpSP 2 caps bb every 8 hours [Active]; Eliquis 5 mg Oral tab 2 times per day [Active]; hydrochlorothiazide 12.5 mg Oral cap 1 cap once daily [Active]; isosorbide mononitrate 30 mg Oral Tb24 2 tabs once daily [Active]; Keppra Oral [Active]; Lyrica 50 mg Oral 2 times per day [Active]; metformin 1,000 mg Oral tab 1 tab 2 times per day [Active]; metoprolol tartrate 50 mg Oral tab 1 tab 2 times per day [Active]; Nitroglycerin Oral [Active]; Plavix 75 mg Oral tab 1 tab once daily [Active]; pravastatin 20 mg Oral tab 1 tab once daily [Active]; Protonix 40 mg Oral grps 1 packet once daily [Active]; rivastigmine tartrate Oral [Active]; trazodone 100 mg Oral tab 1 tab [Active]; Vitamin B-1 Oral [Active]; Vitamin D Oral daily [Active]; - PMHx: 01:17 Aphasia; CAD; CVA; Diabetes - NIDDM; hemiparesis right; Hypertension; bb - Immunization history:: Adult Immunizations unknown. - Social history:: Smoking status: unknown. Screenin:49 Abuse screen: Denies threats or abuse. Denies injuries from another. Nutritional mg2 screening: No deficits noted. Tuberculosis screening: No symptoms or risk factors identified. 01:53 Fall Risk Secondary diagnosis (15 points) CVA, Ambulatory Aid- None/Bed Rest/Nurse jd3 Assist (0 pts). Gait- Impaired (20 pts.). Mental Status- Overestimates/Forgets Limitations (15 pts.). Total [place] Fall Scale indicates High Risk Score (45 or more points). Fall prevention measures have been instituted. Side Rails Up X 2 Placed Close to Nursing Station Frequent Obs/Assessments Occuring Family Present and informed to notify staff if the need to leave the bedside. Assessment: 01:30 General: Appears uncomfortable, Behavior is fussy, inappropriate for age, restless. jd3 Pain: Unable to use pain scale. FLACC scale score is 6 out of 10. Neuro: Level of Consciousness is awake, alert, confused, Oriented to none pt with history of CVA. family reporting pt at baseline. Cardiovascular: Heart tones S1 S2 present Capillary refill < 3 seconds Patient's skin is warm and dry. Rhythm is irregular. Respiratory: Airway is patent Respiratory effort is even, unlabored, Respiratory pattern is regular, symmetrical, Breath sounds are clear bilaterally. Parent/caregiver reports the patient having difficulty breathing prior to arrival. GI: Abdomen is round Bowel sounds present X 4 quads. Abd is soft and non tender X 4 quads. : No signs and/or symptoms were reported regarding the genitourinary system. EENT: No signs and/or symptoms were reported regarding the EENT system. Derm: Skin is intact, Skin is dry, Skin is normal, Skin temperature is warm. Musculoskeletal: Circulation, motion, and sensation intact. Range of motion: limited in right arm. 02:14 Reassessment: Patient and/or family updated on plan of care and expected duration. Pain jd3 level reassessed. daughter left callback info: Ginna Haile [phone] to call with results. pt is A\T\O X 0. appears less restless. even and unlabored respirations. bed locked and in a low position, rails up X 2. awaiting results. 03:33 Reassessment: No changes from previously documented assessment. Patient and/or family jd3 updated on plan of care and expected duration. Pain level reassessed. charge nurse called on phone with daughter and updating with current status/info. 04:30 Reassessment: No changes from previously documented assessment. Patient and/or family jd3 updated on plan of care and expected duration. Pain level reassessed. 05:25 Reassessment: Patient and/or family updated on plan of care and expected duration. Pain jd3 level reassessed. pt, resting in bed, A\T\O X 0. even and unlabored respirations, awaiting family for discharge. 06:23 Reassessment: Patient appears in no apparent distress at this time. No changes from jd3 previously documented assessment. Patient and/or family updated on plan of care and expected duration. Pain level reassessed. pt resting in bed with eyes closed, even and unlabored respirations. awaiting family for discharge. 06:44 Reassessment: attempted to call family- no answer and mailbox is full. jd3 08:00 Reassessment: Patient appears in no apparent distress at this time. Patient and/or ph family updated on plan of care and expected duration. Pain level reassessed. Spoke to pt's daughter about d/c instrcutions, EMS notified for transport home. 08:23 Reassessment: Patient appears in no apparent distress at this time. [facility] at bedside to transport pt home, midline d/c bleeding controlled. Vital Signs: 01:12 BP 175 / 152; Pulse 114; Resp 16 S; Temp 99.5(A); Pulse Ox 94% on 15% Non-rebreather bb mask; Weight 53.98 kg (R); Height 4 ft. 7 in. (139.70 cm) (R); 01:55 Pulse 90; Resp 14 S; Pulse Ox 95% on 2 lpm NC; jd3 02:41 BP 106 / 50; Pulse 77; Resp 18 S; Pulse Ox 99% on 2 lpm NC; jd3 03:34 BP 127 / 56; Pulse 76; Resp 16 S; Pulse Ox 100% on R/A; jd3 05:26 BP 119 / 55; Pulse 80; Resp 18 S; Pulse Ox 100% on 2 lpm NC; jd3 06:22 BP 127 / 64; Pulse 72; Resp 16 S; Pulse Ox 100% on R/A; jd3 07:30 BP 127 / 68; Pulse 75; Resp 16; Temp 98.2; Pulse Ox 99% on 2 lpm NC; ph 08:27 BP 118 / 64; Pulse 72; Resp 16; Temp 98.4; Pulse Ox 97% on R/A; ph 01:12 Body Mass Index 27.66 (53.98 kg, 139.70 cm) bb 01:12 pt extremely agitated bb ED Course: 00:59 Patient arrived in ED. ds1 01:01 Rajesh Donahue MD is Attending Physician. tw4 01:12 Brain Foster, JOSEPH is Primary Nurse. jd3 01:16 Triage completed. 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 01:20 Missed attempt(s): 20 gauge in left antecubital area. Bleeding controlled, band aid jd3 applied, catheter tip intact. 01:25 Missed attempt(s): 20 gauge in right antecubital area. Bleeding controlled, band aid jd3 applied, catheter tip intact. 01:30 Patient has correct armband on for positive identification. Placed in gown. Bed in low jd3 position. Call light in reach. Side rails up X2. Adult w/ patient. shoe dresser on. Pulse ox on. NIBP on. Warm blanket given. 01:50 Missed attempt(s): 20 gauge in left upper arm. Bleeding controlled, band aid applied, bb catheter tip intact. 02:00 Basic Metabolic Panel Sent. ds4 02:00 CBC with Diff Sent. ds4 02:00 Accessed peripheral vein via ultrasound, utilizing dynamic ultrasound technique using bb pro power glide 20g 10 cm left upper arm, good blood return, flushes easily per hospital protocol.. 02:01 LFT's Sent. ds4 02:01 Magnesium Sent. ds4 02:01 NT PRO-BNP Sent. ds4 02:01 Basic Metabolic Panel Sent. ds4 02:01 Troponin (emerg Dept Use Only) Sent. ds4 02:12 XRAY Chest (1 view) In Process Unspecified. EDMS 03:00 Straight cath inserted, using sterile technique, 16 Fr. Returned 50 ml urine. Patient mg2 tolerated well. 03:26 No provider procedures requiring assistance completed. mg2 08:24 IV discontinued, intact, bleeding controlled, No redness/swelling at site. Pressure ph dressing applied. Administered Medications: 04:24 Drug: SOLU-Medrol 125 mg Route: IVP; Site: left upper arm; mg2 05:20 Follow up: Response: No adverse reaction jd3 Outcome: 03:42 Discharge ordered by . tw4 08:24 Discharged to home via ambulance. ph 08:24 Condition: good 08:24 Discharge instructions given to family, Instructed on discharge instructions, follow up and referral plans. medication usage, Demonstrated understanding of instructions, follow-up care, medications, Prescriptions given X 2. 08:27 Patient left the ED. ph Signatures: Dispatcher [employer] EDNV Quiana Vogt ds1 Dixie Henriquez RN RN bb Bernardo Buchanan ds4 Jackeline Mcfarland ph D, RN RNavies, Jonathon, RN RN jd3 Wadley, Terrence, MD MD tw4 Jeromy Gutierrez RN RN mg2 Corrections: (The following items were deleted from the chart) 01:19 01:12 BP 175 / 152; Pulse 114bpm; Resp 16bpm; Spontaneous; Pulse Ox 94% 02 15% bb Non-rebreather mask; Temp 99.5F Axillary; 40.82 kg Reported; Height 4 ft. 8 in. Reported; BMI: 20.1; pt extremely agitated; bb 01:49 01:30 Missed attempt(s): 20 gauge in right antecubital area. Bleeding controlled, band jd3 aid applied, catheter tip intact. jd3 02:41 02:17 Pulse 84bpm; Resp 17bpm; Spontaneous; Pulse Ox 98% 2 lpm Nasal Cannula; jd3 jd3 02:41 02:17 BP 106 / 50; Pulse 84bpm; Resp 17bpm; Spontaneous; Pulse Ox 98% 2 lpm Nasal jd3 Cannula; jd3 06:54 02:14 Reassessment: Patient and/or family updated on plan of care and expected jd3 duration. Pain level reassessed. daughter left callback info: [phone] to call with results. pt is A\T\O X 0. appears less restless. even and unlabored respirations. bed locked and in a low position, rails up X 2. awaiting results. jd3
--- NOTE | 2019-07-10 03:43 | EDPHYS ---
Physician Documentation [facility] Name: Janell Zuniga Age: 78 yrs Sex: Female : 1940 Arrival Date: 07/10/2019 Time: 00:59 Bed 3 Private MD: ED Physician Rajesh Donahue HPI: 07/09 06:49 This 78 yrs old Female presents to ER via EMS with complaints of Respiratory Distress. tw4 06:49 The patient has shortness of breath at rest. Onset: The symptoms/episode began/occurred tw4 today. Duration: The symptoms are continuous. The patient's shortness of breath has no apparent modifying factors. Associated signs and symptoms: The patient has no apparent associated signs or symptoms. Severity of symptoms: At their worst the symptoms were mild in the emergency department the symptoms are unchanged. The patient has been recently seen at the [facility] Emergency Department, this week, for unrelated complaints. Historical: - Allergies: 01:17 Codeine; bb 01:17 Latex, Natural Rubber; bb 01:17 Morphine; bb - Home Meds: 01:17 aspirin 81 mg Oral chew 1 tab once daily [Active]; divalproex 125 mg Oral cpSP 2 caps bb every 8 hours [Active]; Eliquis 5 mg Oral tab 2 times per day [Active]; hydrochlorothiazide 12.5 mg Oral cap 1 cap once daily [Active]; isosorbide mononitrate 30 mg Oral Tb24 2 tabs once daily [Active]; Keppra Oral [Active]; Lyrica 50 mg Oral 2 times per day [Active]; metformin 1,000 mg Oral tab 1 tab 2 times per day [Active]; metoprolol tartrate 50 mg Oral tab 1 tab 2 times per day [Active]; Nitroglycerin Oral [Active]; Plavix 75 mg Oral tab 1 tab once daily [Active]; pravastatin 20 mg Oral tab 1 tab once daily [Active]; Protonix 40 mg Oral grps 1 packet once daily [Active]; rivastigmine tartrate Oral [Active]; trazodone 100 mg Oral tab 1 tab [Active]; Vitamin B-1 Oral [Active]; Vitamin D Oral daily [Active]; - PMHx: 01:17 Aphasia; CAD; CVA; Diabetes - NIDDM; hemiparesis right; Hypertension; bb - Immunization history:: Adult Immunizations unknown. - Social history:: Smoking status: unknown. ROS: 06:49 Constitutional: Negative for fever, chills, and weight loss, Eyes: Negative for injury, tw4 pain, redness, and discharge, ENT: Negative for injury, pain, and discharge, Neck: Negative for injury, pain, and swelling, Cardiovascular: Negative for chest pain, palpitations, and edema, Abdomen/GI: Negative for abdominal pain, nausea, vomiting, diarrhea, and constipation, Back: Negative for injury and pain, MS/Extremity: Negative for injury and deformity, Skin: Negative for injury, rash, and discoloration. 06:49 Respiratory: Positive for shortness of breath. Exam: 06:49 Constitutional: This is a well developed, well nourished patient who is awake, alert, tw4 and in no acute distress. Head/Face: Normocephalic, atraumatic. Chest/axilla: Normal chest wall appearance and motion. Nontender with no deformity. No lesions are appreciated. Cardiovascular: Regular rate and rhythm with a normal S1 and S2. No gallops, murmurs, or rubs. Normal PMI, no JVD. No pulse deficits. 06:49 Respiratory: mild respiratory distress is noted, Respirations: normal, Breath sounds: wheezing: expiratory is scattered. Vital Signs: 01:12 BP 175 / 152; Pulse 114; Resp 16 S; Temp 99.5(A); Pulse Ox 94% on 15% Non-rebreather bb mask; Weight 53.98 kg (R); Height 4 ft. 7 in. (139.70 cm) (R); 01:55 Pulse 90; Resp 14 S; Pulse Ox 95% on 2 lpm NC; jd3 02:41 BP 106 / 50; Pulse 77; Resp 18 S; Pulse Ox 99% on 2 lpm NC; jd3 03:34 BP 127 / 56; Pulse 76; Resp 16 S; Pulse Ox 100% on R/A; jd3 05:26 BP 119 / 55; Pulse 80; Resp 18 S; Pulse Ox 100% on 2 lpm NC; jd3 06:22 BP 127 / 64; Pulse 72; Resp 16 S; Pulse Ox 100% on R/A; jd3 07:30 BP 127 / 68; Pulse 75; Resp 16; Temp 98.2; Pulse Ox 99% on 2 lpm NC; ph 08:27 BP 118 / 64; Pulse 72; Resp 16; Temp 98.4; Pulse Ox 97% on R/A; ph 01:12 Body Mass Index 27.66 (53.98 kg, 139.70 cm) bb 01:12 pt extremely agitated bb MDM: 01:01 Patient medically screened. tw4 06:52 Differential diagnosis: asthma, Myocardial Infarction pneumonia, Psychogenic pulmonary tw4 edema, Pulmonary Embolism reactive airway disease. Antibiotic administration: Not indicated. Data reviewed: vital signs, nurses notes. Data reviewed: lab test result(s), CBC, electrolytes, hepatic panel, EKG, radiologic studies, plain films. Data interpreted: Pulse oximetry: Interpretation: normal. Counseling: I had a detailed discussion with the patient and/or guardian regarding: the historical points, exam findings, and any diagnostic results supporting the discharge/admit diagnosis, lab results, radiology results. Special discussion: I discussed with the patient/guardian in detail that at this point there is no indication for admission to the hospital. It is understood, however, that if the symptoms persist or worsen the patient needs to return immediately for re-evaluation. 07/09 01:03 Order name: Basic Metabolic Panel tw4 07/09 01:03 Order name: CBC with Diff tw4 07/09 02:30 Interpretation: Normal except: WBC 20.0; HGB 11.1; HCT 34.5; MCH 26.5; PLT 541; RDW tw4 16.1; NEUT A 14.7. 07/09 01:03 Order name: LFT's tw4 07/09 01:03 Order name: Magnesium tw4 07/09 01:03 Order name: NT PRO-BNP tw4 07/09 01:03 Order name: PT-INR; Complete Time: 02:30 tw4 07/09 01:03 Order name: Troponin (emerg Dept Use Only) tw4 07/09 01:03 Order name: XRAY Chest (1 view) tw4 07/09 01:04 Order name: Basic Metabolic Panel EDMS 07/09 01:49 Order name: Manual Differential EDMS 07/09 01:59 Order name: ABG Arterial Blood Gas; Complete Time: 02:30 EDMS 07/09 03:02 Order name: Urine Microscopic Only mg2 07/09 03:02 Order name: Lactate mg2 07/09 03:44 Order name: Urine Dipstick--Ancillary (enter results) ds4 07/09 01:03 Order name: EKG; Complete Time: 01:05 tw4 07/09 01:03 Order name: Cardiac monitoring; Complete Time: 01:13 tw4 07/09 01:03 Order name: EKG - Nurse/Tech; Complete Time: 01:13 tw4 07/09 01:03 Order name: IV Saline Lock; Complete Time: 02:00 tw4 07/09 01:03 Order name: Labs collected and sent; Complete Time: 01:39 tw4 07/09 01:03 Order name: O2 Per Protocol; Complete Time: :13 tw4 07/09 01:03 Order name: O2 Sat Monitoring; Complete Time: : tw EC:49 Rate is 113 beats/min. Rhythm is regular, Sinus tachycardia. QRS [place] is Normal. [place] tw4 interval is normal. QRS interval is normal. QT interval is normal. No Q waves. T waves are Inverted in lead aVL. No ST changes noted. Clinical impression: NSR w/ Non-specific ST/T Changes. Interpreted by me. Reviewed by me. Administered Medications: 04:24 Drug: SOLU-Medrol 125 mg Route: IVP; Site: left upper arm; mg2 05:20 Follow up: Response: No adverse reaction jd3 Disposition: 07/10/19 03:42 Discharged to Home. Impression: Dyspnea, Acute bronchospasm. - Condition is Stable. - Discharge Instructions: Bronchospasm, Adult, How to Use an Inhaler, Asthma, Adult, [id number]. - Prescriptions for Medrol (Charles) 4 mg Oral Tablets, Dose Pack - take 1 tablet by ORAL route as directed - follow package instructions; 1 packet. Albuterol Sulfate 90 mcg/actuation - inhale 1-2 puff by INHALATION route every 4-6 hours; 1 Inhaler. - SBAR form, Medication Reconciliation Form, Thank You Letter, Antibiotic Education, Prescription Opioid Use form. - Follow up: Private Physician; When: Upon discharge from the Emergency Department; Reason: Recheck today's complaints, Continuance of care, Re-evaluation by your physician. - Problem is new. - Symptoms have improved. Signatures: Dispatcher [employer] EDDixie Mattson, RN RN Jackeline Hanna RN RN ph Rajesh Donahue MD MD tw4 Jeromy Gutierrez RN RN [facility] Brain Foster RN jd3 Corrections: (The following items were deleted from the chart) 08:27 03:42 07/10/2019 03:42 Discharged to Home. Impression: Dyspnea; Acute bronchospasm. ph Condition is Stable. Forms are Medication Reconciliation Form, Thank You Letter, Antibiotic Education, Prescription Opioid Use. Follow up: Private Physician; When: Upon discharge from the Emergency Department; Reason: Recheck today's complaints, Continuance of care, Re-evaluation by your physician. Problem is new. Symptoms have improved. tw4
[2019-07-10 03:58] LABS: Urine Blood NEGATIVE (NEG); Urine Glucose NEGATIVE (NEG); Urine Protein TRACE (NEG); Urine pH 6.5 (5.0-7.0)
[2019-07-10] MEDS ORDERED: METHYLPREDNISOLONE 125 MG INJ ONE (04:27)
--- NOTE | 2019-07-10 07:50 | RAD REPORT ---
EXAM DESCRIPTION: RAD - Chest Single View - 07/10/2019 2:12 am CLINICAL HISTORY: SOB COMPARISON: May 24 TECHNIQUE: AP portable chest image was obtained 07/10/2019 2:12 am . FINDINGS: Lung volumes are normal range and slightly increased over the comparison. Midline sternoto my wires are in place. Loop recorder overlies the low midline chest. Chronic interstitial opacificati on is present similar to comparison. This could mask early edema or infiltrate. No focal consolidatio n. Heart size is normal range, similar or decreased from comparison. No vascular engorgement. No measurable pleural effusion and no pneumothorax. No acute bony abnormality seen. No acute aortic findings suspected. IMPRESSION: Chronic interstitial opacification similar to comparison. This could potentially mask ea rly stages of edema or infiltrate. No focal mass or consolidation.
[2019-07-10 08:47] VITALS: BP 118/64; TEMP 98.4; O2SAT 97
--- NOTE | 2019-07-10 16:24 | EKG ---
Test Date: 2019-07-10 Test Time: 01:08:05 Hydraulic Riveter: TENZIN MEASUREMENT RESULTS: Intervals: Rate: 113 IA: QRSD: 96 QT: 340 QTc: 466 E[place]: P: IA: QRS: -75 T: 71 INTERPRETIVE STATEMENTS: Poor data quality, interpretation may be adversely affected Accelerated Junctional rhythm Left axis deviation Anterior infarct, age undetermined Abnormal ECG Compared to ECG 05/25/2019 11:22:29 Accelerated junctional rhythm now present Left-axis deviation now present Myocardial infarct finding now present Sinus rhythm no longer present Ventricular premature complex(es) no longer present Left anterior fascicular block no longer present ST (T wave) deviation no longer present Electronically Signed On 07-10-19 16:22:17 CDT by Prasad Barnes
== END 2019-07-10 08:27 | disposition home or self-care (01) ==
LOC: ER 00:58
DX: J98.01 Acute bronchospasm (principal); I10 Essential (primary) hypertension; E11.9 Type 2 diabetes mellitus without complications; Z86.73 Personal history of transient ischemic attack (TIA), and cerebral infarction without residual deficits; Z79.01 Long term (current) use of anticoagulants; Z79.02 Long term (current) use of antithrombotics/antiplatelets; Z79.82 Long term (current) use of aspirin; Z88.5 Allergy status to narcotic agent; Z91.040 Latex allergy status; Z91.048 Other nonmedicinal substance allergy status
CPT/HCPCS: 93005; 85025; 80048; 36415; 83735; 85610; 80076; 83605; 84484; 83880; 71045; 82805; J2930; 51702; 81003; 81015; 96374; 99285

== ENCOUNTER 2019-07-12 19:22 | Observation (INO) | payer OTHER ==
--- OUTSIDE RECORDS SUMMARY | 2019-07-12 19:27 | XMS REPORT ---
:1940 Author Organization [facility] t Address [address] [place] [address] Care Team Providers Name Role Phone Unavailable [...] Type Clinicians Facility Department ID 2018-03-23 Inpatient [facility] MED 9002 19:28:00 2018-03-22 Inpatient E [facility] MED 7502 04:21:00 Results Test Description Test Time Test Comments Text Results Atomic Results Result Comments - CT HEAD/BRAIN W/O CONT 2019-02-28 14:38:00 Name: RONALD VILLANUEVA [facility] : 1940 Age/S: 78 / F [address] [place] [address] Blvd Unit #: [id number] Loc: [place] [address] Phys: Lucina Stewart MD Acct: [id number] Dis Da te: Status: REG CLI PHONE #: [phone] Exam Date: 02/28/2019 1416 FAX #: [phone] [place] son: EVAL FOR PROGRESSION OF STRO KE. EXAMS: CPT CODE: [id number] CT HEAD /BRAIN W/O CONT [address]77 CT head wit hout contrast 02/28/2019 HISTORY: [...] and lateral lef t occipital infarcts. SL: [id number] at 14 38 Reported and signed by: Miguelina Ventura M.D. CC: Lucina Stewart MD Technologist:Pj Acosta, RT(R)(CT) CTDI: DLP: Trnscb Date/Time: 2018 (8737) t.SDR.BJM4 Orig Print D/T: S: 2018 (3555) PAGE 1 Signed Report VITAMIN B12 2019-02-18 08:36:00 Test Item Value Reference Range Comments VITAMIN B12 (test code = VITB12) 424 pg/mL 193-986 INFECTION CONTROL [id number] 04:13:00 Test Item Value Reference Range Comments AG HEPATITIS B SURFACE (test code = NON REACTIVE INDEX NonReacti ve HBSAG) AB HEPATITIS C (test code = HCVAB) NON REACTIVE INDEX NON REACT. AB HIV 1 2 (test code = REQ22HL) NONREACTIVE INDEX NONREACTIVE HIV 1/2 RAPID SCREEN (test code = NONREACTIVE NONREACTIVE TMU82VBU) AG HIV1 P24 (test code = SHB8L03) NONREACTIVE NONREACTIVE SOURCE PATIENTINFECTION CONTROL [id number] 03:03:00 Test Item Value Reference Range Comments AG HEPATITIS B SURFACE (test code = NON REACTIVE INDEX NonReacti ve HBSAG) AB HEPATITIS C (test code = HCVAB) NON REACTIVE INDEX NON REACT. AB HIV 1 2 (test code = MBN87NZ) INDEX NONREACTIVE HIV 1/2 RAPID SCREEN (test code = NONREACTIVE NONREACTIVE MTT21YYX) AG HIV1 P24 (test code = GGQ0J87) NONREACTIVE NONREACTIVE SOURCE PATIENTINFECTION CONTROL [id number] 02:24:00 Test Item Value Reference Range Comments AG HEPATITIS B SURFACE (test code = NON REACTIVE INDEX NonReacti ve HBSAG) AB HEPATITIS C (test code = HCVAB) INDEX NON REACT. AB HIV 1 2 (test code = UVT52OE) INDEX NONREACTIVE HIV 1/2 RAPID SCREEN (test code = NONREACTIVE NONREACTIVE BSQ71APQ) AG HIV1 P24 (test code = CZQ0P79) NONREACTIVE NONREACTIVE SOURCE PATIENTINFECTION CONTROL [id number] 02:14:00 Test Item Value Reference Range Comments AG HEPATITIS B SURFACE (test code = HBSAG) INDEX NonRe active AB HEPATITIS C (test code = HCVAB) INDEX NON REACT. AB HIV 1 2 (test code = GQG14NG) INDEX NONREACTIVE HIV 1/2 RAPID SCREEN (test code = PUG83IOY) NONREACTIVE NONR EACTIVE AG HIV1 P24 (test code = RDM6K68) NONREACTIVE NONREACTIVE SOURCE PATIENTBASIC METABOLIC [id number] 08:46:00 Test Item Value Reference Range Comments [...] = CA) 8.6 mg/dL 8.0-10.5 THYROID STIMULATING [id number] 08:46:00 Test Item Value Reference Range Comments THYROID STIMULATING HORMONE (test 3.35 0.42-5.47 Results in kyaw-International code = TSH) Units/mL CBC W/AUTO [id number] 07:21:00 Test Item Value Reference Range Comments [...] (test code = MDIFF) NO BASIC METABOLIC [id number] 05:09:00 Test Item Value Reference Range Comments [...] = CA) 8.3 mg/dL 8.0-10.5 BASIC METABOLIC [id number] 05:07:00 Test Item Value Reference Range Comments [...] = CA) 8.3 mg/dL 8.0-10.5 CBC W/AUTO [id number] 04:57:00 Test Item Value Reference Range Comments [...] MDIFF) NO UA RFLX MICR CULT IF [id number] 17:29:00 Test Item Value Reference Range Comments [...] srcSpecimen Description: STRAIGHT CATH- CT HEAD/BRAIN W/O [id number] 17:29:00 Name: RONALD ALLEN [facility] : 1940 Age/S: 78 / F [address] [place] [address] Unit #: [id number] Loc: [place], [place] Phys: Xander Brown MD Acct: [id number] Dis Date: Status: PRE ER PHONE #: [phone] Exam Date: 02/13/2019 1647 FAX #: [phone] Reason: AlteredMental Status EXAMS: CPTCODE: [id number] CT HEAD/BRAIN W/O CONT 44960 Clinical Ind ication: Altered mental status. Comparison: [...] 1 Signed Report (CONTINUED) Name: RONALD ALLEN [facility] : 1940 Age/S: 78 / F [address] [place] [address] Blvd Unit #: [id number] Loc: [place] [address] Phys: Xander Brown MD Acct: [id number] Dis Date: Status: PRE ER PHONE #: [phone] Exam Date: 02/13/2019 1647 FAX #: [phone] Reason: Altered Mental Status EXAMS: CPT CODE: [id number] CT HEAD/BRAIN W/O CONT 21094<Continued> cerebral parenchymal volume loss. SL: APATIL-H at 7423 Reported and signed by: Lea Pace M.D. CC: Xander Brown MD Technologist:Katherine Headley RT(R)(CT) CTDI: DLP: Trnscb Date/Time: 02/13/2019 (1729) WilberVB9 Orig Print D/T: S: 02/13/2019 (0026) PAGE 2 Signed ReportTROPONIN-I [id number] 15:49:00 Test Item Value Reference Range Comments TROPONIN-I RAPID (test 0.02 ng/mL 0.00-0.08 Performed by certified napkin machine operator code = TROPIRAP) at [facility] Negative: <= 0.08 Positive: >= [...] in tropo jaron levels characteristic o f [place]. - XR CHEST 1 [id number] 15:46:00 FAX: Xander Brown MD [phone] [place]: [email or web address].pl St: PRE Name: LANIE ALLENOINWILLIE Ingram [facility] : 1940 Age/S: 78/F [address] [place] [address] Unit#: [id number] Loc: [address] [address] Phys: Xander Brown MD Acct: [id number] Dis Date: Status: PRE ER PHONE #: [phone] Exam Date: 02/13/2019 1540 FAX #: [phone] Reason: Altered Mental Status EXAMS: CPT CODE: [id number] XR CHEST 1 V 29674 EXAM: XR CHEST 1 VIEW DATE: 02/13/2019 3:19 PM : 1940; Age: 78 years y/o Female INDICATION: Altered Mental Status COMPARISON: December 25, 2018 TECHNIQUE: AP chest. IMPRESSION: Lines, tubes and hardware: Prior sternotomy changes. Heart, mediastinum and lungs: The heart size is enlarged but unchanged. Vascular calcifications are present at the aorta. Pulmonary vascularity is normal. No consolidation or pleural effusion. SL: [id number] at 1546 Reported and signed by: Shonda Jaquez D.O. CC: Xander Brown MD Technologist: Dixie Graf, RT(R)(M); Dodie Fernandez RT(R) Trnscrd Date/Time/By: 02/13/2019 (8266) : By: WilberMP37 Orig Print D/T: S: 02/13/2019 (5558) PAGE 1 Signed ReportHEPATIC FUNCTION [id number] 15:44:00 Test Item Value Reference Range Comments [...] ALKP) 91 IUnit/L 20 -125 CHEMISTRY 8 [id number] 15:42:00 Test Item Value Reference Range Comments [...] code = 46 ML/MIN GFRBED) CHEMISTRY 8 [id number] 15:42:00 Test Item Value Reference Range Comments ISTAT-SODIUM (test code = 140 MMOL/L 134-147 NAP) ISTAT-POTASSIUM (test code = 3.9 MMOL/L 3.4-5.0 KP) ISTAT-CHLORIDE (test code = 101 MMOL/L 100-108 Perf ormed by certified CLP) napkin machine operator at [facility] ISTAT CARBON DIOXIDE (test 29.0 mmol/L 21-33 code = ISTAT-CO2) ISTAT CALCIUM IONIZED (test 1.22 MG/DL 1.12-1.32 code = ISTAT-JOJO) ISTAT-GLUCOSE (test code = 157 MG/DL 70-110 GLUP) ISTAT-BUN (test code = BUNP) 30 MG/DL 7-18 BEDSIDE CREATININE (test code 1.2 MG/DL 0.6-1.3 = CREATBED) GLOMERULAR FILTRATION RATE 46 ML/MIN POC (test code = GFRBED) CBC W/AUTO [id number] 15:29:00 Test Item Value Reference Range Comments [...] DIFF REQUIRED (test code = MDIFF) NO [id number] 12:34:00 Test Item Value Reference Range Comments GLUBED (test code = GLUBED) 187 MG/DL 70-110 Perf ormed by certified napkin machine operator at [facility] [id number] 08:06:00 Test Item Value Reference Range Comments GLUBED (test code = GLUBED) 120 MG/DL 70-110 Perf ormed by certified napkin machine operator at [facility] [id number] 21:13:00 Test Item Value Reference Range Comments GLUBED (test code = GLUBED) 100 MG/DL 70-110 Perf ormed by certified napkin machine operator at [facility] [id number] 19:31:00 Test Item Value Reference Range Comments GLUBED (test code = GLUBED) 211 MG/DL 70-110 Perf ormed by certified napkin machine operator at [facility] [id number] 13:29:00 Test Item Value Reference Range Comments GLUBED (test code = GLUBED) 155 MG/DL 70-110 Perf ormed by certified napkin machine operator at [facility] [id number] 08:20:00 Test Item Value Reference Range Comments GLUBED (test code = GLUBED) 129 MG/DL 70-110 Perf ormed by certified napkin machine operator at [facility] [id number] 20:42:00 Test Item Value Reference Range Comments GLUBED (test code = GLUBED) 213 MG/DL 70-110 Perf ormed by certified napkin machine operator at [facility] [id number] 17:06:00 Test Item Value Reference Range Comments GLUBED (test code = GLUBED) 73 MG/DL 70-110 Perf ormed by certified napkin machine operator at [facility] [id number] 15:11:00 Test Item Value Reference Range Comments GLUBED (test code = GLUBED) 230 MG/DL 70-110 Perf ormed by certified napkin machine operator at [facility] BASIC METABOLIC [id number] 10:02:00 Test Item Value Reference Range Comments [...] = CA) 8.9 mg/dL 8.0-10.5 CBC W/AUTO [id number] 08:25:00 Test Item Value Reference Range Comments [...] DIFF REQUIRED (test code = MDIFF) NO [id number] 08:24:00 Test Item Value Reference Range Comments GLUBED (test code = GLUBED) 133 MG/DL 70-110 Perf ormed by certified napkin machine operator at [facility] [id number] 20:47:00 Test Item Value Reference Range Comments GLUBED (test code = GLUBED) 212 MG/DL 70-110 Perf ormed by certified napkin machine operator at [facility] - DUP VEIN UNI/[id number] 15:47:00 Name: RONALD ALLEN [facility] : 1940 Age/S: 78 / F [address] [place] [address] Unit #: [id number] Loc: [id number] Phys: Sarbjit Carr DO Acct: [id number] Dis Date: Status: ADM IN PHONE #: [phone] Exam Date: 12/25/2018 153 FAX #: [phone] Reason: LLE swelling eval for DVT EXAMS: CPTCODE: [id number] DUP VEIN UNI/LTD 01535 PROCEDURE: LEFT UNILATERAL LOWER EXTREMITY VENOUS ULTRASOUND [...] PURPOSES ONLY RESULT CODE: CVR SL:01 at 6656 Reported and signed by:Markie Cooper M.D. CC: Sarbjit Carr DO Technologist: Selina Alicea RDMS(OB)(AB) Trnokb Date/Time: 12/25/2018 (0110) [email or web address].AJJ Orig Print D/T: S: 12/25/2018 (7855) Probe: PAGE 1 Signed Report B-TYPE NATRIURETIC [id number] 14:34:00 Test Item Value Reference Range Comments B-TYPE NATRIURETIC PEPTIDE (test code = BNP) 126.1 PG/ML 0-1 00 PROTHROMBIN [id number] 14:09:00 Test Item Value Reference Range Comments [...] (to prevent recurrent infarc t). THROMBOPLASTIN TIME [id number] 14:09:00 Test Item Value Reference Range Comments THROMBOPLASTIN TIME PARTIAL 20.2 Seconds 25.0-39.5 Therapeutic Range: (test code = PTT) 50.4 - 88.3 Se conds Effective 0 07/05/2018 - CT HEAD/BRAIN W/O [id number] 13:48:00 Name: RONALD ALLEN [facility] : 1940 Age/S: 78 / F [address] [place] [address] Unit #: [id number] Loc: [id number] Phys: Sarbjit Carr DO Acct: [id number] Dis Date: Status: REG ER PHONE #: [phone] Exam Date: 12/25/2018 1319 FAX #: [phone] Reason: altered mental status EXAMS: CPTCODE: [id number] CT HEAD/BRAIN W/O CONT 02065 CT head without contrast 12/25/2018 HISTORY: Altered [...] changes. 3. No acute intracranial abnormality. SL: [id number] at 1348 Reported and signed by: Robbie Ventura M.D. CC: Sarbjit Hayward Technologist:ANGELA Fajardo CTDI: DLP: Trnscb Date/Time: 12/25/2018 (8608) WilberBJM4 Orig Print D/T: S: 12/25/2018 (9523)PAGE 1 Signed Report URINALYSIS [id number] 13:40:00 Test Item Value Reference Range Comments [...] /LPF NONE SEEN COMMENTS: Clean CatchHEPATIC FUNCTION [id number] 13:38:00 Test Item Value Reference Range Comments [...] is in INTERNATIONAL code = CK) UNITS/LITER [id number] 13:38:00 Test Item Value Reference Range Comments LIPASE (test code = LIP) 409 IUnit/L 73-393 CBC W/AUTO [id number] 13:34:00 Test Item Value Reference Range Comments [...] = MDIFF) NO - XR CHEST 1 [id number] 13:12:00 FAX: Kristy Sarbjit Carr DO [phone] [place]: St: PRE Name: RONALD ALLEN [facility] : 1940 Age/S: 78/F [address] [place] [address] Unit#: [id number] Loc: [address]ERS[address] [place] [address] Phys: Sarbjit Carr DO Acct: [id number] Dis Date: Status: PRE ER PHONE #: [phone] Exam Date: 12/25/2018 1258 FAX #: [phone] Reason: Weakness EXAMS: CPT CODE: [id number] XR CHEST 1 V 72082 EXAM: Single view AP chest. EXAM DATE: [...] RT(R); Elif Ang RT(R) Trnscrd Date/Time/By: 12/25/2018 (9844) : By: Dioni Orig Print D/T: S: 12/25/2018 (5711) PAGE 1 Signed ReportTROPONIN-I [id number] 13:00:00 Test Item Value Reference Range Comments TROPONIN-I RAPID (test 0.01 ng/mL 0.00-0.08 Performed by certified napkin machine operator code = TROPIRAP) at [facility] Negative: <= 0.08 Positive: >= 0.09An [...] in tropo jaron levels characteristic o f [place]. CHEMISTRY 8 [id number] 12:54:00 Test Item Value Reference Range Comments [...] code = 38 ML/MIN GFRBED) CHEMISTRY 8 [id number] 12:54:00 Test Item Value Reference Range Comments ISTAT-SODIUM (test code = 136 MMOL/L 134-147 NAP) ISTAT-POTASSIUM (test code = 4.9 MMOL/L 3.4-5.0 KP) ISTAT-CHLORIDE (test code = 101 MMOL/L 100-108 Perf ormed by certified CLP) napkin machine operator at [facility] ISTAT CARBON DIOXIDE (test 27.0 mmol/L 21-33 code = ISTAT-CO2) ISTAT CALCIUM IONIZED (test 1.13 MG/DL 1.12-1.32 code = ISTAT-JOOJ) ISTAT-GLUCOSE (test code = 212 MG/DL 70-110 GLUP) ISTAT-BUN (test code = BUNP) 52 MG/DL 7-18 BEDSIDE CREATININE (test code 1.4 MG/DL 0.6-1.3 = CREATBED) GLOMERULAR FILTRATION RATE 38 ML/MIN POC (test code = GFRBED) TROPONIN I [id number] 14:47:00 Test Item Value Reference Range Comments [...] = CK) 47 Unit/L 26-192 CBC W/O [id number] 13:44:00 Test Item Value Reference Range Comments [...] 10.10 fL 7.0-10.5 - XR CHEST 1 [id number] 13:38:00 Name: RONALD ALLEN [facility] : 1940 Age/S: 77 / F [address] Unit #: [id number] Loc: [place] [address] Phys: Stevan Mullins MD Acct: [id number] Dis Date: Status: REG ER PHONE #: [phone] Exam Date: 08/26/2018 1330 FAX #: Reason: chest pain EXAMS: CPT: [id number] XR CHEST 1 V 19625 Fluoro Time: DAP (Gy m2): Air Kerma (mGy): HISTORY: chest pain Comparison to August 15, 2018 Location code: B2 FINDINGS: Frontal view of the chest demonstrates normal cardiomediastinal silhouette. The trachea is midline. The lungs are clear. There is no effusion or pneumothorax. The bones are intact. Median sternotomy wires noted. IMPRESSION: No acute pulmonary process. at 1335 Reported and signed by: Bear Pittman M.D. CC: Stevan Mullins MD PAGE 1 Signed Report Name: RONALD ALLEN [facility] : 1940 Age/S: 77 / F [address] Unit #: [id number] Loc: [place] [address] Phys: Stevan Mullins MD Acct: [id number] Dis Date: Status: REG ER PHONE #: [phone] Exam Date: 08/26/2018 1330 FAX #: Reason: chest pain EXAMS: CPT: [id number] XR CHEST 1 V 18643 Fluoro Time: DAP (Gy m2): Air Kerma (mGy): <Continued> Technologist: RT Moe(R) Trnscb Date/Time: 08/26/2018 (2078) tLUIZRK5 Orig Print D/T: S: 08/26/2018 (9555) PAGE 2 Signed ReportTROPONIN I [id number] 13:36:00 Test Item Value Reference Range Comments TROPONIN I RAPID (test code 0.01 ng/mL 0.00-0.08 - Th e use of serial sampling = TROPIRAP) and testing prot ocol is a recommended prac ligia- An elevated troponi n level alone is often not suf ficient for diagnosis of mecca cardial infarction. CHEMISTRY 8 [id number] 13:28:00 Test Item Value Reference Range Comments [...] code = GFRBED) 57 39-90 CHEMISTRY 8 [id number] 13:28:00 Test Item Value Reference Range Comments [...] = 57 39-9 0 GFRBED) GLUCOSE BEDSIDE [id number] 16:57:00 Test Item Value Reference Range Comments GLUCOSE BEDSIDE TESTING (test code = GLUBED) 117 mg/dL 70- 110 - CT HEAD/BRAIN W/O [id number] 16:28:00 Name: RONALD ALLEN [facility] : 1940 Age/S: 77 / F [address] [address] Unit #: [id number] Loc: [place] [address] Phys: Paddy Pittman MD Acct: [id number] Dis Date: Status: ADM IN PHONE #: [phone] Exam Date: 08/16/2018 1610 FAX #: Reason: H/O cva EXAMS: CPT: [id number] CT HEAD/BRAIN W/O CONT 96025 CT HEAD WITHOUT CONTRAST. HISTORY: H/O cva [...] left temporal occipital lobe infarct within the [place] territory. at 1628 Reported and signed by: Bonifacio Hameed M.D. PAGE 1 Signed Report (CONTINUED) Name: DEEPTITWYLARULARONALD [facility] : 03/1940 Age/S: 77 / F [address] [address] Unit #: [id number] Loc: [place] [address] Phys: Paddy Pittman MD Acct: [id number] Dis Date: Status: ADM IN PHONE #: [phone] Exam Date: 08/16/2018 1610 FAX #: R kavitha: H/O cva EXAMS: CPT: [id number] CT HEAD/BRAIN W/O CONT 41379 <Continued> CC: Jose Lloyd MD; Paddy Pittman MD Technologist:Miguel Angel Combs, RT(R)(CT)(MRI) CTDI: DLP: Trnscb Date/Time: 08/16/2018 (7691) WilberSP17 Orig Print D/T: S: 08/16/2018 (6444) PAGE 2 Signed ReportUA RFLX MICR CULT IF [id number] 12:34:00 Test Item Value Reference Range Comments [...] OtherOther Indication: CONFUSIONUA RFLX MICR CULT IF [id number] 12:33:00 Test Item Value Reference Range Comments [...] <2.0 UA NITRITE DIPSTICK (test code = PMAELA) NEGATIVE SCREEN NEG UA LEUKOCYTE ESTERASE DIPSTICK (test code = 1+ Leuk/mcL NEGA TIVE LEUU) UA CULTURE NEEDED? (test code = UACULT) Criteria Culture CHK SOURCE OF URINE: VOIDEDless than 18 yrs old, neutropenic, or urological surgery? NOPrimary Indication for Culture: OtherOther Indication: CONFUSIONGLUCOSE BEDSIDE [id number] 11:56:00 Test Item Value Reference Range Comments GLUCOSE BEDSIDE TESTING (test code = GLUBED) 153 mg/dL 70- 110 GLUCOSE BEDSIDE [id number] 08:07:00 Test Item Value Reference Range Comments GLUCOSE BEDSIDE TESTING (test code = GLUBED) 118 mg/dL 70- 110 BASIC METABOLIC [id number] 04:36:00 Test Item Value Reference Range Comments [...] CA) 8.9 MG/DL 8.5-10.1 Completed by Nursing: [id number] 04:36:00 Test Item Value Reference Range Comments [...] varyby method. Completed by Nursing: NOGLUCOSE BEDSIDE [id number] 20:20:00 Test Item Value Reference Range Comments GLUCOSE BEDSIDE TESTING (test code = GLUBED) 111 mg/dL 70- 110 GLUCOSE BEDSIDE [id number] 18:34:00 Test Item Value Reference Range Comments GLUCOSE BEDSIDE TESTING (test code = GLUBED) 131 mg/dL 70- 110 [id number] 13:43:00 Test Item Value Reference Range Comments [...] varyby method. Completed by Nursing: NOCHEMISTRY 8 [id number] 09:11:00 Test Item Value Reference Range Comments [...] code = GFRBED) 57 39-90 CHEMISTRY 8 [id number] 09:11:00 Test Item Value Reference Range Comments [...] = 57 39-9 0 GFRBED) COMPREHENSIVE METABOLIC [id number] 07:02:00 Test Item Value Reference Range Comments [...] -117 Completed by Nursing: NONT PRO-BRAIN NATRIURETIC [id number] 07:02:00 Test Item Value Reference Range Comments NT PRO-BRAIN NATRIURETIC PEPTI (test code = 839 PG/ML 0-10 0 PROBNP) Completed by Nursing: [id number] 07:02:00 Test Item Value Reference Range Comments [...] varyby method. Completed by Nursing: NOCOMPREHENSIVE METABOLIC [id number] 07:00:00 Test Item Value Reference Range Comments [...] -117 Completed by Nursing: NONT PRO-BRAIN NATRIURETIC [id number] 07:00:00 Test Item Value Reference Range Comments NT PRO-BRAIN NATRIURETIC PEPTI (test code = PROBNP) PG/ML 0-100 Completed by Nursing: [id number] 07:00:00 Test Item Value Reference Range Comments TROPONIN-I (test code = TROPI) NG/ML 0.000-0.045 Completed by Nursing: NOCBC W/AUTO [id number] 06:52:00 Test Item Value Reference Range Comments [...] DIFF/SCN CRITERI A - XR CHEST 1 [id number] 06:47:00 Name: RONALD ALLEN [facility] : 1940 Age/S: 77 / F [address] [address] Unit #: [id number] Loc: [place] [address] Phys: Fadumo Mendoza MD Acct: [id number] Dis Date: Status: PRE ER PHONE #: [phone] Exam Date: 08/15/2018 0635 FAX #: Reason: L chest pain EXAMS: CPT: [id number] XR CHEST 1 V 99315 Fluoro Time: DAP (Gy m2): Air Kerma [...] PAGE 1 Signed Report Name: LARRY ALLEN [facility] : 1940 Age/S: 77 / F [address] [address] Unit #: [id number] Loc: [place], [place] [address]Zruu: Fadumo Mendoza MD Acct: [id number] Dis Date: Status: PRE ER PHONE #: [phone] Exam Date: 08/15/2018 0635 FAX #: Reason: L chest pain EXAMS: CPT: [id number] XRCHEST 1 V 77167 Fluoro Time: DAP (Gy m2): Air Kerma (mGy): <Continued> Technologist: Marcella Preston RT(R)(CT) Trnscb Date/Time: 08/15/2018 (0647) Keisha.PMT Orig Print D/T: S: 08/15/2018 (0672) PAGE 2 Signed ReportTROPONIN I [id number] 06:30:00 Test Item Value Reference Range Comments TROPONIN I RAPID (test code 0.01 ng/mL 0.00-0.08 - Th e use of serial sampling = TROPIRAP) and testing prot ocol is a recommended prac ligia- An elevated troponi n level alone is often not suf ficient for diagnosis of mecca cardial infarction.
--- OUTSIDE RECORDS SUMMARY | 2019-07-12 19:43 | XMS REPORT | Summary of Care ---
:1940 Author Organization [facility] Address [address] [place] [address] Care Team Providers Name Role Phone Silke Ball MD Primary Care Provider [phone] Reason for Visit Reason Comments Rx Concern/Question Authorization Encounter Details Date Type Department Care Team Description 07/06/2019 Telephone [facility] Geriatrics- Silke Ball Rx Concern/Question; [place] MD Kellen Authorization [facility] [address] [place] [address] [address] [place] [phone] Allergies Active Allergy Reactions Severity Noted Date Comments Codeine Unknown - See comments 01/05/2014 Patie nt does not remember reaction Morphine Unknown - See comments 01/07/2019 documented as of this encounter (statuses as of 07/11/2019) Medications Medication Sig Dispensed Refills Start Date [...] mouth daily. tabletIndications: Coronary artery disease involving inaja heart without angina pectoris, unspecified vessel or [...] as of this encounter (statuses as of 07/11/2019) Active Problems Problem Noted Date Stroke 01/25/2019 [...] as of this encounter (statuses as of 07/11/2019) Immunizations Name Administration Dates Next Due Influenza [...] Telemedicine Visit Geriatric Medicine Moiz Melo, JESSICA Arrived [address] [facility] [address] [place] [address] 77 555 07/31/2019 Telemedicine Visit Neurology Mary Moreland ANP [address] [place] [phone] Charli Kothari MD [address] [place] [address]. [place] [address] 08/28/2019 Office Visit Geriatric Medicine Alon Melo ANP [address] [facility] [address] [place] [address] 77 555 Health Maintenance Due Date Last [...] Type Group MEDICARE MEDICARE PART xxxxxxxxxxx 2004-Presen [phone] Medicare A & B t 2 [id number] [place]AYLA CHAU [id number] [facility] MEDICAID OF xxxxxxxxx 2019-Prese [id number] [address] Medicaid [place] 0 [id number] [place] [address] documented as of this encounter
--- OUTSIDE RECORDS SUMMARY | 2019-07-12 19:44 | XMS REPORT | Summary of Care ---
:1940 Author Organization [place] [id number] Care Team Providers Name Role Phone Silke Ball MD Primary Care Provider [phone] Reason for Visit Reason Comments Social Work BNR, HH, DME, [facility] Lissette garcia Pgms Encounter Details Date Type Department Care Team Description 07/12/2019 [facility] Mirian Henderson, W ork (BNR, Geriatrics- [facility] HH, DME, [address]) Ctr [place] [address] [place] [id number] [place] [address] [phone] [address] [phone] Allergies Active Allergy Reactions Severity Noted Date Comments Codeine Unknown - See comments 01/05/2014 Patie nt does not remember reaction Morphine Unknown - See comments 01/07/2019 documented as of this encounter (statuses as of 07/12/2019) Medications Medication Sig Dispensed Refills Start Date [...] mg by 0 Active tablet mouth daily. Diaper,Brief, Use as directed 30 Each 03/24/2019 1 Active Adult,Disposable - 15 /day (DEPEND UNDERWEAR S-M) MiscIndications: Cerebrovascular accident (CVA), unspecified mechanism Underpads (BED Use as directed 90 Each 5 03/24/2019 Active UNDERPADS) PadsIndications: Cerebrovascular accident (CVA), unspecified mechanism albuterol 2.5 mg /3 mL Inhale 3 mL 90 Vial 5 05/29/2019 Active (0.083 %) nebulizer every 4 (four) solutionIndications: hours as needed Asthma with acute for Wheezing or exacerbation, Shortness of unspecified asthma Breath. severity, unspecified whether persistent atorvastatin 40 mg Take 40 mg by 0 05/01/2019 Active tablet mouth at bedtime. Lancets (ACCU-CHEK Test blood 100 Each 6 07/11/2019 Active SOFTCLIX LANCETS) glucose three MiscIndications: Type times daily. 2 diabetes mellitus with other specified complication, with long-term current use of insulin melatonin 3 mg tablet Take 3 mg by 0 Active mouth at bedtime. apixaban 2.5 mg tablet Take 5 mg by 0 Active mouth 2 (two) times daily. omeprazole 40 mg Take 40 mg by 0 Active capsule mouth 2 (two) times daily. carvediloL 3.125 mg Take 3.125 mg by 0 Active tablet mouth 2 (two) times daily with meals. Diclofenac Sodium Apply 1 g to 0 Active (VOLTAREN) 1 % gel area(s) 2 (two) times daily as needed for Pain (scale 4-6). insulin glargine 100 inject 9 Units 0 Active unit/mL injection under the skin daily before breakfast. insulin lispro, human, inject 5 Units 0 Active (HUMALOG U-100 under the skin 3 INSULIN) 100 unit/mL (three) times injection daily with meals. 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 SW spoke with patients daughter (Ginna Underwoodmarielena p: [phone]) by phone to assess needs. Daughterreports patient recently discharge home from hospital ([facility]; 07/06/19) with DME and Home Health. Daughter explained patient sent home vs IRF/SNF due to COVID-19. Daughter shared patients SNF history; do not want SNF services. HH anticipated to admit patient tomorrow ([facility] p: [phone] f: [phone]). Patient presently with DME provider ([facility]; receiving diapers, wipes and formula). Daughter explained DME ordered ([place] lift); has nontender been delivered ; will contact [facility]- to request order/provider status update. SW encouraged daughter to ask HH for DME assessment; any additional needs; send order to MD. Daughter verbalized understanding. SW reviewed in home supports for patient ADLs and Respite. Daughter explained she is patients paid provider (30 hours a week) and approved for weekend respite hours. Daughter requests increase in hours. SW encouraged daughter to contact Provider agency to schedule reassessment after hospital discharge. SW reviewed household financial resources. Patient receiving SNAP benefits. SW reviewed transportation resources for medical care. Daughter explained she provides all transportation. SW reviewed Medicaid Transportation Program resources; providing contact information. SW revived [facility] and [facility] Winder Operator Programs; contact information provided. Daughter verbalized understanding; expressing appreciation. No new needs identified at present. services complete. Mirian Henderson LMSW, [place] [facility] Stock Preparation Supervisor- [place] Manager Management [facility] Ph: [phone] Pager: [phone] Em: [email or web address] documented in this encounter Plan of Treatment Date Type Specialty Care Team Description 07/31/2019 Telemedicine Visit Neurology Mary Moreland ANP [address] [place] [phone] Charli Kothari MD [address] [place] [address]. [place] [address] 08/16/2019 Telemedicine Visit Geriatric Medicine Silke Ball MD [address] [place] [address] [phone] Health Maintenance Due Date Last Done Comments [...] BOX Medicare A & B t 2 [id number] MIKAYLA CHAU [address] [facility] MEDICAID OF xxxxxxxxx 2019-Prese [phone] Medicaid [place] nt 0 [id number] [place] [address] documented as of this encounter
--- OUTSIDE RECORDS SUMMARY | 2019-07-12 19:44 | XMS REPORT | Summary of Care ---
:1940 Author Organization [facility] Address [address] [place] [id number] Care Team Providers Name Role Phone Silke Ball MD Primary Care Provider [phone] Reason for Visit Reason Comments Hospital F/U stroke Encounter Details Date Type Department Care Team Description 07/11/2019 Telemedicine Visit [facility], Cerebrova scular accident (CVA), unspecified mechanism (Primary Dx); Geriatrics- JESSICA Melendrez [facility]aired [facility] [address] [facility] Type 2 d iabetes mellitus with other specified complication, with long-term current use of insulin; Ctr [facility] [id number] Vascular dementia without behavioral dis turbance; [facility], Coronary a rtery disease involving [place]osh[place] coronary artery of tim[place]oshone heart without angina pectoris [facility] [address] [place], [place] [phone] Allergies Active Allergy Reactions Severity Noted Date Comments Codeine Unknown - See comments 01/05/2014 Patie nt does not remember reaction Morphine Unknown - See comments 01/07/2019 documented as of this encounter (statuses as of 07/12/2019) Medications Medication Sig Dispensed Refills Start End [...] Active tablet mouth daily. Diaper,Brief, Use as 30 Each 03/24/19 Active Adult,Disposable directed - 15 0 21 (DEPEND UNDERWEAR /day S-M) MiscIndications: Cerebrovascular accident (CVA), unspecified mechanism Underpads (BED Use as 90 Each Activ e UNDERPADS) directed 0 PadsIndications: Cerebrovascular accident (CVA), unspecified mechanism albuterol 2.5 mg /3 Inhale 3 mL 90 Vial 5 Active mL (0.083 %) every 4 0 nebulizer (four) hours solutionIndications: as needed for Asthma with acute Wheezing or exacerbation, Shortness of unspecified asthma Breath. severity, unspecified whether persistent atorvastatin 40 mg Take 40 mg by 0 Active tablet mouth at 0 bedtime. Lancets (ACCU-CHEK Test blood 100 Each 6 Active SOFTCLIX LANCETS) glucose three 0 MiscIndications: times daily. Type 2 diabetes mellitus with other specified complication, with long-term current use of insulin melatonin 3 mg Take 3 mg by 0 Ac tive tablet mouth at bedtime. apixaban 2.5 mg Take 5 mg by 0 A ctive tablet mouth 2 (two) times daily. omeprazole 40 mg Take 40 mg by 0 Active capsule mouth 2 (two) times daily. carvediloL 3.125 mg Take 3.125 mg 0 Active tablet by mouth 2 (two) times daily with meals. Diclofenac Sodium Apply 1 g to 0 Active (VOLTAREN) 1 % gel area(s) 2 (two) times daily as needed for Pain (scale 4-6). insulin glargine 100 inject 9 0 Active unit/mL injection Units under the skin daily before breakfast. insulin lispro, inject 5 0 Acti ve human, (HUMALOG Units under U-100 INSULIN) 100 the skin 3 unit/mL injection (three) times daily with meals. clopidogrel 75 mg Take 1 tablet 30 tablet 5 07/12/19 Discontinued tabletIndications: by mouth 9 20 ( Discontinued by Encephalopathy acute daily for 180 another days. clinician) aspirin 81 mg Take 1 tablet 90 tablet 1 07/12/19 Di scontinued chewable by mouth 9 20 (Duplicate ) tabletIndications: daily for 180 Encephalopathy acute days. levETIRAcetam 500 mg Take 1 tablet 180 tablet 1 06/21 Discontinued tabletIndications: by mouth 2 9 20 (Discontinued by Encephalopathy acute (two) times another daily for 180 clinic jonah) days. isosorbide Take 1 tablet 90 tablet 1 07/12/19 Disco ntinued mononitrate 30 mg 24 by mouth 0 20 (Discontinued by hr daily. another tabletIndications: c linician) Coronary artery disease involving timbi[place]sha shoshone heart without angina pectoris, unspecified vessel or lesion type lisinopril 30 mg Take 1 tablet 90 tablet 0 07/12/19 Discontinued tabletIndications: by mouth 0 20 ( Discontinued by Essential daily. another hypertension clinici an) acetaminophen 325 mg Take 2 90 tablet 1 07/12/19 Discontinued tablet tablets by 0 20 (Disconti nued by mouth every 6 anothe r (six) hours clinicia n) as needed for Pain (scale 4-6). metFORMIN 500 mg Take 1 tablet 180 tablet 1 07/12/19 Discontinued tabletIndications: by mouth 2 0 20 (Alternate Controlled type 2 (two) times therapy) diabetes mellitus daily with with diabetic meals. neuropathy, without long-term current use of insulin amLODIPine 5 mg Take 1 tablet 30 tablet 3 07/12/19 Discontinued tabletIndications: by mouth 0 20 ( Discontinued by Uncontrolled daily. another hypertension clinici an) carvediloL 6.25 mg Take 1 tablet 60 tablet 3 0 Discontinued tablet by mouth 2 0 20 (Dose (two) times adjustme nt) daily with meals. Hospital, Clinic, or Ordered Dose Route Frequency Start Date End D ate Status Other Facility Administered Medication albuterol 2.5 mg Inhale Q6HPRN 03/24/2019 07/12/2019 Disconti nued (PROVENTIL) 2.5 mg /3 mL (0.083 %) nebulizer solution 2.5 mg documented as of this encounter (statuses as of 07/12/2019) Active Problems Problem Noted Date Stroke 01/25/2019 Weakness 01/25/2019 Arthritis of right hip 06/30/2016 [place] (myocardial infarction) Frequent falls Spinal stenosis Controlled [...] on filedocumented in this encounter Progress Notes Alon Melo ANP - 07/11/2019 3:00 PM CDT Geriatric Telemedicine Clinic Note Location of Patient: Home Location of Provider: [facility] Date of Service: 07/11/2019 Chief Complaint: Hospital follow up HPI: Janell Zuniga is a 78 year old female who has given verbal consent for a telemedicine encounter today. Today's telemedicine encounter was conducted via telephone (audio only). Communicationwith patient was conducted via Telephone due to patient unable to obtain video call option. The patient's daughter answered the telephone and did all of the talking as the patient does not speak since her most recent hospitalization with a stroke except to repeat words that the daughter says to her. She cannot walk now with right sided hemiparesis. Prior to the most recent stroke the patient had left sided weakness from a past stroke. The patient was admitted to [facility] in the [facility] in [place] on 06/05/2019, after EMS was called when the patient began showing stroke symptoms. EMS called for life flight as the patient was in such serious condition and that is how she was taken to [facility]. In addition to the ischemic left MCA stroke, the patient was treated for rectalbleeding and pneumonia. The patient was there for 30 days then was discharged to home and did not goto a rehab facility. She was sent home with PT/OT/SN/ST. She has a PEG tube now and the daughter is giving her bolus feedings four times daily (each bolus is 250 cc) but we are not certain of the calories she is receiving and four times daily is giving her 60 cc of water. The patient has an electric wheelchair that was given to the family by a friend whose family member no longer needed it. A [place] lift was ordered for the patient but they have not received it as yet. Today, the daughter statesgae is doing okay managing the patient's care. The daughter took the patient back to the hospital in [place] twice with shortness of breath in the first five days she was home. The daughter states the patient was prescribed a ProAir MDI and albuterol neb treatments to be done at least three times daily. Since she started on the neb treatments, according to the daughter, the patient's respiratory status has improved. We have not heard from the home health agency as to the patient's oxygenation but they are scheduled to come out tomorrow. The daughter states she needs to have a glucometer to check the patient's blood glucose levels as the patient is now taking insulin three times daily. She has borrowed one for now until she can get one. She states the patient's blood glucose levels areranging between 150 and 232. She did not have times for the glucose checks as to how they correspond with the bolus feeding the patient is receiving. The daughter also requested handicap parking paperwork to submit and she requested alcohol wipes and gloves. I suggested to call [facility] where she gets the patient's diapers to see if they can provide these items. The patient has Medicaid and Medicare according to the daughter. We also are going to email the daughter a release of information in order to receive the medical records from [facility] and know exactly what took place when she was hospitalized especially regarding the rectal bleeding as the patient takes Eliquis and her respiratory status as the patient did not have a diagnosis of asthma or COPD and she has never smoked. Now she is on albuterol which the daughter states is for her asthma which we do not have listed on her medical history. Past Medical History: Diagnosis Date CAD (coronary artery disease) CVA (cerebral infarction) 1 large and several mini Diabetes mellitus Frequent falls H/O hepatitis cannot donate blood HTN (hypertension) Hyperlipidemia Hypertriglyceridemia [place] (myocardial infarction) Peripheral neuropathy Spinal stenosis Urinary incontinence Social History Tobacco Use Smoking status: Never Smoker Smokeless tobacco: Never Used Substance Use Topics Alcohol use: No Drug use: No Family History Problem Relation Age of Onset Heart Mother Diabetes Father Diabetes Brother Heart Brother Medication Sig apixaban 2.5 mg tablet Take 5 mg by mouth 2 (two) times daily. carvedilol 3.125 mg tablet Take 3.125 mg by mouth 2 (two) times daily with meals. Diclofenac Sodium (VOLTAREN) 1 % gel Apply 1 g to area(s) 2 (two) times daily as needed for Pain(scale 4-6). insulin glargine 100 unit/mL injection inject 9 Units under the skin daily before breakfast. insulin lispro, human, (HUMALOG U-100 INSULIN) 100 unit/mL injection inject 5 Units under the skin 3 (three) times daily with meals. melatonin 3 mg tablet Take 3 mg by mouth at bedtime. omeprazole 40 mg capsule Take 40 mg by mouth 2 (two) times daily. Lancets (ACCU-CHEK SOFTCLIX LANCETS) Misc Test blood glucose three times daily. atorvastatin 40 mg tablet Take 40 mg by mouth at bedtime. albuterol 2.5 mg /3 mL (0.083 %) nebulizer solution Inhale 3 mL every 4 (four) hours as needed for Wheezing or Shortness of Breath. Diaper,Brief, Adult,Disposable (DEPEND UNDERWEAR S-M) Misc Use as directed - 15 /day Underpads (BED UNDERPADS) Pads Use as directed aspirin 81 mg EC tablet Take 81 mg by mouth daily. rivastigmine 4.6 mg/24 hr patch Apply 1 Patch to skin daily. nitroglycerin 0.4 mg sublingual tablet Max 3 tablets in 15 minutes - then go to ER Review of systems: All questions were answered by the daughter Constitutional: + weakness, bed bound or chair bound. Eyes: the daughter reports the patient was seeing okay prior to her stroke. Ears: unknown. Nose/Sinuses: denies rhinorrhea and denies sneezing. Mouth/Throat: + dysphagia. The patient takes nothing by mouth. Neck: denies swollen glands Cardiovascular: the patient gives no indication of chest pain. Respiratory: the daughter states the patient's respiratory status has improved since she stared on the neb treatments. Gastrointestinal: denies constipation and denies diarrhea. The stools are soft but not runny or watery. Genitourinary: + incontinence without a strong odor or color. Musculoskeletal: no indication the patient is in pain. PT/OT/speech therapy are starting at home. Skin: no skin breakdown. The daughter states she is turning the patient frequently and moves her tothe wheelchair and takes her outside when the weather permits. Physical Exam: A physical exam was not conducted during this telemedicine encounter. ASSESSMENT/PLAN Janell Zuniga is a 78 year old female with PMH as above presenting with: Cerebrovascular accident (CVA), unspecified mechanism (primary encounter diagnosis) Comment: the patient had an acute ischemic left MCA stroke. She now how left and right hemiparesis,has a PEG, is bed/chair bound and repeats only a few words spoken to her. Plan: 1. [facility] to come to the home for PT/OT/ST/shelter 2. A [place] lift was ordered for the patient when she left the hospital but it has not been delivered yet. 3. Continue Eliquis 2.5 mg twice daily. 4. Consult Social Work ambulatory. Impaired gait and mobility Comment: the patient no longer can walk, move around. Plan: 1. Follow up on the [place] lift with social work. Type 2 diabetes mellitus with other specified complication, with long-term current use of insulin Comment: the patient was taking Metformin prior to the stroke. She is now on insulin. Plan: 1. Lancets (ACCU-CHEK SOFTCLIX LANCETS) [facility] 2. GLUCOMETER - Accucheck [place] - faxed to [facility] in [place]. 3. Test strips for the Accucheck [place] - faxed to [facility] in [place]. 4. The patient is taking Lantus 9 units each am. 5. The patient also is taking Humalog 5 units three times daily at meal times. Vascular dementia without behavioral disturbance Comment: on going Plan: 1. Continue 24/7 care. Coronary artery disease involving [place]osh[place] coronary artery of [place]osh[place] heart without angina pectoris Comment: no evidence of chest pain Plan: 1. Continue Coreg 3.125 mg twice daily. A total of 45 minutes were spent on the telephone/ video call with the patient. JESSICA Weeks 07/11/2019 1500 documented in this encounter Plan of Treatment Date Type Specialty Care Team Description 07/31/2019 Telemedicine Visit Neurology Mary Moreland ANP [address] [place] [phone] Charli Kothari MD [address] [place] [address]. [place] [address] 08/16/2019 Telemedicine Visit Geriatric Medicine Silke Ball MD [address] [place] [address]90 Health Maintenance Due Date Last Done [...] filedocumented in this encounter Visit Diagnoses Diagnosis Cerebrovascular accident (CVA), unspecif ied mechanism - Primary Impaired gait and mobility Type 2 diabetes mellitus with other spec ified complication, with long-term current use of insulin Vascular dementia without behavioral dis turbance Vascular dementia, uncomplicated Coronary artery disease involving [place]osh[place] coronary artery of [place]osh[place] heart without angina pectoris documented in this encounter Insurance Payer Benefit Plan / Subscriber ID Effective Dates Phone Addre ss Type Group MEDICARE MEDICARE PART xxxxxxxxxxx 2004-Tereza [phone] [address] Medicare A & B t 2 [id number] MIKAYLA CHAU [phone] [facility] MEDICAID OF xxxxxxxxx 2019-Richard [phone] [address] Medicaid [place] nt 0 [id number] [place] [address] documented as of this encounter
[2019-07-12 20:27] LABS: Absolute Lymphocytes (CBC) 2.5 K/uL (0.7-4.9); Basophils % 1.2 % (0-1.3); Hematocrit 30.8 % (36.0-45.0); Lymphocytes % 16.5 % (15.3-44.8); MPV 8.6 fL (7.6-11.3); RBC Red Blood Cell Count 3.79 M/uL (3.86-4.86)
[2019-07-12 20:38] LABS: Albumin 2.6 g/dL (3.4-5.0); Bilirubin Direct 0.2 mg/dL (0-0.2); Bilirubin Total 0.3 mg/dL (0.2-1.0)
[2019-07-12 20:39] LABS: Potassium 4.5 mmol/L (3.5-5.1)
[2019-07-12] MEDS ORDERED: ACETAMINOPHEN 500 MG TAB PO PRN (21:03)
--- NOTE | 2019-07-12 21:12 | EDPHYS ---
Physician Documentation [facility] Name: Janell Zuniga Age: 78 yrs Sex: Female : 1940 Arrival Date: 07/12/2019 Time: 19:25 Bed 17 Private MD: ED Physician Rajesh Donahue HPI: 07/12 02:24 This 78 yrs old Female presents to ER via Ambulatory with complaints of PULLED OUT PEG tw4 TUBE. 02:24 pt' s daughter brought her into the ED she pulled out her PEG tube. Pt has had multiple tw4 ED visits most recently last week for the same complaint. Onset: The symptoms/episode began/occurred just prior to arrival, 1 hour(s) ago. Severity of symptoms: At their worst the symptoms were mild in the emergency department the symptoms are unchanged. The patient has experienced similar episodes in the past, several times. 02:24 The patient has been recently seen at the [facility] Emergency tw4 Department, last week. Historical: - Allergies: 07/11 19:39 Codeine; bb 19:39 Latex, Natural Rubber; bb 19:39 Morphine; bb - Home Meds: 19:39 aspirin 81 mg Oral chew 1 tab once daily [Active]; divalproex 125 mg Oral cpSP 2 caps bb every 8 hours [Active]; Eliquis 5 mg Oral tab 2 times per day [Active]; hydrochlorothiazide 12.5 mg Oral cap 1 cap once daily [Active]; isosorbide mononitrate 30 mg Oral Tb24 2 tabs once daily [Active]; Keppra Oral [Active]; Lyrica 50 mg Oral 2 times per day [Active]; metformin 1,000 mg Oral tab 1 tab 2 times per day [Active]; metoprolol tartrate 50 mg Oral tab 1 tab 2 times per day [Active]; Nitroglycerin Oral [Active]; Plavix 75 mg Oral tab 1 tab once daily [Active]; pravastatin 20 mg Oral tab 1 tab once daily [Active]; Protonix 40 mg Oral grps 1 packet once daily [Active]; rivastigmine tartrate Oral [Active]; trazodone 100 mg Oral tab 1 tab [Active]; Vitamin B-1 Oral [Active]; Vitamin D Oral daily [Active]; - PMHx: 19:39 Aphasia; CAD; CVA; Diabetes - NIDDM; hemiparesis right; Hypertension; bb - Immunization history:: Adult Immunizations up to date. - Social history:: Smoking status: unknown. ROS: 07/12 02:24 Constitutional: Negative for fever, chills, and weight loss, Eyes: Negative for injury, tw4 pain, redness, and discharge, Neck: Negative for injury, pain, and swelling, Cardiovascular: Negative for chest pain, palpitations, and edema, Respiratory: Negative for shortness of breath, cough, wheezing, and pleuritic chest pain, Abdomen/GI: Negative for abdominal pain, nausea, vomiting, diarrhea, and constipation, Back: Negative for injury and pain, MS/Extremity: Negative for injury and deformity, Skin: Negative for injury, rash, and discoloration, Neuro: Negative for headache, weakness, numbness, tingling, and seizure. Exam: 02:24 Constitutional: This is a well developed, well nourished patient who is awake, alert, tw4 and in no acute distress. Chest/axilla: Normal chest wall appearance and motion. Nontender with no deformity. No lesions are appreciated. Cardiovascular: Regular rate and rhythm with a normal S1 and S2. No gallops, murmurs, or rubs. Normal PMI, no JVD. No pulse deficits. Respiratory: Lungs have equal breath sounds bilaterally, clear to auscultation and percussion. No rales, rhonchi or wheezes noted. No increased work of breathing, no retractions or nasal flaring. Back: No spinal tenderness. No costovertebral tenderness. Full range of motion. MS/ Extremity: Pulses equal, no cyanosis. Neurovascular intact. Full, normal range of motion. Neuro: Awake and alert, GCS 15, oriented to person, place, time, and situation. Cranial nerves II-XII grossly intact. Motor strength 5/5 in all extremities. Sensory grossly intact. Cerebellar exam normal. Normal gait. 02:24 Abdomen/GI: Inspection: stoma for gastrostomy tube appears patent, Bowel sounds: normal, Palpation: abdomen is soft and non-tender. Vital Signs: 07/11 19:36 BP 166 / 68; Pulse 66; Resp 16 S; Temp 98(A); Pulse Ox 96% on R/A; Weight 53.98 kg (R); bb Height 4 ft. 7 in. (139.70 cm) (R); Pain 0/10; 21:30 BP 155 / 57; Pulse 67; Resp 18; Pulse Ox 95% on R/A; mg2 22:30 BP 151 / 67; Pulse 69; Resp 18; Temp 98; Pulse Ox 95% on R/A; mg2 19:36 Body Mass Index 27.66 (53.98 kg, 139.70 cm) Procedures: 07/12 02:24 G-tube placement: a 16 Tamazight catheter was placed, by the ED physician, Rajesh whitlock MD unsucessful. MDM: 07/11 19:35 Patient medically screened. tw4 07/12 02:24 Data reviewed: vital signs, nurses notes. Data interpreted: Pulse oximetry: 4 Interpretation: normal. Counseling: I had a detailed discussion with the patient and/or guardian regarding: the historical points, exam findings, and any diagnostic results supporting the discharge/admit diagnosis, lab results. Physician consultation: Ash Regalado MD was contacted at 21:00, regarding admission, to the medical/surgical unit. patient's condition, and will see patient in inpatient room. 07/11 19:37 Order name: Basic Metabolic Panel [facility] 07/11 19:37 Order name: CBC with Diff [facility] 07/11 19:37 Order name: Creatinine for Radiology [facility] 07/11 19:37 Order name: Hepatic Function [facility] 07/11 19:37 Order name: Lipase [facility] 07/11 19:37 Order name: Ptt, Activated tw 07/11 19:37 Order name: PT-INR [facility] 07/11 21:07 Order name: CONS Pharmacy Consult [facility] 07/11 21:07 Order name: CONS Physician Consult [facility] 07/11 21:07 Order name: NPO [facility] 07/11 21:07 Order name: CBC with Automated Diff [facility] 07/11 21:07 Order name: CBC with Automated Diff [facility] 07/11 21:07 Order name: Comprehensive Metabolic Panel [facility] 07/11 21:07 Order name: Comprehensive Metabolic Panel [facility] 07/11 19:37 Order name: IV Saline Lock; Complete Time: 20:14 tw 07/11 19:37 Order name: Labs collected and sent; Complete Time: 20:14 tw4 Administered Medications: No medications were administered Disposition: 07/12/19 21:11 Hospitalization ordered by Ash Regalado for Inpatient Admission. Preliminary diagnosis is Gastrostomy complication, unspecified. - Bed requested for Telemetry/MedSurg (Inpatient). - Status is Inpatient Admission. mg2 - Condition is Stable. - Problem is new. - Symptoms are unchanged. Signatures: Dispatcher [employer] EDMS Maritza Francisco RN RN dw Dixie Henriquez RN RN bb Wadley, Terrence, MD MD tw4 Jeromy Gutierrez RN RN mg2 Corrections: (The following items were deleted from the chart) 07/11 21:27 21:11 Hospitalization Ordered by Ash Regalado MD for Inpatient Admission. Preliminary diagnosis is Gastrostomy complication, unspecified. Bed requested for Telemetry/MedSurg (Inpatient). Status is Inpatient Admission. Condition is Stable. Problem is new. Symptoms are unchanged. tw4 22:38 21:27 07/12/2019 21:11 Hospitalization Ordered by Ash Regaaldo MD for Inpatient mg2 Admission. Preliminary diagnosis is Gastrostomy complication, unspecified. Bed requested for Telemetry/MedSurg (Inpatient). Status is Inpatient Admission. Condition is Stable. Problem is new. Symptoms are unchanged. dw
--- NOTE | 2019-07-12 21:12 | ER ---
Nurse's Notes [facility] Name: Janell Zuniga Age: 78 yrs Sex: Female : 1940 Arrival Date: 07/12/2019 Time: 19:25 Bed 17 Private MD: Diagnosis: Gastrostomy complication, unspecified Presentation: 07/11 19:33 Chief complaint: Patient's son or daughter states: patient pulled out peg tube again. bb Coronavirus screen: Proceed with normal triage. Ebola Screen: No symptoms or risks identified at this time. 19:33 Method Of Arrival: Ambulatory bb 19:36 Initial Sepsis Screen: Does the patient meet any 2 criteria? No. Patient's initial bb sepsis screen is negative. Does the patient have a suspected source of infection? No. Patient's initial sepsis screen is negative. Risk Assessment: Do you want to hurt yourself or someone else? Patient reports no desire to harm self or others. Onset of symptoms was July 12, 2019. 19:36 Acuity: ANANT 3 bb Historical: - Allergies: 19:39 Codeine; bb 19:39 Latex, Natural Rubber; bb 19:39 Morphine; bb - Home Meds: 19:39 aspirin 81 mg Oral chew 1 tab once daily [Active]; divalproex 125 mg Oral cpSP 2 caps bb every 8 hours [Active]; Eliquis 5 mg Oral tab 2 times per day [Active]; hydrochlorothiazide 12.5 mg Oral cap 1 cap once daily [Active]; isosorbide mononitrate 30 mg Oral Tb24 2 tabs once daily [Active]; Keppra Oral [Active]; Lyrica 50 mg Oral 2 times per day [Active]; metformin 1,000 mg Oral tab 1 tab 2 times per day [Active]; metoprolol tartrate 50 mg Oral tab 1 tab 2 times per day [Active]; Nitroglycerin Oral [Active]; Plavix 75 mg Oral tab 1 tab once daily [Active]; pravastatin 20 mg Oral tab 1 tab once daily [Active]; Protonix 40 mg Oral grps 1 packet once daily [Active]; rivastigmine tartrate Oral [Active]; trazodone 100 mg Oral tab 1 tab [Active]; Vitamin B-1 Oral [Active]; Vitamin D Oral daily [Active]; - PMHx: 19:39 Aphasia; CAD; CVA; Diabetes - NIDDM; hemiparesis right; Hypertension; bb - Immunization history:: Adult Immunizations up to date. - Social history:: Smoking status: unknown. Screenin:35 Abuse screen: Denies threats or abuse. Denies injuries from another. Nutritional mg2 screening: No deficits noted. Tuberculosis screening: No symptoms or risk factors identified. Fall Risk IV access (20 points). Ambulatory Aid- None/Bed Rest/Nurse Assist (0 pts). Mental Status- Overestimates/Forgets Limitations (15 pts.). Assessment: 19:40 General: Appears in no apparent distress. comfortable, Behavior is calm, cooperative. mg2 Pain: Denies pain. Neuro: Level of Consciousness is awake, alert, obeys commands, Oriented to person, situation. Cardiovascular: Capillary refill < 3 seconds. 19:40 Respiratory: Airway is patent Respiratory effort is even, unlabored, Respiratory mg2 pattern is regular, symmetrical. GI: PEG tube peg tube out. : No signs and/or symptoms were reported regarding the genitourinary system. EENT: No signs and/or symptoms were reported regarding the EENT system. Derm: Skin is intact, is healthy with good turgor, Skin is pink, warm \T\ dry. normal. Musculoskeletal: Circulation, motion, and sensation intact. Capillary refill < 3 seconds. Vital Signs: 19:36 BP 166 / 68; Pulse 66; Resp 16 S; Temp 98(A); Pulse Ox 96% on R/A; Weight 53.98 kg (R); bb Height 4 ft. 7 in. (139.70 cm) (R); Pain 0/10; 21:30 BP 155 / 57; Pulse 67; Resp 18; Pulse Ox 95% on R/A; mg2 22:30 BP 151 / 67; Pulse 69; Resp 18; Temp 98; Pulse Ox 95% on R/A; mg2 19:36 Body Mass Index 27.66 (53.98 kg, 139.70 cm) bb ED Course: 19:25 Patient arrived in ED. ag3 19:35 Rajesh Donahue MD is Attending Physician. tw4 19:37 Triage completed. bb 19:39 Arm band placed on Patient placed in an exam room, on a stretcher, on pulse oximetry. bb 19:45 Gardose, Jeromy, RN is Primary Nurse. mg2 20:00 Inserted saline lock: 22 gauge in left forearm, using aseptic technique. Blood mg2 collected. 21:04 Ash Regalado MD is Hospitalizing Provider. tw4 22:35 No provider procedures requiring assistance completed. mg2 22:36 Patient admitted, IV remains in place. mg2 22:37 Patient has correct armband on for positive identification. mg2 Administered Medications: No medications were administered Outcome: 21:11 Decision to Hospitalize by Provider. tw4 22:00 Admitted to Med/surg accompanied by tech, via stretcher, room 202. mg2 22:00 Condition: stable 22:00 Instructed on the need for admit, Demonstrated understanding of instructions. 22:38 Patient left the ED. mg2 Signatures: Dixie Henriquez RN RN Rajesh Donahue MD MD tw4 Jeromy Gutierrez, JOSEPH RN mg2 Tarsha Smallwood ag3
[2019-07-12] MEDS ORDERED: NA CHLORIDE 0.9% 1,000 ML IV SCH (22:00)
[2019-07-12 23:14] LABS: Protime INR 0.94
[2019-07-13 01:07] VITALS: BMI 27.6
[2019-07-13] MEDS: ONDANSETRON 4 MG/2 ML VIAL IV PRN ×3 (02:17→12:06)
[2019-07-13 04:51] LABS: Absolute Lymphocytes (CBC) 3.5 K/uL (0.7-4.9); Basophils % 0.8 % (0-1.3); Hematocrit 28.1 % (36.0-45.0); Lymphocytes % 25.1 % (15.3-44.8); MPV 8.6 fL (7.6-11.3)
[2019-07-13 05:09] LABS: Albumin 2.7 g/dL (3.4-5.0); Bilirubin Total 0.4 mg/dL (0.2-1.0); Protein, Total 6.9 g/dL (6.4-8.2)
--- NOTE | 2019-07-13 07:29 | P.HP ---
Certification for Inpatient Patient admitted to: Observation With expected LOS: <2 Midnights Patient will require the following post-hospital care: None Practitioner: I am a practitioner with admitting privileges, knowledge of patient current condition, hospital course, and medical plan of care. Services: Services provided to patient in accordance with Admission requirements found in Title 42 Section 412.3 of the Code of Federal Regulations Patient History Date of Service: 07/12/19 Reason for admission: Patient PEG tube was accidentally pulled out History of Present Illness: Patient is a 78-year-old female who has a history of left MCA infarct with aphasia and right-sided weakness. Patient was at home with her son and daughter and she accidentally pulled out her PEG tube. By the time patient got to the ER they were were unable to replace a temporary feeding tube. Patient will be admitted to the hospital for PEG tube placement. We will consult general surgery or GI for replacement. Otherwise, patient has aphasia and really cannot communicate. Admit patient to the hospital for further evaluation. Allergies codeine Allergy (Verified 03/12/18 02:24) Hives Home Medications: Apixaban [Eliquis] 5 mg PO BID 03/12/18 Aspirin Chewable [Aspirin Chewable*] 81 mg PO DAILY 03/12/18 Cholecalciferol (Vitamin D3) [Vitamin D3] 3,000 unit PO DAILY 03/12/18 Divalproex [Depakote Sprinkle*] 125 mg PO BID 03/12/18 Isosorbide Mononitrate [Isosorbide Mononitrate ER] 30 mg PO BID 03/12/18 Metformin HCl [Glucophage] 1,000 mg PO BID 03/12/18 Nitroglycerin 0.4 mg SL PRN 03/12/18 Pantoprazole [Protonix Tab*] 40 mg PO DAILY 03/12/18 Pravastatin Sodium 20 mg PO DAILY 03/12/18 Pregabalin [Lyrica*] 50 mg PO BID 03/12/18 Tramadol HCl [Ultram] 50 mg PO Q6HP PRN 03/12/18 Trazodone HCl [Desyrel] 100 mg PO BEDTIME 03/12/18 Vitamin B Complex [B Complex] 2 tab PO BID 03/12/18 hydroCHLOROthiazide [Hydrochlorothiazide*] 12.5 mg PO DAILY 03/12/18 Metoprolol Tartrate [Lopressor*] 50 mg PO BID #60 tab 03/14/18 - Past Medical/Surgical History Diabetic: Yes -: 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 moist/pink, EOMI, Sclerae nonicteric Neck: Supple, 2+ carotid pulse no bruit, No LAD, Without JVD or thyroid abnormality Respiratory: Clear to auscultation bilaterally, Normal air movement Cardiovascular: Regular rate/rhythm, Normal S1 S2, No murmurs Gastrointestinal: Normal bowel sounds, Soft and benign, Non-distended, No tenderness Musculoskeletal: No clubbing, No swelling, No tenderness Integumentary: No rashes Neurological: Sensation intact, Cranial nerves 3-12 intact, Abnormal gait, Abnormal speech, Abnormal strength, Abnormal tone, Abnormal affect Lymphatics: No axilla or inguinal lymphadenopathy - Studies Laboratory Data (last 24 hrs) 07/12/19 20:00: Creatinine 0.82 07/12/19 20:00: WBC 15.4 H D, Hgb 10.0 L, Hct 30.8 L, Plt Count 456 H 07/12/19 20:00: Sodium 135 L, Potassium 4.5, BUN 38 H, Creatinine 0.86, Glucose 162 H, Total Bilirubin 0.3, AST 29, ALT 38, Alkaline Phosphatase 134 H, Lipase 621 H Assessment & Plan - Problems (Diagnosis) (1) PEG tube malfunction Current Visit: Yes Status: Acute (2) H/O ischemic left MCA stroke Current Visit: Yes Status: Acute (3) Aphasic stroke Current Visit: Yes Status: Acute (4) History of stroke Current Visit: No Status: Acute (5) Parkinsonism Onset Date: 03/13/18 Current Visit: No Status: Acute (6) Type 2 diabetes mellitus Onset Date: 03/13/18 Current Visit: No Status: Acute (7) Elevated lipase Current Visit: Yes Status: Acute - Plan Plan: 1. GI consultation 2. Gentle hydration 3. Continue with anti-platelet therapy and statin therapy. Hold anti coagulation-per records patient has been on eliquis and we are unsure if pt is taking it at this time 4. Continue home medications for diabetes and blood pressure control 5. Continue anti epileptic 6. Monitor H&H closely 7. Continue antibiotic therapy for leukocytosis 8. Monitor lipase level 9. GI and DVT prophylax Discharge Plan: Home Plan to discharge in: Greater than 2 days - Advance Directives Does patient have a Living Will: No Does patient have a Durable POA for Healthcare: No - Code Status/Comfort Care Code Status Assessed: Yes Code Status: Full Code Critical Care: No Time Spent Managing PTS Care (In Minutes): 45
--- NOTE | 2019-07-13 08:32 | P.PN ---
Subjective Date of Service: 07/13/19 Primary Care Provider: Dr. Barron([facility]); Cardiology-Dr. Liang, Neurology- Dr. Delaney Chief Complaint: Patient PEG tube was accidentally pulled out Subjective: Doing well Physical Examination - Vital Signs Temperature: 97.2 F Blood Pressure: 144/92 Pulse: 68 Respirations: 16 Pulse Ox (%): 93 - Physical Exam General: Other (aphasia) HEENT: Atraumatic Neck: Supple Respiratory: Clear to auscultation bilaterally, Normal air movement Cardiovascular: Normal pulses, Regular rate/rhythm Gastrointestinal: Normal bowel sounds, Soft and benign, Non-distended, No masses, No rebound, No guarding Neurological: Abnormal speech, Abnormal strength - Studies Laboratory Data (last 24 hrs) 07/12/19 20:00: Creatinine 0.82 07/12/19 20:00: WBC 15.4 H D, Hgb 10.0 L, Hct 30.8 L, Plt Count 456 H 07/12/19 20:00: Sodium 135 L, Potassium 4.5, BUN 38 H, Creatinine 0.86, Glucose 162 H, Total Bilirubin 0.3, AST 29, ALT 38, Alkaline Phosphatase 134 H, Lipase 621 H Medications List Reviewed: Yes Assessment & Plan Discharge Plan: Home Plan to discharge in: 24 Hours - Code Status/Comfort Care Code Status Assessed: Yes (Patient is full code.) Physician Review Additional Text: Impression: Accidental PEG tube removal with history of dysphagia Recent history of left MCA CVA with residual right-sided weakness, aphasia and dysphagia Atrial fibrillation on chronic anti coagulation therapy Hypertension Diabetes mellitus type 2 Hyperlipidemia COPD GERD Anemia of chronic disease Plan: Accidental PEG tube removal with history of dysphagia: Patient recently treated 30 days ago for CVA at [facility]. Patient seen at [facility] with multiple specialists. Patient previously at a long term in the past. Now at home with home health. Patient accidentally removed PEG tube. This will need to be replaced. Case discussed with GI. Patient NPO in preparation for replacement. Possible discharge later today after procedure or tomorrow. Patient will need a continue with home health and therapy at discharge. Will discuss with social work. Case discussed with daughter who takes care of her. Recent history of left MCA CVA with residual right-sided weakness, aphasia and dysphagia: Patient recently treated 30 days go for CVA. Patient has been a long term in the past. Daughter preferred the patient to go home. She has been taking good care of her. Will need to go home with home health physical therapy at discharge. Atrial fibrillation on chronic anti coagulation therapy: Will need to restart medication once PEG tube in place. Hypertension: Restart home medication. Diabetes mellitus type 2: Will restart home medication. Accu-Cheks and sliding scale in place. Hyperlipidemia: Will need to restart home medication COPD: Patient on recent steroids. Will continue with this. Will continue with COPD medication. GERD: Continue with medication. Anemia of chronic disease: Continue medication. Time Spent Managing Pts Care (In Minutes): 55
[2019-07-13] MEDS ORDERED: GLUCAGON 1 MG/VIAL IM PRN (08:38)
[2019-07-13] MEDS ORDERED: D50W 25 GM/50 ML SYRINGE/VIAL IV PRN (08:38)
[2019-07-13] MEDS ORDERED: METOPROLOL TARTRATE 5 MG/5 ML INJ IV PRN (08:42)
[2019-07-13] MEDS: MORPHINE 2 MG/ML SYR IV PRN ×4 (08:53→22:11)
[2019-07-13] MEDS: [UNRECOGNIZED DRUG - OTHER] FT SCH ×3 (08:56→21:00)
[2019-07-13] MEDS: carvediloL 3.125 MG TAB FT SCH ×2 (08:56→21:00)
[2019-07-13] MEDS: Pantoprazole (granules) 40 MG/BLIST PACKET FT SCH ×2 (08:57→21:00)
[2019-07-13] MEDS: TESTOSTERONE TOP SCH (09:00)
[2019-07-13] MEDS: INSULIN GLARGINE 100 UNITS/ML SQ SCH (09:00)
[2019-07-13] MEDS ORDERED: NA CHLORIDE 0.9% 1,000 ML IV SCH (09:02)
[2019-07-13] MEDS: RIVASTIGMINE 4.6 MG/24 HR PATCH TD SCH (09:13)
[2019-07-13] MEDS: D5 0.9 NS 1,000 ML IV SCH (09:22)
[2019-07-13] MEDS: methylPREDNISolone 4 MG TAB FT SCH ×2 (11:30→16:02)
[2019-07-13] MEDS: ALBUTEROL 2.5 MG/3 ML NEB SOL IH SCH ×2 (13:10→20:00)
[2019-07-13] MEDS ORDERED: GLUCERNA 1.2 CAL 1,000 ML BOT RTH SCH (14:00)
[2019-07-13] MEDS ORDERED: NA CHLORIDE 0.9% 1,000 ML ONE (14:19)
[2019-07-13] MEDS ORDERED: CEFAZOLIN/SWI 1gm 1 GM/10 ML SYR ONE (14:20)
[2019-07-13] MEDS ORDERED: propofoL 200 MG/20 ML VIAL IV ONE (14:27)
[2019-07-13] MEDS ORDERED: CEFAZOLIN/SWI 1gm 1 GM/10 ML SYR IVP ONE (14:30)
[2019-07-13] MEDS ORDERED: Phenylephrine HCl 10 MG/ML 1 ML VIAL ONE (14:37)
[2019-07-13 15:08] VITALS: O2SAT 98
[2019-07-13] MEDS ORDERED: methylPREDNISolone 4 MG TAB FT SCH (21:00)
[2019-07-13] MEDS ORDERED: ATORVASTATIN 40 MG TAB FT SCH (21:00)
[2019-07-14] MEDS: D5 0.9 NS 1,000 ML IV SCH (05:28)
[2019-07-14] MEDS: ALBUTEROL 2.5 MG/3 ML NEB SOL IH SCH ×2 (07:43→13:10)
[2019-07-14] MEDS: [UNRECOGNIZED DRUG - OTHER] FT SCH ×2 (09:00→13:19)
[2019-07-14] MEDS: TESTOSTERONE TOP SCH (09:00)
[2019-07-14] MEDS: RIVASTIGMINE 4.6 MG/24 HR PATCH TD SCH (09:51)
[2019-07-14] MEDS: methylPREDNISolone 4 MG TAB FT SCH ×2 (09:51→11:39)
[2019-07-14] MEDS: carvediloL 3.125 MG TAB FT SCH (09:51)
[2019-07-14] MEDS: Pantoprazole (granules) 40 MG/BLIST PACKET FT SCH (09:52)
[2019-07-14] MEDS: INSULIN GLARGINE 100 UNITS/ML SQ SCH (09:52)
[2019-07-14 12:10] VITALS: BP 143/66; TEMP 98.1
--- NOTE | 2019-07-14 14:48 | P.DS ---
Admission Date: 07/12/19 Discharge Date: 07/14/19 Primary Care Provider: Dr. Barron([facility]); Cardiology-Dr. Liang, Neurology- Dr. Delaney Disposition: DC HOME/HOME HEALTH CARE Discharge Condition: GOOD Reason for Admission: Patient PEG tube was accidentally pulled out Consultations: GI-Dr. Alvarez Procedures: Surgery: New PEG tube placement. Medical Problem List: Accidental PEG tube removal with history of dysphagia Recent history of left MCA CVA with residual right-sided weakness, aphasia and dysphagia Atrial fibrillation on chronic anti coagulation therapy Hypertension Diabetes mellitus type 2 Hyperlipidemia COPD GERD Anemia of chronic disease Hospital Course: Patient presented with accidental PEG removal with history of dysphagia and recent history of left CVA with residual right-sided weakness, aphasia and dysphagia. Patient was seen and evaluated by GI. Peg tube was replaced. Feeds were initiated. She is tolerating feeds. Patient will be discharged home to continue her therapy. This includes home health, physical therapy and PEG tube feeds. Patient may also continue with her other home medications. Patient with atrial fibrillation on chronic anti coagulation therapy, hypertension, diabetes mellitus type 2, hyperlipidemia, COPD, GERD, and anemia of chronic disease. At discharge patient will continue with her current medications as directed. Recommend follow up with her PCP in multiple specialists at [facility]. Vital Signs/Physical Exam: Temp Pulse Resp BP Pulse Ox 98.1 F 65 15 143/66 H 95 07/14/19 12:00 07/14/19 12:00 07/14/19 12:00 07/14/19 12:00 07/14/19 12:00 General: Alert, Other (aphasia) Neck: Supple Respiratory: Clear to auscultation bilaterally, Normal air movement Cardiovascular: Normal pulses, Regular rate/rhythm Gastrointestinal: Normal bowel sounds, Soft and benign, Non-distended Neurological: Abnormal speech, Abnormal strength Laboratory Data at Discharge: WBC 13.9 K/uL (4.3-10.9) H 07/13/19 04:19 Hgb 9.0 g/dL (12.0-15.0) L 07/13/19 04:19 Hct 28.1 % (36.0-45.0) L 07/13/19 04:19 Plt Count 542 K/uL (152-406) H 07/13/19 04:19 PT 11.1 SECONDS (9.5-12.5) 07/12/19 23:01 INR 0.94 07/12/19 23:01 APTT 25.4 SECONDS (24.3-36.9) 07/12/19 23:01 Sodium 139 mmol/L (136-145) 07/13/19 04:19 Potassium 4.0 mmol/L (3.5-5.1) 07/13/19 04:19 BUN 32 mg/dL (7-18) H 07/13/19 04:19 Creatinine 0.81 mg/dL (0.55-1.3) 07/13/19 04:19 Glucose 98 mg/dL (74-106) 07/13/19 04:19 Total Bilirubin 0.4 mg/dL (0.2-1.0) 07/13/19 04:19 AST 20 U/L (15-37) 07/13/19 04:19 ALT 33 U/L (12-78) 07/13/19 04:19 Alkaline Phosphatase 126 U/L (45-117) H 07/13/19 04:19 Lipase 785 U/L (73-393) H 07/13/19 04:19 Home Medications: Albuterol Neb [Proventil 0.083% Neb Soln] 2.5 mg IH TID 07/13/19 Apixaban [Eliquis *] 2.5 mg FT Q12H 07/13/19 Aspirin [Aspirin EC 81 MG] 81 mg FT DAILY 07/13/19 Atorvastatin Calcium [Lipitor] 40 mg FT BEDTIME 07/13/19 Carvedilol [Coreg] 3.125 mg FT BID 07/13/19 Diabetes Source 1 bot FT TID 07/13/19 Docusate [Colace Cap*] 100 mg FT DAILY PRN 07/13/19 Insulin Glargine,Hum.rec.anlog [Lantus] 9 unit SQ DAILY 07/13/19 Insulin Lispro [Humalog] 5 unit SQ TID 07/13/19 Melatonin [Melatonin*] 3 mg FT BEDTIME 07/13/19 Omeprazole [Prilosec] 40 mg FT BID 07/13/19 Rivastigmine Patch [Exelon 4.6 mg Patch*] 4.6 mg TD DAILY 07/13/19 Testosterone 6mg 4 Click 1 ml TOP DAILY 07/13/19 methylPREDNISolone [Methylprednisolone] [facility] 07/13[facility] Patient Discharge Instructions: 1. Patient will return to an home with home health, physical therapy, occupational therapy and speech therapy. 2. Recommend follow up with PCP in 1 week to follow up this hospitalization. 3. Nguyen samaniego presented with accidental PEG removal with history of dysphagia and recent history of left CVA with residual right-sided weakness, aphasia and dysphagia. Patient was seen and evaluated by GI. Peg tube was replaced. Feeds were initiated. She is tolerating feeds. Patient will be discharged home to continue her therapy. This includes home health, physical therapy and PEG tube feeds. Patient may also continue with her other home medications. 4. Patient with atrial fibrillation on chronic anti coagulation therapy, hypertension, diabetes mellitus type 2, hyperlipidemia, COPD, GERD, and anemia of chronic disease. At discharge patient will continue with her current medications as directed. Recommend follow up with her PCP in multiple specialists at [facility]. Diet: Continue PEG tube feeds Activity: Fall precautions Time spent managing pt's care (in minutes): 55
--- NOTE | 2019-07-14 19:35 | OP ---
Surgeon: Aníbal Alvarez MD Procedure: Esophagogastroduodenoscopy. Performing Physician: Aníbal Alvarez M.D. Indication For Procedure: Dysphagia, failure to thrive, PEG tube placement as the old one was pulled out. Plan For Anesthesia: Monitored anesthesia care. Complexity: Average. Technique: After obtaining informed consent from the healthcare proxy and explaining risks and compl ications, which include, but are not limited to bleeding, infection, perforation, and anesthesia comp lication, patient was placed in the supine position and sedation was given. The scope was inserted i nto the mouth and carefully guided up until the second portion of the duodenum. After the completion of examination, PEG tube was placed as detailed below. Then the scope and equipment were withdrawn and procedure terminated in a safe manner. Findings: Esophagus: No gross lesions seen in the upper and mid esophagus. In the distal esophagus , a small hiatal hernia was visualized. In the stomach body, there was evidence of a hemostatic clip , unclear when this was placed. However, there was no indication of stigmata of recent bleeding at t he site. This may have been place quite a while back. The duodenum, the bulb, and second portion ap peared normal. Subsequently, attention was focused back to the stomach. The previous PEG tube stoma had completely closed off, so could not utilize the same opening, but with the help of transillumina tion and one-to-one pressure, a new site was visualized. Then with the help of pull guidewire techni que and under aseptic precautions, a [employer] 20-Czech PEG tube was placed. Position was c onfirmed inside the stomach with repeat endoscopy. The external bumper was at 3 to 3.5 cm. Complications: None. Tolerance To Anesthesia: Excellent. Postoperative Diagnoses: Hiatal hernia, minimal gastritis, old hemostatic clip. Plan: Continue current management. The patient already received cefazolin in the preop area before the procedure, so no need for further antibiotics. We can start feeding tomorrow after volunteer patient representative evaluation at 20 mL/hour and advance as tolerated. US/MODL Voice ID: [id number] Report ID: [id number]
== END 2019-07-14 16:32 | disposition home health service (06) ==
LOC: ER 19:22 → ERHOLD 21:08 → 2ND 21:51
PROVIDERS: ADMIT Hospitalist; ATTEND Family Medicine
PROC: 0DH63UZ Insertion of Feeding Device into Stomach, Percutaneous Approach (ICD-10-PCS; principal; 2019-07-13 14:30)
DX: Z43.1 Encounter for attention to gastrostomy (principal); I69.359 Hemiplegia and hemiparesis following cerebral infarction affecting unspecified side; I69.320 Aphasia following cerebral infarction; I10 Essential (primary) hypertension; E11.9 Type 2 diabetes mellitus without complications; G20 Parkinson's disease; I48.20 Chronic atrial fibrillation, unspecified; E78.5 Hyperlipidemia, unspecified; K21.9 Gastro-esophageal reflux disease without esophagitis; D63.8 Anemia in other chronic diseases classified elsewhere; J44.9 Chronic obstructive pulmonary disease, unspecified; Z79.01 Long term (current) use of anticoagulants
CPT/HCPCS: 36415; 43760; 80048; 80053; 80076; 82947; 83690; 85025; 85610; 85730; 94640; 99285; G0378; J0690; J1815; J2270; J2370; J2405; J2704; J7030; J7042; J7509

== ENCOUNTER 2019-07-18 01:03 | Inpatient (IN) | payer OTHER ==
--- OUTSIDE RECORDS SUMMARY | 2019-07-18 01:09 | XMS REPORT ---
:1940 Author Organization [facility] t Address [address] [place] [address] Care Team Providers Name Role Phone Unavailable [...] Type Clinicians Facility Department ID 2018-03-[address] [facility] MED 9002 19:28:00 2018-03-22 Inpatient [facility] MED 7502 04:21:00 Results Test Description Test Time Test Comments Text Results Atomic Results Result Comments - CT HEAD/BRAIN W/O CONT 2019-02-28 14:38:00 Name: RONALD VILLANUEVA [facility] : 1940 Age/S: 78 / F [address] [place] [address] Blvd Unit #: [id number] Loc: [place] [address] Phys: Lucina Stewart MD Acct: [id number] Dis Da te: Status: REG CLI PHONE #: [phone] Exam Date: 02/28/2019 1416 FAX #: [phone] [place] son: EVAL FOR PROGRESSION OF STRO KE. EXAMS: CPT CODE: [id number] CT HEAD /BRAIN W/O CONT 86833 CT head wit hout contrast 02/28/2019 HISTORY: [...] and lateral lef t occipital infarcts. SL: [id number] at 14 38 Reported and signed by: Miguelina Ventura M.D. CC: Lucina Stewart MD Technologist:Pj Acosta, RT(R)(CT) CTDI: DLP: Trnscb Date/Time: 2018 (8747) t.SDR.[email or web address] Orig Print D/T: S: 2018 (4602) PAGE 1 Signed Report VITAMIN B12 2019-02-18 08:36:00 Test Item Value Reference Range Comments VITAMIN B12 (test code = VITB12) 424 pg/mL 193-986 INFECTION CONTROL [id number] 04:13:00 Test Item Value Reference Range Comments AG HEPATITIS B SURFACE (test code = NON REACTIVE INDEX NonReacti ve HBSAG) AB HEPATITIS C (test code = HCVAB) NON REACTIVE INDEX NON REACT. AB HIV 1 2 (test code = FRQ15KB) NONREACTIVE INDEX NONREACTIVE HIV 1/2 RAPID SCREEN (test code = NONREACTIVE NONREACTIVE [id number]) AG HIV1 P24 (test code = FEX7Z43) NONREACTIVE NONREACTIVE SOURCE PATIENTINFECTION CONTROL [id number] 03:03:00 Test Item Value Reference Range Comments AG HEPATITIS B SURFACE (test code = NON REACTIVE INDEX NonReacti ve HBSAG) AB HEPATITIS C (test code = HCVAB) NON REACTIVE INDEX NON REACT. AB HIV 1 2 (test code = OVN44PT) INDEX NONREACTIVE HIV 1/2 RAPID SCREEN (test code = NONREACTIVE NONREACTIVE [id number]) AG HIV1 P24 (test code = GNH8Y00) NONREACTIVE NONREACTIVE SOURCE PATIENTINFECTION CONTROL [id number] 02:24:00 Test Item Value Reference Range Comments AG HEPATITIS B SURFACE (test code = NON REACTIVE INDEX NonReacti ve HBSAG) AB HEPATITIS C (test code = HCVAB) INDEX NON REACT. AB HIV 1 2 (test code = TGC85NH) INDEX NONREACTIVE HIV 1/2 RAPID SCREEN (test code = NONREACTIVE NONREACTIVE RMQ70POT) AG HIV1 P24 (test code = NER0X81) NONREACTIVE NONREACTIVE SOURCE PATIENTINFECTION CONTROL [id number] 02:14:00 Test Item Value Reference Range Comments AG HEPATITIS B SURFACE (test code = HBSAG) INDEX NonRe active AB HEPATITIS C (test code = HCVAB) INDEX NON REACT. AB HIV 1 2 (test code = IMQ80OV) INDEX NONREACTIVE HIV 1/2 RAPID SCREEN (test code = FKV73GNG) NONREACTIVE NONR EACTIVE AG HIV1 P24 (test code = LLC4Z87) NONREACTIVE NONREACTIVE SOURCE PATIENTBASIC METABOLIC [id number] 08:46:00 Test Item Value Reference Range Comments [...] = CA) 8.6 mg/dL 8.0-10.5 THYROID STIMULATING [id number] 08:46:00 Test Item Value Reference Range Comments THYROID STIMULATING HORMONE (test 3.35 0.42-5.47 Results in kyaw-International code = TSH) Units/mL CBC W/AUTO [id number] 07:21:00 Test Item Value Reference Range Comments [...] (test code = MDIFF) NO BASIC METABOLIC [id number] 05:09:00 Test Item Value Reference Range Comments [...] = CA) 8.3 mg/dL 8.0-10.5 BASIC METABOLIC [id number] 05:07:00 Test Item Value Reference Range Comments [...] = CA) 8.3 mg/dL 8.0-10.5 CBC W/AUTO [id number] 04:57:00 Test Item Value Reference Range Comments [...] MDIFF) NO UA RFLX MICR CULT IF [id number] 17:29:00 Test Item Value Reference Range Comments [...] srcSpecimen Description: STRAIGHT CATH- CT HEAD/BRAIN W/O [id number] 17:29:00 Name: RONALD ALLEN [facility] : 1940 Age/S: 78 / F [address] [place] [address] Unit #: [id number] Loc: [place], [place] Phys: Xander Brown MD Acct: [id number] Dis Date: Status: PRE ER PHONE #: [phone] Exam Date: 02/13/2019 1647 FAX #: [phone] Reason: AlteredMental Status EXAMS: CPTCODE: [id number] CT HEAD/BRAIN W/O CONT 24170 Clinical Ind ication: Altered mental status. Comparison: [...] 1 Signed Report (CONTINUED) Name: RONALD ALLEN [facility] : 1940 Age/S: 78 / F [address] [place] [address] Blvd Unit #: [id number] Loc: [place] [address] Phys: Xander Brown MD Acct: [id number] Dis Date: Status: PRE ER PHONE #: [phone] Exam Date: 02/13/2019 1647 FAX #: [phone] Reason: Altered Mental Status EXAMS: CPT CODE: [id number] CT HEAD/BRAIN W/O CONT 64327<Continued> cerebral parenchymal volume loss. SL: APATIL-H at 7119 Reported and signed by: Lea Pace M.D. CC: Xander Brown MD Technologist:Katherine Headley RT(R)(CT) CTDI: DLP: Trnscb Date/Time: 02/13/2019 (1729) WilberVB9 Orig Print D/T: S: 02/13/2019 (9970) PAGE 2 Signed ReportTROPONIN-I [id number] 15:49:00 Test Item Value Reference Range Comments TROPONIN-I RAPID (test 0.02 ng/mL 0.00-0.08 Performed by certified special warfare operator code = TROPIRAP) at [facility] Negative: <= 0.08 Positive: >= [...] in tropo jaron levels characteristic o f [place]. - XR CHEST 1 [id number] 15:46:00 FAX: Xander Brown MD [phone] [place]: [employer] [address]: PRE Name: LANIE ALLENOINWILLIE Ingram [facility] : 1940 Age/S: 78/F [address] [place] [address] Unit#: [id number] Loc: [address] [address] Phys: Xander Brown MD Acct: [id number] Dis Date: Status: PRE ER PHONE #: [phone] Exam Date: 02/13/2019 1540 FAX #: [phone] Reason: Altered Mental Status EXAMS: CPT CODE: [id number] XR CHEST 1 V 41333 EXAM: XR CHEST 1 VIEW DATE: 02/13/2019 3:19 PM : 1940; Age: 78 years y/o Female INDICATION: Altered Mental Status COMPARISON: December 25, 2018 TECHNIQUE: AP chest. IMPRESSION: Lines, tubes and hardware: Prior sternotomy changes. Heart, mediastinum and lungs: The heart size is enlarged but unchanged. Vascular calcifications are present at the aorta. Pulmonary vascularity is normal. No consolidation or pleural effusion. SL: [id number] at 1546 Reported and signed by: Shonda Jaquez D.O. CC: Xander Brown MD Technologist: Dixie Graf, RT(R)(M); Dodie Fernandez RT(R) Trnscrd Date/Time/By: 02/13/2019 (5547) : By: WilberMP37 Orig Print D/T: S: 02/13/2019 (4675) PAGE 1 Signed ReportHEPATIC FUNCTION [id number] 15:44:00 Test Item Value Reference Range Comments [...] ALKP) 91 IUnit/L 20 -125 CHEMISTRY 8 [id number] 15:42:00 Test Item Value Reference Range Comments [...] code = 46 ML/MIN GFRBED) CHEMISTRY 8 [id number] 15:42:00 Test Item Value Reference Range Comments ISTAT-SODIUM (test code = 140 MMOL/L 134-147 NAP) ISTAT-POTASSIUM (test code = 3.9 MMOL/L 3.4-5.0 KP) ISTAT-CHLORIDE (test code = 101 MMOL/L 100-108 Perf ormed by certified CLP) special warfare operator at [facility] ISTAT CARBON DIOXIDE (test 29.0 mmol/L 21-33 code = ISTAT-CO2) ISTAT CALCIUM IONIZED (test 1.22 MG/DL 1.12-1.32 code = ISTAT-JOJO) ISTAT-GLUCOSE (test code = 157 MG/DL 70-110 GLUP) ISTAT-BUN (test code = BUNP) 30 MG/DL 7-18 BEDSIDE CREATININE (test code 1.2 MG/DL 0.6-1.3 = CREATBED) GLOMERULAR FILTRATION RATE 46 ML/MIN POC (test code = GFRBED) CBC W/AUTO [id number] 15:29:00 Test Item Value Reference Range Comments [...] DIFF REQUIRED (test code = MDIFF) NO [id number] 12:34:00 Test Item Value Reference Range Comments GLUBED (test code = GLUBED) 187 MG/DL 70-110 Perf ormed by certified special warfare operator at [facility] [id number] 08:06:00 Test Item Value Reference Range Comments GLUBED (test code = GLUBED) 120 MG/DL 70-110 Perf ormed by certified special warfare operator at [facility] [id number] 21:13:00 Test Item Value Reference Range Comments GLUBED (test code = GLUBED) 100 MG/DL 70-110 Perf ormed by certified special warfare operator at [facility] [id number] 19:31:00 Test Item Value Reference Range Comments GLUBED (test code = GLUBED) 211 MG/DL 70-110 Perf ormed by certified special warfare operator at [facility] [id number] 13:29:00 Test Item Value Reference Range Comments GLUBED (test code = GLUBED) 155 MG/DL 70-110 Perf ormed by certified special warfare operator at [facility] [id number] 08:20:00 Test Item Value Reference Range Comments GLUBED (test code = GLUBED) 129 MG/DL 70-110 Perf ormed by certified special warfare operator at [facility] [id number] 20:42:00 Test Item Value Reference Range Comments GLUBED (test code = GLUBED) 213 MG/DL 70-110 Perf ormed by certified special warfare operator at [facility] [id number] 17:06:00 Test Item Value Reference Range Comments GLUBED (test code = GLUBED) 73 MG/DL 70-110 Perf ormed by certified special warfare operator at [facility] [id number] 15:11:00 Test Item Value Reference Range Comments GLUBED (test code = GLUBED) 230 MG/DL 70-110 Perf ormed by certified special warfare operator at [facility] BASIC METABOLIC [id number] 10:02:00 Test Item Value Reference Range Comments [...] = CA) 8.9 mg/dL 8.0-10.5 CBC W/AUTO [id number] 08:25:00 Test Item Value Reference Range Comments [...] DIFF REQUIRED (test code = MDIFF) NO [id number] 08:24:00 Test Item Value Reference Range Comments GLUBED (test code = GLUBED) 133 MG/DL 70-110 Perf ormed by certified special warfare operator at [facility] [id number] 20:47:00 Test Item Value Reference Range Comments GLUBED (test code = GLUBED) 212 MG/DL 70-110 Perf ormed by certified special warfare operator at [facility] - DUP VEIN UNI/[id number] 15:47:00 Name: RONALD ALLEN [facility] : 1940 Age/S: 78 / F [address] [place] [address] Unit #: [id number] Loc: [id number] Phys: Sarbjit Carr DO Acct: [id number] Dis Date: Status: ADM IN PHONE #: [phone] Exam Date: 12/25/2018 153 FAX #: [phone] Reason: LLE swelling eval for DVT EXAMS: CPTCODE: [id number] DUP VEIN UNI/LTD 44472 PROCEDURE: LEFT UNILATERAL LOWER EXTREMITY VENOUS ULTRASOUND [...] PURPOSES ONLY RESULT CODE: CVR SL:01 at 6783 Reported and signed by:Markie Cooper M.D. CC: Sarbjit Carr DO Technologist: Selina Alicea RDMS(OB)(AB) Trnhib Date/Time: 12/25/2018 (3642) [email or web address].AJJ Orig Print D/T: S: 12/25/2018 (4753) Probe: PAGE 1 Signed Report B-TYPE NATRIURETIC [id number] 14:34:00 Test Item Value Reference Range Comments B-TYPE NATRIURETIC PEPTIDE (test code = BNP) 126.1 PG/ML 0-1 00 PROTHROMBIN [id number] 14:09:00 Test Item Value Reference Range Comments [...] (to prevent recurrent infarc t). THROMBOPLASTIN TIME [id number] 14:09:00 Test Item Value Reference Range Comments THROMBOPLASTIN TIME PARTIAL 20.2 Seconds 25.0-39.5 Therapeutic Range: (test code = PTT) 50.4 - 88.3 Se conds Effective 0 07/05/2018 - CT HEAD/BRAIN W/O [id number] 13:48:00 Name: RONALD ALLEN [facility] : 1940 Age/S: 78 / F [address] [place] [address] Unit #: [id number] Loc: [place] [id number] Phys: Sarbjit Carr DO Acct: [id number] Dis Date: Status: REG ER PHONE #: [phone] Exam Date: 12/25/2018 1319 FAX #: [phone] Reason: altered mental status EXAMS: CPTCODE: [id number] CT HEAD/BRAIN W/O CONT 57727 CT head without contrast 12/25/2018 HISTORY: Altered [...] changes. 3. No acute intracranial abnormality. SL: [id number] at 1348 Reported and signed by: Robbie Ventura M.D. CC: Sarbjit Hayward Technologist:ANGELA Fajardo CTDI: DLP: Trnscb Date/Time: 12/25/2018 (5517) WilberBJM4 Orig Print D/T: S: 12/25/2018 (3647)PAGE 1 Signed Report URINALYSIS [id number] 13:40:00 Test Item Value Reference Range Comments [...] /LPF NONE SEEN COMMENTS: Clean CatchHEPATIC FUNCTION [id number] 13:38:00 Test Item Value Reference Range Comments [...] is in INTERNATIONAL code = CK) UNITS/LITER [id number] 13:38:00 Test Item Value Reference Range Comments LIPASE (test code = LIP) 409 IUnit/L 73-393 CBC W/AUTO [id number] 13:34:00 Test Item Value Reference Range Comments [...] = MDIFF) NO - XR CHEST 1 [id number] 13:12:00 FAX: Kristy Sarbjit Carr DO [phone] [place]: St: PRE Name: RONALD ALLEN [facility] : 1940 Age/S: 78/F [address] [place] [address] Unit#: [id number] Loc: G.ERS[address] [place] [address] Phys: Sarbjit Carr DO Acct: [id number] Dis Date: Status: PRE ER PHONE #: [phone] Exam Date: 12/25/2018 1258 FAX #: [phone] Reason: Weakness EXAMS: CPT CODE: [id number] XR CHEST 1 V 79388 EXAM: Single view AP chest. EXAM DATE: [...] RT(R); Elif Ang RT(R) Trnscrd Date/Time/By: 12/25/2018 (3804) : By: Dioni Orig Print D/T: S: 12/25/2018 (9237) PAGE 1 Signed ReportTROPONIN-I [id number] 13:00:00 Test Item Value Reference Range Comments TROPONIN-I RAPID (test 0.01 ng/mL 0.00-0.08 Performed by certified special warfare operator code = TROPIRAP) at [facility] Negative: <= 0.08 Positive: >= 0.09An [...] in tropo jaron levels characteristic o f [place]. CHEMISTRY 8 [id number] 12:54:00 Test Item Value Reference Range Comments [...] code = 38 ML/MIN GFRBED) CHEMISTRY 8 [id number] 12:54:00 Test Item Value Reference Range Comments ISTAT-SODIUM (test code = 136 MMOL/L 134-147 NAP) ISTAT-POTASSIUM (test code = 4.9 MMOL/L 3.4-5.0 KP) ISTAT-CHLORIDE (test code = 101 MMOL/L 100-108 Perf ormed by certified CLP) special warfare operator at [facility] ISTAT CARBON DIOXIDE (test 27.0 mmol/L 21-33 code = ISTAT-CO2) ISTAT CALCIUM IONIZED (test 1.13 MG/DL 1.12-1.32 code = ISTAT-JOJO) ISTAT-GLUCOSE (test code = 212 MG/DL 70-110 GLUP) ISTAT-BUN (test code = BUNP) 52 MG/DL 7-18 BEDSIDE CREATININE (test code 1.4 MG/DL 0.6-1.3 = CREATBED) GLOMERULAR FILTRATION RATE 38 ML/MIN POC (test code = GFRBED) TROPONIN I [id number] 14:47:00 Test Item Value Reference Range Comments [...] = CK) 47 Unit/L 26-192 CBC W/O [id number] 13:44:00 Test Item Value Reference Range Comments [...] 10.10 fL 7.0-10.5 - XR CHEST 1 [id number] 13:38:00 Name: RONALD ALLEN [facility] : 1940 Age/S: 77 / F [address] Unit #: [id number] Loc: [place] [address] Phys: Stevan Mullins MD Acct: [id number] Dis Date: Status: REG ER PHONE #: [phone] Exam Date: 08/26/2018 1330 FAX #: Reason: chest pain EXAMS: CPT: [id number] XR CHEST 1 V 10562 Fluoro Time: DAP (Gy m2): Air Kerma [...] Signed Report Name: RONALD ALLEN [facility] : 1940 Age/S: 77 / F [address] Unit #: [id number] Loc: [place] [address] Phys: Stevan Mullins MD Acct: [id number] Dis Date: Status: REG ER PHONE #: [phone] Exam Date: 08/26/2018 1330 FAX #: Reason: chest pain EXAMS: CPT: [id number] XR CHEST 1 V 70553 Fluoro Time: DAP (Gy m2): Air Kerma (mGy): <Continued> Technologist: RT Moe(R) Trnscb Date/Time: 08/26/2018 (0329) tLUIZRK5 Orig Print D/T: S: 08/26/2018 (0535) PAGE 2 Signed ReportTROPONIN I [id number] 13:36:00 Test Item Value Reference Range Comments TROPONIN I RAPID (test code 0.01 ng/mL 0.00-0.08 - Th e use of serial sampling = TROPIRAP) and testing prot ocol is a recommended prac ligia- An elevated troponi n level alone is often not suf ficient for diagnosis of mecca cardial infarction. CHEMISTRY 8 [id number] 13:28:00 Test Item Value Reference Range Comments [...] code = GFRBED) 57 39-90 CHEMISTRY 8 [id number] 13:28:00 Test Item Value Reference Range Comments [...] = 57 39-9 0 GFRBED) GLUCOSE BEDSIDE [id number] 16:57:00 Test Item Value Reference Range Comments GLUCOSE BEDSIDE TESTING (test code = GLUBED) 117 mg/dL 70- 110 - CT HEAD/BRAIN W/O [id number] 16:28:00 Name: RONALD ALLEN [facility] : 1940 Age/S: 77 / F [address] Unit #: [id number] Loc: [place] [address] Phys: Paddy Pittman MD Acct: [id number] Dis Date: Status: ADM IN PHONE #: [phone] Exam Date: 08/16/2018 1610 FAX #: Reason: H/O cva EXAMS: CPT: [id number] CT HEAD/BRAIN W/O CONT 98040 CT HEAD WITHOUT CONTRAST. HISTORY: H/O cva [...] left temporal occipital lobe infarct within the TALENT ACQUISITION ASSISTANT territory. at 1628 Reported and signed by: Bonifacio Hameed M.D. PAGE 1 Signed Report (CONTINUED) Name: DEEPTITWYLARULARONALD [facility] : 03/1940 Age/S: 77 / F [address] Unit #: [id number] Loc: [place] [address] Phys: Paddy Pittman MD Acct: [id number] Dis Date: Status: ADM IN PHONE #: [phone] Exam Date: 08/16/2018 1610 FAX #: R kavitha: H/O cva EXAMS: CPT: [id number] CT HEAD/BRAIN W/O CONT 23064 <Continued> CC: Jose Lloyd MD; Paddy Pittman MD Technologist:Miguel Angel Combs, RT(R)(CT)(MRI) CTDI: DLP: Trnscb Date/Time: 08/16/2018 (6904) WilberSP17 Orig Print D/T: S: 08/16/2018 (8419) PAGE 2 Signed ReportUA RFLX MICR CULT IF [id number] 12:34:00 Test Item Value Reference Range Comments [...] OtherOther Indication: CONFUSIONUA RFLX MICR CULT IF [id number] 12:33:00 Test Item Value Reference Range Comments [...] Indication for Culture: OtherOther Indication: CONFUSIONGLUCOSE BEDSIDE [id number] 11:56:00 Test Item Value Reference Range Comments GLUCOSE BEDSIDE TESTING (test code = GLUBED) 153 mg/dL 70- 110 GLUCOSE BEDSIDE [id number] 08:07:00 Test Item Value Reference Range Comments GLUCOSE BEDSIDE TESTING (test code = GLUBED) 118 mg/dL 70- 110 BASIC METABOLIC [id number] 04:36:00 Test Item Value Reference Range Comments [...] CA) 8.9 MG/DL 8.5-10.1 Completed by Nursing: [id number] 04:36:00 Test Item Value Reference Range Comments [...] varyby method. Completed by Nursing: NOGLUCOSE BEDSIDE [id number] 20:20:00 Test Item Value Reference Range Comments GLUCOSE BEDSIDE TESTING (test code = GLUBED) 111 mg/dL 70- 110 GLUCOSE BEDSIDE [id number] 18:34:00 Test Item Value Reference Range Comments GLUCOSE BEDSIDE TESTING (test code = GLUBED) 131 mg/dL 70- 110 [id number] 13:43:00 Test Item Value Reference Range Comments [...] varyby method. Completed by Nursing: NOCHEMISTRY 8 [id number] 09:11:00 Test Item Value Reference Range Comments [...] code = GFRBED) 57 39-90 CHEMISTRY 8 [id number] 09:11:00 Test Item Value Reference Range Comments [...] = 57 39-9 0 GFRBED) COMPREHENSIVE METABOLIC [id number] 07:02:00 Test Item Value Reference Range Comments [...] -117 Completed by Nursing: NONT PRO-BRAIN NATRIURETIC [id number] 07:02:00 Test Item Value Reference Range Comments NT PRO-BRAIN NATRIURETIC PEPTI (test code = 839 PG/ML 0-10 0 PROBNP) Completed by Nursing: [id number] 07:02:00 Test Item Value Reference Range Comments [...] varyby method. Completed by Nursing: NOCOMPREHENSIVE METABOLIC [id number] 07:00:00 Test Item Value Reference Range Comments [...] -117 Completed by Nursing: NONT PRO-BRAIN NATRIURETIC [id number] 07:00:00 Test Item Value Reference Range Comments NT PRO-BRAIN NATRIURETIC PEPTI (test code = PROBNP) PG/ML 0-100 Completed by Nursing: [id number] 07:00:00 Test Item Value Reference Range Comments TROPONIN-I (test code = TROPI) NG/ML 0.000-0.045 Completed by Nursing: NOCBC W/AUTO [id number] 06:52:00 Test Item Value Reference Range Comments [...] DIFF/SCN CRITERI A - XR CHEST 1 [id number] 06:47:00 Name: RONALD ALLEN [facility] : 1940 Age/S: 77 / F [address] Unit #: [id number] Loc: [place] [address] Phys: Fadumo Mendoza MD Acct: [id number] Dis Date: Status: PRE ER PHONE #: [phone] Exam Date: 08/15/2018 0635 FAX #: Reason: L chest pain EXAMS: CPT: [id number] XR CHEST 1 V 01776 Fluoro Time: DAP (Gy m2): Air Kerma [...] Signed Report Name: LARRY ALLEN [facility] : 1940 Age/S: 77 / F [address] Unit #: [id number] Loc: [place], [place] [address]Mguq: Fadumo Mendoza MD Acct: [id number] Dis Date: Status: PRE ER PHONE #: [phone] Exam Date: 08/15/2018 0635 FAX #: Reason: L chest pain EXAMS: CPT: [id number] XRCHEST 1 V 67274 Fluoro Time: DAP (Gy m2): Air Kerma (mGy): <Continued> Technologist: Marcella Preston RT(R)(CT) Trnscb Date/Time: 08/15/2018 (0647) Keisha.PMT Orig Print D/T: S: 08/15/2018 (0679) PAGE 2 Signed ReportTROPONIN I [id number] 06:30:00 Test Item Value Reference Range Comments TROPONIN I RAPID (test code 0.01 ng/mL 0.00-0.08 - Th e use of serial sampling = TROPIRAP) and testing prot ocol is a recommended prac ligia- An elevated troponi n level alone is often not suf ficient for diagnosis of mecca cardial infarction.
[2019-07-18] MEDS ORDERED: CEFEPIME 2 GM VIAL ONE (02:01)
[2019-07-18] MEDS ORDERED: NA CHLORIDE 0.9% 100 ML IV ONE (02:02)
[2019-07-18] MEDS ORDERED: ACETAMINOPHEN 650MG/RECT SUPP PR ONE (02:02)
[2019-07-18] MEDS ORDERED: NA CHLORIDE 0.9% 2,000 ML ONE (02:02)
[2019-07-18 02:32] LABS: Absolute Lymphocytes (CBC) 0.9 K/uL (0.7-4.9); Basophils % 0.5 % (0-1.3); Hematocrit 33.3 % (36.0-45.0); Lymphocytes % 4.7 % (15.3-44.8); MPV 8.8 fL (7.6-11.3); RBC Red Blood Cell Count 4.14 M/uL (3.86-4.86)
[2019-07-18 02:36] LABS: Protime INR 1.07
[2019-07-18 02:53] LABS: ALT/SGPT 37 U/L (12-78); AST/SGOT 29 U/L (15-37); Alkaline Phosphatase 153 U/L (45-117); Amylase Level 143 U/L (25-115); BUN Blood Urea Nitrogen 40 mg/dL (7-18); Bicarbonate 28 mmol/L (21-32); Bilirubin Direct 0.3 mg/dL (0-0.2); Bilirubin Total 0.6 mg/dL (0.2-1.0); CKMB Creatine Kinase MB 1.3 ng/mL (0.3-3.6); Creatine Phosphokinase 35 U/L (26-192); Glucose Level 166 mg/dL (74-106); Lipase 560 U/L (73-393); Magnesium 2.7 mg/dL (1.8-2.4); NT PRO-BNP 2451 pg/mL (<450); Potassium 4.6 mmol/L (3.5-5.1); Protein, Total 7.1 g/dL (6.4-8.2); Sodium Level 133 mmol/L (136-145); Troponin (Emerg Dept Use Only) < 0.02 ng/mL (0.0-0.045)
[2019-07-18 02:55] LABS: Valproic Acid (Depakene) Level < 3.0 ug/mL (50-100)
[2019-07-18] MEDS ORDERED: VANCOMYCIN 1 GM/VIAL ONE (03:05)
[2019-07-18] MEDS ORDERED: NA CHLORIDE 0.9% 250 ML ONE (03:06)
--- NOTE | 2019-07-18 03:19 | ER ---
Nurse's Notes [facility] Name: Janell Zuniga Age: 78 yrs Sex: Female : 1940 Arrival Date: 07/18/2019 Time: 01:04 Bed 7 Private MD: Diagnosis: Fever, unspecified;Hypoxemia;Pneumonia due to other specified bacteria-bilateral;Type 2 diabetes mellitus;Severe sepsis Presentation: 07/17 01:27 Chief complaint: Patient's son or daughter states: daughter states pt started shaking a bb lot about 30 minutes ago and she was not sure what is going on pt seemed like she was in pain. Coronavirus screen: Proceed with normal triage. Ebola Screen: No symptoms or risks identified at this time. Initial Sepsis Screen: Does the patient meet any 2 criteria? RR > 20 per min. Temp <36.0*C (96.8*F)) or > 38.3*C (100.9*F). Altered Mental Status. HR > 90 bpm. Yes Does the patient have a suspected source of infection? Yes: Other: unknown If YES to both, name of provider notified: Chau Phipps MD Risk Assessment: Do you want to hurt yourself or someone else? Unable to obtain. Onset of symptoms was July 18, 2019. 01:27 Method Of Arrival: Wheelchair bb 01:27 Acuity: ANANT 2 bb Historical: - Allergies: 01:32 Codeine; bb 01:32 Latex, Natural Rubber; bb 01:32 Morphine; bb - Home Meds: 01:32 aspirin 81 mg Oral chew 1 tab once daily [Active]; divalproex 125 mg Oral cpSP 2 caps bb every 8 hours [Active]; Eliquis 5 mg Oral tab 2 times per day [Active]; hydrochlorothiazide 12.5 mg Oral cap 1 cap once daily [Active]; isosorbide mononitrate 30 mg Oral Tb24 2 tabs once daily [Active]; Keppra Oral [Active]; Lyrica 50 mg Oral 2 times per day [Active]; metformin 1,000 mg Oral tab 1 tab 2 times per day [Active]; metoprolol tartrate 50 mg Oral tab 1 tab 2 times per day [Active]; Nitroglycerin Oral [Active]; Plavix 75 mg Oral tab 1 tab once daily [Active]; pravastatin 20 mg Oral tab 1 tab once daily [Active]; Protonix 40 mg Oral grps 1 packet once daily [Active]; rivastigmine tartrate Oral [Active]; trazodone 100 mg Oral tab 1 tab [Active]; Vitamin B-1 Oral [Active]; Vitamin D Oral daily [Active]; - PMHx: 01:32 Aphasia; CAD; CVA; Diabetes - NIDDM; hemiparesis right; Hypertension; bb - Immunization history:: Adult Immunizations up to date. - Social history:: Smoking status: Patient denies any tobacco usage or history of. Screenin:33 Abuse screen: Denies threats or abuse. Nutritional screening: No deficits noted. jd3 Tuberculosis screening: No symptoms or risk factors identified. Fall Risk Ambulatory Aid- None/Bed Rest/Nurse Assist (0 pts). Gait- Impaired (20 pts.). Mental Status- Overestimates/Forgets Limitations (15 pts.). Total [place] Fall Scale indicates Low Risk Score (25-44 pts). Fall prevention measures have been instituted. Side Rails Up X 2 Placed close to Nursing Station Frequent Obs/Assesments occuring Family Present and informed to notify staff if they need to leave bedside. Assessment: 01:32 General: Appears uncomfortable, Behavior is anxious, restless. Pain: Unable to use pain jd3 scale. Does not appear to understand pain scale. Neuro: Level of Consciousness is awake, alert, Oriented to none. Cardiovascular: Heart tones S1 S2 present Capillary refill < 3 seconds Patient's skin is warm and dry. Respiratory: Airway is patent Respiratory effort is even, unlabored, Respiratory pattern is regular, symmetrical, Parent/caregiver reports the patient having denies cough. GI: Abdomen is round Bowel sounds present X 4 quads. Abd is soft and non tender X 4 quads. : No signs and/or symptoms were reported regarding the genitourinary system. EENT: No signs and/or symptoms were reported regarding the EENT system. Derm: Skin is intact, Skin is dry, Skin is normal, Skin temperature is warm. Musculoskeletal: No signs and/or symptoms reported regarding the musculoskeletal system. 02:53 Reassessment: No changes from previously documented assessment. Patient and/or family jd3 updated on plan of care and expected duration. Pain level reassessed. lelo from laboratory called for the lactate of 5.8. ED provider aware. 03:21 Reassessment: No changes from previously documented assessment. Patient and/or family jd3 updated on plan of care and expected duration. Pain level reassessed. 03:21 Neuro: Level of Consciousness is awake, alert, Oriented to none. Cardiovascular: jd3 Capillary refill < 3 seconds Patient's skin is warm and dry. Respiratory: Airway is patent Respiratory effort is even, unlabored, Respiratory pattern is regular, symmetrical. GI: Parent/caregiver reports the patient having nausea. 04:07 Reassessment: Patient and/or family updated on plan of care and expected duration. Pain jd3 level reassessed. General: Appears comfortable. Pain: Unable to use pain scale. Does not appear to understand pain scale. FLACC scale score is 0 out of 10. Neuro: Level of Consciousness is awake, alert, Oriented to none. Cardiovascular: Capillary refill < 3 seconds Patient's skin is warm and dry. Respiratory: Airway is patent Respiratory effort is even, unlabored, Respiratory pattern is regular, symmetrical. 05:09 Reassessment: Patient and/or family updated on plan of care and expected duration. Pain jd3 level reassessed. pt resting in bed with family at bedside. Pain: Unable to use pain scale. Does not appear to understand pain scale. FLACC scale score is 0 out of 10. Neuro: Level of Consciousness is awake, alert, Oriented to none. Cardiovascular: Capillary refill < 3 seconds Patient's skin is warm and dry. Respiratory: Airway is patent Respiratory effort is even, unlabored, Respiratory pattern is regular, symmetrical. 05:31 Reassessment: report given Umm Reyes RN. jd3 Vital Signs: 01:27 BP 102 / 80; Pulse 119; Resp 24 S; Temp 101.5(R); Pulse Ox 91% on R/A; Weight 51.71 kg bb (R); Height 4 ft. 7 in. (139.70 cm); 03:21 BP 100 / 50; Pulse 78; Resp 15 S; Pulse Ox 99% on 2 lpm NC; jd3 04:06 BP 116 / 56; Pulse 72; Resp 16 S; Temp 100.4(R); Pulse Ox 97% on 2 lpm NC; jd3 05:10 BP 111 / 58; Pulse 71; Resp 17 S; Pulse Ox 97% on 2 lpm NC; jd3 01:27 Body Mass Index 26.50 (51.71 kg, 139.70 cm) bb ED Course: 01:04 Patient arrived in ED. ds1 01:28 Chau Phipps MD is Attending Physician. tiffany 01:30 Triage completed. bb 01:32 Brain Foster, JOSEPH is Primary Nurse. jd3 01:32 Arm band placed on Patient placed in an exam room, on a stretcher, on pulse oximetry. bb Family accompanied patient. 01:33 Patient has correct armband on for positive identification. Placed in gown. Bed in low jd3 position. Call light in reach. Side rails up X2. Adult w/ patient. alarm security or surveillance monitor on. Pulse ox on. NIBP on. 02:00 Inserted saline lock: 20 gauge in left antecubital area, using aseptic technique. Blood rr5 collected. 02:18 XRAY Chest (1 view) In Process Unspecified. EDMS 02:25 Second set of blood cultures drawn by me. rr5 03:14 Nakul Mcpherson is Hospitalizing Provider. [facility] 04:05 Straight cath inserted, using sterile technique, 14 Fr. Specimen obtained. Returned jd3 clear yellow urine. Patient tolerated well. 04:07 CT Head Brain wo Cont In Process Unspecified. EDMS 05:32 No provider procedures requiring assistance completed. Patient admitted, IV remains in jd3 place. Administered Medications: 02:30 Drug: NS 0.9% (30 ml/kg) 30 ml/kg Route: IV; Rate: bolus; Site: left antecubital; rr5 04:24 Follow up: Response: No adverse reaction; IV Status: Completed infusion; IV Intake: jd3 1550ml 02:34 Drug: Tylenol Suppository 650 mg Route: MD; rr5 03:30 Follow up: Response: No adverse reaction jd3 03:00 Drug: Cefepime 2 grams Route: IVPB; Rate: 200 ml/hr; Infused Over: 30 mins; Site: left jd3 antecubital; 04:25 Follow up: Response: No adverse reaction; IV Status: Completed infusion; IV Intake: jd3 100ml 04:25 Drug: vancoMYCIN 1 grams Route: IVPB; Infused Over: 2 hrs; Site: left antecubital; jd3 05:34 Follow up: Response: No adverse reaction; IV Status: Infusion continued upon admission jd3 Intake: 04:24 IV: 1550ml; Total: 1550ml. jd3 04:25 IV: 100ml; Total: 1650ml. jd3 Outcome: 03:18 Decision to Hospitalize by Provider. tiffany 05:32 Admitted to ICU accompanied by nurse, accompanied by tech, via stretcher, room ICU 8, jkavita with oxygen, on monitor, with chart, Report called to Umm Reyes RN 05:32 Condition: stable 05:32 Instructed on the need for admit, Demonstrated understanding of instructions. 05:53 Patient left the ED. jd3 Signatures: Dispatcher [employer] EDFL Chau Phipps MD MD cha Sanford, Quiana ds1 Dixie Henriquez RN RN bb Davies, Jonathon, RN RN jd3 Roque, Raymond, RN RN rr5 Corrections: (The following items were deleted from the chart) 03:31 02:53 Reassessment: lelo from laboratory called for the lactate of 5.8. ED provider olga aware rr5
--- NOTE | 2019-07-18 03:19 | EDPHYS ---
Physician Documentation [facility] Name: Janell Zuniga Age: 78 yrs Sex: Female : 1940 Arrival Date: 07/18/2019 Time: 01:04 Bed 7 Private MD: ED Physician Chau Phipps HPI: 07/17 01:50 This 78 yrs old Female presents to ER via Wheelchair with complaints of tiffany Shaking, Altered Mental Status. 01:50 The patient presents with confusion, decreased mental status, trouble concentrating. tiffany Onset: The symptoms/episode began/occurred just prior to arrival, this morning. Possible causes: CVA or TIA, sepsis, unknown. Associated signs and symptoms: Pertinent positives: confusion, lightheadedness, shortness of breath, weakness. Current symptoms: In the emergency department the patient's symptoms are unchanged from the initial presentation. Patient's baseline: Neuro: alert but confused, Motor: right-sided weakness. The patient has not experienced similar symptoms in the past. Historical: - Allergies: 01:32 Codeine; bb 01:32 Latex, Natural Rubber; bb 01:32 Morphine; bb - Home Meds: 01:32 aspirin 81 mg Oral chew 1 tab once daily [Active]; divalproex 125 mg Oral cpSP 2 caps bb every 8 hours [Active]; Eliquis 5 mg Oral tab 2 times per day [Active]; hydrochlorothiazide 12.5 mg Oral cap 1 cap once daily [Active]; isosorbide mononitrate 30 mg Oral Tb24 2 tabs once daily [Active]; Keppra Oral [Active]; Lyrica 50 mg Oral 2 times per day [Active]; metformin 1,000 mg Oral tab 1 tab 2 times per day [Active]; metoprolol tartrate 50 mg Oral tab 1 tab 2 times per day [Active]; Nitroglycerin Oral [Active]; Plavix 75 mg Oral tab 1 tab once daily [Active]; pravastatin 20 mg Oral tab 1 tab once daily [Active]; Protonix 40 mg Oral grps 1 packet once daily [Active]; rivastigmine tartrate Oral [Active]; trazodone 100 mg Oral tab 1 tab [Active]; Vitamin B-1 Oral [Active]; Vitamin D Oral daily [Active]; - PMHx: 01:32 Aphasia; CAD; CVA; Diabetes - NIDDM; hemiparesis right; Hypertension; bb - Immunization history:: Adult Immunizations up to date. - Social history:: Smoking status: Patient denies any tobacco usage or history of. ROS: 01:52 Eyes: Negative for injury, pain, redness, and discharge, ENT: Negative for injury, tiffany pain, and discharge, Neck: Negative for injury, pain, and swelling, Cardiovascular: Negative for chest pain, palpitations, and edema, Abdomen/GI: Negative for abdominal pain, nausea, vomiting, diarrhea, and constipation, Back: Negative for injury and pain, : Negative for injury, bleeding, discharge, and swelling, MS/Extremity: Negative for injury and deformity, Skin: Negative for injury, rash, and discoloration, Psych: Negative for depression, anxiety, suicide ideation, homicidal ideation, and hallucinations, Allergy/Immunology: Negative for hives, rash, and allergies, Endocrine: Negative for neck swelling, polydipsia, polyuria, polyphagia, and marked weight changes, Hematologic/Lymphatic: Negative for swollen nodes, abnormal bleeding, and unusual bruising. 01:52 Respiratory: Positive for cough, with no reported sputum, shortness of breath, at rest. 01:52 Neuro: Positive for altered mental status, hx of cva, right sided hemiparsis and aphasia. Exam: 01:52 Head/Face: Normocephalic, atraumatic. Eyes: Pupils equal round and reactive to light, tiffany extra-ocular motions intact. Lids and lashes normal. Conjunctiva and sclera are non-icteric and not injected. Cornea within normal limits. Periorbital areas with no swelling, redness, or edema. ENT: Nares patent. No nasal discharge, no septal abnormalities noted. Tympanic membranes are normal and external auditory canals are clear. Oropharynx with no redness, swelling, or masses, exudates, or evidence of obstruction, uvula midline. Mucous membranes moist. Neck: Trachea midline, no thyromegaly or masses palpated, and no cervical lymphadenopathy. Supple, full range of motion without nuchal rigidity, or vertebral point tenderness. No Meningismus. Chest/axilla: Normal chest wall appearance and motion. Nontender with no deformity. No lesions are appreciated. Abdomen/GI: Soft, non-tender, with normal bowel sounds. No distension or tympany. No guarding or rebound. No evidence of tenderness throughout. Back: No spinal tenderness. No costovertebral tenderness. Full range of motion. Skin: Warm, dry with normal turgor. Normal color with no rashes, no lesions, and no evidence of cellulitis. 01:52 Cardiovascular: Rate: tachycardic, Rhythm: regular, Pulses: Pulses are 4+ in bilateral radial, brachial, femoral, popliteal, posterior tibial and and dorsalis pedis arteries.. Heart sounds: normal, Edema: is not appreciated, JVD: is not appreciated. 02:20 ECG was reviewed by the Attending Physician. [facility] Vital Signs: 01:27 BP 102 / 80; Pulse 119; Resp 24 S; Temp 101.5(R); Pulse Ox 91% on R/A; Weight 51.71 kg bb (R); Height 4 ft. 7 in. (139.70 cm); 03:21 BP 100 / 50; Pulse 78; Resp 15 S; Pulse Ox 99% on 2 lpm NC; jd3 04:06 BP 116 / 56; Pulse 72; Resp 16 S; Temp 100.4(R); Pulse Ox 97% on 2 lpm NC; jd3 05:10 BP 111 / 58; Pulse 71; Resp 17 S; Pulse Ox 97% on 2 lpm NC; jd3 01:27 Body Mass Index 26.50 (51.71 kg, 139.70 cm) bb MDM: 01:28 Patient medically screened. [facility] 01:56 Differential Diagnosis altered mental status, sepsis, flu, Bronchitis Influenza tiffany Sinusitis Pharyngitis Viral Syndrome Pneumonia. Differential Diagnosis: CVA, electrolyte abnormality, intracranial bleed, pneumonia, sepsis, UTI, volume depletion. Data reviewed: vital signs, nurses notes, lab test result(s), EKG, radiologic studies, CT scan, plain films. Data interpreted: instructor private: rate is 119 beats/min, Pulse oximetry: on 2L(s) per nasal canula. 03:22 ED course: dyspnea x tonight, fever, vomiting, hypoxia, aspiration possible vs viral vs tiffany other causes, covid as well. dr mcpherson eplained case, agrees, adds nothing not already done. 04:23 ED course: DNR signed with daughter, JOSEPH. NO CPR, NO VENT, NO CARDIOVERSION, NO CENTRAL tiffany LINES, COMFORT CARE, IVF, IV ABX OK.. 04/28 01:49 Order name: Basic Metabolic Panel; Complete Time: 03:12 [facility] 07/17 01:49 Order name: CBC with Diff 07/17 01:49 Order name: LFT's; Complete Time: 03:12 [facility] 07/17 01:49 Order name: Magnesium; Complete Time: 03:12 [facility] 07/17 01:49 Order name: NT PRO-BNP; Complete Time: 03:12 [facility] 07/17 01:49 Order name: PT-INR; Complete Time: 03:12 [facility] 07/17 01:49 Order name: Troponin (emerg Dept Use Only); Complete Time: 03:12 [facility] 07/17 01:49 Order name: Amylase, Serum; Complete Time: 03:12 [facility] 07/17 01:49 Order name: Blood Culture Adult (2) 07/17 01:49 Order name: Ckmb; Complete Time: 03:12 [facility] 07/17 01:49 Order name: CPK; Complete Time: 03:12 [facility] 07/17 01:49 Order name: Lactate; Complete Time: 03:12 [facility] 07/17 01:49 Order name: Lipase; Complete Time: 03:12 [facility] 07/17 01:49 Order name: Procalcitonin; Complete Time: 03:12 [facility] 07/17 01:49 Order name: XRAY Chest (1 view) [facility] 07/17 01:49 Order name: Ptt, Activated; Complete Time: 03:12 [facility] 07/17 01:49 Order name: Urine Microscopic Only [facility] 07/17 01:49 Order name: Flu 07/17 01:49 Order name: Strep [facility] 07/17 01:49 Order name: COVID-19 [facility] 07/17 01:50 Order name: CT Head Brain wo Cont [facility] 07/17 02:32 Order name: Glucose, Ancillary Testing; Complete Time: 02:37 EDMS 07/17 02:34 Order name: Manual Differential EDMS 07/17 02:41 Order name: Valproic Acid (Depakene) Level; Complete Time: 03:12 EDMS 07/17 03:58 Order name: Throat Culture EDME 07/17 04:10 Order name: Urine Dipstick--Ancillary (enter results) ds4 07/17 01:49 Order name: EKG; Complete Time: 01:51 [facility] 07/17 01:49 Order name: Cardiac monitoring; Complete Time: 01:49 [facility] 07/17 01:49 Order name: EKG - Nurse/Tech; Complete Time: 01:49 [facility] 07/17 01:49 Order name: Labs collected and sent; Complete Time: 02:42 [facility] 07/17 01:49 Order name: O2 Per Protocol; Complete Time: 01:50 [facility] 07/17 01:49 Order name: O2 Sat Monitoring; Complete Time: 01:50 [facility] 07/17 01:49 Order name: Accucheck; Complete Time: 02:35 [facility] 07/17 01:49 Order name: IV Saline Lock - Large Bore; Complete Time: 02:35 [facility] 07/17 01:49 Order name: Urine Dipstick-Ancillary (obtain specimen); Complete Time: 04:08 [facility] 07/17 04:05 Order name: Straight Cath; Complete Time: 04:05 jd3 EC:20 Rate is 117 beats/min. Rhythm is regular. QRS [place] is Normal. RI interval is normal. tiffany QRS interval is normal. QT interval is normal. No Q waves. T waves are Peaked. No ST changes noted. Clinical impression: Sinus tachycardia. Interpreted by me. Reviewed by me. Administered Medications: 02:30 Drug: NS 0.9% (30 ml/kg) 30 ml/kg Route: IV; Rate: bolus; Site: left antecubital; rr5 04:24 Follow up: Response: No adverse reaction; IV Status: Completed infusion; IV Intake: jd3 1550ml 02:34 Drug: Tylenol Suppository 650 mg Route: RI; rr5 03:30 Follow up: Response: No adverse reaction jd3 03:00 Drug: Cefepime 2 grams Route: IVPB; Rate: 200 ml/hr; Infused Over: 30 mins; Site: left jd3 antecubital; 04:25 Follow up: Response: No adverse reaction; IV Status: Completed infusion; IV Intake: jd3 100ml 04:25 Drug: vancoMYCIN 1 grams Route: IVPB; Infused Over: 2 hrs; Site: left antecubital; jd3 05:34 Follow up: Response: No adverse reaction; IV Status: Infusion continued upon admission jd3 Disposition: 07/18/19 03:18 Hospitalization ordered by Nakul Mcpherson for Inpatient Admission. Preliminary diagnosis are Fever, unspecified, Hypoxemia, Pneumonia due to other specified bacteria - bilateral, Type 2 diabetes mellitus, Severe sepsis. - Bed requested for Intensive Care Unit. - Status is Inpatient Admission. jd3 - Condition is Serious. - Problem is new. - Symptoms have improved. Signatures: Dispatcher [employer] EDME Amy Ansari RN RN mw Anderson, Corey, MD MD cha Ballard, Brenda, RN RN bb Davies, Jonathon, RN RN jd3 Cliff Hernandez RN RN rr5 Corrections: (The following items were deleted from the chart) 02:35 01:49 IV Saline Lock ordered. tiffany rr5 02:40 02:37 VALPROIC ACID (DEPAKOTE)+C.LAB.BRZ ordered. EDME EDME 03:42 03:18 Hospitalization Ordered by Nakul Mcpherson for Inpatient Admission. Preliminary tiffany diagnosis is Fever, unspecified; Hypoxemia; Pneumonia due to other specified bacteria - bilateral; Type 2 diabetes mellitus. Bed requested for Telemetry/MedSurg (Inpatient). Status is Inpatient Admission. Condition is Serious. Problem is new. Symptoms have improved. tiffany 04:05 01:49 Solorz[place] ordered. [facility] jd3 05:09 03:42 07/18/2019 03:18 Hospitalization Ordered by Nakul Mcpherson for Inpatient mw Admission. Preliminary diagnosis is Fever, unspecified; Hypoxemia; Pneumonia due to other specified bacteria - bilateral; Type 2 diabetes mellitus; Severe sepsis. Bed requested for Telemetry/MedSurg (Inpatient). Status is Inpatient Admission. Condition is Serious. Problem is new. Symptoms have improved. [facility] 05:10 05:09 07/18/2019 03:18 Hospitalization Ordered by Nakul Mcpherson for Inpatient tiffany Admission. Preliminary diagnosis is Fever, unspecified; Hypoxemia; Pneumonia due to other specified bacteria - bilateral; Type 2 diabetes mellitus; Severe sepsis. Bed requested for Intensive Care Unit. Status is Inpatient Admission. Condition is Serious. Problem is new. Symptoms have improved. mw 05:12 05:10 07/18/2019 03:18 Hospitalization Ordered by Nakul Mcpherson for Inpatient mw Admission. Preliminary diagnosis is Fever, unspecified; Hypoxemia; Pneumonia due to other specified bacteria - bilateral; Type 2 diabetes mellitus; Severe sepsis. Bed requested for Intensive Care Unit. Status is Inpatient Admission. Condition is Serious. Problem is new. Symptoms have improved. tiffany 05:53 05:12 07/18/2019 03:18 Hospitalization Ordered by Nakul Baidoo for Inpatient jd3 Admission. Preliminary diagnosis is Fever, unspecified; Hypoxemia; Pneumonia due to other specified bacteria - bilateral; Type 2 diabetes mellitus; Severe sepsis. Bed requested for Intensive Care Unit. Status is Inpatient Admission. Condition is Serious. Problem is new. Symptoms have improved. mw
[2019-07-18 03:48] LABS: Blood Morphology Comment NOT SEEN (NOT SEEN); Platelet Estimate ADEQ
--- NOTE | 2019-07-18 04:41 | P.HP ---
Certification for Inpatient Patient admitted to: Inpatient With expected LOS: >2 Midnights Practitioner: I am a practitioner with admitting privileges, knowledge of patient current condition, hospital course, and medical plan of care. Services: Services provided to patient in accordance with Admission requirements found in Title 42 Section 412.3 of the Code of Federal Regulations Patient History Date of Service: 07/18/19 Reason for admission: Fever and chills History of Present Illness: 78-year-old woman with a recent history of CVA with right hemiparesis, oropharyngeal dysphagia and aphasia was brought to the emergency department due to an episode of fever and chills. The patient was discharged from hospital about a week ago. She has a PEG tube. There is a report patient had a GI bleed and got blood transfusions during that hospitalization. Here in the ED, patient noted to be febrile with temperature of 101.5, chest x-ray demonstrated multifocal infiltrates, more on the right. She meets criteria for sepsis with leukocytosis, tachycardia, elevated lactic acid and fever. Test for Covid 19 is obtained. Patient is admitted for further management. Allergies codeine Allergy (Verified 03/12/18 02:24) Hives Latex, Natural Rubber Allergy (Verified 07/18/19 05:36) Hives morphine Allergy (Verified 07/18/19 05:36) Hives Home Medications: Albuterol Neb [Proventil 0.083% Neb Soln] 2.5 mg IH TID 07/13/19 Apixaban [Eliquis *] 2.5 mg FT Q12H 07/13/19 Aspirin [Aspirin EC 81 MG] 81 mg FT DAILY 07/13/19 Atorvastatin Calcium [Lipitor] 40 mg FT BEDTIME 07/13/19 Carvedilol [Coreg] 3.125 mg FT BID 07/13/19 Diabetes Source 1 bot FT TID 07/13/19 Docusate [Colace Cap*] 100 mg FT DAILY PRN 07/13/19 Insulin Glargine,Hum.rec.anlog [Lantus] 9 unit SQ DAILY 07/13/19 Insulin Lispro [Humalog] 5 unit SQ TID 07/13/19 Melatonin [Melatonin*] 3 mg FT BEDTIME 07/13/19 Omeprazole [Prilosec] 40 mg FT BID 07/13/19 Rivastigmine Patch [Exelon 4.6 mg Patch*] 4.6 mg TD DAILY 07/13/19 Testosterone 6mg 4 Click 1 ml TOP DAILY 07/13/19 methylPREDNISolone [Methylprednisolone] 4 mg FT SEECOM 07/13/19 - Past Medical/Surgical History Diabetic: Yes -: hemiplegia hemiparesis following CVA right sided weakness -: aphasia -: HTN -: IDDM -: heart surgery - Family History Family History: Reviewed- Non-Contributory - Family History Father -: Heart disease, Hypertension, Diabetes Mother -: Heart disease, Hypertension, Diabetes Sister Notes: vertigo Brother -: Diabetes - Social History Alcohol use: No CD- Drugs: No Caffeine use: No Review of Systems is unable to be obtained (Due to aphasia) Physical Examination - Physical Exam General: Confused, Other (Aphasic) HEENT: Mucous membr. moist/pink, Sclerae nonicteric Neck: Supple, JVD not distended Respiratory: Normal air movement, Other (Bilateral upper airway transmitted sounds.) Cardiovascular: No edema, Normal S1 S2, Other (Tachycardia) Capillary refill: <2 Seconds Gastrointestinal: Normal bowel sounds, Soft and benign, Non-distended, No tenderness, Other (PEG tube) Musculoskeletal: No swelling, No erythema Integumentary: No rashes Neurological: Other (Right facial droop, right-sided weakness) - Studies Laboratory Data (last 24 hrs) 07/18/19 02:15: PT 12.6 H, INR 1.07, APTT 24.6 07/18/19 02:15: WBC 19.2 H D, Hgb 10.5 L, Hct 33.3 L D, Plt Count 573 H 07/18/19 02:15: Sodium 133 L, Potassium 4.6, BUN 40 H, Creatinine 1.24, Glucose 166 H, Magnesium 2.7 H, Total Bilirubin 0.6, AST 29, ALT 37, Alkaline Phosp hatase 153 H, Amylase 143 H, Lipase 560 H Microbiology Data (last 24 hrs): 07/18/19 03:16 Nasopharnyx Influenza Type A Antigen Screen - Final 07/18/19 03:16 Nasopharnyx Influenza Type B Antigen Screen - Final 07/18/19 03:16 Throat Group A Streptococcus Rapid Screen - Final Assessment and Plan - Problems (Diagnosis) (1) Sepsis Current Visit: Yes Status: Acute (2) Pneumonia Current Visit: Yes Status: Acute (3) Elevated lipase Current Visit: No Status: Acute (4) H/O ischemic left MCA stroke Current Visit: No Status: Acute - Plan Admit to medical floor Droplets isolation Sepsis protocol initiated Start IV cefepime and vancomycin Bronchodilators, chest physiotherapy Follow blood cultures Follow Covid 19 test result. Elevated lipase appear to be chronic. PEG tube feeding as tolerated. Hold Eliquis for now and confirmed from the daughter patient is still taking anticoagulants given recent history of GI bleed. Patient is DNR. - Advance Directives Does patient have a Living Will: Yes Does patient have a Durable POA for Healthcare: Yes
[2019-07-18 05:38] LABS: Urine Bacteria <20 /HPF (<20); Urine Culture Reflex Order REFLEXED; Urine RBC NONE SEEN /HPF (NONE SEEN); Urine Urothelial Cells <5 /HPF (NONE SEEN); Urine Yeast MANY (NONE SEEN); Urine Yeast with Hyphae PRESENT
[2019-07-18] MEDS ORDERED: CEFEPIME 1 GM/10 ML SYR IV SCH ×2 (06:16→07:00)
[2019-07-18] MEDS ORDERED: ONDANSETRON 4 MG/2 ML VIAL IV PRN (06:16)
[2019-07-18] MEDS ORDERED: ACETAMINOPHEN 650MG/RECT SUPP RECT PRN (06:16)
[2019-07-18] MEDS ORDERED: ALBUTEROL 2.5 MG/3 ML NEB SOL NEB PRN (06:16)
[2019-07-18] MEDS ORDERED: NA CHLORIDE 0.9% 500 ML IV ONE (06:16)
[2019-07-18 06:32] VITALS: BMI 25.2
[2019-07-18] MEDS: INSULIN -REGULAR HUMAN 50 UNIT/0.5 ML ML SQ SCH ×4 (07:30→21:00)
[2019-07-18] MEDS: CEFEPIME/SWI 1gm 10 ML IV SCH ×2 (08:42→20:42)
[2019-07-18] MEDS: NA CHLORIDE 0.9% 1,000 ML IV SCH (08:42)
[2019-07-18] MEDS ORDERED: DOCUSATE NA 100 MG CAP PO PRN (12:15)
[2019-07-18] MEDS ORDERED: GLUCAGON 1 MG/VIAL IM PRN (12:16)
[2019-07-18] MEDS ORDERED: D50W 25 GM/50 ML SYRINGE/VIAL IV PRN (12:16)
--- NOTE | 2019-07-18 13:04 | RAD REPORT ---
EXAM DESCRIPTION: CT - Head Brain Wo Cont - 07/18/2019 4:07 am CLINICAL HISTORY: Declining state;Confused;Mental status change COMPARISON: None. TECHNIQUE: CT HEAD WITHOUT IV CONTRAST on 07/18/2019 1:50 AM CDT This exam was performed according to our departmental dose-optimization program, which includes autom ated exposure control, adjustment of the mA and/or kV according to patient size and/or use of iterati ve reconstruction technique. FINDINGS: There is no acute hemorrhage, mass effect or midline shift. There is encephalomalacia in the left par ietal and frontal lobes. There is no hydrocephalus. There is no significant volume loss for age. Ther e are mild patchy hypodensities within the periventricular and subcortical white matter, consistent w ith microangiopathic ischemic changes. The calvarium is intact. Orbits and globes are unremarkable. The paranasal sinuses are clear. Mastoid air cells are clear. IMPRESSION: No acute intracranial findings. Electronically signed by: Shaheen Richardson MD 07/18/2019 4:10 AM CDT Due to temporary technical issues with the PACS/Fluency reporting system, reports are being signed by the in house radiologist as a courtesy to ensure prompt reporting. The interpreting radiologist is f ardenly responsible for the content of the report.
--- NOTE | 2019-07-18 13:19 | RAD REPORT ---
EXAM DESCRIPTION: RAD - Chest Single View - 07/18/2019 3:04 am CLINICAL HISTORY: COUGH COMPARISON: None. TECHNIQUE: AP Chest. FINDINGS: Heart is normal in size. Mild aortic atherosclerosis. There are hazy parenchymal opacities throughout the right lung and possibly in the left upper lobe. N o pneumothorax or pleural fluid. There is a prior median sternotomy. Unremarkable soft tissues. IMPRESSION: 1. Faint infiltrates throughout the right lung and possibly left upper lobe. Differential diagnosis i ncludes viral infections. Electronically signed by: Ju Giordano DO 07/18/2019 2:53 AM CDT Due to temporary technical issues with the PACS/Fluency reporting system, reports are being signed b b y the in house radiologist as a courtesy to ensure prompt reporting. The interpreting radiologist is fully responsible for the content of the report.
[2019-07-18] MEDS: GLUCERNA 1.2 CAL 1,000 ML BOT FT SCH ×2 (14:09→20:52)
[2019-07-18] MEDS: ALBUTEROL 2.5 MG/3 ML NEB SOL NEB SCH ×2 (14:29→20:18)
[2019-07-18] MEDS: INSULIN LISPRO 100 UNIT/1 ML SQ SCH (16:43)
[2019-07-18] MEDS: APIXABAN 2.5 MG TABLET FT SCH (20:43)
[2019-07-18] MEDS: ATORVASTATIN 40 MG TAB FT SCH (20:43)
[2019-07-18] MEDS: carvediloL 3.125 MG TAB FT SCH (20:43)
[2019-07-18] MEDS: MELATONIN 3 MG TABLET PO SCH (20:43)
[2019-07-18] MEDS: INSULIN GLARGINE 100 UNITS/ML SQ SCH (22:01)
[2019-07-19] MEDS: NA CHLORIDE 0.9% 1,000 ML IV SCH ×4 (01:23→20:42)
[2019-07-19] MEDS: ALBUTEROL 2.5 MG/3 ML NEB SOL NEB SCH ×4 (02:40→19:50)
[2019-07-19 05:02] LABS: Absolute Lymphocytes (CBC) 2.7 K/uL (0.7-4.9); Basophils % 0.4 % (0-1.3); Hematocrit 26.6 % (36.0-45.0); Lymphocytes % 8.2 % (15.3-44.8); MPV 8.8 fL (7.6-11.3); RBC Red Blood Cell Count 3.31 M/uL (3.86-4.86)
[2019-07-19 05:15] LABS: Albumin 2.2 g/dL (3.4-5.0); Bilirubin Total 0.5 mg/dL (0.2-1.0); Magnesium 2.4 mg/dL (1.8-2.4); Phosphorus 2.3 mg/dL (2.5-4.9); Potassium 3.7 mmol/L (3.5-5.1); Protein, Total 5.9 g/dL (6.4-8.2)
[2019-07-19] MEDS ORDERED: VANCOMYCIN/NS 1 gm 1 GM/250 ML BAG IV SCH (06:00)
[2019-07-19] MEDS: ACETAMINOPHEN 500 MG TAB FT PRN ×2 (06:41→20:42)
--- NOTE | 2019-07-19 06:50 | EKG ---
Test Date: 2019-07-18 Test Time: 01:35:06 Grease And Tallow Pumper: VITO MEASUREMENT RESULTS: Intervals: Rate: 117 DC: 112 QRSD: 100 QT: 300 QTc: 418 [place]: P: 61 DC: 112 QRS: -78 T: 87 INTERPRETIVE STATEMENTS: Sinus tachycardia Left axis deviation Nonspecific ST and T wave abnormality Abnormal ECG Compared to ECG 07/10/2019 01:08:05 ST (T wave) deviation now present Accelerated junctional rhythm no longer present Myocardial infarct finding no longer present Electronically Signed On 07-19-19 06:49:14 CDT by Prasad Barnes
[2019-07-19] MEDS: INSULIN -REGULAR HUMAN 50 UNIT/0.5 ML ML SQ SCH ×4 (07:30→17:39)
[2019-07-19 07:59] LABS: Blood Morphology Comment NOTED (NOT SEEN); Platelet Estimate ADEQ; Polychromasia 1+
[2019-07-19] MEDS: INSULIN LISPRO 100 UNIT/1 ML SQ SCH ×3 (08:00→17:35)
[2019-07-19] MEDS ORDERED: POTASSIUM PHOS IN 0.9 % NACL 15 MMOL/250 ML BAG IV ONE (08:00)
[2019-07-19] MEDS: APIXABAN 2.5 MG TABLET FT SCH (09:00)
[2019-07-19] MEDS: HOME MED 1 EA UNK TOP SCH (09:00)
[2019-07-19] MEDS ORDERED: GLUCERNA 1.2 CAL 1,000 ML BOT FT SCH (09:00)
[2019-07-19] MEDS: Pantoprazole (granules) 40 MG/BLIST PACKET FT SCH (09:29)
[2019-07-19] MEDS: ASPIRIN 81 MG CHEWABLE TABLET FT SCH (09:30)
[2019-07-19] MEDS: carvediloL 3.125 MG TAB FT SCH ×2 (09:30→20:43)
[2019-07-19] MEDS: CEFEPIME/SWI 1gm 10 ML IV SCH (09:31)
[2019-07-19] MEDS: RIVASTIGMINE 4.6 MG/24 HR PATCH TD SCH (09:31)
[2019-07-19] MEDS: methylPREDNISolone 4 MG TAB PO SCH (09:33)
--- NOTE | 2019-07-19 09:51 | P.PN ---
Subjective Date of Service: 07/19/19 Chief Complaint: Fever and chills Patient is awake, tries to communicate. She has been afebrile since yesterday morning. She states she is hungry. Leukocytosis has significantly worsened. Urine culture is growing yeast. Physical Examination - Vital Signs Temperature: 98.9 F Blood Pressure: 159/70 Pulse: 75 Respirations: 14 Pulse Ox (%): 97 - Physical Exam General: In no apparent distress, Other (Awake) HEENT: Mucous membr. moist/pink Neck: Supple, JVD not distended Respiratory: Clear to auscultation bilaterally, Normal air movement Cardiovascular: No edema, Normal S1 S2, Irregular heart rate/rhythm Gastrointestinal: Normal bowel sounds, Soft and benign, Non-distended, Other (PEG) Musculoskeletal: No swelling, No erythema Integumentary: No rashes Neurological: Other (Aphasic), Abnormal speech - Studies Microbiology Data (last 24 hrs): 07/18/19 03:16 Nasopharnyx Coronavirus COVID-19 PCR - Final Assessment And Plan - Current Problems (Diagnosis) (1) Sepsis Current Visit: Yes Status: Acute (2) Pneumonia Current Visit: Yes Status: Acute (3) Elevated lipase Current Visit: No Status: Acute (4) H/O ischemic left MCA stroke Current Visit: No Status: Acute (5) UTI (urinary tract infection) Current Visit: Yes Status: Acute - Plan COVid 19 test is negative. Leukocytosis has not responded to antibiotics. Change IV cefepime to meropenem. Continue IV vancomycin. Add IV Diflucan. Bronchodilators Blood cultures: No growth today. Tube feeding resumed Elevated lipase appear to be chronic. Hold Eliquis for now given drop in hemoglobin. I tried to reach her daughter to confirm whether patient is still taking Eliquis given recent history of GI bleed. Monitor CBC and transfuse p.r.n.
[2019-07-19] MEDS: FLUCONAZOLE 100 MG IV SCH (16:01)
[2019-07-19] MEDS ORDERED: Meropenem 500 MG VIAL IV SCH (17:00)
[2019-07-19] MEDS ORDERED: GLUCAGON 1 MG/VIAL IM PRN ×2 (17:11→17:14)
[2019-07-19] MEDS ORDERED: D50W 25 GM/50 ML SYRINGE/VIAL IV PRN ×2 (17:11→17:14)
[2019-07-19] MEDS: Meropenem 500 MG in NA CHLORIDE 0.9% 100 ML IV SCH (17:35)
[2019-07-19] MEDS ORDERED: INSULIN -REGULAR HUMAN 50 UNIT/0.5 ML ML SQ SCH (18:00)
[2019-07-19] MEDS ORDERED: VANCOMYCIN 0.75 GM in NA CHLORIDE 0.9% 250 ML IVPB SCH (18:00)
[2019-07-19] MEDS: MELATONIN 3 MG TABLET PO SCH (20:42)
[2019-07-19] MEDS: ATORVASTATIN 40 MG TAB FT SCH (20:42)
[2019-07-19] MEDS: INSULIN GLARGINE 100 UNITS/ML SQ SCH (20:42)
[2019-07-20] MEDS: ALBUTEROL 2.5 MG/3 ML NEB SOL NEB SCH ×4 (02:00→20:30)
[2019-07-20] MEDS: Meropenem 500 MG in NA CHLORIDE 0.9% 100 ML IV SCH ×3 (02:03→16:00)
[2019-07-20 04:46] LABS: Absolute Lymphocytes (CBC) 2.7 K/uL (0.7-4.9); Basophils % 0.7 % (0-1.3); Hematocrit 25.6 % (36.0-45.0); RBC Red Blood Cell Count 3.16 M/uL (3.86-4.86)
[2019-07-20 04:55] LABS: Potassium 4.4 mmol/L (3.5-5.1)
[2019-07-20] MEDS: ACETAMINOPHEN 500 MG TAB FT PRN ×2 (05:09→10:13)
[2019-07-20] MEDS: VANCOMYCIN/NS 1 gm 1 GM/250 ML BAG IV SCH (05:10)
[2019-07-20] MEDS: INSULIN -REGULAR HUMAN 50 UNIT/0.5 ML ML SQ SCH ×5 (06:13→17:18)
--- NOTE | 2019-07-20 07:21 | P.PN ---
Subjective Date of Service: 07/20/19 Chief Complaint: Fever and chills Patient is awake, and states she is feeling better. She has been afebrile. She is tolerating tube feeding. Leukocytosis is trending down. Physical Examination - Vital Signs Temperature: 97.0 F Blood Pressure: 143/64 Pulse: 69 Respirations: 18 Pulse Ox (%): 99 - Physical Exam General: In no apparent distress, Other (Awake) Neck: Supple Respiratory: Normal air movement, Other (Upper airway transmitted sounds bilaterally) Cardiovascular: No edema, Normal S1 S2, Irregular heart rate/rhythm Gastrointestinal: Normal bowel sounds, Soft and benign, Non-distended, No tenderness Assessment And Plan - Current Problems (Diagnosis) (1) Sepsis Current Visit: Yes Status: Acute (2) Pneumonia Current Visit: Yes Status: Acute (3) Elevated lipase Current Visit: No Status: Acute (4) H/O ischemic left MCA stroke Current Visit: No Status: Acute (5) UTI (urinary tract infection) Current Visit: Yes Status: Acute - Plan Continue IV meropenem and vanc,. Continue IV Diflucan. Bronchodilators Blood cultures: No growth today. Continue tube feeding Continue to hold Eliquis. I tried to reach her daughter to confirm whether patient is still taking Eliquis given recent history of GI bleed. Check stool for occult blood and restart Eliquis if hemoglobin remains stable. Retrieve medical records from [facility]. Monitor CBC and transfuse p.r.n. PT and OT
[2019-07-20] MEDS: HOME MED 1 EA UNK TOP SCH (07:36)
[2019-07-20] MEDS: INSULIN LISPRO 100 UNIT/1 ML SQ SCH ×3 (08:33→17:18)
[2019-07-20] MEDS: Pantoprazole (granules) 40 MG/BLIST PACKET FT SCH (08:34)
[2019-07-20] MEDS: carvediloL 3.125 MG TAB FT SCH ×2 (08:34→22:17)
[2019-07-20] MEDS: ASPIRIN 81 MG CHEWABLE TABLET FT SCH (08:34)
[2019-07-20] MEDS: methylPREDNISolone 4 MG TAB PO SCH (08:35)
[2019-07-20] MEDS: RIVASTIGMINE 4.6 MG/24 HR PATCH TD SCH (08:35)
[2019-07-20] MEDS: NA CHLORIDE 0.9% 1,000 ML IV SCH ×2 (11:12→14:24)
[2019-07-20] MEDS ORDERED: MORPHINE 2 MG/ML SYR IV PRN (12:27)
[2019-07-20] MEDS: HYDROMORPHONE HCL 1 MG/ML INJ IV PRN ×3 (12:47→22:23)
[2019-07-20] MEDS: FLUCONAZOLE 100 MG IV SCH (16:00)
[2019-07-20] MEDS: INSULIN GLARGINE 100 UNITS/ML SQ SCH (21:00)
[2019-07-20] MEDS: MELATONIN 3 MG TABLET PO SCH (22:17)
[2019-07-20] MEDS: ATORVASTATIN 40 MG TAB FT SCH (22:18)
[2019-07-21] MEDS: Meropenem 500 MG in NA CHLORIDE 0.9% 100 ML IV SCH ×3 (00:48→16:02)
[2019-07-21] MEDS: NA CHLORIDE 0.9% 1,000 ML IV SCH (00:56)
[2019-07-21] MEDS: ALBUTEROL 2.5 MG/3 ML NEB SOL NEB SCH ×2 (02:00→08:03)
[2019-07-21] MEDS: HYDROMORPHONE HCL 1 MG/ML INJ IV PRN ×2 (02:35→12:41)
[2019-07-21] MEDS ORDERED: HALOPERIDOL LACT 5 MG/ML INJ IM ONE (04:14)
[2019-07-21] MEDS: VANCOMYCIN/NS 1 gm 1 GM/250 ML BAG IV SCH (05:54)
[2019-07-21] MEDS: INSULIN -REGULAR HUMAN 50 UNIT/0.5 ML ML SQ SCH ×5 (06:00→18:00)
[2019-07-21 06:22] LABS: Absolute Lymphocytes (CBC) 3.8 K/uL (0.7-4.9); Hematocrit 25.5 % (36.0-45.0); Lymphocytes % 17.8 % (15.3-44.8); MPV 9.2 fL (7.6-11.3); RBC Red Blood Cell Count 3.14 M/uL (3.86-4.86)
[2019-07-21] MEDS: INSULIN LISPRO 100 UNIT/1 ML SQ SCH ×2 (08:00→11:57)
[2019-07-21] MEDS: ASPIRIN 81 MG CHEWABLE TABLET FT SCH ×2 (08:15→15:56)
[2019-07-21] MEDS: carvediloL 3.125 MG TAB FT SCH ×3 (08:15→21:00)
[2019-07-21] MEDS: methylPREDNISolone 4 MG TAB PO SCH ×2 (08:16→16:09)
[2019-07-21] MEDS: HOME MED 1 EA UNK TOP SCH (08:16)
[2019-07-21] MEDS: RIVASTIGMINE 4.6 MG/24 HR PATCH TD SCH (08:17)
[2019-07-21] MEDS: Pantoprazole (granules) 40 MG/BLIST PACKET FT SCH ×2 (08:20→15:57)
[2019-07-21] MEDS: D5 0.9 NS 1,000 ML IV SCH ×2 (09:29→22:20)
[2019-07-21 10:22] LABS: Anisocytosis 1+; Blood Morphology Comment NOTED (NOT SEEN); Platelet Estimate ADEQ; Poikilocytosis 1+
--- NOTE | 2019-07-21 10:46 | P.PN ---
Subjective Date of Service: 07/21/19 (Hospitalist) Chief Complaint: Patient told artery PEG tube Condition stable schedule for a placement of a PEG tube white count is declining patient does not communicate all cultures negative Review of Systems is unable to be obtained Physical Examination - Vital Signs Temperature: 98.9 F Blood Pressure: 166/77 Pulse: 64 Respirations: 16 Pulse Ox (%): 100 - Physical Exam General: Alert, Unresponsive Respiratory: Clear to auscultation bilaterally Cardiovascular: No edema, Normal S1 S2 Gastrointestinal: Normal bowel sounds, Soft and benign - Studies Microbiology Data (last 24 hrs): 07/18/19 03:16 Throat Culture & Sensitivity - Final NORMAL UPPER RESPIRATORY JERONIMO GROWN. 07/18/19 04:00 Clean Catch Urine [place] Count - Final >100,000 CFU/ML. 07/18/19 04:00 Clean Catch Urine - Final Assessment & Plan - Problems (Diagnosis) (1) Sepsis Current Visit: Yes Status: Acute Plan: Patient is 78 years of age admitted with sepsis suspect pneumonia probably has a fungal UTI white count is declining chemistries unremarkable repeat chest x-ray pro calcitonin was also significantly elevated repeat chest x-ray blood cultures negative so for patient is scheduled for a PEG tube replacement continue with vancomycin and meropenem so far patient is afebrile room-air pulse ox blood pressure elevated I am not sure why the patient is on steroids Qualifiers: Sepsis type: sepsis due to unspecified organism
--- NOTE | 2019-07-21 12:25 | RAD REPORT ---
EXAM DESCRIPTION: RAD - Chest Single View - 07/21/2019 11:37 am CLINICAL HISTORY: pneumonia COMPARISON: July 17 TECHNIQUE: AP portable chest image was obtained 07/21/2019 11:37 am . FINDINGS: Worsening airspace consolidation in the right upper lobe. Air bronchograms are identifiabl e. Interstitial and patchy alveolar opacities in the right lower lobe are not substantially different . Lung volume is reduced compared to the prior study. Sternotomy wires are again noted. No new left l sienna field finding. Trachea is midline. Heart and vasculature are normal. No measurable pleural effusi on and no pneumothorax. No acute bony abnormality seen. No acute aortic findings suspected. IMPRESSION: Worsening right upper lobe pneumonia
[2019-07-21] MEDS ORDERED: LIDOCAINE 1% MPF 5 ML VIAL ONE (13:06)
[2019-07-21] MEDS ORDERED: propofoL 200 MG/20 ML VIAL IV ONE (13:06)
[2019-07-21] MEDS ORDERED: EPINEPHRINE/PF 1 MG/ML AMP ONE (13:54)
--- NOTE | 2019-07-21 14:21 | ENDO RPT ---
[address], [address] EGD WITH PEG PROCEDURE REPORT EXAM DATE: 07/21/2019 PATIENT NAME: Janell Zuniga MR #: [id number] BIRTHDATE: 1940 ATTENDING: Kota Hern[address] Dr STATUS: inpatient - 7 RUBBER COMPOUNDER MIXER: Mirta BEAUCHAMP and Rudolph Perkins RN INDICATIONS: The patient is a 78 yr old Female here for an EGD with PEG due to dysphagia PROCEDURE PERFORMED: EGD with PEG placement MEDICATIONS: Per Anesthesia. TOPICAL ANESTHETIC: none CONSENT: The patient understands the risks and benefits of the procedure and understands that these risks include, but are not limited to: sedation, allergic reaction, infection, perforation and/or bleeding. Alternative means of evaluation and treatment include, among others: physical exam, x-rays, and/or surgical intervention. The patient elects to proceed with this endoscopic procedure. DESCRIPTION OF PROCEDURE: During intra-op preparation period all mechanical medical equipment was checked for proper function. Hand hygiene and appropriate measures for infection prevention was taken. After the risks, benefits and alternatives of the procedure were thoroughly explained, Informed consent was verified, confirmed and timeout was successfully executed by the treatment team. The patient was anesthetized with topical anesthesia and the [id number] ([id number]) endoscope was introduced through the mouth and advanced to the second portion of the duodenum. The instrument was slowly withdrawn as the mucosa was fully examined. A small hiatal hernia was found. Old sanabria cather removed. The stomach was then inflated with air, and guidewire placed through PEG stoma into lumen of stomach. The skin of the anterior abdomen was surgically prepped and draped with sterile towels. Utilizing strict sterile technique, with the guidewire in the lumen of the stomach, a snare device previously placed through the instrument channel was then opened and placed around the guide/insertion wire. The snare was then pulled up to the endoscope distal tip, and the scope was then withdrawn bringing with it the snare and insertion wire. The insertion wire was then released from the snare, and the PEG PUSH gastrostomy tube placed over the guidewire. Using the push technique, the tube was then pushed into place over the insertion wire at the abdominal wall end. The tube insertion site was then cleansed once again, and the external bolster was placed over the tube to secure it to the abdominal wall. A sterile dressing was then applied, and the procedure terminated. Retroflexed views revealed a small hiatal hernia. The gastroscope was then slowly withdrawn and removed. ADVERSE EVENT: There were no complications. IMPRESSIONS: 1. Status post 20 Fr percutaneous endoscopic gastrostomy 2. Small hiatal hernia 3. Prior sanabria catheter removed RECOMMENDATIONS: begin PEG use in 3 hours REPEAT EXAM: Kota Hern[address]dez Dr eSigned: Kota Hernández Dr 07/21/2019 2:20 PM cc: CPT CODES: ICD9 CODES: PATIENT NAME: Janell Zuniga MR#: [id number]
[2019-07-21] MEDS: FLUCONAZOLE 100 MG IV SCH (16:02)
--- NOTE | 2019-07-21 16:54 | CON ---
Date of Consultation: 07/21/2019 Reason For Consultation: Dysphagia secondary to stroke; malfunction of PEG tube, which was replaced by Solorzano catheter; and pneumonia, probable aspiration pneumonia. History Of Present Illness: Patient is an 78-year-old white female with history of hypertension, francisco betes, stroke with right hemiparesis, oropharyngeal dysphagia, aphasia. Patient was brought to the e mergency room due to episode of fevers and chills, found to have pneumonia, probably aspiration pneum onia. She had PEG tube already. The patient has a history of right hemiparesis, oropharyngeal dysph agia, and aphasia secondary to her recent stroke. Temperature in the ER was 101.5. Chest x-ray reve aled multifocal infiltrates, more on the right, consistent with possible aspiration. I think COVID t est was negative as well. Past Medical History: Significant for diabetes, hypertension, stroke with right hemiparesis, orophar yngeal dysphagia and aphasia. Heart surgery in the past. Medications: Include Proventil, Eliquis, aspirin, , Colace, Lantus insulin, Humalog insuli n, melatonin, Prilosec, Exelon, , methylprednisolone. Allergies: TO CODEINE, LATEX, MORPHINE. Social History: No tobacco or alcohol. No drugs. Family History: Father with heart disease, diabetes, hypertension. Mother with heart disease, diabe yuki, hypertension, sister with vertigo. Brother with diabetes. No tobacco, alcohol. Review of Systems: No notable melena, hematochezia. No evidence of coffee-ground emesis, hematuria, dysuria, polydipsia . No shortness of breath or chest pain. No seizure syncope, lower extremity edema, muscle aches, gladis int aches, backaches noted. Physical Examination: Vital Signs: Patient is 4 foot 7, 108 pounds, BMI 25.2 kg/m2. Temperature 98 degrees Fahrenheit, pu lse 81, respirations 16, blood pressure 169/85, O2 saturation 100%. HEENT: Normocephalic, atraumati c. Anicteric. Pupils equal, round, and reactive to light. Extraocular muscles intact. Oropharynx c lear. Neck: Supple. No masses. Respirations: Clear to auscultation bilaterally. Cardiac: Regular rate and rhythm. No gallops or rubs. Abdomen: Positive bowel sounds. Soft, nontender, nondistended. No hepatosplenomegaly. Extremities : No clubbing, cyanosis, or edema. 2+ pulses. Neuro: Alert and responsive to painful and verbal stimuli, but somewhat moaning. Able to move extre mities. Laboratory Data: White cell count 21.4, down from 33.4 on the , 2 days ago. Hemoglobin down to 7.9 from 10.5 on , hematocrit 26, platelet count 435, polys of 71%, down from 92% on the . P T of 12.6, INR of 1.07, PTT of 24.6. On the , patient has sodium 139, potassium 4.4, chloride 10 7, bicarb 26, BUN of 25, creatinine of 0.8, glucose 187, calcium 8.4, phosphorus of 3.0. On the , the patient had a calcium of 8.4, phosphorus 3.3, magnesium 2.4, total bilirubin 0.5, AST of 21, AL T of 22, alkaline phosphatase 108, total protein 5.0, albumin 3.2, globulin 3.7 with an amylase 143. On , lipase 560, normal range is about 70-400, not that high. Urine budding yeast present, othe rwise negative. Chest X-ray on admission revealed a faint infiltrate in the right lung, possibly the left upper lobe, viral infection or other. Chest x-ray today, July 20 workup reveals worsening right upper lobe pneumonia. Impression: 1.Dysphagia secondary to stroke recently. 2.Possible aspiration pneumonia in the right lower and upper lung. 3.Malfunction of PEG tube. Looks like it appears patient may have pulled out or some other trauma c ausing the patient to have replacement of Solorzano to catheter needs. 4.Long-term enteral nutrition better than Solorzano catheter replacement. Recommendations: 1.Replace PEG tube. 2.Keep patient n.p.o. 3.Continue IV antibiotics and IV fluids. LINDA/ANGEL Voice ID: [id number] Report ID: [id number]
[2019-07-21] MEDS ORDERED: ALBUTEROL 2.5 MG/3 ML NEB SOL NEB PRN (18:00)
[2019-07-21] MEDS: HALOPERIDOL LACT 5 MG/ML INJ IV PRN (19:24)
[2019-07-21] MEDS: MELATONIN 3 MG TABLET PO SCH (21:00)
[2019-07-21] MEDS: INSULIN GLARGINE 100 UNITS/ML SQ SCH (21:00)
[2019-07-21] MEDS: ATORVASTATIN 40 MG TAB FT SCH (21:00)
[2019-07-22] MEDS: Meropenem 500 MG in NA CHLORIDE 0.9% 100 ML IV SCH ×2 (00:52→09:00)
[2019-07-22] MEDS: HALOPERIDOL LACT 5 MG/ML INJ IV PRN ×2 (04:37→09:57)
[2019-07-22] MEDS: D5 0.9 NS 1,000 ML IV SCH (04:37)
[2019-07-22] MEDS: VANCOMYCIN/NS 1 gm 1 GM/250 ML BAG IV SCH (05:09)
[2019-07-22] MEDS: INSULIN -REGULAR HUMAN 50 UNIT/0.5 ML ML SQ SCH ×4 (06:00→18:00)
[2019-07-22 06:32] LABS: Absolute Lymphocytes (CBC) 4.6 K/uL (0.7-4.9); Basophils % 1.5 % (0-1.3); Hematocrit 23.5 % (36.0-45.0); Lymphocytes % 30.4 % (15.3-44.8); MPV 9.4 fL (7.6-11.3); RBC Red Blood Cell Count 2.95 M/uL (3.86-4.86)
[2019-07-22] MEDS: RIVASTIGMINE 4.6 MG/24 HR PATCH TD SCH (09:00)
[2019-07-22] MEDS: Pantoprazole (granules) 40 MG/BLIST PACKET FT SCH (09:00)
[2019-07-22] MEDS: methylPREDNISolone 4 MG TAB PO SCH (09:00)
[2019-07-22] MEDS: HOME MED 1 EA UNK TOP SCH (09:00)
[2019-07-22] MEDS: carvediloL 3.125 MG TAB FT SCH (09:00)
[2019-07-22] MEDS ORDERED: GLUCERNA SHAKE 237 ML CAN PO SCH (09:00)
[2019-07-22] MEDS: ASPIRIN 81 MG CHEWABLE TABLET FT SCH (09:00)
[2019-07-22 09:13] LABS: Blood Morphology Comment NOT SEEN (NOT SEEN); Platelet Estimate ADEQ
--- NOTE | 2019-07-22 09:17 | RAD REPORT ---
EXAM DESCRIPTION: [place] Single View07/22/2019 9:09 am CLINICAL HISTORY: Cough COMPARISON: none FINDINGS: Mild improvement in the right lung opacities. Left lung appears clear. Heart remains enlarged. Postsurgical changes involve the chest IMPRESSION: Mild improvement in right pneumonia
--- NOTE | 2019-07-22 09:38 | P.PN ---
Subjective Date of Service: 07/22/19 Chief Complaint: Patient pulled out her PEG tube again Patient is nonverbal she keeps on pulling out her PEG tube that was inserted yesterday little agitated tried to get hold of the relatives left a message to contact me I discuss with her daughter and Ginna they do not want any further measures not to insert the PEG tube again for to hospice care Review of Systems is unable to be obtained Physical Examination - Vital Signs Temperature: 98.9 F Blood Pressure: 166/77 Pulse: 64 Respirations: 16 Pulse Ox (%): 100 - Physical Exam General: Alert, Moderate distress, Other (Nonverbal) Respiratory: Clear to auscultation bilaterally Cardiovascular: No edema, Regular rate/rhythm Gastrointestinal: Normal bowel sounds Assessment & Plan - Problems (Diagnosis) (1) Sepsis Current Visit: Yes Status: Acute Plan: Patient admitted with sepsis white count is declining she pulled out her PEG tube again patient is mildly anemic will continue to follow cultures pending she is on meropenem and Diflucan will discuss with relatives regarding further care regarding her PEG tube in the meantime will insert adopt cough and use 1 can of Glucerna 3 times a day he does have a Solorzano catheter in place of her PEG tube patient is DNR will discuss with relatives Addendum I discussed with a Ginna her daughter plan for hospice care no feeding withdrawal antibiotic comfort care only Qualifiers: Sepsis type: sepsis due to unspecified organism
[2019-07-22] MEDS: LORazepam 2 MG/ML VIAL IV PRN (11:26)
--- NOTE | 2019-07-22 15:49 | P.PN ---
Subjective Date of Service: 07/22/19 Chief Complaint: Dysphagia, PEG tube malfunction Subjective: New changes (She pulled out PEG tube again last night, s/p despite abdominal binder. Family has decided on hospice.) Review of Systems 10-point ROS is otherwise unremarkable General: Weakness, Malaise Physical Examination - Vital Signs Temperature: 97 F Blood Pressure: 166/89 Pulse: 70 Respirations: 16 Pulse Ox (%): 93 - Physical Exam General: Alert, Disheveled HEENT: Atraumatic, Normocephalic Neck: Supple Respiratory: Normal air movement Cardiovascular: Normal pulses Gastrointestinal: Soft and benign, No rebound, No guarding, Other (abominal binder on) Assessment And Plan - Current Problems (Diagnosis) (1) Dysphagia Current Visit: Yes Status: Acute (2) Pneumonia Current Visit: Yes Status: Acute (3) Sepsis Current Visit: Yes Status: Acute Qualifiers: Sepsis type: sepsis due to unspecified organism (4) H/O ischemic left MCA stroke Current Visit: No Status: Acute (5) Hypertension Onset Date: 03/13/18 Current Visit: No Status: Acute (6) PEG tube malfunction Current Visit: No Status: Acute (7) Parkinsonism Onset Date: 03/13/18 Current Visit: No Status: Acute - Plan REC: 1) family to decide if want to continue enteral feedings since on hospice now and repeatedly pulls out PEG tube, o/w continue abdominal binder and add hand restraints as able. 2) continue IV antibiotics 3) continue tube feeds and water boluses
[2019-07-22 22:14] VITALS: O2SAT 100
[2019-07-23] MEDS: LORazepam 2 MG/ML VIAL IV PRN ×2 (00:43→05:54)
[2019-07-23] MEDS: HALOPERIDOL LACT 5 MG/ML INJ IV PRN (03:02)
[2019-07-23] MEDS: INSULIN -REGULAR HUMAN 50 UNIT/0.5 ML ML SQ SCH ×2 (06:00)
[2019-07-23] MEDS: HOME MED 1 EA UNK TOP SCH (09:00)
--- NOTE | 2019-07-23 09:10 | P.PN ---
Subjective Date of Service: 07/23/19 Chief Complaint: Unresponsive Patient is comfortable for 4 to hospice care Review of Systems is unable to be obtained Physical Examination - Vital Signs Temperature: 96.7 F Blood Pressure: 150/76 Pulse: 57 Respirations: 16 Pulse Ox (%): 100 - Physical Exam General: Unresponsive Respiratory: Clear to auscultation bilaterally Cardiovascular: No edema, Normal S1 S2 - Studies Microbiology Data (last 24 hrs): 07/18/19 02:25 Blood - Blood Aerobic Blood Culture - Final No growth in 5 days. 07/18/19 02:25 Blood - Blood Anaerobic Blood Culture - Final No growth in 5 days. 07/18/19 02:15 Blood - Blood Aerobic Blood Culture - Final No growth in 5 days. 07/18/19 02:15 Blood - Blood Anaerobic Blood Culture - Final No growth in 5 days. Assessment & Plan - Problems (Diagnosis) (1) Aphasic stroke Current Visit: No Status: Acute Plan: Discuss with daughter referred to [facility] hospice care withdrawal of all care only comfort care now patient is comfortable does not appear to be agitated
[2019-07-23 13:18] VITALS: BP 134/78; TEMP 96.9
--- NOTE | 2019-07-24 16:50 | P.PN ---
Subjective Date of Service: 07/23/19 Chief Complaint: Dysphagia, s/p CVA, PEG malfn Subjective: No new changes (Tolerating TFs via sanabria into stomach. Sanabria much more difficult for her to pull out (has pulled out 2 prior PEG tubes). Sleeping now. Family has decided on hospice.) Review of Systems General: Weakness Neurological: Other (dementia) Physical Examination - Vital Signs Temperature: 96.9 F Blood Pressure: 134/78 Pulse: 68 Respirations: 16 Pulse Ox (%): 97 - Physical Exam General: Disheveled, Other (sleeping) HEENT: Atraumatic, Normocephalic, PERRLA, EOMI Neck: Supple Respiratory: Normal air movement Cardiovascular: Normal pulses Gastrointestinal: Soft and benign, No tenderness, No rebound, No guarding Assessment And Plan - Current Problems (Diagnosis) (1) Dysphagia Status: Acute (2) Pneumonia Status: Acute (3) Sepsis Status: Acute Qualifiers: Sepsis type: sepsis due to unspecified organism (4) H/O ischemic left MCA stroke Status: Acute (5) Hypertension Onset Date: 03/13/18 Status: Acute (6) PEG tube malfunction Status: Acute (7) Parkinsonism Onset Date: 03/13/18 Status: Acute - Plan REC: 1) continue TFs and water boluses 2) continue IV antibiotics 3) anticipate transfer to hospice
== END 2019-07-23 14:16 | disposition home health service (06) | DRG 871 ==
LOC: ER 01:03 → ERHOLD 04:58 → 3RD-ICU 05:28 → 2ND 18:15
PROVIDERS: ADMIT Internal Medicine; ATTEND Internal Medicine Sleep Medicine
PROC: 8E0ZXY6 Isolation (ICD-10-PCS; 2019-07-18)
PROC: 0DJ08ZZ Inspection of Upper Intestinal Tract, Via Natural or Artificial Opening Endoscopic (ICD-10-PCS; principal; 2019-07-21 13:30)
PROC: 0DH63UZ Insertion of Feeding Device into Stomach, Percutaneous Approach (ICD-10-PCS; 2019-07-21 13:30)
DX: A41.9 Sepsis, unspecified organism (principal); J18.9 Pneumonia, unspecified organism; I69.351 Hemiplegia and hemiparesis following cerebral infarction affecting right dominant side; N39.0 Urinary tract infection, site not specified; K94.23 Gastrostomy malfunction; Z66 Do not resuscitate; I10 Essential (primary) hypertension; Z88.5 Allergy status to narcotic agent; Z91.040 Latex allergy status; Z79.01 Long term (current) use of anticoagulants; Z79.82 Long term (current) use of aspirin; Z79.4 Long term (current) use of insulin; Z79.52 Long term (current) use of systemic steroids; Z79.899 Other long term (current) drug therapy; E11.9 Type 2 diabetes mellitus without complications; K44.9 Diaphragmatic hernia without obstruction or gangrene; R13.10 Dysphagia, unspecified; G20 Parkinson's disease
CPT/HCPCS: 36415; 51702; 70450; 71045; 80048; 80053; 80076; 80164; 80202; 81015; 82150; 82550; 82553; 82947; 83605; 83690; 83735; 83880; 84100; 84145; 84484; 85025; 85610; 85730; 87040; 87070; 87081; 87086; 87088; 87804; 93005; 94640; 94760; 96365; 96367; 99285; J0171; J0692; J1170; J1450; J1630; J1815; J2405; J2704; J3370; J7030; J7042; J7509; U0002